=== PATIENT | female | born 1945 | race Caucasian/White ===

== ENCOUNTER → 2020-09-14 10:18 | Outpatient (BNVA) | payer MEDICARE, SELFPAY | PROVIDERS: PCP Internal Medicine; Referring Provider Internal Medicine; Visit Provider Internal Medicine | DX: J44.9 Chronic obstructive pulmonary disease, unspecified (principal); J84.9 Interstitial pulmonary disease, unspecified; R09.02 Hypoxemia | CPT/HCPCS: 99213 ==

== ENCOUNTER 2020-10-10 10:58 | Outpatient (REF) | payer MEDICARE, SELFPAY ==
[2020-10-10 14:11] LABS: MANUAL DIFF FLAG NO
[2020-10-10 14:18] LABS: Basophils Absolute Auto 0.1 X10*3/uL (0.0-0.2); Basophils Percent Auto 0.8 % (0-2); Eosinophils Absolute Auto 0.5 X10*3/uL (0.0-0.4); Eosinophils Percent Auto 6.3 % (0-4); Hematocrit 36.8 % (37-47); Imm Gran Abs Auto 0.02 X10*3/uL (0.00-0.03); Imm Gran Pct Auto 0.3 % (0.0-0.4); Lymphocytes Absolute Auto 1.2 X10*3/uL (1.2-4.9); Lymphocytes Percent Auto 15.9 % (20-40); Mean Corpuscular HGB Conc 32.6 g/dl (31.0-35.0); Mean Corpuscular Hemoglobin 28.5 pg (27.0-33.0); Mean Corpuscular Volume 87.4 fL (80-98); Monocytes Absolute Auto 0.5 X10*3/uL (0.1-1.2); Monocytes Percent Auto 6.7 % (2-11); Neutrophils Absolute Auto 5.2 X10*3/uL (2.0-8.3); Platelet Count 306 X10*3/uL (160-400); Red Blood Count 4.21 X10*6/uL (4.20-5.50); Red Cell Distribution Width 14.9 % (11.0-16.0); White Blood Count 7.4 X10*3/uL (4.8-10.8)
[2020-10-10 14:47] LABS: Alanine Aminotransferase 34 U/L (0-31); Albumin Level 4.4 g/dL (3.5-5.0); Alkaline Phosphatase 94 U/L (39-117); Anion Gap 14 (12-20); Aspartate Amino Transferase 25 U/L (5-31); Bilirubin Total 0.2 mg/dL (0.0-1.0); Blood Urea Nitrogen 27 mg/dL (9-16); Calcium 9.6 mg/dL (8.4-10.2); Carbon Dioxide 26 mmol/L (22-29); Chloride 103 mmol/L (96-108); Estimated Glomerular Filt Rate 37; Glucose Random 106 mg/dL (60-115); Potassium 4.7 mmol/l (3.3-5.1); Sodium 138 mmol/L (135-145); Total Protein 7.3 g/dL (6.5-8.0)
[2020-10-10 15:35] LABS: Estimated Average Glucose 166 mg/dL; Hemoglobin A1c % 7.4 %
== END 2020-10-10 10:59 | disposition home or self-care (01) ==
LOC: HO.10HDL 10:58
PROVIDERS: Visit Provider Internal Medicine
DX: J44.9 Chronic obstructive pulmonary disease, unspecified (principal); E11.9 Type 2 diabetes mellitus without complications; I10 Essential (primary) hypertension; E78.00 Pure hypercholesterolemia, unspecified
CPT/HCPCS: 36415; 80053; 82043; 83036; 85025

== ENCOUNTER 2021-01-11 10:43 | Outpatient (REF) | payer MEDICARE, SELFPAY ==
[2021-01-11 13:37] LABS: MANUAL DIFF FLAG NO
[2021-01-11 13:43] LABS: Basophils Absolute Auto 0.1 X10*3/uL (0.0-0.2); Basophils Percent Auto 0.9 % (0-2); Eosinophils Absolute Auto 0.4 X10*3/uL (0.0-0.4); Eosinophils Percent Auto 5.4 % (0-4); Hematocrit 38.4 % (37-47); Hemoglobin 12.2 g/dl (12.0-16.0); Imm Gran Abs Auto 0.02 X10*3/uL (0.00-0.03); Imm Gran Pct Auto 0.2 % (0.0-0.4); Lymphocytes Absolute Auto 1.3 X10*3/uL (1.2-4.9); Lymphocytes Percent Auto 15.8 % (20-40); Mean Corpuscular HGB Conc 31.8 g/dl (31.0-35.0); Mean Corpuscular Hemoglobin 28.7 pg (27.0-33.0); Mean Corpuscular Volume 90.4 fL (80-98); Mean Platelet Volume 9.8 fL (9.4-12.3); Monocytes Absolute Auto 0.6 X10*3/uL (0.1-1.2); Monocytes Percent Auto 7.2 % (2-11); Neutrophils Absolute Auto 5.8 X10*3/uL (2.0-8.3); Neutrophils Percent Auto 70.5 % (45-73); Platelet Count 272 X10*3/uL (160-400); Red Blood Count 4.25 X10*6/uL (4.20-5.50); Red Cell Distribution Width 14.1 % (11.0-16.0); White Blood Count 8.2 X10*3/uL (4.8-10.8)
[2021-01-11 13:55] LABS: Estimated Average Glucose 137 mg/dL; Hemoglobin A1c % 6.4 %
[2021-01-11 14:10] LABS: Alanine Aminotransferase 32 U/L (0-31); Albumin Level 4.3 g/dL (3.5-5.0); Alkaline Phosphatase 95 U/L (39-117); Anion Gap 14 (12-20); Aspartate Amino Transferase 22 U/L (5-31); Bilirubin Total 0.4 mg/dL (0.0-1.0); Blood Urea Nitrogen 28 mg/dL (9-16); Calcium 9.8 mg/dL (8.4-10.2); Carbon Dioxide 27 mmol/L (22-29); Chloride 103 mmol/L (96-108); Estimated Glomerular Filt Rate 40; Glucose Random 137 mg/dL (60-115); Potassium 4.9 mmol/L (3.3-5.1); Sodium 139 mmol/L (135-145); Total Protein 7.2 g/dL (6.5-8.0)
== END 2021-01-11 10:44 | disposition home or self-care (01) ==
LOC: HO.10HDL 10:43
PROVIDERS: Visit Provider Internal Medicine
DX: E11.22 Type 2 diabetes mellitus with diabetic chronic kidney disease (principal); N18.9 Chronic kidney disease, unspecified; J44.9 Chronic obstructive pulmonary disease, unspecified
CPT/HCPCS: 36415; 80053; 83036; 85025

== ENCOUNTER → 2021-02-13 12:55 | Outpatient (BNVA) | payer MEDICARE, SELFPAY | PROVIDERS: PCP Internal Medicine; Visit Provider Nurse Practitioner Family | DX: I25.10 Atherosclerotic heart disease of native coronary artery without angina pectoris (principal); I11.0 Hypertensive heart disease with heart failure; E78.5 Hyperlipidemia, unspecified; E11.9 Type 2 diabetes mellitus without complications; Z95.5 Presence of coronary angioplasty implant and graft; Z79.899 Other long term (current) drug therapy | CPT/HCPCS: 93005; 99212 ==

== ENCOUNTER → 2021-03-13 09:15 | Outpatient (BNVA) | payer MEDICARE, SELFPAY | PROVIDERS: PCP Internal Medicine; Visit Provider Internal Medicine | DX: J98.4 Other disorders of lung (principal); J44.9 Chronic obstructive pulmonary disease, unspecified; R09.02 Hypoxemia; Z79.899 Other long term (current) drug therapy | CPT/HCPCS: 99212 ==

== ENCOUNTER 2021-05-11 06:48 | Outpatient (REF) | payer MEDICARE, SELFPAY ==
[2021-05-11 11:12] LABS: MANUAL DIFF FLAG NO
[2021-05-11 11:28] LABS: Basophils Absolute Auto 0.1 X10*3/uL (0.0-0.2); Basophils Percent Auto 0.6 % (0-2); Eosinophils Absolute Auto 0.4 X10*3/uL (0.0-0.4); Eosinophils Percent Auto 4.9 % (0-4); Hematocrit 37.3 % (37-47); Hemoglobin 11.8 g/dl (12.0-16.0); Imm Gran Abs Auto 0.03 X10*3/uL (0.00-0.03); Imm Gran Pct Auto 0.4 % (0.0-0.4); Lymphocytes Absolute Auto 1.3 X10*3/uL (1.2-4.9); Mean Corpuscular HGB Conc 31.6 g/dl (31.0-35.0); Mean Corpuscular Hemoglobin 29.4 pg (27.0-33.0); Mean Platelet Volume 10.2 fL (9.4-12.3); Monocytes Absolute Auto 0.6 X10*3/uL (0.1-1.2); Monocytes Percent Auto 7.1 % (2-11); Neutrophils Absolute Auto 5.8 X10*3/uL (2.0-8.3); Platelet Count 271 X10*3/uL (160-400); Red Blood Count 4.01 X10*6/uL (4.20-5.50); Red Cell Distribution Width 13.4 % (11.0-16.0); White Blood Count 8.1 X10*3/uL (4.8-10.8)
[2021-05-11 11:58] LABS: Alanine Aminotransferase 38 U/L (0-31); Albumin Level 4.3 g/dL (3.5-5.0); Alkaline Phosphatase 110 U/L (39-117); Anion Gap 15 (12-20); Aspartate Amino Transferase 33 U/L (5-31); Bilirubin Total 0.4 mg/dL (0.0-1.0); Blood Urea Nitrogen 26 mg/dL (9-16); Calcium 9.4 mg/dL (8.4-10.2); Carbon Dioxide 24 mmol/L (22-29); Chloride 104 mmol/L (96-108); Cholesterol 146 mg/dL; Estimated Glomerular Filt Rate 33; Glucose Fasting 171 mg/dL (60-99); HDL Cholesterol 49 mg/dL; LDL Cholesterol Calculated 67 mg/dl; Sodium 138 mmol/L (135-145); Total Protein 7.1 g/dL (6.5-8.0); Triglycerides 151 mg/dL
[2021-05-11 12:20] LABS: Vitamin D 25-OH Total 41.4 ng/mL (>30)
[2021-05-11 12:23] LABS: Estimated Average Glucose 180 mg/dL; Hemoglobin A1c % 7.9 %
[2021-05-11 12:39] LABS: Creatinine Urine 56.85 mg/dL
== END 2021-05-11 06:49 | disposition home or self-care (01) ==
LOC: HO.HMGCLDS 06:48
PROVIDERS: PCP Internal Medicine; Visit Provider Internal Medicine
DX: I10 Essential (primary) hypertension (principal); E78.00 Pure hypercholesterolemia, unspecified; E11.9 Type 2 diabetes mellitus without complications; E55.9 Vitamin D deficiency, unspecified
CPT/HCPCS: 36415; 80053; 80061; 82043; 82306; 83036; 85025

== ENCOUNTER 2021-08-02 10:01 | Outpatient (REF) | payer MEDICARE, SELFPAY ==
[2021-08-02 11:19] LABS: Alanine Aminotransferase 32 U/L (0-31); Albumin Level 4.2 g/dL (3.5-5.0); Alkaline Phosphatase 97 U/L (39-117); Anion Gap 14 (12-20); Aspartate Amino Transferase 26 U/L (5-31); Bilirubin Total 0.4 mg/dL (0.0-1.0); Blood Urea Nitrogen 24 mg/dL (9-16); Calcium 9.6 mg/dL (8.4-10.2); Carbon Dioxide 25 mmol/L (22-29); Chloride 104 mmol/L (96-108); Estimated Glomerular Filt Rate 36; Glucose Random 168 mg/dL (60-115); Potassium 4.8 mmol/L (3.3-5.1); Sodium 138 mmol/L (135-145); Total Protein 6.8 g/dL (6.5-8.0)
[2021-08-02 11:30] LABS: Estimated Average Glucose 140 mg/dL; Hemoglobin A1c % 6.5 %
== END 2021-08-02 10:02 | disposition home or self-care (01) ==
LOC: HO.10HDL 10:01
PROVIDERS: Visit Provider Internal Medicine
DX: J44.9 Chronic obstructive pulmonary disease, unspecified (principal); I12.9 Hypertensive chronic kidney disease with stage 1 through stage 4 chronic kidney disease, or unspecified chronic kidney disease; N18.9 Chronic kidney disease, unspecified; E11.22 Type 2 diabetes mellitus with diabetic chronic kidney disease
CPT/HCPCS: 36415; 80053; 82043; 83036

== ENCOUNTER → 2021-08-21 12:10 | Outpatient (BNVA) | payer MEDICARE, SELFPAY | PROVIDERS: PCP Internal Medicine; Referring Provider Internal Medicine; Visit Provider Internal Medicine | DX: I25.10 Atherosclerotic heart disease of native coronary artery without angina pectoris (principal); I50.32 Chronic diastolic (congestive) heart failure; I11.0 Hypertensive heart disease with heart failure; I35.9 Nonrheumatic aortic valve disorder, unspecified; J44.9 Chronic obstructive pulmonary disease, unspecified; J98.4 Other disorders of lung; R09.02 Hypoxemia; E11.9 Type 2 diabetes mellitus without complications; E78.5 Hyperlipidemia, unspecified; Z87.891 Personal history of nicotine dependence; Z95.5 Presence of coronary angioplasty implant and graft | CPT/HCPCS: 99212 ==

== ENCOUNTER → 2021-09-18 09:16 | Outpatient (BNVA) | payer MEDICARE, SELFPAY | PROVIDERS: PCP Internal Medicine; Visit Provider Internal Medicine | DX: J44.9 Chronic obstructive pulmonary disease, unspecified (principal); J98.4 Other disorders of lung; R09.02 Hypoxemia | CPT/HCPCS: Q3014 ==

== ENCOUNTER → 2021-10-12 09:07 | Outpatient (REF) | payer MEDICARE, SELFPAY ==
--- NOTE | 2021-10-12 09:11 | CA_ITS ---
Transthoracic Echocardiogram Patient (Last, First, Middle): Gabi Lugo, Gender: Female Date of : 1945 Age: 76 Procedure Date: 10/12/2021 Procedure Type: Transthoracic Echocardiogram Location: OP Height: 165.1 cm Weight: 81.65 kg BSA: 1.89 m2 Heart Rate: bpm BP: 132 / 75 mmHg [employer]: [employer] Referring MD: Rajesh Simpson MD Symptoms: I35.9 - Nonrheumatic aortic valve disorder, unspecified Study Quality: Fair ECG Rhythm: Sinus Conclusions: - The left ventricular systolic function is normal. The calculated ejection fraction is 62% by biplane method. - There is severe calcification of the aortic valve. There is mild aortic valve stenosis. - There is moderate mitral annular calcification. Findings Left Ventricle Normal left ventricular cavity size. There is mildly increased left ventricular wall thickness. The left ventricular systolic function is normal. The calculated ejection fraction is 62% by biplane method. There is no evidence of regional wall motion abnormalities. E/E prime ratio is >15, consistent with elevated filling pressures. Evidence suggests grade I (mild) diastolic dysfunction. Right Ventricle Normal right ventricular cavity size and systolic function. Atria The left atrium is likely dilated. The right atrium is normal in size. Aortic Valve There is severe calcification of the aortic valve. There is mild aortic valve stenosis. The peak aortic velocity is 2.55 m/s with a calculated peak gradient of 26 mmHg. The mean gradient is 16 mmHg. The aortic valve area is 1.58 cm2. There is trace (trivial) aortic valve regurgitation. Mitral Valve There is moderate mitral annular calcification. There is mild mitral valve regurgitation. There is no mitral valve stenosis. Pulmonic Valve The pulmonic valve was not well visualized. Tricuspid Valve Normal tricuspid valve structure. There is trace tricuspid valve regurgitation. The pulmonary artery systolic pressure is normal. Great Vessels The aortic annulus, sinuses of valsalva, and asc aorta are normal in size. Venous The inferior vena cava is normal in size and collapses greater than 50% with inspiration. Pericardium/Pleural There is no evidence of pericardial effusion. Prior Study Comparison No significant change compared to prior study dated: 08/16/2020. Measurements 2D Linear Measurements IVSd: 1.16 0.6-0.9/0.6-1.0 cm LVIDd: 4.15 3.9-5.3/4.2-5.9 cm LVIDd Index: 2.20 2.4-3.2/2.2-3.1 cm/m2 LVIDs: 2.52 2.0-3.6 cm LVPWd: 1.12 0.7-1.1 cm Ao Root: 3.60 2.1-3.5 cm LA Diam: 4.00 2.7-3.8/3.0-4.0 cm LAIDs Index: 2.12 1.5-2.3 cm/m2 LV Mass: 202.15 67-162/88-224 g LV Mass Index: 106.96 43-95/49-115 g/m2 LVOT Diam: 2.10 3.0+(-)1.3 cm 2D Systolic Function EF 4C: 60.50 >55% EF 2C: 61.20 >55% EF BiP: 61.50 >55% Mitral Valve MV Pk E: 0.85 MV PK A: 1.16 MV Decel Time: 240.00 E/A: 0.70 E'Lateral: 5.22 E'Medial: 3.81 E/E' Med: 22.30 E/E' Lat: 16.20 PHT: 70.00 MVA PHT: 3.14 Decel [place]: 3.54 Aortic Valve AoV Pk Myron: 2.55 AoV Mn Myron: 1.89 AoV VTI: 0.59 AoV Pk Grad: 26.00 Aov Mn Grad: 16.00 COLLEEN Cont.VTI: 1.58 LVOT LVOT Pk Myron: 1.16 LVOT Mn Myron: 0.83 LVOT VTI: 0.27 LVOT Pk Grad: 5.00 LVOT Mn Grad: 3.00 LVOT Diam: 2.10 LVOT Area: 3.46 Diastolic Function MV Pk E: 0.85 MV Pk A: 1.16 E/A: 0.70 E'Medial: 3.81 E/E' Med: 22.30 E' Laterial: 5.22 E/E' Lat: 16.20 Right Ventricle TAPSE (mm): 2.16 TVS' Myron: 15.20 Tricuspid Valve TR Pk Myron: 1.89 TR Pk Grad: 14.00 RA Press: 3.00 RVSP: 17.00 Great Vessels Aorta Ao Root-2D: 3.60 2.0-3.7 cm Ao Asc: 3.40 2.1-3.4 cm Updated in Other Vendor System with Status of Final Rajesh Simpson MD electronically signed on 10/14/2021 12:12:46 PM with status of Final
== END ==
LOC: HO.CARD 09:07
PROVIDERS: PCP Internal Medicine; Visit Provider Internal Medicine
DX: I35.9 Nonrheumatic aortic valve disorder, unspecified (principal)
CPT/HCPCS: 93306

== ENCOUNTER 2022-02-08 07:11 | Outpatient (REF) | payer MEDICARE, SELFPAY ==
[2022-02-08 11:38] LABS: MANUAL DIFF FLAG NO
[2022-02-08 11:49] LABS: Basophils Absolute Auto 0.1 X10*3/uL (0.0-0.2); Basophils Percent Auto 0.9 % (0-2); Eosinophils Absolute Auto 0.4 X10*3/uL (0.0-0.4); Eosinophils Percent Auto 4.5 % (0-4); Hemoglobin 12.6 g/dl (12.0-16.0); Imm Gran Abs Auto 0.03 X10*3/uL (0.00-0.03); Imm Gran Pct Auto 0.3 % (0.0-0.4); Lymphocytes Absolute Auto 1.3 X10*3/uL (1.2-4.9); Lymphocytes Percent Auto 14.2 % (20-40); Mean Corpuscular HGB Conc 30.7 g/dl (31.0-35.0); Mean Corpuscular Hemoglobin 28.9 pg (27.0-33.0); Monocytes Absolute Auto 0.6 X10*3/uL (0.1-1.2); Monocytes Percent Auto 6.4 % (2-11); Neutrophils Absolute Auto 6.6 x10*3/uL (2.0-8.3); Neutrophils Percent Auto 73.7 % (45-73); Platelet Count 262 X10*3/uL (160-400); Red Blood Count 4.36 X10*6/uL (4.20-5.50); Red Cell Distribution Width 13.8 % (11.0-16.0)
[2022-02-08 11:59] LABS: Estimated Average Glucose 154 mg/dL
[2022-02-08 12:16] LABS: Alanine Aminotransferase 27 U/L (0-31); Albumin Level 4.1 g/dL (3.5-5.0); Alkaline Phosphatase 94 U/L (39-117); Anion Gap 13 (12-20); Aspartate Amino Transferase 22 U/L (5-31); Bilirubin Total 0.4 mg/dL (0.0-1.0); Blood Urea Nitrogen 29 mg/dL (9-16); Calcium 9.6 mg/dL (8.4-10.2); Carbon Dioxide 25 mmol/L (22-29); Chloride 105 mmol/L (96-108); Estimated Glomerular Filt Rate 31; Glucose Fasting 165 mg/dL (60-99); Potassium 5.4 mmol/L (3.3-5.1); Sodium 138 mmol/L (135-145); Total Protein 7.2 g/dL (6.5-8.0)
[2022-02-08 12:28] LABS: Creatinine Urine 77.39 mg/dL
== END 2022-02-08 07:12 | disposition home or self-care (01) ==
LOC: HO.HMGCLDS 07:11
PROVIDERS: Visit Provider Internal Medicine
DX: E11.22 Type 2 diabetes mellitus with diabetic chronic kidney disease (principal); I12.9 Hypertensive chronic kidney disease with stage 1 through stage 4 chronic kidney disease, or unspecified chronic kidney disease; N18.9 Chronic kidney disease, unspecified; J44.9 Chronic obstructive pulmonary disease, unspecified
CPT/HCPCS: 36415; 80053; 82043; 83036; 85025

== ENCOUNTER → 2022-03-13 09:09 | Outpatient (BNVA) | payer MEDICARE, SELFPAY | PROVIDERS: PCP Internal Medicine; Referring Provider Internal Medicine; Visit Provider Internal Medicine | DX: I25.10 Atherosclerotic heart disease of native coronary artery without angina pectoris (principal); I11.0 Hypertensive heart disease with heart failure; I50.32 Chronic diastolic (congestive) heart failure; I35.9 Nonrheumatic aortic valve disorder, unspecified; E11.9 Type 2 diabetes mellitus without complications; Z79.82 Long term (current) use of aspirin; Z79.899 Other long term (current) drug therapy; Z95.5 Presence of coronary angioplasty implant and graft | CPT/HCPCS: 93005; 99212 ==

== ENCOUNTER → 2022-03-20 09:51 | Outpatient (BNVA) | payer MEDICARE, SELFPAY | PROVIDERS: PCP Internal Medicine; Visit Provider Internal Medicine | DX: J44.9 Chronic obstructive pulmonary disease, unspecified (principal); J98.4 Other disorders of lung; R09.02 Hypoxemia | CPT/HCPCS: 99212 ==

== ENCOUNTER → 2022-07-16 08:18 | Outpatient (REF) | payer MEDICARE, SELFPAY ==
--- NOTE | 2022-07-16 08:21 | CA_ITS ---
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 The visually estimated ejection fraction is between 65-70%. - The left atrium is severely dilated. - There is severe calcification of the aortic valve. The mean gradient is 12 mmHg. The aortic valve area is 2.11 cm2. There is trace (trivial) aortic valve regurgitation. No significant aortic stenosis. - There is moderate mitral annular calcification. Findings Left Ventricle Normal left ventricular cavity size. There is moderately increased left ventricular wall thickness. The left ventricular systolic function is normal. The visually estimated ejection fraction is between 65-70%. There is no evidence of regional wall motion abnormalities. E/E prime ratio is between 8 and 15 consistent with indeterminate filling pressures. Evidence suggests grade I (mild) diastolic dysfunction. Right Ventricle Normal right ventricular cavity size and systolic function. Atria The left atrium is severely dilated. The right atrium is normal in size. Aortic Valve There is severe calcification of the aortic valve. The mean gradient is 12 mmHg. The aortic valve area is 2.11 cm2. There is trace (trivial) aortic valve regurgitation. No significant aortic stenosis. Mitral Valve There is moderate mitral annular calcification. There is mild mitral valve regurgitation. Cannot exclude mild mitral stenosis. Pulmonic Valve The pulmonic valve is likely normal. Tricuspid Valve Normal tricuspid valve structure. There is trace tricuspid valve regurgitation. There is no evidence of pulmonary hypertension. Great Vessels The aortic annulus, sinuses of valsalva, and asc aorta are normal in size. Venous The inferior vena cava is normal in size. Pericardium/Pleural There is no evidence of pericardial effusion. Prior Study Comparison No significant change compared to prior study dated: 10/12/2011. Measurements 2D Linear Measurements IVSd: 1.29 0.6-0.9/0.6-1.0 cm LVIDd: 4.85 3.9-5.3/4.2-5.9 cm LVIDd Index: 2.54 2.4-3.2/2.2-3.1 cm/m2 LVIDs: 2.74 2.0-3.6 cm LVPWd: 1.33 0.7-1.1 cm Ao Root: 3.70 2.1-3.5 cm LA Diam: 5.10 2.7-3.8/3.0-4.0 cm LAIDs Index: 2.67 1.5-2.3 cm/m2 LV Mass: 314.86 67-162/88-224 g LV Mass Index: 164.85 43-95/49-115 g/m2 LVOT Diam: 2.10 3.0+(-)1.3 cm 2D Systolic Function EF 4C: 66.30 >55% EF 2C: 62.40 >55% EF BiP: 64.00 >55% Mitral Valve MV VTI: 0.42 MV Pk Myron: 1.29 MV Mn Myron: 0.79 MV Pk Grad: 7.00 MV Mn Grad: 3.00 MV Pk E: 0.71 MV PK A: 1.02 MV Decel Time: 179.00 E/A: 0.70 E'Lateral: 7.07 E'Medial: 5.00 E/E' Med: 14.20 E/E' Lat: 10.10 PHT: 52.00 MVA PHT: 4.23 MVA Continuity: 2.46 Decel [place]: 3.97 Aortic Valve AoV Pk Myron: 2.48 AoV Mn Myron: 1.56 AoV VTI: 0.49 AoV Pk Grad: 25.00 Aov Mn Grad: 12.00 COLLEEN Cont.VTI: 2.11 LVOT LVOT Pk Myron: 1.23 LVOT Mn Myron: 0.87 LVOT VTI: 0.30 LVOT Pk Grad: 6.00 LVOT Mn Grad: 4.00 LVOT Diam: 2.10 LVOT Area: 3.46 Diastolic Function MV Pk E: 0.71 MV Pk A: 1.02 E/A: 0.70 E'Medial: 5.00 E/E' Med: 14.20 E' Laterial: 7.07 E/E' Lat: 10.10 Right Ventricle TAPSE (mm): 25.00 TVS' Myron: 16.00 Tricuspid Valve TR Pk Myron: 1.72 TR Pk Grad: 12.00 RA Press: 8.00 RVSP: 20.00 Great Vessels Aorta Ao Root-2D: 3.70 2.0-3.7 cm Ao Asc: 3.00 2.1-3.4 cm Pulmonary Valve PV Pk Myron: 1.21 Peak PV Grad: 6.00 Updated in Other Vendor System with Status of Final Rajesh Simpson MD electronically signed on 07/16/2022 12:38:37 PM with status of Final
== END ==
LOC: HO.CARD 08:18
PROVIDERS: PCP Internal Medicine; Visit Provider Internal Medicine
DX: I35.9 Nonrheumatic aortic valve disorder, unspecified (principal)
CPT/HCPCS: 93306

== ENCOUNTER → 2022-08-20 12:23 | Outpatient (BNVA) | payer MEDICARE, SELFPAY | PROVIDERS: PCP Internal Medicine; Referring Provider Internal Medicine; Visit Provider Internal Medicine | DX: I11.0 Hypertensive heart disease with heart failure (principal); I25.10 Atherosclerotic heart disease of native coronary artery without angina pectoris; I50.32 Chronic diastolic (congestive) heart failure; I35.9 Nonrheumatic aortic valve disorder, unspecified; I05.9 Rheumatic mitral valve disease, unspecified; E11.8 Type 2 diabetes mellitus with unspecified complications | CPT/HCPCS: 93005; 99212 ==

== ENCOUNTER → 2022-09-17 10:15 | Outpatient (BNVA) | payer MEDICARE, SELFPAY | PROVIDERS: PCP Internal Medicine; Visit Provider Internal Medicine | DX: J44.9 Chronic obstructive pulmonary disease, unspecified (principal); J98.4 Other disorders of lung; R09.02 Hypoxemia | CPT/HCPCS: 99212 ==

== ENCOUNTER 2022-11-07 07:28 | Outpatient (REF) | payer MEDICARE, SELFPAY ==
[2022-11-07 11:48] LABS: Estimated Average Glucose 171 mg/dL; Hemoglobin A1c % 7.6 %
[2022-11-07 12:09] LABS: Anion Gap 15 (12-20); Blood Urea Nitrogen 31 mg/dL (9-16); Calcium 9.4 mg/dL (8.4-10.2); Carbon Dioxide 26 mmol/L (22-29); Chloride 103 mmol/L (96-108); Estimated Glomerular Filt Rate 26; Potassium 4.6 mmol/L (3.3-5.1); Sodium 139 mmol/L (135-145)
[2022-11-07 12:30] LABS: Vitamin D 25-OH Total 39.8 ng/mL (>30)
[2022-11-07 12:38] LABS: Creatinine Urine 64.26 mg/dL; Protein/Creatinine Ratio, Ur 1.38 (<0.2); Total Protein Urine Random 89 mg/dL (<12)
[2022-11-07 12:41] LABS: Alanine Aminotransferase 27 U/L (0-31); Albumin Level 4.1 g/dL (3.5-5.0); Alkaline Phosphatase 106 U/L (39-117); Anion Gap 13 (12-20); Aspartate Amino Transferase 21 U/L (5-31); Bilirubin Total 0.5 mg/dL (0.0-1.0); Blood Urea Nitrogen 30 mg/dL (9-16); Calcium 9.5 mg/dL (8.4-10.2); Carbon Dioxide 28 mmol/L (22-29); Chloride 104 mmol/L (96-108); Estimated Glomerular Filt Rate 27; Glucose Random 191 mg/dL (60-115); Potassium 4.6 mmol/L (3.3-5.1); Sodium 140 mmol/L (135-145); Total Protein 7.2 g/dL (6.5-8.0)
[2022-11-07 12:42] LABS: Creatinine Urine 65.36 mg/dL
[2022-11-07 12:54] LABS: Microalbum/Creatinine Ratio Ur 823.1 ug/mg cr
[2022-11-08 14:14] LABS: Calcium (PTHI) 9.5 mg/dL (8.6-10.4); PTHI 108 pg/mL (16-77)
== END 2022-11-07 07:29 | disposition home or self-care (01) ==
LOC: HO.HMGCLDS 07:28
PROVIDERS: PCP Internal Medicine; Visit Provider Internal Medicine
DX: I12.9 Hypertensive chronic kidney disease with stage 1 through stage 4 chronic kidney disease, or unspecified chronic kidney disease (principal); E11.22 Type 2 diabetes mellitus with diabetic chronic kidney disease; N18.9 Chronic kidney disease, unspecified; J44.9 Chronic obstructive pulmonary disease, unspecified
CPT/HCPCS: 36415; 80051; 80053; 82043; 82306; 82310; 82565; 83036; 83970; 84156; 84520

== ENCOUNTER 2023-01-23 13:48 | Inpatient (IN) | payer MEDICARE, SELFPAY ==
--- NOTE | ~2023-01-23 | US_ITS ---
EXAMINATION: US ABDOMEN COMPLETE CLINICAL INFORMATION: Elevated liver function tests. COMPARISON: None TECHNIQUE: Real-time imaging of the abdominal viscera. FINDINGS: PANCREAS: Normal. ABDOMINAL AORTA: The proximal and mid segments are normal in caliber. The distal abdominal aorta is not well visualized. INFERIOR VENA CAVA: Visualized portions are normal. LIVER: Liver echotexture is increased and slightly heterogeneous suggestive of hepatocellular disease. The contour of the liver is slightly irregular questionable for mild cirrhotic change. No focal liver lesion is seen. No biliary duct dilatation. GALLBLADDER: Gallbladder is slightly contracted. There are gallstones. The gallbladder wall measures 0.5 cm which is slightly increased. This may be overestimated as the gallbladder is contracted. No gallbladder wall edema or pericholecystic fluid. COMMON BILE DUCT: Normal in caliber measuring 0.3 - 0.6 cm in diameter. RIGHT KIDNEY: Normal. No hydronephrosis. No renal calculi or focal parenchymal lesions. The kidney measures 12 cm in maximum dimension. LEFT KIDNEY: Normal. No hydronephrosis. No renal calculi or focal parenchymal lesions. The kidney measures 13 cm in maximum dimension. SPLEEN: Normal. The spleen measures 9.6 cm in maximum dimension. FREE FLUID: None. US/US abdomen complete IMPRESSION: Echogenic heterogeneous liver suggestive of hepatocellular disease and question mild cirrhotic change. Gallstones. Limited visualization of the distal aorta.
--- NOTE | ~2023-01-23 | CT_ITS ---
EXAMINATION: CT CHEST WITHOUT CONTRAST CLINICAL INFORMATION: Hypoxia, shortness of breath COMPARISON: 03/22/2018 TECHNIQUE: Multidetector volumetric CT imaging of the chest was done. Axial MIP volume rendering provided. Sagittal and coronal reformatted images were obtained. This CT examination was performed using dose optimization techniques as appropriate, variously including the following: *Automated exposure control *Adjustment of mA and/or kV according to patient size (this includes techniques or standardized protocols for targeted exams where dose is matched to indication/reason for exam; i.e. extremities or head) *Use of iterative reconstruction technique DLP: 249 mGy-cm FINDINGS: LUNGS: Redemonstrated biapical scarring. Redemonstrated moderate to severe upper lobe predominant emphysema, similar to prior. Regions of subpleural reticulation bilaterally appear overall mildly increased from prior, raising the possibility of developing superimposed nonspecific interstitial lung disease. No new region of consolidation is seen. No new suspicious lung nodules are seen. MEDIASTINUM: Visualized thyroid gland is unremarkable. Multiple scattered mildly enlarged lymph nodes are redemonstrated, similar to prior. Cardiac size is within normal limits; no pericardial effusion. There is atherosclerotic calcification along the aorta. CORONARY ARTERY CALCIFICATION: Present PLEURA: There is no pleural effusion. No pleural mass or thickening. AXILLA: No lymphadenopathy. UPPER ABDOMEN: Unremarkable. OSSEOUS STRUCTURES: Redemonstrated chronic T8 compression deformity. CT/CT chest wo IV con IMPRESSION: 1. Redemonstrated moderate to severe upper lobe predominant emphysema. Regions of subpleural reticulation bilaterally appear overall mildly increased from prior, raising the possibility of developing superimposed nonspecific interstitial lung disease. 2. Multiple mildly enlarged mediastinal lymph nodes, overall similar to 2018. 3. Coronary artery calcifications. Correlation with cardiac risk factors is recommended.
--- NOTE | ~2023-01-23 | XR_ITS ---
EXAMINATION: XR CHEST CLINICAL INFORMATION: Shortness of breath COMPARISON: 07/04/2020 TECHNIQUE: Frontal view of the chest was obtained. FINDINGS: Cardiac leads overlie the chest. The lungs are well expanded. Diffuse bronchial wall thickening. No pleural effusion or pneumothorax. The cardiomediastinal silhouette is unchanged, with a calcified aorta. XR/XR chest 1V IMPRESSION: No dense consolidation. Bronchial wall thickening can be seen with a small airways process such as asthma or atypical/viral infection.
[2023-01-23 14:15] VITALS: BP 176/68; PULSE 95; RESP 26; TEMP 37.3; O2SAT 78; BMI 29.7
--- NOTE | 2023-01-23 14:15 | ED.SOB ---
HPI - SOB/Dyspnea General Chief Complaint: General Medical Stated Complaint: difficulty breathing Time Seen by Provider: 01/23/23 14:49 Related Data Home Medications Medication Instructions Recorded Confirmed aspirin 81 mg tablet,delayed 81 mg PO DAILY 09/14/20 08/20/22 release cholecalciferol (vitamin D3) 25 25 mcg PO DAILY 09/14/20 08/20/22 mcg (1,000 unit) capsule lisinopril 40 mg tablet 20 mg PO DAILY 02/13/21 08/20/22 multivitamin (Daily Multi-Vitamin 1 tab PO DAILY 09/18/21 08/20/22 tablet) amlodipine 5 mg tablet 5 mg PO DAILY 03/13/22 08/20/22 glipizide 5 mg tablet 5 mg PO BID 03/20/22 08/20/22 Previous Rx's Medication Instructions Recorded rosuvastatin 40 mg tablet 40 mg PO DAILY 90 days #90 tabs 08/29/22 Allergies Allergy/AdvReac Type Severity Reaction Status Date / Time No Known Allergies Allergy Verified 01/23/23 14:21 [No Known Allergies*] [facility] Past Medical History Medical History CAD (coronary artery disease) Chronic diastolic heart failure COPD (chronic obstructive pulmonary disease) Diabetes Diastolic dysfunction Hyperlipidemia Hypertension Hypoxemia Restrictive lung disease Type 2 diabetes mellitus with unspecified complications Surgical History History of left cataract surgery Stented coronary artery Family History Family History Father Diabetes Mother Unknown Social History Social History Patient Tobacco Use Status: Former Tobacco user Smoked in Last 30 Days: No Use of substances other than those prescribed or required for medical reasons: No Any prior treatment program specific to substance use: No Advance Directives: No Physical Exam Vital Signs: Vital Signs: Last Vital Signs Temp 99.1 F 01/23/23 14:15 Pulse 101 H 01/23/23 14:55 Resp 28 H 01/23/23 14:55 BP 176/68 H 01/23/23 14:15 Pulse Ox 85 L 01/23/23 15:15 O2 Del Method 01/23/23 15:15 O2 Flow Rate 2 01/23/23 15:15 Oxygen Flow Rate 2 01/23/23 14:15 BMI result Body Mass Index 29.7 Course Course Course Narrative: YRN: [id number], with past medical history of COPD on 2L oxygen at home, DM, HTN, HLD, and CHF, presenting for evaluation of worsening SOB, worse with ambulation x 1 week. Reports cough, no sputum. Denies fevers or chest pain. Patient is diaphoretic, with oxygen saturation in low 70s on 2L, respiratory rate in mid 30s. Increased supplemental oxygen to 6L and now saturating in at 97-99%. Labs, EKG, chest x-ray, methylprednisolone 125mg IV push, and albuterol 10mg updraft ordered. Patient will be brought directly to the main ER for further management. Medications Administered Discontinued Medications Generic Name Dose Route Start Last Admin Trade Name Freq PRN Reason Stop Dose Admin Albuterol Sulfate 10 mg 01/23/23 14:17 01/23/23 14:54 Albuterol Sulfate (0.083%) 2.5 Mg/3 Ml Vial.Neb INHALE 01/23/23 14:18 10 mg ONCE ONE Administration Furosemide 40 mg 01/23/23 14:59 01/23/23 15:03 Furosemide 40 Mg/4 Ml Vial IVPUSH 01/23/23 15:00 40 mg STAT STA Administration Protocol Ceftriaxone Sodium 1 gm/ 50 mls @ 100 mls/hr 01/23/23 15:01 01/23/23 16:11 Sodium Chloride IV 01/23/23 15:30 Infused ONCE ONE Infusion Azithromycin 500 mg/ Sodium 250 mls @ 125 mls/hr 01/23/23 15:01 01/23/23 18:35 Chloride IV 01/23/23 17:00 Infused ONCE ONE Infusion Methylprednisolone Sodium Succinate 125 mg 01/23/23 14:20 01/23/23 14:51 Methylprednisolone Sod Succ 125 Mg/2 Ml Vial IVPUSH 01/23/23 14:21 125 mg ONCE ONE Administration Medical Decision Making Lab Data 01/23/23 14:52 01/23/23 14:52 Labs: Lab Results 01/23/23 01/23/23 01/23/23 Range/Units 14:52 14:52 14:52 WBC 9.1 (4.8-10.8) X10*3/uL RBC 4.03 L (4.20-5.50) X10*6/uL Hgb 11.3 L (12.0-16.0) g/dl Hct 35.8 L (37.0-47.0) % MCV 88.8 (80.0-98.0) fL MCH 28.0 (27.0-33.0) pg MCHC 31.6 (31.0-35.0) g/dl RDW 13.9 (11.0-16.0) % Plt Count 352 D (160-400) X10*3/uL MPV 8.7 L (9.4-12.3) fL Immature Gran % (Auto) 0.7 H (0.0-0.4) % Neut % (Auto) 82.4 H (45-73) % Lymph % (Auto) 9.1 L (20-40) % [place] % (Auto) 5.7 (2-11) % Eos % (Auto) 1.6 (0-4) % Baso % (Auto) 0.5 (0-2) % Lymph # (Auto) 0.8 L (1.2-4.9) X10*3/uL [place] # (Auto) 0.5 (0.1-1.2) X10*3/uL Eos # (Auto) 0.2 (0.0-0.4) X10*3/uL Baso # (Auto) 0.1 (0.0-0.2) X10*3/uL Abs Immat Gran (auto) 0.06 H (0.00-0.03) X10*3/uL Absolute Neuts (auto) 7.5 (2.0-8.3) x10*3/uL Absolute Nucleated RBC 0.000 (0.0-0.012) X10*3/uL Nucleated RBC % (auto) 0.0 (0.0-0.2) /100WBC VBG pH (7.32-7.43) VBG pCO2 mmHg VBG pO2 mmHg VBG HCO3 (22-26) mmol/L VBG O2 Saturation % VBG Base Excess mmol/L Sodium 138 (135-145) mmol/L Potassium 5.2 H (3.3-5.1) mmol/L Chloride 102 (96-108) mmol/L Carbon Dioxide 27 (22-29) mmol/L Anion Gap 14 (12-20) BUN 35 H (9-16) mg/dL Creatinine 1.87 H (0.5-1.4) mg/dL Estim Creat Clear Calc 26.4 Estimated GFR 26 Random Glucose 191 H (60-115) mg/dL Lactic Acid (0.5-2.0) mmol/L Calcium 9.1 (8.4-10.2) mg/dL Magnesium 1.9 (1.6-2.6) mg/dL Total Bilirubin 0.3 (0.0-1.0) mg/dL Direct Bilirubin 0.2 (0.0-0.5) mg/dL AST 74 H (5-31) U/L ALT 88 H (0-31) U/L Alkaline Phosphatase 137 H (39-117) U/L B-Natriuretic Peptide 261 H (<100) pg/mL Total Protein 7.0 (6.5-8.0) g/dL Albumin 3.4 L (3.5-5.0) g/dL Lipase 34 (8-78) U/L Urine Color Urine Appearance Urine pH (5.0-9.0) Ur Specific [place] (1.005-1.025) Urine Protein (Neg-Trace) mg/dL Urine Glucose (UA) (Negative) mg/dL Urine Ketones (Negative) mg/dL Urine Blood (Negative) Urine Nitrite (Negative) Ur Leukocyte Esterase (Negative) Urine RBC (0-2) /HPF Urine WBC (0-5) /HPF Ur Squamous Epith Cells (0-2) /HPF Urine Bacteria (None Seen) Hyaline Casts (0-2) /LPF COVID-19 ([facility]) (Negative) COVID-19 Clin Com Influenza Type A ([facility]) (Negative) Influenza Type A (PCR) Influenza Type B ([facility]) (Negative) Influenza Type B (PCR) Influenza A & B Note RSV RNA Qual (PCR) SARS-CoV-2 RNA (RT-PCR) 01/23/23 01/23/23 01/23/23 Range/Units 14:52 14:57 15:11 WBC (4.8-10.8) X10*3/uL RBC (4.20-5.50) X10*6/uL Hgb (12.0-16.0) g/dl Hct (37.0-47.0) % MCV (80.0-98.0) fL MCH (27.0-33.0) pg MCHC (31.0-35.0) g/dl RDW (11.0-16.0) % Plt Count (160-400) X10*3/uL MPV (9.4-12.3) fL Immature Gran % (Auto) (0.0-0.4) % Neut % (Auto) (45-73) % Lymph % (Auto) (20-40) % [place] % (Auto) (2-11) % Eos % (Auto) (0-4) % Baso % (Auto) (0-2) % Lymph # (Auto) (1.2-4.9) X10*3/uL [place] # (Auto) (0.1-1.2) X10*3/uL Eos # (Auto) (0.0-0.4) X10*3/uL Baso # (Auto) (0.0-0.2) X10*3/uL Abs Immat Gran (auto) (0.00-0.03) X10*3/uL Absolute Neuts (auto) (2.0-8.3) x10*3/uL Absolute Nucleated RBC (0.0-0.012) X10*3/uL Nucleated RBC % (auto) (0.0-0.2) /100WBC VBG pH 7.35 (7.32-7.43) VBG pCO2 44 mmHg VBG pO2 53 mmHg VBG HCO3 24 (22-26) mmol/L VBG O2 Saturation 72.0 % VBG Base Excess -0.9 mmol/L Sodium (135-145) mmol/L Potassium (3.3-5.1) mmol/L Chloride (96-108) mmol/L Carbon Dioxide (22-29) mmol/L Anion Gap (12-20) BUN (9-16) mg/dL Creatinine (0.5-1.4) mg/dL Estim Creat Clear Calc Estimated GFR Random Glucose (60-115) mg/dL Lactic Acid 0.8 (0.5-2.0) mmol/L Calcium (8.4-10.2) mg/dL Magnesium (1.6-2.6) mg/dL Total Bilirubin (0.0-1.0) mg/dL Direct Bilirubin (0.0-0.5) mg/dL AST (5-31) U/L ALT (0-31) U/L Alkaline Phosphatase (39-117) U/L B-Natriuretic Peptide (<100) pg/mL Total Protein (6.5-8.0) g/dL Albumin (3.5-5.0) g/dL Lipase (8-78) U/L Urine Color Urine Appearance Urine pH (5.0-9.0) Ur Specific [place] (1.005-1.025) Urine Protein (Neg-Trace) mg/dL Urine Glucose (UA) (Negative) mg/dL Urine Ketones (Negative) mg/dL Urine Blood (Negative) Urine Nitrite (Negative) Ur Leukocyte Esterase (Negative) Urine RBC (0-2) /HPF Urine WBC (0-5) /HPF Ur Squamous Epith Cells (0-2) /HPF Urine Bacteria (None Seen) Hyaline Casts (0-2) /LPF COVID-19 ([facility]) (Negative) COVID-19 Clin Com Influenza Type A ([facility]) (Negative) Influenza Type A (PCR) Cancelled Influenza Type B ([facility]) (Negative) Influenza Type B (PCR) Cancelled Influenza A & B Note RSV RNA Qual (PCR) Cancelled SARS-CoV-2 RNA (RT-PCR) Cancelled 01/23/23 01/23/23 01/23/23 Range/Units 17:44 17:44 17:44 WBC (4.8-10.8) X10*3/uL RBC (4.20-5.50) X10*6/uL Hgb (12.0-16.0) g/dl Hct (37.0-47.0) % MCV (80.0-98.0) fL MCH (27.0-33.0) pg MCHC (31.0-35.0) g/dl RDW (11.0-16.0) % Plt Count (160-400) X10*3/uL MPV (9.4-12.3) fL Immature Gran % (Auto) (0.0-0.4) % Neut % (Auto) (45-73) % Lymph % (Auto) (20-40) % [place] % (Auto) (2-11) % Eos % (Auto) (0-4) % Baso % (Auto) (0-2) % Lymph # (Auto) (1.2-4.9) X10*3/uL [place] # (Auto) (0.1-1.2) X10*3/uL Eos # (Auto) (0.0-0.4) X10*3/uL Baso # (Auto) (0.0-0.2) X10*3/uL Abs Immat Gran (auto) (0.00-0.03) X10*3/uL Absolute Neuts (auto) (2.0-8.3) x10*3/uL Absolute Nucleated RBC (0.0-0.012) X10*3/uL Nucleated RBC % (auto) (0.0-0.2) /100WBC VBG pH (7.32-7.43) VBG pCO2 mmHg VBG pO2 mmHg VBG HCO3 (22-26) mmol/L VBG O2 Saturation % VBG Base Excess mmol/L Sodium (135-145) mmol/L Potassium (3.3-5.1) mmol/L Chloride (96-108) mmol/L Carbon Dioxide (22-29) mmol/L Anion Gap (12-20) BUN (9-16) mg/dL Creatinine (0.5-1.4) mg/dL Estim Creat Clear Calc Estimated GFR Random Glucose (60-115) mg/dL Lactic Acid (0.5-2.0) mmol/L Calcium (8.4-10.2) mg/dL Magnesium (1.6-2.6) mg/dL Total Bilirubin (0.0-1.0) mg/dL Direct Bilirubin (0.0-0.5) mg/dL AST (5-31) U/L ALT (0-31) U/L Alkaline Phosphatase (39-117) U/L B-Natriuretic Peptide (<100) pg/mL Total Protein (6.5-8.0) g/dL Albumin (3.5-5.0) g/dL Lipase (8-78) U/L Urine Color Yellow Urine Appearance Clear Urine pH 5.0 (5.0-9.0) Ur Specific [place] 1.010 (1.005-1.025) Urine Protein 100 (2+) H (Neg-Trace) mg/dL Urine Glucose (UA) 100 H (Negative) mg/dL Urine Ketones Negative (Negative) mg/dL Urine Blood Negative (Negative) Urine Nitrite Negative (Negative) Ur Leukocyte Esterase Trace H (Negative) Urine RBC 0-2 (0-2) /HPF Urine WBC 0-5 (0-5) /HPF Ur Squamous Epith Cells 3-5 (0-2) /HPF Urine Bacteria None Seen (None Seen) Hyaline Casts 3-5 (0-2) /LPF COVID-19 ([facility]) Negative (Negative) COVID-19 Clin Com See Note Influenza Type A ([facility]) Negative (Negative) Influenza Type A (PCR) Influenza Type B ([facility]) Negative (Negative) Influenza Type B (PCR) Influenza A & B Note See Note RSV RNA Qual (PCR) SARS-CoV-2 RNA (RT-PCR) Discharge Plan Discharge Clinical Impression: Chronic lung disease Patient Disposition: Admitted As Inpatient
--- NOTE | 2023-01-23 14:17 | ECG_ITS ---
Test Reason : sob Blood Pressure : / mmHG Vent. Rate : 097 BPM Atrial Rate : 097 BPM P-R Int : 196 ms QRS Dur : 078 ms QT Int : 330 ms P-R-T Axes : 060 021 061 degrees QTc Int : 419 ms Normal sinus rhythm Normal ECG When compared with ECG of 04-JUL-2020 17:39, Vent. rate has increased BY 35 BPM Referred By: Suzanne Adame Electronically Signed By:LUCILLE MONTEZ
[2023-01-23] MEDS: methylPREDNISolone Sod Succ 125 MG/2 ML VIAL IVPUSH (14:51)
[2023-01-23] MEDS: Albuterol Sulfate (0.083%) 2.5 MG/3 ML VIAL.NEB 10 MG INHALE (14:54)
[2023-01-23 14:55] VITALS: PULSE 101; RESP 28; O2SAT 86
--- NOTE | 2023-01-23 15:00 | ED_ITS ---
HPI - General Adult General Chief complaint: General Medical Stated complaint: difficulty breathing Time Seen by Provider: 01/23/23 14:49 Source: patient Mode of arrival: ambulatory Limitations: no limitations History of Present Illness HPI narrative: Patient comes to the emergency room complaining of worsening shortness of breath. Patient states that she has history of COPD. Patient states that she does not have any inhalers at home. Patient states that when she is at rest, she does not use oxygen, but with minimal exertion, she becomes significantly short of breath. Patient uses 2 L of oxygen at bedtime. Patient states she has been coughing more than usual, denies fever or chills, no chest pain. Patient arrived in triage, patient's oxygen saturation was 78% on room air Related Data Home Medications Medication Instructions Recorded Confirmed aspirin 81 mg tablet,delayed 81 mg PO DAILY 09/14/20 08/20/22 release cholecalciferol (vitamin D3) 25 25 mcg PO DAILY 09/14/20 08/20/22 mcg (1,000 unit) capsule lisinopril 40 mg tablet 20 mg PO DAILY 02/13/21 08/20/22 multivitamin (Daily Multi-Vitamin 1 tab PO DAILY 09/18/21 08/20/22 tablet) amlodipine 5 mg tablet 5 mg PO DAILY 03/13/22 08/20/22 glipizide 5 mg tablet 5 mg PO BID 03/20/22 08/20/22 Previous Rx's Medication Instructions Recorded rosuvastatin 40 mg tablet 40 mg PO DAILY 90 days #90 tabs 08/29/22 Allergies Allergy/AdvReac Type Severity Reaction Status Date / Time No Known Allergies Allergy Verified 01/23/23 14:21 [No Known Allergies*] Review of Systems Review of Systems: Constitutional : No Weight loss, No Fever, No Chills, No Night Sweats, No Fatigue, No Malaise ENT/Mouth : No Hearing loss, No Ear Pain, No Nasal Congestion, No Sinus Pain, No Hoarseness, No sore throat, No Rhinorrhea, No Swallowing Difficulty Eyes: No Eye Pain, No Swelling, No Redness, No Foreign Body, No Discharge, No Vision Changes Cardiovascular : No Chest Pain, palpitations, complaining of shortness of breath with exertion Respiratory : Complaining of cough, sputum production, wheezing, shortness of breath worse with exertion Gastrointestinal : No Nausea, No Vomiting, No Diarrhea, No Constipation, No abdominal Pain, No Hematochezia, No Melena Genitourinary : no irregular bleeding, No Dysuria, No Urinary Frequency, No Hematuria, No Urinary Incontinence, No Urgency, No Flank Pain, No Urinary Flow Changes, No Hesitancy Musculoskeletal : No joint pain, No Myalgias, No Joint Swelling Skin : No Skin Lesions, No rash Neuro : No Weakness, No Numbness, No Paresthesias, No Loss of Consciousness, No Dizziness, No Headache Psych : No Anxiety/Panic, No Depression, No SI/HI/AH/VH, No Social Issues, Heme/Lymph: No Bruising, No Bleeding,No Lymphadenopathy Endocrine : No Polyuria, No Polydipsia, No Temperature Intolerance [facility] Past Medical History Medical History CAD (coronary artery disease) Chronic diastolic heart failure COPD (chronic obstructive pulmonary disease) Diabetes Diastolic dysfunction Hyperlipidemia Hypertension Hypoxemia Restrictive lung disease Type 2 diabetes mellitus with unspecified complications Surgical History History of left cataract surgery Stented coronary artery Family History Family History Father Diabetes Mother Unknown Social History Social History Patient Tobacco Use Status: Former Tobacco user Smoked in Last 30 Days: No Use of substances other than those prescribed or required for medical reasons: No Any prior treatment program specific to substance use: No Advance Directives: No Physical Exam ED Vital Signs: Vital Signs - 24 hr 01/23/23 14:15 01/23/23 14:55 01/23/23 15:15 Temperature 99.1 F Pulse Rate 95 101 H Respiratory Rate 26 H 28 H Blood Pressure 176/68 H Pulse Oximetry 78 L 85 L Oxygen Delivery Method Nasal Cannula Nasal Cannula Oxygen Flow Rate 2 BMI result Body Mass Index 29.7 Const Other: Appearance: Alert. Oriented X3. No acute distress. Eyes: Pupils equal, round and reactive to light. ENT: Pharynx normal. Neck: Normal inspection. Neck supple. No lymph nodes noted. No crepitus CVS: Normal heart rate and rhythm. Pulses normal. Normal S1 and S2 Respiratory: Moderate air movement, bilateral crackles, no significant wheezing , moderate air movement. At rest, oxygen saturation 92% on 2 L, with minimal exertion such as sitting up, oxygen drops the low 80s on 2 L. Patient takes several minutes to recover. Abdomen: Soft and nontender. No rigidity. No distention. Skin: Skin warm and dry. Normal skin color. Normal skin turgor. Extremities: No lower extremity edema. No Lacerations. No Rash Neuro: Oriented X 3. No motor deficit. No sensory deficit. Moving all extremities. No slurred speech. CN 2 through 12 grossly intact Psych: calm, cooperative, normal affect Medications Administered Discontinued Medications Generic Name Dose Route Start Last Admin Trade Name Freq PRN Reason Stop Dose Admin Albuterol Sulfate 10 mg 01/23/23 14:17 01/23/23 14:54 Albuterol Sulfate (0.083%) 2.5 Mg/3 Ml Vial.Neb INHALE 01/23/23 14:18 10 mg ONCE ONE Administration Furosemide 40 mg 01/23/23 14:59 01/23/23 15:03 Furosemide 40 Mg/4 Ml Vial IVPUSH 01/23/23 15:00 40 mg STAT STA Administration Protocol Ceftriaxone Sodium 1 gm/ 50 mls @ 100 mls/hr 01/23/23 15:01 01/23/23 16:11 Sodium Chloride IV 01/23/23 15:30 Infused ONCE ONE Infusion Azithromycin 500 mg/ Sodium 250 mls @ 125 mls/hr 01/23/23 15:01 01/23/23 1 8:35 Chloride IV 01/23/23 17:00 Infused ONCE ONE Infusion Methylprednisolone Sodium Succinate 125 mg 01/23/23 14:20 01/23/23 14:51 Methylprednisolone Sod Succ 125 Mg/2 Ml Vial IVPUSH 01/23/23 14:21 125 mg ONCE ONE Administration Medical Decision Making Medical Decision Making MDM Narrative: -patient's oxygen saturation drops to the low to mid 80s with minimal exertion such as sitting up from lying down position. This is not the patient's baseline -patient's x-ray shows no consolidation. -creatinine at baseline -white blood cell count and lactic acid within normal limits, no episodes of hypotension. No fever, sepsis not suspected. 30 mL/kilogram IV fluids not indicated at this time -I discussed the patient with Dr. Mazraeh, pt being admittd Differential Diagnosis Differential Diagnoses: The differential diagnosis associated with the presentation includes Admission/Observation Consideration of admission/observation: Escalation of care including admission/observation considered Consult Healthcare Provider Management of the patient was discussed with: Hospitalist Lab Data MDM Lab Attestation statement: I reviewed the patient's lab results. 01/23/23 14:52 Labs: Lab Results 01/23/23 01/23/23 01/23/23 Range/Units 14:52 14:52 14:52 WBC 9.1 (4.8-10.8) X10*3/uL RBC 4.03 L (4.20-5.50) X10*6/uL Hgb 11.3 L (12.0-16.0) g/dl Hct 35.8 L (37.0-47.0) % MCV 88.8 (80.0-98.0) fL MCH 28.0 (27.0-33.0) pg MCHC 31.6 (31.0-35.0) g/dl RDW 13.9 (11.0-16.0) % Plt Count 352 D (160-400) X10*3/uL MPV 8.7 L (9.4-12.3) fL Immature Gran % (Auto) 0.7 H (0.0-0.4) % Neut % (Auto) 82.4 H (45-73) % Lymph % (Auto) 9.1 L (20-40) % [place] % (Auto) 5.7 (2-11) % Eos % (Auto) 1.6 (0-4) % Baso % (Auto) 0.5 (0-2) % Lymph # (Auto) 0.8 L (1.2-4.9) X10*3/uL [place] # (Auto) 0.5 (0.1-1.2) X10*3/uL Eos # (Auto) 0.2 (0.0-0.4) X10*3/uL Baso # (Auto) 0.1 (0.0-0.2) X10*3/uL Abs Immat Gran (auto) 0.06 H (0.00-0.03) X10*3/uL Absolute Neuts (auto) 7.5 (2.0-8.3) x10*3/uL Absolute Nucleated RBC 0.000 (0.0-0.012) X10*3/uL Nucleated RBC % (auto) 0.0 (0.0-0.2) /100WBC VBG pH (7.32-7.43) VBG pCO2 mmHg VBG pO2 mmHg VBG HCO3 (22-26) mmol/L VBG O2 Saturation % VBG Base Excess mmol/L Sodium 138 (135-145) mmol/L Potassium 5.2 H (3.3-5.1) mmol/L Chloride 102 (96-108) mmol/L Carbon Dioxide 27 (22-29) mmol/L Anion Gap 14 (12-20) BUN 35 H (9-16) mg/dL Creatinine 1.87 H (0.5-1.4) mg/dL Estim Creat Clear Calc 26.4 Estimated GFR 26 Random Glucose 191 H (60-115) mg/dL Lactic Acid (0.5-2.0) mmol/L Calcium 9.1 (8.4-10.2) mg/dL Magnesium 1.9 (1.6-2.6) mg/dL Total Bilirubin 0.3 (0.0-1.0) mg/dL Direct Bilirubin 0.2 (0.0-0.5) mg/dL AST 74 H (5-31) U/L ALT 88 H (0-31) U/L Alkaline Phosphatase 137 H (39-117) U/L B-Natriuretic Peptide 261 H (<100) pg/mL Total Protein 7.0 (6.5-8.0) g/dL Albumin 3.4 L (3.5-5.0) g/dL Lipase 34 (8-78) U/L Urine Color Urine Appearance Urine pH (5.0-9.0) Ur Specific [place] (1.005-1.025) Urine Protein (Neg-Trace) mg/dL Urine Glucose (UA) (Negative) mg/dL Urine Ketones (Negative) mg/dL Urine Blood (Negative) Urine Nitrite (Negative) Ur Leukocyte Esterase (Negative) Urine RBC (0-2) /HPF Urine WBC (0-5) /HPF Ur Squamous Epith Cells (0-2) /HPF Urine Bacteria (None Seen) Hyaline Casts (0-2) /LPF COVID-19 ([facility]) (Negative) COVID-19 Clin Com Influenza Type A ([facility]) (Negative) Influenza Type A (PCR) Influenza Type B ([facility]) (Negative) Influenza Type B (PCR) Influenza A & B Note RSV RNA Qual (PCR) SARS-CoV-2 RNA (RT-PCR) 01/23/23 01/23/23 01/23/23 Range/Units 14:52 14:57 15:11 WBC (4.8-10.8) X10*3/uL RBC (4.20-5.50) X10*6/uL Hgb (12.0-16.0) g/dl Hct (37.0-47.0) % MCV (80.0-98.0) fL MCH (27.0-33.0) pg MCHC (31.0-35.0) g/dl RDW (11.0-16.0) % Plt Count (160-400) X10*3/uL MPV (9.4-12.3) fL Immature Gran % (Auto) (0.0-0.4) % Neut % (Auto) (45-73) % Lymph % (Auto) (20-40) % [place] % (Auto) (2-11) % Eos % (Auto) (0-4) % Baso % (Auto) (0-2) % Lymph # (Auto) (1.2-4.9) X10*3/uL [place] # (Auto) (0.1-1.2) X10*3/uL Eos # (Auto) (0.0-0.4) X10*3/uL Baso # (Auto) (0.0-0.2) X10*3/uL Abs Immat Gran (auto) (0.00-0.03) X10*3/uL Absolute Neuts (auto) (2.0-8.3) x10*3/uL Absolute Nucleated RBC (0.0-0.012) X10*3/uL Nucleated RBC % (auto) (0.0-0.2) /100WBC VBG pH 7.35 (7.32-7.43) VBG pCO2 44 mmHg VBG pO2 53 mmHg VBG HCO3 24 (22-26) mmol/L VBG O2 Saturation 72.0 % VBG Base Excess -0.9 mmol/L Sodium (135-145) mmol/L Potassium (3.3-5.1) mmol/L Chloride (96-108) mmol/L Carbon Dioxide (22-29) mmol/L Anion Gap (12-20) BUN (9-16) mg/dL Creatinine (0.5-1.4) mg/dL Estim Creat Clear Calc Estimated GFR Random Glucose (60-115) mg/dL Lactic Acid 0.8 (0.5-2.0) mmol/L Calcium (8.4-10.2) mg/dL Magnesium (1.6-2.6) mg/dL Total Bilirubin (0.0-1.0) mg/dL Direct Bilirubin (0.0-0.5) mg/dL AST (5-31) U/L ALT (0-31) U/L Alkaline Phosphatase (39-117) U/L B-Natriuretic Peptide (<100) pg/mL Total Protein (6.5-8.0) g/dL Albumin (3.5-5.0) g/dL Lipase (8-78) U/L Urine Color Urine Appearance Urine pH (5.0-9.0) Ur Specific [place] (1.005-1.025) Urine Protein (Neg-Trace) mg/dL Urine Glucose (UA) (Negative) mg/dL Urine Ketones (Negative) mg/dL Urine Blood (Negative) Urine Nitrite (Negative) Ur Leukocyte Esterase (Negative) Urine RBC (0-2) /HPF Urine WBC (0-5) /HPF Ur Squamous Epith Cells (0-2) /HPF Urine Bacteria (None Seen) Hyaline Casts (0-2) /LPF COVID-19 ([facility]) (Negative) COVID-19 Clin Com Influenza Type A ([facility]) (Negative) Influenza Type A (PCR) Cancelled Influenza Type B ([facility]) (Negative) Influenza Type B (PCR) Cancelled Influenza A & B Note RSV RNA Qual (PCR) Cancelled SARS-CoV-2 RNA (RT-PCR) Cancelled 01/23/23 01/23/23 01/23/23 Range/Units 17:44 17:44 17:44 WBC (4.8-10.8) X10*3/uL RBC (4.20-5.50) X10*6/uL Hgb (12.0-16.0) g/dl Hct (37.0-47.0) % MCV (80.0-98.0) fL MCH (27.0-33.0) pg MCHC (31.0-35.0) g/dl RDW (11.0-16.0) % Plt Count (160-400) X10*3/uL MPV (9.4-12.3) fL Immature Gran % (Auto) (0.0-0.4) % Neut % (Auto) (45-73) % Lymph % (Auto) (20-40) % [place] % (Auto) (2-11) % Eos % (Auto) (0-4) % Baso % (Auto) (0-2) % Lymph # (Auto) (1.2-4.9) X10*3/uL [place] # (Auto) (0.1-1.2) X10*3/uL Eos # (Auto) (0.0-0.4) X10*3/uL Baso # (Auto) (0.0-0.2) X10*3/uL Abs Immat Gran (auto) (0.00-0.03) X10*3/uL Absolute Neuts (auto) (2.0-8.3) x10*3/uL Absolute Nucleated RBC (0.0-0.012) X10*3/uL Nucleated RBC % (auto) (0.0-0.2) /100WBC VBG pH (7.32-7.43) VBG pCO2 mmHg VBG pO2 mmHg VBG HCO3 (22-26) mmol/L VBG O2 Saturation % VBG Base Excess mmol/L Sodium (135-145) mmol/L Potassium (3.3-5.1) mmol/L Chloride (96-108) mmol/L Carbon Dioxide (22-29) mmol/L Anion Gap (12-20) BUN (9-16) mg/dL Creatinine (0.5-1.4) mg/dL Estim Creat Clear Calc Estimated GFR Random Glucose (60-115) mg/dL Lactic Acid (0.5-2.0) mmol/L Calcium (8.4-10.2) mg/dL Magnesium (1.6-2.6) mg/dL Total Bilirubin (0.0-1.0) mg/dL Direct Bilirubin (0.0-0.5) mg/dL AST (5-31) U/L ALT (0-31) U/L Alkaline Phosphatase (39-117) U/L B-Natriuretic Peptide (<100) pg/mL Total Protein (6.5-8.0) g/dL Albumin (3.5-5.0) g/dL Lipase (8-78) U/L Urine Color Yellow Urine Appearance Clear Urine pH 5.0 (5.0-9.0) Ur Specific [place] 1.010 (1.005-1.025) Urine Protein 100 (2+) H (Neg-Trace) mg/dL Urine Glucose (UA) 100 H (Negative) mg/dL Urine Ketones Negative (Negative) mg/dL Urine Blood Negative (Negative) Urine Nitrite Negative (Negative) Ur Leukocyte Esterase Trace H (Negative) Urine RBC 0-2 (0-2) /HPF Urine WBC 0-5 (0-5) /HPF Ur Squamous Epith Cells 3-5 (0-2) /HPF Urine Bacteria None Seen (None Seen) Hyaline Casts 3-5 (0-2) /LPF COVID-19 ([facility]) Negative (Negative) COVID-19 Clin Com See Note Influenza Type A ([facility]) Negative (Negative) Influenza Type A (PCR) Influenza Type B ([facility]) Negative (Negative) Influenza Type B (PCR) Influenza A & B Note See Note RSV RNA Qual (PCR) SARS-CoV-2 RNA (RT-PCR) Independent Interpretation I performed an independent interpretation of an: EKG (EKG my interpretation: Normal sinus rhythm, heart rate 97, impression lesion, no T-wave inversion, QTC 419) and Plain X-Ray (Interpretation of chest x-ray: Mild edema) Radiology Impression Discussion of test interpretation with radiology: I have reviewed the radiologist's reading. Radiologist Impression: FINDINGS: Cardiac leads overlie the chest. The lungs are well expanded. Diffuse bronchial wall thickening. No pleural effusion or pneumothorax. The cardiomediastinal silhouette is unchanged, with a calcified aorta. XR/XR chest 1V IMPRESSION: No dense consolidation. Bronchial wall thickening can be seen with a small airways process such as asthma or atypical/viral infection. Critical Care Time Critical Care Time Critical Care Time: Yes Total Critical Care Time: 45 Attestation: I have personally provided critical care time. Time includes review of lab data, radiology results, discussion with consultants, and monitoring for potential decompensation. Intervention performed as documented. Discharge Plan Discharge Clinical Impression: Chronic lung disease Patient Disposition: Admitted As Inpatient Prescriptions: No Action rosuvastatin 40 mg tablet 40 mg PO DAILY 90 Days Qty: 90 3RF cholecalciferol (vitamin D3) 25 mcg (1,000 unit) capsule 25 mcg PO DAILY aspirin 81 mg tablet,delayed release (DR/EC) 81 mg PO DAILY lisinopril 40 mg tablet 20 mg PO DAILY Rx Instructions: 0.5 tablet multivitamin [Daily Multi-Vitamin] Tablet 1 tab PO DAILY glipizide 5 mg tablet 5 mg PO BID amlodipine 5 mg tablet 5 mg PO DAILY
[2023-01-23 15:01] LABS: Venous Blood Gas Refer to POC result
[2023-01-23 15:02] LABS: MANUAL DIFF FLAG NO
[2023-01-23] MEDS: Furosemide 40 MG/4 ML VIAL IVPUSH (15:03)
[2023-01-23 15:04] LABS: Basophils Absolute Auto 0.1 X10*3/uL (0.0-0.2); Basophils Percent Auto 0.5 % (0-2); Eosinophils Absolute Auto 0.2 X10*3/uL (0.0-0.4); Eosinophils Percent Auto 1.6 % (0-4); Hematocrit 35.8 % (37.0-47.0); Hemoglobin 11.3 g/dl (12.0-16.0); Imm Gran Abs Auto 0.06 X10*3/uL (0.00-0.03); Imm Gran Pct Auto 0.7 % (0.0-0.4); Lymphocytes Absolute Auto 0.8 X10*3/uL (1.2-4.9); Lymphocytes Percent Auto 9.1 % (20-40); Mean Corpuscular HGB Conc 31.6 g/dl (31.0-35.0); Mean Corpuscular Volume 88.8 fL (80.0-98.0); Mean Platelet Volume 8.7 fL (9.4-12.3); Monocytes Absolute Auto 0.5 X10*3/uL (0.1-1.2); Monocytes Percent Auto 5.7 % (2-11); Neutrophils Absolute Auto 7.5 x10*3/uL (2.0-8.3); Neutrophils Percent Auto 82.4 % (45-73); Platelet Count 352 X10*3/uL (160-400); Red Blood Count 4.03 X10*6/uL (4.20-5.50); Red Cell Distribution Width 13.9 % (11.0-16.0); White Blood Count 9.1 X10*3/uL (4.8-10.8)
[2023-01-23 15:05] LABS: VBG Base Excess -0.9 mmol/L; VBG HCO3 24 mmol/L (22-26); VBG pCO2 44 mmHg; VBG pH 7.35 (7.32-7.43); VBG pO2 53 mmHg
[2023-01-23 15:15] VITALS: O2SAT 85
--- NOTE | 2023-01-23 15:15 | PC.NURSE ---
Patient desating with movement on 2L NC to 85%. Respiratory and ED provider in at bedside
[2023-01-23 15:23] LABS: Alanine Aminotransferase 88 U/L (0-31); Albumin Level 3.4 g/dL (3.5-5.0); Alkaline Phosphatase 137 U/L (39-117); Anion Gap 14 (12-20); Aspartate Amino Transferase 74 U/L (5-31); Bilirubin Direct 0.2 mg/dL (0.0-0.5); Bilirubin Total 0.3 mg/dL (0.0-1.0); Blood Urea Nitrogen 35 mg/dL (9-16); Calcium 9.1 mg/dL (8.4-10.2); Carbon Dioxide 27 mmol/L (22-29); Chloride 102 mmol/L (96-108); Creatinine Clr Calc Pharmacy 26.4; Estimated Glomerular Filt Rate 26; Glucose Random 191 mg/dL (60-115); Magnesium 1.9 mg/dL (1.6-2.6); Potassium 5.2 mmol/L (3.3-5.1); Sodium 138 mmol/L (135-145)
[2023-01-23 15:27] LABS: B Type Natriuretic Peptide 261 pg/mL (<100)
[2023-01-23] MEDS: cefTRIAXone sodium 1 GM in 0.9 % Sodium Chloride 50 ML IV (15:41)
[2023-01-23 15:58] LABS: Lactic Acid 0.8 mmol/L (0.5-2.0)
[2023-01-23 15:59] LABS: Lipase 34 U/L (8-78)
[2023-01-23] MEDS: Azithromycin 500 MG in 0.9 % Sodium Chloride 250 ML 125 MG IV ×2 (16:16→21:25)
[2023-01-23 18:03] LABS: Appearance Urine Clear; Color Urine Yellow; Glucose Urine UA 100 mg/dL (Negative); Leukocyte Esterase Urine Trace (Negative); Nitrite Urine Negative (Negative); UMIC TRIGGER UACC YES; Urine Blood Negative (Negative); Urine Ketones Negative (Negative); Urine Protein 100 (2+) mg/dL (Neg-Trace)
[2023-01-23 18:12] LABS: COVID-19 Test Negative (Negative); IDNOW Serial# 9DB6401D; IDNOW Serial# BCCEAD1C; Influenza A Negative (Negative); Influenza B2 Negative (Negative)
[2023-01-23 18:15] LABS: Bacteria Urine None Seen (None Seen); RBC Urine 0-2 /HPF (0-2); WBC Urine 0-5 /HPF (0-5)
--- NOTE | 2023-01-23 20:20 | PM.IMHP ---
History of Present Illness Date of Service: 01/23/23 Chief Complaint: Shortness of breath this is a 77-year-old female with past medical history of chronic respiratory failure on 2 L of oxygen at baseline, type 2 diabetes, HTN, aortic valve calcification, HLD, HTN, diastolic heart failure, CAD, presents to the hospital with complaints of shortness of breath, cough, she production. Patient reports that her symptoms started about a week ago, she has significant dyspnea on minimal exertion, she reports a cough, sputum production. She denies any lower extremity edema. Reports no chest pain, no abdominal pain, no nausea or vomiting, no diarrhea constipation, no urinary symptoms and no lower extremity edema. On arrival to the ED patient found to be hypoxic with O2 level of 78% on 2 L of her baseline oxygen. States that she only uses oxygen at bedtime although is prescribed for her to use daily. All other vitals stable Labs are significant for WBC count of 9.1, hemoglobin of 11.3, pH of 7.35, pCO2 44, creatinine of 1.87 which is around her baseline, AST of 74, ALT of 88, alk-phos of 137 which is slightly elevated, BNP of 261, UA shows trace leukocyte Estrace with no bacteria, no urinary symptoms. COVID-19 RSV and influenza negative chest x-ray revealed bronchial wall thickening which can be seen in small airway process such as asthma or atypical viral infection Review of Systems Review of Systems: Yes all other systems are reviewed and are negative [facility] Medical History CAD (coronary artery disease) Chronic diastolic heart failure COPD (chronic obstructive pulmonary disease) Diabetes Diastolic dysfunction Hyperlipidemia Hypertension Hypoxemia Restrictive lung disease Type 2 diabetes mellitus with unspecified complications Family History Father Diabetes Mother Unknown Surgical History History of left cataract surgery Stented coronary artery Social History Patient Tobacco Use Status: Former Tobacco user Smoked in Last 30 Days: No Use of substances other than those prescribed or required for medical reasons: No Any prior treatment program specific to substance use: No Advance Directives: No Meds Allergies Allergy/AdvReac Type Severity Reaction Status Date / Time No Known Allergies Allergy Verified 01/23/23 14:21 [No Known Allergies*] Home Medications Medication Instructions Recorded Confirmed Last Taken Type aspirin 81 mg tablet,delayed 81 mg PO DAILY 09/14/20 08/20/22 Unknown History release cholecalciferol (vitamin D3) 25 25 mcg PO DAILY 09/14/20 08/20/22 Unknown History mcg (1,000 unit) capsule lisinopril 40 mg tablet 20 mg PO DAILY 02/13/21 08/20/22 Unknown History multivitamin (Daily Multi-Vitamin 1 tab PO DAILY 09/18/21 08/20/22 Unknown History tablet) amlodipine 5 mg tablet 5 mg PO DAILY 03/13/22 08/20/22 Unknown History glipizide 5 mg tablet 5 mg PO BID 03/20/22 08/20/22 Unknown History Physical Exam Vital Signs and Narrative: Vital Signs: Last Vital Signs Temp 99.1 F 01/23/23 14:15 Pulse 101 H 01/23/23 14:55 Resp 28 H 01/23/23 14:55 BP 176/68 H 01/23/23 14:15 Pulse Ox 85 L 01/23/23 15:15 O2 Del Method 01/23/23 15:15 O2 Flow Rate 2 01/23/23 15:15 Oxygen Flow Rate 2 01/23/23 14:15 BMI result Body Mass Index 29.7 Const: General: cooperative and no acute distress Orientation/consciousness: patient oriented x3 Eyes: General: appearance normal, both eyes and all related structures Resp: Other: decreased breath sounds Effort & Inspection: normal respiratory effort Cardio: Rate: regular rate Rhythm: regular rhythm GI: Palpation (GI): Soft to palpation Auscultation: normal bowel sounds Skin: General skin exam: no rashes or lesions noted Neuro: General: patient oriented x3 Cognition (Neuro): normal cognition Extrem: General: Yes normal to inspection and Yes no pedal edema Results Labs 01/23/23 14:52 01/23/23 14:52 Labs: Laboratory Results - last 24 hr 01/23/23 01/23/23 01/23/23 14:52 14:52 14:52 MCV 88.8 MCH 28.0 MCHC 31.6 RDW 13.9 Plt Count 352 D MPV 8.7 L Immature Gran % (Auto) 0.7 H Neut % (Auto) 82.4 H Lymph % (Auto) 9.1 L [place] % (Auto) 5.7 Eos % (Auto) 1.6 Baso % (Auto) 0.5 Lymph # (Auto) 0.8 L [place] # (Auto) 0.5 Eos # (Auto) 0.2 Baso # (Auto) 0.1 Abs Immat Gran (auto) 0.06 H Absolute Neuts (auto) 7.5 Absolute Nucleated RBC 0.000 Nucleated RBC % (auto) 0.0 VBG pH VBG pCO2 VBG pO2 VBG HCO3 VBG O2 Saturation VBG Base Excess Anion Gap 14 Estim Creat Clear Calc 26.4 Estimated GFR 26 Random Glucose 191 H Lactic Acid Calcium 9.1 Magnesium 1.9 Total Bilirubin 0.3 Direct Bilirubin 0.2 AST 74 H ALT 88 H Alkaline Phosphatase 137 H B-Natriuretic Peptide 261 H Total Protein 7.0 Albumin 3.4 L Lipase 34 Urine Color Urine Appearance Urine pH Ur Specific [place] Urine Protein Urine Glucose (UA) Urine Ketones Urine Blood Urine Nitrite Ur Leukocyte Esterase Urine RBC Urine WBC Ur Squamous Epith Cells Urine Bacteria Hyaline Casts COVID-19 ([facility]) COVID-19 Clin Com Influenza Type A ([facility]) Influenza Type A (PCR) Influenza Type B ([facility]) Influenza Type B (PCR) Influenza A & B Note RSV RNA Qual (PCR) SARS-CoV-2 RNA (RT-PCR) 01/23/23 01/23/23 01/23/23 14:52 14:57 15:11 MCV MCH MCHC RDW Plt Count MPV Immature Gran % (Auto) Neut % (Auto) Lymph % (Auto) [place] % (Auto) Eos % (Auto) Baso % (Auto) Lymph # (Auto) [place] # (Auto) Eos # (Auto) Baso # (Auto) Abs Immat Gran (auto) Absolute Neuts (auto) Absolute Nucleated RBC Nucleated RBC % (auto) VBG pH 7.35 VBG pCO2 44 VBG pO2 53 VBG HCO3 24 VBG O2 Saturation 72.0 VBG Base Excess -0.9 Anion Gap Estim Creat Clear Calc Estimated GFR Random Glucose Lactic Acid 0.8 Calcium Magnesium Total Bilirubin Direct Bilirubin AST ALT Alkaline Phosphatase B-Natriuretic Peptide Total Protein Albumin Lipase Urine Color Urine Appearance Urine pH Ur Specific [place] Urine Protein Urine Glucose (UA) Urine Ketones Urine Blood Urine Nitrite Ur Leukocyte Esterase Urine RBC Urine WBC Ur Squamous Epith Cells Urine Bacteria Hyaline Casts COVID-19 ([facility]) COVID-19 Clin Com Influenza Type A ([facility]) Influenza Type A (PCR) Cancelled Influenza Type B ([facility]) Influenza Type B (PCR) Cancelled Influenza A & B Note RSV RNA Qual (PCR) Cancelled SARS-CoV-2 RNA (RT-PCR) Cancelled 01/23/23 01/23/23 01/23/23 17:44 17:44 17:44 MCV MCH MCHC RDW Plt Count MPV Immature Gran % (Auto) Neut % (Auto) Lymph % (Auto) [place] % (Auto) Eos % (Auto) Baso % (Auto) Lymph # (Auto) [place] # (Auto) Eos # (Auto) Baso # (Auto) Abs Immat Gran (auto) Absolute Neuts (auto) Absolute Nucleated RBC Nucleated RBC % (auto) VBG pH VBG pCO2 VBG pO2 VBG HCO3 VBG O2 Saturation VBG Base Excess Anion Gap Estim Creat Clear Calc Estimated GFR Random Glucose Lactic Acid Calcium Magnesium Total Bilirubin Direct Bilirubin AST ALT Alkaline Phosphatase B-Natriuretic Peptide Total Protein Albumin Lipase Urine Color Yellow Urine Appearance Clear Urine pH 5.0 Ur Specific [place] 1.010 Urine Protein 100 (2+) H Urine Glucose (UA) 100 H Urine Ketones Negative Urine Blood Negative Urine Nitrite Negative Ur Leukocyte Esterase Trace H Urine RBC 0-2 Urine WBC 0-5 Ur Squamous Epith Cells 3-5 Urine Bacteria None Seen Hyaline Casts 3-5 COVID-19 ([facility]) Negative COVID-19 Clin Com See Note Influenza Type A ([facility]) Negative Influenza Type A (PCR) Influenza Type B ([facility]) Negative Influenza Type B (PCR) Influenza A & B Note See Note RSV RNA Qual (PCR) SARS-CoV-2 RNA (RT-PCR) Imaging Radiologist's Impressions: Impressions Chest X-Ray 01/23/23 15:21 IMPRESSION: No dense consolidation. Bronchial wall thickening can be seen with a small airways process such as asthma or atypical/viral infection. Assessment and Plan (1) Acute and chronic respiratory failure with hypoxia: Status: Acute (2) COPD with acute exacerbation: Status: Acute Plan 77-year-old female past medical history of COPD as well as CHF presents to the hospital with complaints of shortness of breath cough and sputum production # acute on chronic hypoxic respiratory failure - patient at baseline 2 L of oxygen common with O2 in the 70s on 2 L - likely secondary to COPD versus pneumonia versus CHF - has increased cough, sputum production, as well as dyspnea, there is slightly elevated BNP but has no lower extremity edema - at this time continue oxygen supplement - will obtain CT of the chest to rule out pneumonia # acute COPD exacerbation - increased cough, sputum production, increased dyspnea - will treat with Solu-Medrol, DuoNeb p.r.n. as well as scheduled - azithromycin to decrease inflammation - CT of the chest to rule out pneumonia # acute CHF - history of diastolic heart failure - slightly elevated BNP but significantly lower than previous - chest CT to rule out pulmonary congestion/ edema - clinically appears euvolemic - monitor, follow CT chest- if there is evidence of pulmonary congestion, will start Lasix # slightly elevated LFTs - unclear etiology possibly in setting of acute infection vs cardiac congestion - follow CMP - if worsens consider abdominal ultrasound/further work up # diabetes - hold oral antihyperglycemics - start low-dose sliding scale insulin - diabetic diet # hypertension - elevated - resume home antihypertensives # CKD stage IV - at baseline - monitor BMP DVT prophylaxis: Heparin subQ given patient's acute hypoxia and further need for management as above patient will require minimum 2 nights inpatient hospital stay for further management and monitor Time Spent With Patient Time: Total time managing care of this patient today ____ minutes. Quality Stroke Does the patient have a stroke diagnosis?: No VTE Prior VTE?: No VTE Risk Level:: Medical - moderate - high VTE Device Contraindication: Treatment Not Indicated VTE Drug Contraindication: N/A - Med Ordered
--- NOTE | 2023-01-23 20:45 | PHA.MEDREC ---
Pharmacy Consult ? Medication Reconciliation Pharmacy has completed the medication reconciliation. Patient had list of home medications. Reviewed list with patient to complete med rec.
[2023-01-23 21:11] VITALS: BP 139/59; PULSE 85; RESP 13; TEMP 36.8; O2SAT 93
[2023-01-23] MEDS: Enoxaparin Sodium 40 MG/0.4 ML SYRINGE SUBCUT (21:26)
[2023-01-23] MEDS: methylPREDNISolone Sod Succ 40 MG/ML VIAL IVPUSH (21:26)
--- NOTE | 2023-01-23 22:53 | MHC.EDTECH ---
when pt uses commode her o2 goes down, pt now has a purewick and now is relaxing vitals were taken
--- NOTE | 2023-01-23 23:00 | PC.NURSE ---
late entry-pt a+o x4 periwick in place pt reports sob when getting out of bed. spo2 94% on 5LPM NC RR 15
--- NOTE | 2023-01-23 23:55 | PC.NURSE ---
late entry- nurse to nurse report called @ [address] order placed and performed causing delay in transfer to floor. international editorial producer aware
[2023-01-24] VITALS (9 sets, daily range): BP systolic 141–179; BP diastolic 64–80; PULSE 72–94; RESP 18–20; TEMP 36.4–36.8; O2SAT 90–96
[2023-01-24] MEDS: 0.9 % Sodium Chloride Flush 3 ML SYRINGE IVFLUSH ×4 (00:09→21:28)
[2023-01-24 00:16] LABS: Glucose, Whole Blood 407 mg/dL (60-115)
[2023-01-24] MEDS: Insulin Lispro 100 UNIT/ML 3 ML VIAL SUBCUT ×7 (00:50→21:27)
[2023-01-24 06:36] LABS: Basophils Percent Auto 0.1 % (0-2); Hematocrit 32.2 % (37.0-47.0); Hemoglobin 10.3 g/dl (12.0-16.0); Imm Gran Abs Auto 0.14 X10*3/uL (0.00-0.03); Imm Gran Pct Auto 1.7 % (0.0-0.4); Lymphocytes Absolute Auto 0.5 X10*3/uL (1.2-4.9); Lymphocytes Percent Auto 6.3 % (20-40); MANUAL DIFF FLAG SCAN; Mean Corpuscular Hemoglobin 28.2 pg (27.0-33.0); Mean Corpuscular Volume 88.2 fL (80.0-98.0); Mean Platelet Volume 9.4 fL (9.4-12.3); Monocytes Absolute Auto 0.1 X10*3/uL (0.1-1.2); Monocytes Percent Auto 1.1 % (2-11); Neutrophils Absolute Auto 7.6 x10*3/uL (2.0-8.3); Neutrophils Percent Auto 90.8 % (45-73); Platelet Count 320 X10*3/uL (160-400); Red Blood Count 3.65 X10*6/uL (4.20-5.50); Red Cell Distribution Width 13.7 % (11.0-16.0); SCAN SMEAR FLAG 1; White Blood Count 8.4 X10*3/uL (4.8-10.8)
[2023-01-24 06:56] LABS: SLIDE REVIEW VERIFIED
[2023-01-24 07:40] LABS: Glucose, Whole Blood 287 mg/dL (60-115)
[2023-01-24 07:50] LABS: Blood Urea Nitrogen 37 mg/dL (9-16); Calcium 8.5 mg/dL (8.4-10.2); Creatinine Clr Calc Pharmacy 26.8; Estimated Glomerular Filt Rate 26
[2023-01-24 07:58] LABS: Glucose Random 355 mg/dL (60-115)
[2023-01-24] MEDS: Atorvastatin Calcium 80 MG TABLET PO (08:00)
[2023-01-24] MEDS: Aspirin Enteric Coated 81 MG TABLET.DR PO (08:00)
[2023-01-24] MEDS: amLODIPine Besylate 5 MG TABLET PO (08:00)
[2023-01-24] MEDS: methylPREDNISolone Sod Succ 40 MG/ML VIAL IVPUSH ×2 (08:00→19:46)
[2023-01-24 08:01] LABS: Anion Gap 19 (12-20); Carbon Dioxide 18 mmol/L (22-29); Chloride 102 mmol/L (96-108); Potassium 4.8 mmol/L (3.3-5.1); Sodium 134 mmol/L (135-145)
[2023-01-24] MEDS: Cholecalciferol (Vitamin D3) 25 MCG TABLET PO (08:01)
[2023-01-24] MEDS: Multivitamin TABLET 1 TAB PO (08:01)
[2023-01-24 08:12] LABS: Estimated Average Glucose 148 mg/dL; Hemoglobin A1c % 6.8 %
[2023-01-24 08:16] LABS: Alanine Aminotransferase 69 U/L (0-31); Albumin Level 3.2 g/dL (3.5-5.0); Alkaline Phosphatase 123 U/L (39-117); Aspartate Amino Transferase 41 U/L (5-31); Bilirubin Direct < 0.2 mg/dL (0.0-0.5); Bilirubin Total 0.3 mg/dL (0.0-1.0); Total Protein 6.5 g/dL (6.5-8.0)
[2023-01-24] MEDS: Acetaminophen 325 MG TABLET 650 MG PO (09:12)
[2023-01-24 11:28] LABS: Glucose, Whole Blood 260 mg/dL (60-115)
[2023-01-24] MEDS: guaiFEN/Codeine SF 200/20/10ML 10 ML LIQUID PO (11:56)
--- NOTE | 2023-01-24 15:30 | P.CONPL_ITS ---
History of Present Illness History of Present Illness Consult date: 01/24/23 Requesting physician: Paresh Iglesias Chief complaint: COPD exacerbation, hypoxic Narrative: 77-year-old lady with underlying history of COPD on 2 L of supplemental oxygen followed by Dr. Solomon, earlier ILD, type 2 diabetes mellitus, hypertension, diastolic dysfunction, CAD admitted on 01/23/2023 with 1 week history of cough productive of clear to yellow sputum and worsening dyspnea. On ER evaluation patient hypoxic on her usual 2 L of supplemental oxygen down to 78. Admitted to telemetry work with exacerbation of underlying COPD and treated with empiric antibiotics, systemic glucocorticoids, and nebulized bronchodilators with improvement. Now back to 2 L of supplemental oxygen as at baseline. CT chest with early nonspecific interstitial lung disease. Review of Systems Constitutional: Constitutional: Denies daytime sleepiness, Denies excessive sweating, Denies fatigue, Denies fever(s), Denies lethargy, Denies malaise, Denies night sweats, Denies snoring and Denies weight loss Eyes: Eyes: Denies blurry vision and Denies itchy eyes ENT: Denies nasal congestion, Denies post nasal drip, Denies sinus pain, Denies sinus pressure and Denies other ( Thrush) Cardiovascular: Cardiovascular: Denies chest pain, Denies pedal edema, Denies dyspnea, Reports dyspnea on exertion, Denies orthopnea and Denies paroxysmal nocturnal dyspnea Respiratory: Respiratory: Reports cough, Denies hemoptysis, Reports excessive phlegm production, Denies dyspnea, Reports dyspnea on exertion, Denies snoring and Denies wheezing Gastrointestinal: Gastrointestinal: Denies abdominal pain and Denies heartburn Musculoskeletal: Musculoskeletal: Denies myalgias, Denies arthralgias and Denies joint swelling Integumentary/Breasts: Skin/Breast: Denies rash Neurologic: Denies memory loss and Denies seizure-like activity Psychiatric: Psychiatric: Denies abnormal sleep pattern, Denies anxiety and Denies memory loss Endocrine: Endocrine: Denies excessive sweating, Denies fatigue and Denies heat intolerance Hematologic/Lymphatic: Hematologic/Lymphatic: Denies easy bruising Allergic/Immunologic: Allergic/Immunologic: Denies itchy eyes, Denies seasonal rhinorrhea and Denies wheezing PMFSH Past Medical History Medical History CAD (coronary artery disease) Chronic diastolic heart failure COPD (chronic obstructive pulmonary disease) Diabetes Diastolic dysfunction Hyperlipidemia Hypertension Hypoxemia Restrictive lung disease Type 2 diabetes mellitus with unspecified complications Family History Family History Father Diabetes Mother Unknown Surgical History Surgical History History of left cataract surgery Stented coronary artery Social History Social History Household Members: Spouse Patient Tobacco Use Status: Former Tobacco user Quit Date: 30 yearss ago Smoked in Last 30 Days: No Use of substances other than those prescribed or required for medical reasons: No Currently Displaying Signs/Symptoms of Drug Intoxication Withdrawal: No Any prior treatment program specific to substance use: No Have you been hit, kicked, punched, or otherwise hurt by someone within the past year? If so, by whom?: No Do you feel safe in your current relationship?: Yes Is there a partner from a previous relationship who is making you feel unsafe now?: No Are you made to feel afraid or neglected: No Advance Directives: No Do you have thoughts of harming others: None Do you have a plan to hurt others: No Plan Recently lost weight without trying: No Eating poorly because of decreased appetite: No Nutrition Risks: No Nutritional Risk Patient : No : No Poor oral hygiene: No Meds Allergies Allergy/AdvReac Type Severity Reaction Status Date / Time No Known Allergies Allergy Verified 01/23/23 14:21 [No Known Allergies*] Active Medications: Current Medications Acetaminophen (Acetaminophen 325 Mg Tablet) 650 mg PO Q6H PRN PRN Reason: Pain, Mild (Pain Scale 1-3) Last Admin: 01/24/23 09:12 Dose: 650 mg Amlodipine Besylate (Amlodipine Besylate 5 Mg Tablet) 5 mg PO DAILY [facility]; Protocol Last Admin: 01/24/23 08:00 Dose: 5 mg Aspirin (Aspirin Enteric Coated 81 Mg Tablet.) 81 mg PO DAILY [facility] Last Admin: 01/24/23 08:00 Dose: 81 mg Atorvastatin Calcium (Atorvastatin Calcium 80 Mg Tablet) 80 mg PO DAILY [facility] Last Admin: 01/24/23 08:00 Dose: 80 mg Albuterol Sulfate 2.5 mg/ (Ipratropium [place] 0.5 mg) 0 mg INHALE RQ4H WHILE AWAKE [facility] Last Admin: 01/24/23 12:00 Dose: 2.5 each Dextrose (Dextrose 50 % 25 Gm/50 Ml Syringe) 25 gm IVPUSH Q15M PRN; Protocol PRN Reason: per Hypoglycemia Standing Ord. Docusate Sodium (Docusate Sodium 100 Mg Capsule) 100 mg PO DAILY PRN PRN Reason: Constipation Enoxaparin Sodium (Enoxaparin Sodium 40 Mg/0.4 Ml Syringe) 40 mg SUBCUT Q24H [facility] Last Admin: 01/23/23 21:26 Dose: 40 mg Glucose (Glucose Gel 15 Gm Gel..Gram.) 15 gm PO Q15M PRN; Protocol PRN Reason: per Hypoglycemia Standing Ord. Guaifenesin (Guaifenesin 100 Mg/5 Ml Liquid) 10 ml PO Q4H PRN PRN Reason: Cough Azithromycin 500 mg/ Sodium (Chloride) 250 mls @ 125 mls/hr IV Q24H [facility] Last Infusion: 01/23/23 23:35 Dose: Infused Insulin Human Lispro (Insulin Lispro 100 Unit/Ml 3 Ml Vial) 0 unit SUBCUT QIDACHS [facility]; Protocol Last Admin: 01/24/23 11:42 Dose: 6 unit Methylprednisolone Sodium Succinate (Methylprednisolone Sod Succ 40 Mg/Ml Vial) 40 mg IVPUSH Q12H [facility] Last Admin: 01/24/23 08:00 Dose: 40 mg Multivitamins/Vitamin C (Multivitamin Tablet) 1 tab PO DAILY [facility] Last Admin: 01/24/23 08:01 Dose: 1 tab Ondansetron HCl (Ondansetron Hcl 4 Mg/2 Ml Vial) 4 mg IVPUSH Q8H PRN PRN Reason: Nausea and Vomiting Pharmacy Consult (Consult Rx Perform Med Rec) 1 each MISCELLANE ONCE PRN PRN Reason: Consult order Sodium Chloride (0.9 % Sodium Chloride Flush 3 Ml Syringe) 3 ml IVFLUSH QSHIFT [facility] Last Admin: 01/24/23 08:00 Dose: 3 ml Vitamin D (Cholecalciferol (Vitamin D3) 25 Mcg Tablet) 25 mcg PO DAILY [facility] Last Admin: 01/24/23 08:01 Dose: 25 mcg Home Medications Medication Instructions Recorded Confirmed Last Taken Type aspirin 81 mg tablet,delayed 81 mg PO DAILY 09/14/20 01/23/2323 History release cholecalciferol (vitamin D3) 25 25 mcg PO DAILY 09/14/20 01/23/23 01/23/23 History mcg (1,000 unit) capsule lisinopril 40 mg tablet 20 mg PO DAILY 02/13/21 01/23/23 01/23/23 History multivitamin (Daily Multi-Vitamin 1 tab PO DAILY 09/18/21 01/23/23 01/23/23 History tablet) amlodipine 5 mg tablet 5 mg PO DAILY 03/13/22 01/23/23 01/23/23 History glipizide 5 mg tablet 5 mg PO BID 03/20/22 01/23/23 01/23/23 09:00 History Physical Exam Vital Signs: Vital Signs: Last Vital Signs Temp 97.5 F 01/24/23 15:16 Pulse 91 01/24/23 15:16 Resp 18 01/24/23 15:16 BP 170/69 H 01/24/23 15:16 Pulse Ox 92 01/24/23 15:16 O2 Del Method 01/24/23 15:16 O2 Flow Rate 2.0 01/24/23 15:16 Oxygen Flow Rate 2 01/23/23 14:15 BMI result Body Mass Index 29.7 Const: General: no acute distress and alert Nutritional Appearance: not obese Orientation/consciousness: Other orientation findings ( oriented) HEENT: Head: Yes atraumatic Mouth: no other ( thrush) Throat: No postnasal drainage Eyes: General: appearance normal, both eyes and all related structures Sclerae: sclerae normal EOM: EOMs intact bilaterally Neck: Neck: Yes supple Lymphatic: no lymphadenopathy noted Resp: Effort & Inspection: normal respiratory effort and no use of accessory muscles Auscultation: wheezes (Mild expiratory bilateral) Cardio: Rate: regular rate Rhythm: regular rhythm Heart sounds: no gallops, no murmurs and no rubs GI: Palpation (GI): Soft to palpation and Other GI palpation findings present ( nontender) Skin: General skin exam: other ( warm) Rashes: no rashes Extrem: General: No clubbing, No cyanosis and Yes edema (Trace bilateral) Results Laboratory Findings 01/24/23 05:18 01/24/23 05:18 Abnormal lab findings: Abnormal Labs 01/23/23 01/23/23 01/23/23 14:52 14:52 14:52 RBC 4.03 L Hgb 11.3 L Hct 35.8 L MPV 8.7 L Immature Gran % (Auto) 0.7 H Neut % (Auto) 82.4 H Lymph % (Auto) 9.1 L [place] % (Auto) Lymph # (Auto) 0.8 L Abs Immat Gran (auto) 0.06 H Sodium Potassium 5.2 H Carbon Dioxide BUN 35 H Creatinine 1.87 H POC Glucose Random Glucose 191 H AST 74 H ALT 88 H Alkaline Phosphatase 137 H B-Natriuretic Peptide 261 H Albumin 3.4 L Urine Protein Urine Glucose (UA) Ur Leukocyte Esterase 01/23/23 01/24/23 01/24/23 17:44 00:12 05:18 RBC 3.65 L Hgb 10.3 L Hct 32.2 L MPV Immature Gran % (Auto) 1.7 H Neut % (Auto) 90.8 H Lymph % (Auto) 6.3 L [place] % (Auto) 1.1 L Lymph # (Auto) 0.5 L Abs Immat Gran (auto) 0.14 H Sodium Potassium Carbon Dioxide BUN Creatinine POC Glucose 407 H* Random Glucose AST ALT Alkaline Phosphatase B-Natriuretic Peptide Albumin Urine Protein 100 (2+) H Urine Glucose (UA) 100 H Ur Leukocyte Esterase Trace H 01/24/23 01/24/23 01/24/23 05:18 07:26 11:22 RBC Hgb Hct MPV Immature Gran % (Auto) Neut % (Auto) Lymph % (Auto) [place] % (Auto) Lymph # (Auto) Abs Immat Gran (auto) Sodium 134 L Potassium Carbon Dioxide 18 L BUN 37 H Creatinine 1.85 H POC Glucose 287 H 260 H Random Glucose 355 H* AST 41 H ALT 69 H Alkaline Phosphatase 123 H B-Natriuretic Peptide Albumin 3.2 L Urine Protein Urine Glucose (UA) Ur Leukocyte Esterase Assessment and Plan (1) COPD with acute exacerbation: Status: Acute (2) Acute and chronic respiratory failure with hypoxia: Status: Acute (3) ILD (interstitial lung disease): Status: Acute Plan Impression: 77-year-old lady with underlying supplemental oxygen 2 L dependent COPD admitted with COPD exacerbation, also noted to have early nonspecific interstitial lung disease. Now essentially close to baseline. Recommendations: Agree with current treatment plan of azithromycin for 5 days, systemic glucocorticoids taper, and nebulized bronchodilators. Time Spent With Patient Time: Total time managing care of this patient today ____ minutes. Procedures Date of Service Date of Service: 01/24/23
--- NOTE | 2023-01-24 16:18 | HO.PM.IMPN ---
Subjective Subjective Date of Service: 01/24/23 Interval History: copd execerebation Review of Systems Patient still short of breath with minimal exertion, has cough Denies any chest pain or abdominal pain or nausea or vomiting. Physical Exam Vital Signs: Vital Signs: Last Vital Signs Temp 97.5 F 01/24/23 15:16 Pulse 86 01/24/23 16:04 Resp 18 01/24/23 16:04 BP 170/69 H 01/24/23 15:16 Pulse Ox 92 01/24/23 15:16 O2 Del Method 01/24/23 15:16 O2 Flow Rate 2.0 01/24/23 15:16 Oxygen Flow Rate 2 01/23/23 14:15 BMI result Body Mass Index 29.7 Appearance: Alert.? Oriented X3.? not in distress.? cvs: rrr, [id number] , no murmur res:air entry somewhat improvin,has b/l exp .wheezin abd: no rebound or guarding ,nt, bs present. ext pulses present , no cyanosis. neuro: axo3 , nonfocal. Objective Data Active Medications Acetaminophen (Acetaminophen 325 Mg Tablet) 650 mg PO Q6H PRN PRN Reason: Pain, Mild (Pain Scale 1-3) Last Admin: 01/24/23 09:12 Dose: 650 mg Documented By: HARI Amlodipine Besylate (Amlodipine Besylate 5 Mg Tablet) 5 mg PO DAILY [facility]; Protocol Last Admin: 01/24/23 08:00 Dose: 5 mg Documented By: HARI Aspirin (Aspirin Enteric Coated 81 Mg Tablet.) 81 mg PO DAILY [facility] Last Admin: 01/24/23 08:00 Dose: 81 mg Documented By: HARI Atorvastatin Calcium (Atorvastatin Calcium 80 Mg Tablet) 80 mg PO DAILY [facility] Last Admin: 01/24/23 08:00 Dose: 80 mg Documented By: HARI Albuterol Sulfate 2.5 mg/ (Ipratropium [place] 0.5 mg) 0 mg INHALE RQ4H WHILE AWAKE [facility] Last Admin: 01/24/23 16:03 Dose: 2.5 each Documented By: ULRICC Dextrose (Dextrose 50 % 25 Gm/50 Ml Syringe) 25 gm IVPUSH Q15M PRN; Protocol PRN Reason: per Hypoglycemia Standing Ord. Docusate Sodium (Docusate Sodium 100 Mg Capsule) 100 mg PO DAILY PRN PRN Reason: Constipation Enoxaparin Sodium (Enoxaparin Sodium 40 Mg/0.4 Ml Syringe) 40 mg SUBCUT Q24H [facility] Last Admin: 01/23/23 21:26 Dose: 40 mg Documented By: DIEUDONNE Glucose (Glucose Gel 15 Gm Gel..Gram.) 15 gm PO Q15M PRN; Protocol PRN Reason: per Hypoglycemia Standing Ord. Guaifenesin (Guaifenesin 100 Mg/5 Ml Liquid) 10 ml PO Q4H PRN PRN Reason: Cough Azithromycin 500 mg/ Sodium (Chloride) 250 mls @ 125 mls/hr IV Q24H [facility] Last Infusion: 01/23/23 23:35 Dose: 0 mls/hr Documented By: DIEUDONNE Insulin Human Lispro (Insulin Lispro 100 Unit/Ml 3 Ml Vial) 0 unit SUBCUT QIDACHS [facility]; Protocol Last Admin: 01/24/23 11:42 Dose: 6 unit Documented By: HARI Methylprednisolone Sodium Succinate (Methylprednisolone Sod Succ 40 Mg/Ml Vial) 40 mg IVPUSH Q12H [facility] Last Admin: 01/24/23 08:00 Dose: 40 mg Documented By: HARI Multivitamins/Vitamin C (Multivitamin Tablet) 1 tab PO DAILY [facility] Last Admin: 01/24/23 08:01 Dose: 1 tab Documented By: HARI Ondansetron HCl (Ondansetron Hcl 4 Mg/2 Ml Vial) 4 mg IVPUSH Q8H PRN PRN Reason: Nausea and Vomiting Pharmacy Consult (Consult Rx Perform Med Rec) 1 each MISCELLANE ONCE PRN PRN Reason: Consult order Sodium Chloride (0.9 % Sodium Chloride Flush 3 Ml Syringe) 3 ml IVFLUSH QSHIFT [facility] Last Admin: 01/24/23 08:00 Dose: 3 ml Documented By: HARI Vitamin D (Cholecalciferol (Vitamin D3) 25 Mcg Tablet) 25 mcg PO DAILY [facility] Last Admin: 01/24/23 08:01 Dose: 25 mcg Documented By: HARI Labs 01/24/23 05:18 01/24/23 05:18 Labs: Laboratory Results - last 24 hr 01/23/23 01/23/23 01/23/23 17:44 17:44 17:44 MCV MCH MCHC RDW Plt Count MPV Immature Gran % (Auto) Neut % (Auto) Lymph % (Auto) [place] % (Auto) Eos % (Auto) Baso % (Auto) Lymph # (Auto) [place] # (Auto) Eos # (Auto) Baso # (Auto) Abs Immat Gran (auto) Absolute Neuts (auto) Absolute Nucleated RBC Nucleated RBC % (auto) Smear Tech's Comments Anion Gap Estim Creat Clear Calc Estimated GFR POC Glucose Random Glucose Estimat Average Glucose Hemoglobin A1c % Calcium Total Bilirubin Direct Bilirubin AST ALT Alkaline Phosphatase B-Natriuretic Peptide Total Protein Albumin Urine Color Yellow Urine Appearance Clear Urine pH 5.0 Ur Specific [place] 1.010 Urine Protein 100 (2+) H Urine Glucose (UA) 100 H Urine Ketones Negative Urine Blood Negative Urine Nitrite Negative Ur Leukocyte Esterase Trace H Urine RBC 0-2 Urine WBC 0-5 Ur Squamous Epith Cells 3-5 Urine Bacteria None Seen Hyaline Casts 3-5 COVID-19 ([facility]) Negative COVID-19 Clin Com See Note Influenza Type A (CHICA) Negative Influenza Type B ([facility]) Negative Influenza A & B Note See Note 01/24/23 01/24/23 01/24/23 00:12 05:18 05:18 MCV 88.2 MCH 28.2 MCHC 32.0 RDW 13.7 Plt Count 320 MPV 9.4 Immature Gran % (Auto) 1.7 H Neut % (Auto) 90.8 H Lymph % (Auto) 6.3 L [place] % (Auto) 1.1 L Eos % (Auto) 0.0 Baso % (Auto) 0.1 Lymph # (Auto) 0.5 L [place] # (Auto) 0.1 Eos # (Auto) 0.0 Baso # (Auto) 0.0 Abs Immat Gran (auto) 0.14 H Absolute Neuts (auto) 7.6 Absolute Nucleated RBC 0.000 Nucleated RBC % (auto) 0.0 Smear Tech's Comments VERIFIED Anion Gap 19 Estim Creat Clear Calc 26.8 Estimated GFR 26 POC Glucose 407 H* Random Glucose 355 H* Estimat Average Glucose Hemoglobin A1c % Calcium 8.5 D Total Bilirubin 0.3 Direct Bilirubin < 0.2 AST 41 H ALT 69 H Alkaline Phosphatase 123 H B-Natriuretic Peptide Total Protein 6.5 Albumin 3.2 L Urine Color Urine Appearance Urine pH Ur Specific [place] Urine Protein Urine Glucose (UA) Urine Ketones Urine Blood Urine Nitrite Ur Leukocyte Esterase Urine RBC Urine WBC Ur Squamous Epith Cells Urine Bacteria Hyaline Casts COVID-19 ([facility]) COVID-19 Clin Com Influenza Type A ([facility]) Influenza Type B ([facility]) Influenza A & B Note 01/24/23 01/24/23 01/24/23 05:18 05:18 07:26 MCV MCH MCHC RDW Plt Count MPV Immature Gran % (Auto) Neut % (Auto) Lymph % (Auto) [place] % (Auto) Eos % (Auto) Baso % (Auto) Lymph # (Auto) [place] # (Auto) Eos # (Auto) Baso # (Auto) Abs Immat Gran (auto) Absolute Neuts (auto) Absolute Nucleated RBC Nucleated RBC % (auto) Smear Tech's Comments Anion Gap Estim Creat Clear Calc Estimated GFR POC Glucose 287 H Random Glucose Estimat Average Glucose 148 Hemoglobin A1c % 6.8 Calcium Total Bilirubin Direct Bilirubin AST ALT Alkaline Phosphatase B-Natriuretic Peptide Cancelled Total Protein Albumin Urine Color Urine Appearance Urine pH Ur Specific [place] Urine Protein Urine Glucose (UA) Urine Ketones Urine Blood Urine Nitrite Ur Leukocyte Esterase Urine RBC Urine WBC Ur Squamous Epith Cells Urine Bacteria Hyaline Casts COVID-19 ([facility]) COVID-19 Clin Com Influenza Type A ([facility]) Influenza Type B ([facility]) Influenza A & B Note 01/24/23 11:22 MCV MCH MCHC RDW Plt Count MPV Immature Gran % (Auto) Neut % (Auto) Lymph % (Auto) [place] % (Auto) Eos % (Auto) Baso % (Auto) Lymph # (Auto) [place] # (Auto) Eos # (Auto) Baso # (Auto) Abs Immat Gran (auto) Absolute Neuts (auto) Absolute Nucleated RBC Nucleated RBC % (auto) Smear Tech's Comments Anion Gap Estim Creat Clear Calc Estimated GFR POC Glucose 260 H Random Glucose Estimat Average Glucose Hemoglobin A1c % Calcium Total Bilirubin Direct Bilirubin AST ALT Alkaline Phosphatase B-Natriuretic Peptide Total Protein Albumin Urine Color Urine Appearance Urine pH Ur Specific [place] Urine Protein Urine Glucose (UA) Urine Ketones Urine Blood Urine Nitrite Ur Leukocyte Esterase Urine RBC Urine WBC Ur Squamous Epith Cells Urine Bacteria Hyaline Casts COVID-19 ([facility]) COVID-19 Clin Com Influenza Type A ([facility]) Influenza Type B ([facility]) Influenza A & B Note Assessment and Plan (1) ILD (interstitial lung disease): Status: Acute (2) COPD with acute exacerbation: Status: Acute (3) Hyperglycemia: Status: Acute Plan 77-year-old female past medical history of COPD as well as CHF presents to the hospital with complaints of shortness of breath cough and sputum production 1.? acute on chronic hypoxic respiratory failure-? patient at baseline 2 L of oxygen common with O2? in the 70s on [address] -possible mild interstitial changes -? likely secondary to COPD versus pneumonia versus CHF -? has increased cough, sputum production, as well as dyspnea, there is slightly elevated BNP but has no lower extremity edema Seen by pulmonary: Continue nebs, steroids, antibiotics, oxygen support and monitor. 2.? acute COPD exacerbation -? increased cough, sputum production, increased dyspnea -? will treat with Solu-Medrol, DuoNeb p.r.n. as well as scheduled -? azithromycin to decrease inflammation 3.? acute CHF-? history of diastolic heart failure -? slightly? elevated BNP but significantly lower than previous -? chest CT -neg for pulm edema -? clinically appears euvolemic hold off lasix 4. slightly elevated LFTs-?? chronic on/off since 2019. jose antonio will check abd sono 5. diabetes with hyperglycemia possible sec to setriod use check hba1c levels adjusted sliding scale insulin and continue glipizide. -? diabetic diet 6.? hypertension -? elevated -? resume home antihypertensives 7. ? CKD stage IV near baseline -? monitor BMP ?DVT prophylaxis:? Heparin subQ ?Inpatient need :acute hypoxia due to copd excerebation -needs nebs, iv steroids, antibiotics, oxygen support and monitor. Respiratory status stress is not optimally yet. Time Spent With Patient Time: Total time managing care of this patient today ____ minutes. Quality Stroke Does the patient have a stroke diagnosis?: No VTE Prior VTE?: No VTE Risk Level:: Medical - moderate - high VTE Device Contraindication: Treatment Not Indicated VTE Drug Contraindication: N/A - Med Ordered
[2023-01-24 16:21] LABS: Glucose, Whole Blood 412 mg/dL (60-115)
[2023-01-24] MEDS: glipiZIDE 5 MG TABLET PO (16:53)
[2023-01-24] MEDS: Azithromycin 500 MG in 0.9 % Sodium Chloride 250 ML 125 MG IV (19:46)
[2023-01-24] MEDS: Enoxaparin Sodium 40 MG/0.4 ML SYRINGE SUBCUT (19:46)
[2023-01-24] MEDS: guaiFENesin 100 MG/5 ML LIQUID 10 ML PO (19:46)
[2023-01-24 19:58] LABS: Glucose, Whole Blood 432 mg/dL (60-115)
[2023-01-25] VITALS (8 sets, daily range): BP systolic 150–166; BP diastolic 62–71; PULSE 70–89; RESP 15–20; TEMP 36.1–36.4; O2SAT 88–92
[2023-01-25 07:03] LABS: Anion Gap 18 (12-20); Blood Urea Nitrogen 54 mg/dL (9-16); Calcium 9.2 mg/dL (8.4-10.2); Carbon Dioxide 21 mmol/L (22-29); Chloride 104 mmol/L (96-108); Creatinine Clr Calc Pharmacy 25.9; Estimated Glomerular Filt Rate 25; Glucose Random 167 mg/dL (60-115); Potassium 5.1 mmol/L (3.3-5.1); Sodium 138 mmol/L (135-145)
[2023-01-25 07:41] LABS: Glucose, Whole Blood 189 mg/dL (60-115)
[2023-01-25] MEDS: Atorvastatin Calcium 80 MG TABLET PO (07:52)
[2023-01-25] MEDS: methylPREDNISolone Sod Succ 40 MG/ML VIAL IVPUSH ×2 (07:52→20:31)
[2023-01-25] MEDS: amLODIPine Besylate 5 MG TABLET PO (07:52)
[2023-01-25] MEDS: Cholecalciferol (Vitamin D3) 25 MCG TABLET PO (07:53)
[2023-01-25] MEDS: Aspirin Enteric Coated 81 MG TABLET.DR PO (07:53)
[2023-01-25] MEDS: Multivitamin TABLET 1 TAB PO (07:53)
[2023-01-25] MEDS: Insulin Lispro 100 UNIT/ML 3 ML VIAL SUBCUT ×6 (07:54→20:44)
[2023-01-25] MEDS: 0.9 % Sodium Chloride Flush 3 ML SYRINGE IVFLUSH ×3 (07:54→20:31)
[2023-01-25 08:14] LABS: Estimated Average Glucose 151 mg/dL; Hemoglobin A1c % 6.9 %
[2023-01-25] MEDS: guaiFEN/Codeine SF 200/20/10ML 10 ML LIQUID 5 ML PO (10:32)
[2023-01-25 11:19] LABS: Glucose, Whole Blood 382 mg/dL (60-115)
--- NOTE | 2023-01-25 11:36 | MHC.CM.PN ---
PT NOT YET MEDICALLY CLEARED DCP REMAINS HOME WITH NO SERVICES VIA PRIVATE TRANSPORT
--- NOTE | 2023-01-25 12:44 | P.PNIM_ITS ---
Subjective Subjective Date of Service: 01/25/23 Interval History: copd execerebation Review of Systems breath with minimal exertion similar to yesterday, has cough Denies any chest pain or abdominal pain or nausea or vomiting. Physical Exam Vital Signs: Vital Signs: Last Vital Signs Temp 97.5 F 01/25/23 07:51 Pulse 89 01/25/23 11:28 Resp 18 01/25/23 11:28 BP 150/66 H 01/25/23 07:51 Pulse Ox 88 L 01/25/23 07:51 O2 Del Method 01/25/23 07:51 O2 Flow Rate 2.0 01/25/23 07:51 Oxygen Flow Rate 2 01/23/23 14:15 BMI result Body Mass Index 29.7 Appearance: Alert.? Oriented X3.? not in distress.? cvs: [id number], [id number] , no murmur res:air entry somewhat improvin,has b/l exp .wheezin abd: no rebound or guarding ,nt, bs present. ext pulses present , no cyanosis. neuro: axo3 , nonfocal. Objective Data Active Medications Acetaminophen (Acetaminophen 325 Mg Tablet) 650 mg PO Q6H PRN PRN Reason: Pain, Mild (Pain Scale 1-3) Last Admin: 01/24/23 09:12 Dose: 650 mg Documented By: HARI Amlodipine Besylate (Amlodipine Besylate 5 Mg Tablet) 5 mg PO DAILY [facility]; Protocol Last Admin: 01/25/23 07:52 Dose: 5 mg Documented By: YANIRA Aspirin (Aspirin Enteric Coated 81 Mg Tablet.) 81 mg PO DAILY [facility] Last Admin: 01/25/23 07:53 Dose: 81 mg Documented By: YANIRA Atorvastatin Calcium (Atorvastatin Calcium 80 Mg Tablet) 80 mg PO DAILY [facility] Last Admin: 01/25/23 07:52 Dose: 80 mg Documented By: YANIRA Albuterol Sulfate 2.5 mg/ (Ipratropium [place] 0.5 mg) 0 mg INHALE RQ4H WHILE AWAKE [facility] Last Admin: 01/25/23 11:26 Dose: 1 each Documented By: BELLA Dextrose (Dextrose 50 % 25 Gm/50 Ml Syringe) 25 gm IVPUSH Q15M PRN; Protocol PRN Reason: per Hypoglycemia Standing Ord. Docusate Sodium (Docusate Sodium 100 Mg Capsule) 100 mg PO DAILY PRN PRN Reason: Constipation Enoxaparin Sodium (Enoxaparin Sodium 40 Mg/0.4 Ml Syringe) 40 mg SUBCUT Q24H [facility] Last Admin: 01/24/23 19:46 Dose: 40 mg Documented By: KANNAN Glucose (Glucose Gel 15 Gm Gel..Gram.) 15 gm PO Q15M PRN; Protocol PRN Reason: per Hypoglycemia Standing Ord. Guaifenesin (Guaifenesin 100 Mg/5 Ml Liquid) 10 ml PO Q4H PRN PRN Reason: Cough Last Admin: 01/24/23 19:46 Dose: 10 ml Documented By: KANNAN Azithromycin 500 mg/ Sodium (Chloride) 250 mls @ 125 mls/hr IV Q24H [facility] Last Infusion: 01/24/23 22:00 Dose: 0 mls/hr Documented By: KANNAN Insulin Human Lispro (Insulin Lispro 100 Unit/Ml 3 Ml Vial) 0 unit SUBCUT QIDACHS [facility]; Protocol Last Admin: 01/25/23 12:24 Dose: 12 unit Documented By: YANIRA Methylprednisolone Sodium Succinate (Methylprednisolone Sod Succ 40 Mg/Ml Vial) 40 mg IVPUSH Q12H [facility] Last Admin: 01/25/23 07:52 Dose: 40 mg Documented By: YANIRA Multivitamins/Vitamin C (Multivitamin Tablet) 1 tab PO DAILY [facility] Last Admin: 01/25/23 07:53 Dose: 1 tab Documented By: YANIRA Ondansetron HCl (Ondansetron Hcl 4 Mg/2 Ml Vial) 4 mg IVPUSH Q8H PRN PRN Reason: Nausea and Vomiting Pharmacy Consult (Consult Rx Perform Med Rec) 1 each MISCELLANE ONCE PRN PRN Reason: Consult order Sodium Chloride (0.9 % Sodium Chloride Flush 3 Ml Syringe) 3 ml IVFLUSH QSHIFT [facility] Last Admin: 01/25/23 07:54 Dose: 3 ml Documented By: YANIRA Vitamin D (Cholecalciferol (Vitamin D3) 25 Mcg Tablet) 25 mcg PO DAILY [facility] Last Admin: 01/25/23 07:53 Dose: 25 mcg Documented By: YANIRA Labs 01/24/23 05:18 01/25/23 05:18 Labs: Laboratory Results - last 24 hr 01/24/23 01/24/23 01/25/23 16:18 19:49 05:18 Anion Gap 18 Estim Creat Clear Calc 25.9 Estimated GFR 25 POC Glucose 412 H* 432 H* Random Glucose 167 H Estimat Average Glucose Hemoglobin A1c % Calcium 9.2 D 01/25/23 01/25/23 01/25/23 05:18 07:38 11:15 Anion Gap Estim Creat Clear Calc Estimated GFR POC Glucose 189 H 382 H* Random Glucose Estimat Average Glucose 151 Hemoglobin A1c % 6.9 Calcium Microbiology Microbiology Results: Microbiology 01/23/23 15:40 Blood Culture - Preliminary Blood - Venous No growth after 24 hours. 01/23/23 15:11 Blood Culture - Preliminary Blood - Venous No growth after 24 hours. Assessment and Plan (1) ILD (interstitial lung disease): Status: Acute (2) COPD with acute exacerbation: Status: Acute (3) Hyperglycemia: Status: Acute Plan 77-year-old female past medical history of COPD as well as CHF presents to the hospital with complaints of shortness of breath cough and sputum production 1.? acute on chronic hypoxic respiratory failure-? patient at baseline 2 L of oxygen common with O2? in the 70s on [address] -possible mild interstitial changes -? likely secondary to COPD versus pneumonia versus CHF -? has increased cough, sputum production, as well as dyspnea, there is slightly elevated BNP but has no lower extremity edema Seen by pulmonary: Continue nebs, steroids, antibiotics, oxygen support and monitor. 2.? acute COPD exacerbation -? increased cough, sputum production, increased dyspnea -? will treat with Solu-Medrol, DuoNeb p.r.n. as well as scheduled -? azithromycin to decrease inflammation 3.? acute CHF-? history of diastolic heart failure -? slightly? elevated BNP but significantly lower than previous -? chest CT -neg for pulm edema -? clinically appears euvolemic hold off lasix 4. slightly elevated LFTs-?? chronic on/off since 2019. jose antonio will check abd sono-? early hepatic disease . further workup outpatient. 5. diabetes with hyperglycemia possible sec to setriod use hba1c levels-6.9 adjusted sliding scale insulin and continue glipizide. -? diabetic diet 6.? hypertension -? elevated -? resume home antihypertensives 7. ? CKD stage IV near baseline -? monitor BMP ?DVT prophylaxis:? Heparin subQ ?Inpatient need :acute hypoxia due to copd excerebation -needs nebs, iv steroids, antibiotics, oxygen support and monitor. Respiratory status stress is not optimally yet. Time Spent With Patient Time: Total time managing care of this patient today ____ minutes. Quality Stroke Does the patient have a stroke diagnosis?: No VTE Prior VTE?: No VTE Risk Level:: Medical - moderate - high VTE Device Contraindication: Treatment Not Indicated VTE Drug Contraindication: N/A - Med Ordered
[2023-01-25 16:28] LABS: Glucose, Whole Blood 409 mg/dL (60-115)
[2023-01-25] MEDS: Azithromycin 500 MG in 0.9 % Sodium Chloride 250 ML 125 MG IV (20:31)
[2023-01-25] MEDS: Enoxaparin Sodium 40 MG/0.4 ML SYRINGE SUBCUT (20:31)
[2023-01-25 20:40] LABS: Glucose, Whole Blood 291 mg/dL (60-115)
[2023-01-25] MEDS: Acetaminophen 325 MG TABLET 650 MG PO (20:45)
[2023-01-25] MEDS: guaiFENesin 100 MG/5 ML LIQUID 10 ML PO (20:45)
[2023-01-26 03:14] VITALS: BP 169/77; PULSE 87; RESP 19; TEMP 36.9; O2SAT 90
[2023-01-26 07:38] LABS: Glucose, Whole Blood 257 mg/dL (60-115)
[2023-01-26 07:47] VITALS: RESP 18; O2SAT 91
[2023-01-26 07:48] VITALS: BP 150/60; PULSE 82; RESP 18; TEMP 36.3; O2SAT 100
[2023-01-26] MEDS: methylPREDNISolone Sod Succ 40 MG/ML VIAL IVPUSH (08:15)
[2023-01-26] MEDS: Aspirin Enteric Coated 81 MG TABLET.DR PO (08:15)
[2023-01-26] MEDS: 0.9 % Sodium Chloride Flush 3 ML SYRINGE IVFLUSH (08:15)
[2023-01-26] MEDS: Cholecalciferol (Vitamin D3) 25 MCG TABLET PO (08:15)
[2023-01-26] MEDS: amLODIPine Besylate 5 MG TABLET PO (08:15)
[2023-01-26] MEDS: Atorvastatin Calcium 80 MG TABLET PO (08:15)
[2023-01-26] MEDS: Insulin Lispro 100 UNIT/ML 3 ML VIAL SUBCUT ×2 (08:16→12:09)
[2023-01-26] MEDS: Multivitamin TABLET 1 TAB PO (08:16)
[2023-01-26 11:53] LABS: Glucose, Whole Blood 338 mg/dL (60-115)
--- NOTE | 2023-01-26 11:53 | PM.CNNEP ---
History of Present Illness Reason for Consult Consult date: 01/26/23 Reason for consult: CKD stage 4 Chief Complaint Chief complaint: COPD exacerbation, hypoxic History of Present Illness Narrative: Gabi is a 77 yo woman with CKD stage 4 associated with longstanding DM II who presented with worsening SOB thought to be an exacerbation of her COPD. She has HTN which she states is well controlled at home. She is on RAAS blockade and did not tolerate SGLT2 inhibitor in past due to vaginitis. She sees Dr. Casillas for her CKD and is followed closely. She is close to her baseline renal function at present. She has been treated with steroids and feels improved in terms of her dyspnea. Review of Systems Review of Systems dyspnea is improve, some LITTLE, no orthopnea, has cough Denies any chest pain or abdominal pain or nausea or vomiting. Yes all other systems are reviewed and are negative Constitutional: Denies daytime sleepiness, Denies excessive sweating, Denies fatigue, Denies fever(s), Denies lethargy, Denies malaise, Denies night sweats, Denies snoring and Denies weight loss Eyes: Denies blurry vision and Denies itchy eyes Denies nasal congestion, Denies post nasal drip, Denies sinus pain, Denies sinus pressure and Denies other ( Thrush) Cardiovascular: Denies chest pain, Denies pedal edema, Denies dyspnea, Reports dyspnea on exertion, Denies orthopnea and Denies paroxysmal nocturnal dyspnea Respiratory: Reports cough, Denies hemoptysis, Reports excessive phlegm production, Denies dyspnea, Reports dyspnea on exertion, Denies snoring and Denies wheezing Gastrointestinal: Denies abdominal pain and Denies heartburn Musculoskeletal: Denies myalgias, Denies arthralgias and Denies joint swelling Skin/Breast: Denies rash Denies memory loss and Denies seizure-like activity Psychiatric: Denies abnormal sleep pattern, Denies anxiety and Denies memory loss Endocrine: Denies excessive sweating, Denies fatigue and Denies heat intolerance Hematologic/Lymphatic: Denies easy bruising Allergic/Immunologic: Denies itchy eyes, Denies seasonal rhinorrhea and Denies wheezing PMFSH Past Medical History Medical History CAD (coronary artery disease) Chronic diastolic heart failure COPD (chronic obstructive pulmonary disease) Diabetes Diastolic dysfunction Hyperlipidemia Hypertension Hypoxemia Restrictive lung disease Type 2 diabetes mellitus with unspecified complications Family History Family History Father Diabetes Mother Unknown Surgical History Surgical History History of left cataract surgery Stented coronary artery Social History Social History Household Members: Spouse Patient Tobacco Use Status: Former Tobacco user Quit Date: 30 yearss ago Smoked in Last 30 Days: No Use of substances other than those prescribed or required for medical reasons: No Currently Displaying Signs/Symptoms of Drug Intoxication Withdrawal: No Any prior treatment program specific to substance use: No Have you been hit, kicked, punched, or otherwise hurt by someone within the past year? If so, by whom?: No Do you feel safe in your current relationship?: Yes Is there a partner from a previous relationship who is making you feel unsafe now?: No Are you made to feel afraid or neglected: No Advance Directives: No Do you have thoughts of harming others: None Do you have a plan to hurt others: No Plan Recently lost weight without trying: No Eating poorly because of decreased appetite: No Nutrition Risks: No Nutritional Risk Patient : No : No Poor oral hygiene: No Meds Allergies Allergy/AdvReac Type Severity Reaction Status Date / Time No Known Allergies Allergy Verified 01/23/23 14:21 [No Known Allergies*] Active Medications: Current Medications Acetaminophen (Acetaminophen 325 Mg Tablet) 650 mg PO Q6H PRN PRN Reason: Pain, Mild (Pain Scale 1-3) Last Admin: 01/25/23 20:45 Dose: 650 mg Amlodipine Besylate (Amlodipine Besylate 5 Mg Tablet) 5 mg PO DAILY [facility]; Protocol Last Admin: 01/26/23 08:15 Dose: 5 mg Aspirin (Aspirin Enteric Coated 81 Mg Tablet.) 81 mg PO DAILY [facility] Last Admin: 01/26/23 08:15 Dose: 81 mg Atorvastatin Calcium (Atorvastatin Calcium 80 Mg Tablet) 80 mg PO DAILY [facility] Last Admin: 01/26/23 08:15 Dose: 80 mg Albuterol Sulfate 2.5 mg/ (Ipratropium [place] 0.5 mg) 0 mg INHALE RQ4H WHILE AWAKE [facility] Last Admin: 01/26/23 11:33 Dose: Not Given Dextrose (Dextrose 50 % 25 Gm/50 Ml Syringe) 25 gm IVPUSH Q15M PRN; Protocol PRN Reason: per Hypoglycemia Standing Ord. Docusate Sodium (Docusate Sodium 100 Mg Capsule) 100 mg PO DAILY PRN PRN Reason: Constipation Glucose (Glucose Gel 15 Gm Gel..Gram.) 15 gm PO Q15M PRN; Protocol PRN Reason: per Hypoglycemia Standing Ord. Guaifenesin (Guaifenesin 100 Mg/5 Ml Liquid) 10 ml PO Q4H PRN PRN Reason: Cough Last Admin: 01/25/23 20:45 Dose: 10 ml Azithromycin 500 mg/ Sodium (Chloride) 250 mls @ 125 mls/hr IV Q24H [facility] Last Infusion: 01/25/23 22:58 Dose: Infused Insulin Human Lispro (Insulin Lispro 100 Unit/Ml 3 Ml Vial) 0 unit SUBCUT QIDACHS [facility]; Protocol Last Admin: 01/26/23 08:16 Dose: 8 unit Methylprednisolone Sodium Succinate (Methylprednisolone Sod Succ 40 Mg/Ml Vial) 40 mg IVPUSH Q12H [facility] Last Admin: 01/26/23 08:15 Dose: 40 mg Multivitamins/Vitamin C (Multivitamin Tablet) 1 tab PO DAILY [facility] Last Admin: 01/26/23 08:16 Dose: 1 tab Ondansetron HCl (Ondansetron Hcl 4 Mg/2 Ml Vial) 4 mg IVPUSH Q8H PRN PRN Reason: Nausea and Vomiting Pharmacy Consult (Consult Rx Perform Med Rec) 1 each MISCELLANE ONCE PRN PRN Reason: Consult order Sodium Chloride (0.9 % Sodium Chloride Flush 3 Ml Syringe) 3 ml IVFLUSH QSHIFT [facility] Last Admin: 01/26/23 08:15 Dose: 3 ml Vitamin D (Cholecalciferol (Vitamin D3) 25 Mcg Tablet) 25 mcg PO DAILY [facility] Last Admin: 01/26/23 08:15 Dose: 25 mcg Home Medications Medication Instructions Recorded Confirmed Last Taken Type aspirin 81 mg tablet,delayed 81 mg PO DAILY 09/14/20 01/23/23 01/23/23 History release cholecalciferol (vitamin D3) 25 25 mcg PO DAILY 09/14/20 01/23/23 01/23/23 History mcg (1,000 unit) capsule lisinopril 40 mg tablet 20 mg PO DAILY 02/13/21 01/23/23 01/23/23 History multivitamin (Daily Multi-Vitamin 1 tab PO DAILY 09/18/21 01/23/23 01/23/23 History tablet) amlodipine 5 mg tablet 5 mg PO DAILY 03/13/22 01/23/23 01/23/23 History glipizide 5 mg tablet 5 mg PO BID 03/20/22 01/23/23 01/23/23 09:00 History Physical Exam Vital Signs: Last Vital Signs Temp 97.4 F 01/26/23 07:48 Pulse 82 01/26/23 07:48 Resp 18 01/26/23 07:48 BP 150/60 H 01/26/23 07:48 Pulse Ox 100 01/26/23 07:48 O2 Del Method 01/26/23 07:48 O2 Flow Rate 2.0 01/26/23 07:48 Oxygen Flow Rate 2 01/23/23 14:15 BMI result Body Mass Index 29.7 Results Lab Results 01/24/23 05:18 01/25/23 05:18 Lab results: Chemistry 01/23/23 01/24/23 01/25/23 14:52 05:18 05:18 Sodium 138 134 L 138 Potassium 5.2 H 4.8 5.1 Carbon Dioxide 27 18 L 21 L BUN 35 H 37 H 54 H Creatinine 1.87 H 1.85 H 1.91 H Calcium 9.1 8.5 D 9.2 D Hematology 01/23/23 01/24/23 14:52 05:18 WBC 9.1 8.4 Hgb 11.3 L 10.3 L Plt Count 352 D 320 Urinalysis 01/23/23 17:44 Urine Color Yellow Urine Appearance Clear Urine pH 5.0 Ur Specific [place] 1.010 Urine Protein 100 (2+) H Urine Glucose (UA) 100 H Urine Ketones Negative Urine Blood Negative Urine Nitrite Negative Ur Leukocyte Esterase Trace H Urine RBC 0-2 Urine WBC 0-5 Ur Squamous Epith Cells 3-5 Hyaline Casts 3-5 Assessment and Plan (1) CKD (chronic kidney disease) stage 4, GFR 15-29 ml/min: Status: Acute CKDs stage 4 in the setting of longstanding DM II and HTN; sees Dr. 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 Casillas determine at next visit Low K diet continue lisinopril Time Spent With Patient Time: Total time managing care of this patient today ____ minutes. Procedures Date of Service Date of Service: 01/26/23
--- NOTE | 2023-01-26 12:01 | P.DS_ITS ---
DS: Providers Provider Date of Service: 01/26/23 Date of admission: 01/23/23 20:15 Date of discharge: 01/26/23 Primary care physician: Matheus Singh MD Consults: 01/24/23 07:53 Consult to Pulmonology Routine Consulting Provider: [facility] Pul[facility]ology [facility] Reason for consultation: hypoxia-?ild on ct . Has provider been notified: No 01/26/23 09:50 Consult to Nephrology Routine Consulting Provider: Haroon Aguirre Reason for consultation: akion ckd ,htn uncontrolled Attending physician on discharge: Paresh Iglesias DS: Diagnosis Discharge Diagnosis (1) CKD (chronic kidney disease) stage 4, GFR 15-29 ml/min: Status: Acute (2) Hypertension: Status: Acute (3) Metabolic acidosis: Status: Acute (4) Chronic heart failure with preserved ejection fraction (HFpEF): Status: Acute (5) ILD (interstitial lung disease): Status: Acute (6) Liver function test abnormality: Status: Acute DS: Summary Hospital Course Hospital Course: 77-year-old female with past medical history of chronic respiratory failure on 2 L of oxygen at baseline, type 2 diabetes, HTN, aortic valve calcification, HLD, HTN, diastolic heart failure, CAD, presents to the hospital with complaints of shortness of breath, cough, she production. ? Patient reports that her symptoms started about a week ago, she has significant dyspnea on minimal exertion, she reports a cough, sputum production.? She denies any lower extremity edema.? Reports no chest pain, no abdominal pain, no nausea or vomiting, no diarrhea constipation, no urinary symptoms and no lower extremity edema. ? On arrival to the ED patient found to be hypoxic with O2 level of 78% on 2 L of her baseline oxygen.? States that she only uses oxygen at bedtime although is prescribed for her to use daily.? All other vitals stable Labs are significant for WBC count of 9.1, hemoglobin of 11.3, pH of 7.35, pCO2 44, creatinine of 1.87 which is around her baseline, AST of 74, ALT of 88, alk-phos of 137 which is slightly elevated, BNP of 261, UA shows trace leukocyte Estrace with no bacteria, no urinary symptoms.? COVID-19 RSV? and influenza negative ?chest x-ray revealed bronchial wall thickening which can be seen in small airway process such as asthma or atypical viral infection. Hospital course: Patient was admitted for shortness of breath: acute on chronic hypoxic respiratory failure- Possibly related to COPD: ct chest shows - Mild ILD. Started on nebs, steroids, antibiotics seems to be improved significantly going home with p.o. antibiotics and steroids. seen by pulmonary -continue steriods and po azihromycin.follow up outpatient. Mild elevation in LFTs(liver function tests): Seems on and off since 2019. repeated lft's seems improving Abdominal sono:hepatocellular disease and question mild cirrhotic change-please monitor liver functions out patiently and further workup outpatient. CKD: Renal function is at baseline, monitor renal function and electrolytes out patiently. plan: Please complete the course of antibiotics and steroids. Follow-up with Pulmonary outpatient. Also repeat BMP and LFTs out patiently for chronic kidney disease and elevated LFTs respectively, further workup out patiently as per PCP. Time Spent with Patient Time attestation: Total time managing care of this patient today ____ minutes. Discharge coordination time: Greater than 30 minutes Quality: Safe Use of Opioids Does Pt have an Active Cancer Diagnosis on the Problem List?: No Quality: Stroke Does the patient have a stroke diagnosis?: No Physical Exam Vital Signs: Vital Signs: Last Vital Signs Temp 97.4 F 01/26/23 07:48 Pulse 82 01/26/23 07:48 Resp 18 01/26/23 07:48 BP 150/60 H 01/26/23 07:48 Pulse Ox 100 01/26/23 07:48 O2 Del Method 01/26/23 07:48 O2 Flow Rate 2.0 01/26/23 07:48 Oxygen Flow Rate 2 01/23/23 14:15 BMI result Body Mass Index 29.7 Appearance: Alert.? Oriented X3.? not in distress.? cvs: [id number], [id number] , no murmur res:air entry somewhat improvin,has b/l exp .wheezin abd: no rebound or guarding ,nt, bs present. ext pulses present , no cyanosis. neuro: axo3 , nonfocal. DS: Data Data Completed and Pending Labs on day of discharge: Laboratory Results - last 24 hr 01/25/23 01/25/23 01/26/23 16:19 20:29 07:29 POC Glucose 409 H* 291 H 257 H 01/26/23 11:46 POC Glucose 338 H Preliminary micro results at discharge 01/23/23 15:40 Blood Culture - Preliminary Blood - Venous No growth after 48 hours. 01/23/23 15:11 Blood Culture - Preliminary Blood - Venous No growth after 48 hours. Imaging Chest x-ray: Radiologist's impression: ITS Impressions Chest X-Ray 01/23/23 15:21 IMPRESSION: No dense consolidation. Bronchial wall thickening can be seen with a small airways process such as asthma or atypical/viral infection. Chest CT 01/23/23 23:30 IMPRESSION: 1. Redemonstrated moderate to severe upper lobe predominant emphysema. Regions of subpleural reticulation bilaterally appear overall mildly increased from prior, raising the possibility of developing superimposed nonspecific interstitial lung disease. 2. Multiple mildly enlarged mediastinal lymph nodes, overall similar to 2018. 3. Coronary artery calcifications. Correlation with cardiac risk factors is recommended. Abdomen Ultrasound 01/24/23 18:59 IMPRESSION: Echogenic heterogeneous liver suggestive of hepatocellular disease and question mild cirrhotic change. Gallstones. Limited visualization of the distal aorta. Discharge Plan Discharge Anticipated Discharge Date/Time: 01/26/23 11:51 Patient Disposition: Home, Self-Care Discharge Diagnosis: copd excerebation,ckd Referrals: Matheus Singh MD [Primary Care Provider] - 1 Week Discharge Medications: New azithromycin 250 mg tablet 250 mg PO DAILY 3 Days Qty: 3 0RF prednisone 20 mg tablet 20 mg PO DAILY Qty: 3 0RF Continued rosuvastatin 40 mg tablet 40 mg PO DAILY 90 Days Qty: 90 3RF cholecalciferol (vitamin D3) 25 mcg (1,000 unit) capsule 25 mcg PO DAILY aspirin 81 mg tablet,delayed release (DR/EC) 81 mg PO DAILY lisinopril 40 mg tablet 20 mg PO DAILY Rx Instructions: 0.5 tablet multivitamin [Daily Multi-Vitamin] Tablet 1 tab PO DAILY glipizide 5 mg tablet 5 mg PO BID amlodipine 5 mg tablet 5 mg PO DAILY Discharge Orders: Discharge Order (Routine); Ordered 01/26/23 Ordered By: Paresh Iglesias Diet: Advance to usual diet Activity on Discharge: As tolerated Stand Alone Forms: Patient Portal Discharge page Care Plan Goals: Patient was admitted for shortness of breath: Possibly related to COPD: Started on nebs, steroids, antibiotics seems to be improved significantly going home with p.o. antibiotics and steroids. Mild elevation in LFTs(liver function tests): Seems on and off since 2020. repeated lft's seems improving Abdominal sono:hepatocellular disease and question mild cirrhotic change-please monitor liver functions out patiently and further workup outpatient. CKD: Renal function is at baseline, monitor renal function and electrolytes out patiently. Health Concerns: As above. Plan of Treatment: as above. Assessment: As above.
--- NOTE | 2023-01-26 13:34 | MHC.CM.PN ---
PT TO DC HOME TODAY WITH NO SERVICES PRIVATE TRANSPORT
--- NOTE | 2023-01-27 14:31 | PM.PNNEP ---
Subjective Subjective Date of Service: 01/27/23 Interval history: copd execerebation F.u for CKD and Htn Physical Exam Vital Signs: Vital Signs: Last Vital Signs Temp 97.4 F 01/26/23 07:48 Pulse 82 01/26/23 07:48 Resp 18 01/26/23 07:48 BP 150/60 H 01/26/23 07:48 Pulse Ox 100 01/26/23 07:48 O2 Del Method 01/26/23 07:48 O2 Flow Rate 2.0 01/26/23 07:48 Oxygen Flow Rate 2 01/23/23 14:15 BMI result Body Mass Index 29.7 Const: Other: Appearance: Alert. Oriented X3. No acute distress. Eyes: Pupils equal, round and reactive to light. ENT: Pharynx normal. Neck: Normal inspection. Neck supple. No lymph nodes noted. No crepitus CVS: Normal heart rate and rhythm. Pulses normal. Normal S1 and S2 Respiratory: Moderate air movement, bilateral crackles, no significant wheezing, moderate air movement. At rest, oxygen saturation 92% on 2 L, with minimal exertion such as sitting up, oxygen drops the low 80s on 2 L. Patient takes several minutes to recover. Abdomen: Soft and nontender. No rigidity. No distention. Skin: Skin warm and dry. Normal skin color. Normal skin turgor. Extremities: No lower extremity edema. No Lacerations. No Rash Neuro: Oriented X 3. No motor deficit. No sensory deficit. Moving all extremities. No slurred speech. CN 2 through 12 grossly intact Psych: calm, cooperative, normal affect General: cooperative, no acute distress and alert Nutritional Appearance: not obese Orientation/consciousness: patient oriented x3 and Other orientation findings ( oriented) HEENT: Head: Yes atraumatic Mouth: no other ( thrush) Throat: No postnasal drainage Eyes: General: appearance normal, both eyes and all related structures Sclerae: sclerae normal EOM: EOMs intact bilaterally Neck: Neck: Yes supple Lymphatic: no lymphadenopathy noted Resp: Other: decreased breath sounds Effort & Inspection: normal respiratory effort and no use of accessory muscles Auscultation: wheezes (Mild expiratory bilateral) Cardio: Rate: regular rate Rhythm: regular rhythm Heart sounds: no gallops, no murmurs and no rubs GI: Palpation (GI): Soft to palpation and Other GI palpation findings present ( nontender) Auscultation: normal bowel sounds Skin: General skin exam: no rashes or lesions noted and other ( warm) Rashes: no rashes Neuro: General: patient oriented x3 Cognition (Neuro): normal cognition Extrem: General: Yes normal to inspection, Yes no pedal edema, No clubbing, No cyanosis and Yes edema (Trace bilateral) Objective Data Labs 01/24/23 05:18 01/25/23 05:18 Microbiology Microbiology Results: Microbiology 01/23/23 15:40 Blood - Venous Blood Culture - Preliminary No growth after 48 hours. 01/23/23 15:11 Blood - Venous Blood Culture - Preliminary No growth after 48 hours. Procedures Date of Service Date of Service: 01/27/23 Assessment & Plan Assessment and plan (1) CKD (chronic kidney disease) stage 4, GFR 15-29 ml/min: Status: Acute Assessment and Plan: CKDs stage 4 in the setting of longstanding DM II and HTN; sees Dr. 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 Casillas determine at next visit Low K diet continue lisinopril Time Spent With Patient Time: Total time managing care of this patient today ____ minutes. Progress Note: Quality Stroke Does the patient have a stroke diagnosis?: No
== END 2023-01-26 13:28 | disposition home or self-care (01) | DRG 190 ==
LOC: HO.ED 20:20 → HO.EDOVER 20:51 → HO.IMC 21:15 → HO.S3 21:17
PROVIDERS: Physician Assistant; Admitting Provider Internal Medicine; Emergency Provider Emergency Medicine; PCP Internal Medicine; Visit Provider Internal Medicine
DX: J44.1 Chronic obstructive pulmonary disease with (acute) exacerbation (principal); I50.33 Acute on chronic diastolic (congestive) heart failure; J96.21 Acute and chronic respiratory failure with hypoxia; I13.0 Hypertensive heart and chronic kidney disease with heart failure and stage 1 through stage 4 chronic kidney disease, or unspecified chronic kidney disease; N18.4 Chronic kidney disease, stage 4 (severe); E87.20 Acidosis, unspecified; J84.9 Interstitial pulmonary disease, unspecified; E11.22 Type 2 diabetes mellitus with diabetic chronic kidney disease; E11.65 Type 2 diabetes mellitus with hyperglycemia; N25.89 Other disorders resulting from impaired renal tubular function; R93.2 Abnormal findings on diagnostic imaging of liver and biliary tract; I25.10 Atherosclerotic heart disease of native coronary artery without angina pectoris; E78.5 Hyperlipidemia, unspecified; Z20.822 Contact with and (suspected) exposure to COVID-19; Z99.81 Dependence on supplemental oxygen; Z79.82 Long term (current) use of aspirin; Z79.84 Long term (current) use of oral hypoglycemic drugs; Z79.899 Other long term (current) drug therapy
CPT/HCPCS: 0241U; 36415; 71045; 71250; 76700; 80048; 80076; 81001; 82803; 82947; 83036; 83605; 83690; 83735; 83880; 85025; 87040; 87502; 87635; 93005; 94640; 99285; J0456; J0696; J1650; J1940; J2920; J2930

== ENCOUNTER 2023-02-04 12:12 | Outpatient (REF) | payer MEDICARE, SELFPAY ==
[2023-02-04 13:36] LABS: MANUAL DIFF FLAG NO
[2023-02-04 13:45] LABS: Basophils Absolute Auto 0.1 X10*3/uL (0.0-0.2); Basophils Percent Auto 0.7 % (0-2); Eosinophils Absolute Auto 0.3 X10*3/uL (0.0-0.4); Eosinophils Percent Auto 2.9 % (0-4); Hematocrit 38.6 % (37.0-47.0); Imm Gran Abs Auto 0.05 X10*3/uL (0.00-0.03); Imm Gran Pct Auto 0.5 % (0.0-0.4); Lymphocytes Absolute Auto 0.8 X10*3/uL (1.2-4.9); Lymphocytes Percent Auto 7.6 % (20-40); Mean Corpuscular HGB Conc 31.1 g/dl (31.0-35.0); Mean Corpuscular Volume 90.2 fL (80.0-98.0); Mean Platelet Volume 10.2 fL (9.4-12.3); Monocytes Absolute Auto 0.5 X10*3/uL (0.1-1.2); Monocytes Percent Auto 5.1 % (2-11); Neutrophils Absolute Auto 8.9 x10*3/uL (2.0-8.3); Neutrophils Percent Auto 83.2 % (45-73); Platelet Count 306 X10*3/uL (160-400); Red Blood Count 4.28 X10*6/uL (4.20-5.50); Red Cell Distribution Width 14.2 % (11.0-16.0); White Blood Count 10.7 X10*3/uL (4.8-10.8)
[2023-02-04 13:46] LABS: Estimated Average Glucose 174 mg/dL; Hemoglobin A1c % 7.7 %
[2023-02-04 14:13] LABS: Alanine Aminotransferase 118 U/L (0-31); Albumin Level 3.6 g/dL (3.5-5.0); Alkaline Phosphatase 111 U/L (39-117); Anion Gap 15 (12-20); Aspartate Amino Transferase 60 U/L (5-31); Bilirubin Total 0.4 mg/dL (0.0-1.0); Blood Urea Nitrogen 26 mg/dL (9-16); Calcium 8.8 mg/dL (8.4-10.2); Carbon Dioxide 27 mmol/L (22-29); Chloride 100 mmol/L (96-108); Estimated Glomerular Filt Rate 29; Glucose Random 135 mg/dL (60-115); Potassium 4.3 mmol/L (3.3-5.1); Sodium 138 mmol/L (135-145); Total Protein 6.5 g/dL (6.5-8.0)
== END 2023-02-04 12:13 | disposition home or self-care (01) ==
LOC: HO.10HDL 12:12
PROVIDERS: Visit Provider Internal Medicine
DX: J44.9 Chronic obstructive pulmonary disease, unspecified (principal); R79.89 Other specified abnormal findings of blood chemistry; E11.9 Type 2 diabetes mellitus without complications
CPT/HCPCS: 36415; 80053; 83036; 85025

== ENCOUNTER 2023-02-14 08:33 | Outpatient (REF) | payer MEDICARE, SELFPAY ==
[2023-02-14 11:54] LABS: Alanine Aminotransferase 105 U/L (0-31); Albumin Level 3.6 g/dL (3.5-5.0); Alkaline Phosphatase 112 U/L (39-117); Anion Gap 18 (12-20); Aspartate Amino Transferase 49 U/L (5-31); Bilirubin Total 0.4 mg/dL (0.0-1.0); Blood Urea Nitrogen 18 mg/dL (9-16); Calcium 9.5 mg/dL (8.4-10.2); Carbon Dioxide 25 mmol/L (22-29); Chloride 103 mmol/L (96-108); Estimated Glomerular Filt Rate 29; Glucose Random 168 mg/dL (60-115); Potassium 4.5 mmol/L (3.3-5.1); Sodium 141 mmol/L (135-145); Total Protein 6.8 g/dL (6.5-8.0)
== END 2023-02-14 08:34 | disposition home or self-care (01) ==
LOC: HO.HMGCLDS 08:33
PROVIDERS: PCP Internal Medicine; Visit Provider Internal Medicine
DX: N18.9 Chronic kidney disease, unspecified (principal); J44.9 Chronic obstructive pulmonary disease, unspecified; R79.89 Other specified abnormal findings of blood chemistry
CPT/HCPCS: 36415; 80053

== ENCOUNTER → 2023-03-19 09:53 | Outpatient (BNVA) | payer MEDICARE, SELFPAY | PROVIDERS: PCP Internal Medicine; Visit Provider Internal Medicine | DX: J98.4 Other disorders of lung (principal); J44.9 Chronic obstructive pulmonary disease, unspecified; R09.02 Hypoxemia | CPT/HCPCS: 99212 ==

== ENCOUNTER 2023-03-21 06:25 | Outpatient (REF) | payer MEDICARE, SELFPAY ==
[2023-03-21 11:12] LABS: MANUAL DIFF FLAG NO
[2023-03-21 11:24] LABS: Basophils Absolute Auto 0.1 X10*3/uL (0.0-0.2); Eosinophils Absolute Auto 0.5 X10*3/uL (0.0-0.4); Eosinophils Percent Auto 5.7 % (0-4); Hematocrit 39.8 % (37.0-47.0); Hemoglobin 12.2 g/dl (12.0-16.0); Imm Gran Abs Auto 0.04 X10*3/uL (0.00-0.03); Imm Gran Pct Auto 0.5 % (0.0-0.4); Lymphocytes Absolute Auto 1.3 X10*3/uL (1.2-4.9); Lymphocytes Percent Auto 15.4 % (20-40); Mean Corpuscular HGB Conc 30.7 g/dl (31.0-35.0); Mean Corpuscular Hemoglobin 27.2 pg (27.0-33.0); Mean Corpuscular Volume 88.6 fL (80.0-98.0); Mean Platelet Volume 10.1 fL (9.4-12.3); Monocytes Absolute Auto 0.4 X10*3/uL (0.1-1.2); Monocytes Percent Auto 5.1 % (2-11); Neutrophils Absolute Auto 6.1 x10*3/uL (2.0-8.3); Neutrophils Percent Auto 72.3 % (45-73); Platelet Count 297 X10*3/uL (160-400); Red Blood Count 4.49 X10*6/uL (4.20-5.50); Red Cell Distribution Width 15.2 % (11.0-16.0); White Blood Count 8.4 X10*3/uL (4.8-10.8)
[2023-03-21 11:42] LABS: Alanine Aminotransferase 27 U/L (0-31); Albumin Level 3.9 g/dL (3.5-5.0); Alkaline Phosphatase 97 U/L (39-117); Anion Gap 17 (12-20); Aspartate Amino Transferase 20 U/L (5-31); Bilirubin Total 0.5 mg/dL (0.0-1.0); Blood Urea Nitrogen 30 mg/dL (9-16); Calcium 9.4 mg/dL (8.4-10.2); Carbon Dioxide 23 mmol/L (22-29); Chloride 106 mmol/L (96-108); Estimated Glomerular Filt Rate 29; Glucose Random 179 mg/dL (60-115); Potassium 4.8 mmol/L (3.3-5.1); Sodium 141 mmol/L (135-145); Total Protein 6.7 g/dL (6.5-8.0)
[2023-03-21 11:56] LABS: Estimated Average Glucose 160 mg/dL; Hemoglobin A1c % 7.2 %
== END 2023-03-21 06:26 | disposition home or self-care (01) ==
LOC: HO.HMGCLDS 06:25
PROVIDERS: Absent Provider Internal Medicine Nephrology; PCP Internal Medicine; Visit Provider Internal Medicine
DX: E11.22 Type 2 diabetes mellitus with diabetic chronic kidney disease (principal); E11.29 Type 2 diabetes mellitus with other diabetic kidney complication; I13.0 Hypertensive heart and chronic kidney disease with heart failure and stage 1 through stage 4 chronic kidney disease, or unspecified chronic kidney disease; N18.32 Chronic kidney disease, stage 3b; I50.9 Heart failure, unspecified; R79.89 Other specified abnormal findings of blood chemistry; J44.9 Chronic obstructive pulmonary disease, unspecified
CPT/HCPCS: 36415; 80053; 83036; 85025

== ENCOUNTER 2023-04-03 13:57 | Outpatient (REF) | payer MEDICARE, SELFPAY ==
[2023-04-03 16:39] LABS: Appearance Urine Clear; Color Urine Yellow; Glucose Urine UA 100 mg/dL (Negative); Leukocyte Esterase Urine Moderate (2+) (Negative); Nitrite Urine Negative (Negative); UMIC TRIGGER UA YES; Urine Blood Negative (Negative); Urine Ketones Negative (Negative); Urine Protein 300 (3+) mg/dL (Neg-Trace)
[2023-04-03 16:41] LABS: Bacteria Urine Trace (None Seen); RBC Urine 0-2 /HPF (0-2); Squamous Epithelial Cell Urine 0-2 /HPF (0-2); WBC Urine >50 /HPF (0-5)
[2023-04-03 16:56] LABS: Creatinine Urine 47.27 mg/dL
[2023-04-03 17:07] LABS: Microalbum/Creatinine Ratio Ur 2159.9 ug/mg cr
== END 2023-04-03 13:58 | disposition home or self-care (01) ==
LOC: HO.HMGCLNP 13:57
PROVIDERS: PCP Internal Medicine; Visit Provider Internal Medicine Nephrology
DX: I12.9 Hypertensive chronic kidney disease with stage 1 through stage 4 chronic kidney disease, or unspecified chronic kidney disease (principal); N18.32 Chronic kidney disease, stage 3b
CPT/HCPCS: 81001; 82043

== ENCOUNTER 2023-07-22 06:16 | Outpatient (REF) | payer MEDICARE, SELFPAY ==
[2023-07-22 11:50] LABS: MANUAL DIFF FLAG NO
[2023-07-22 11:59] LABS: Basophils Absolute Auto 0.1 X10*3/uL (0.0-0.2); Eosinophils Absolute Auto 0.4 X10*3/uL (0.0-0.4); Eosinophils Percent Auto 6.4 % (0-4); Hematocrit 44.2 % (37.0-47.0); Hemoglobin 13.2 g/dl (12.0-16.0); Imm Gran Abs Auto 0.01 X10*3/uL (0.00-0.03); Imm Gran Pct Auto 0.1 % (0.0-0.4); Lymphocytes Absolute Auto 0.9 X10*3/uL (1.2-4.9); Mean Corpuscular HGB Conc 29.9 g/dl (31.0-35.0); Mean Corpuscular Hemoglobin 26.9 pg (27.0-33.0); Mean Corpuscular Volume 90.2 fL (80.0-98.0); Monocytes Absolute Auto 0.4 X10*3/uL (0.1-1.2); Neutrophils Absolute Auto 4.9 x10*3/uL (2.0-8.3); Neutrophils Percent Auto 72.5 % (45-73); Platelet Count 274 X10*3/uL (160-400); Red Cell Distribution Width 15.9 % (11.0-16.0); White Blood Count 6.7 X10*3/uL (4.8-10.8)
[2023-07-22 12:10] LABS: Estimated Average Glucose 108 mg/dL; Hemoglobin A1c % 5.4 % (<6.0)
[2023-07-22 12:23] LABS: Alanine Aminotransferase 28 U/L (0-31); Albumin Level 3.8 g/dL (3.5-5.0); Alkaline Phosphatase 84 U/L (39-117); Anion Gap 15 (12-20); Aspartate Amino Transferase 25 U/L (5-31); Bilirubin Total 0.3 mg/dL (0.0-1.0); Blood Urea Nitrogen 42 mg/dL (9-16); Calcium 9.7 mg/dL (8.4-10.2); Carbon Dioxide 25 mmol/L (22-29); Chloride 106 mmol/L (96-108); Cholesterol 109 mg/dL (<200); Estimated Glomerular Filt Rate 25; HDL Cholesterol 33 mg/dL (>40); LDL Cholesterol Calculated 56 mg/dL (<100); Sodium 141 mmol/L (135-145); Total Protein 7.5 g/dL (6.5-8.0); Triglycerides 101 mg/dL (<150)
[2023-07-22 12:36] LABS: Vitamin D 25-OH Total 31.5 ng/mL (>30)
[2023-07-22 13:36] LABS: Glucose Fasting 45 mg/dL (60-99)
[2023-07-22 15:03] LABS: Microalbum/Creatinine Ratio Ur 579.5 ug/mg cr (<30)
[2023-07-23 14:13] LABS: Calcium (PTHI) 9.4 mg/dL (8.6-10.4); PTHI 162 pg/mL (16-77)
== END 2023-07-22 06:17 | disposition home or self-care (01) ==
LOC: HO.HMGCLDS 06:16
PROVIDERS: PCP Internal Medicine; Visit Provider Internal Medicine
DX: E11.9 Type 2 diabetes mellitus without complications (principal); I10 Essential (primary) hypertension; J44.9 Chronic obstructive pulmonary disease, unspecified; E78.00 Pure hypercholesterolemia, unspecified; M85.80 Other specified disorders of bone density and structure, unspecified site
CPT/HCPCS: 36415; 80053; 80061; 82043; 82306; 83036; 83970; 85025

== ENCOUNTER → 2023-08-06 09:52 | Outpatient (REF) | payer MEDICARE, SELFPAY ==
--- NOTE | 2023-08-06 09:54 | CA_ITS ---
Transthoracic Echocardiogram Patient (Last, First, Middle): Gaib Lugo C Gender: Female Date of : 1945 Age: 78 Procedure Date: 08/06/2023 Procedure Type: Transthoracic Echocardiogram Location: OP Height: 162.56 cm Weight: 77.11 kg BSA: 1.83 m2 Heart Rate: bpm BP: 128 / 75 mmHg Advertisement Distributor: KRISTIN/KATHERINE Referring MD: Rajesh Simpson MD Sofa Cover Inspector: Derek Neumann MD Symptoms: I50.32 - Chronic diastolic (congestive) heart failure Study Quality: Adequate ECG Rhythm: Sinus Conclusions: - 1. Hyperdynamic LV systolic function with LVEF of greater than 70% with grade 2 diastolic dysfunction 2. Moderately dilated left atrium 3. Moderate calcific aortic stenosis with mean gradient of 22 mmHg 4. Calcific mitral valve disease with possible mild mitral stenosis and mild mitral regurgitation 5. Moderately elevated right ventricular systolic pressure 6. No gross pericardial effusion Findings Left Ventricle Normal left ventricular cavity size. There is normal left ventricular wall thickness. The left ventricular systolic function is hyperdynamic. The visually estimated ejection fraction is >70%. Spectral Doppler is indicative of a pseudonormal filling pattern. E/E prime ratio is >15, consistent with elevated filling pressures. Evidence suggests grade II (moderate) diastolic dysfunction. Right Ventricle Mildly increased right ventricular cavity size. There is normal right ventricular systolic function. Atria The left atrium is moderately dilated. Interatrial shunt cannot be excluded. The right atrium is mildly dilated. Aortic Valve There is moderate calcification of the aortic valve. There is moderate aortic valve stenosis. The peak aortic gradient is 33 mmHg.The mean gradient is 22 mmHg. The aortic valve area is 1.10 cm2. There is no aortic valve regurgitation. Mitral Valve There is moderate anterior and posterior mitral leaflet thickening. There is moderate mitral annular calcification. There is mild mitral valve regurgitation. There is mild mitral valve stenosis. Pulmonic Valve The pulmonic valve is likely normal. Tricuspid Valve Normal tricuspid valve structure. There is mild to moderate tricuspid valve regurgitation. Mildly elevated right atrial pressure. Moderate pulmonary hypertension is present. Great Vessels The pulmonary artery was not well visualized. There is no dilatation of the ascending aorta. Venous The inferior vena cava is moderately dilated and collapses greater than 50% with inspiration. Pericardium/Pleural There is a trivial loculated pericardial effusion overlying the left ventricle. Prior Study Comparison Changes noted compared to prior study dated: 07/16/2022. RV systolic pressure is increased. Moderate aortic stenosis is present Measurements 2D Linear Measurements IVSd: 1.30 0.6-0.9/0.6-1.0 cm LVIDd: 5.10 3.9-5.3/4.2-5.9 cm LVIDd Index: 2.79 2.4-3.2/2.2-3.1 cm/m2 LVIDs: 3.70 2.0-3.6 cm LVPWd: 1.00 0.7-1.1 cm LA Diam: 4.50 2.7-3.8/3.0-4.0 cm LAIDs Index: 2.46 1.5-2.3 cm/m2 LV Mass: 283.48 67-162/88-224 g LV Mass Index: 154.90 43-95/49-115 g/m2 LVOT Diam: 2.00 3.0+(-)1.3 cm 2D Systolic Function EF 4C: 72.80 >55% EF 2C: 77.20 >55% EF BiP: 75.10 >55% Mitral Valve MV VTI: 0.42 MV Pk Myron: 1.66 MV Mn Myron: 0.91 MV Pk Grad: 11.00 MV Mn Grad: 4.00 MV Pk E: 1.35 MV PK A: 1.12 MV Decel Time: 149.00 E/A: 1.20 E'Lateral: 9.36 E'Medial: 4.68 E/E' Med: 28.80 E/E' Lat: 14.40 PHT: 43.00 MVA PHT: 5.12 MVA Continuity: 1.93 Decel [place]: 9.11 Aortic Valve AoV Pk Myron: 2.87 AoV Mn Myron: 2.21 AoV VTI: 0.74 AoV Pk Grad: 33.00 Aov Mn Grad: 22.00 COLLEEN Cont.VTI: 1.10 LVOT LVOT Pk Myron: 1.07 LVOT Mn Myron: 0.74 LVOT VTI: 0.26 LVOT Pk Grad: 5.00 LVOT Mn Grad: 3.00 LVOT Diam: 2.00 LVOT Area: 3.14 Diastolic Function MV Pk E: 1.35 MV Pk A: 1.12 E/A: 1.20 E'Medial: 4.68 E/E' Med: 28.80 E' Laterial: 9.36 E/E' Lat: 14.40 Right Ventricle TAPSE (mm): 19.10 TVS' Myron: 11.50 Tricuspid Valve TR Pk Myron: 3.51 TR Pk Grad: 49.00 RA Press: 8.00 RVSP: 57.00 Great Vessels Aorta Sinus of Valsalva: 3.70 2.0-3.5 cm Ao Asc: 3.10 2.1-3.4 cm Updated in Other Vendor System with Status of Final Derek Neumann MD electronically signed on 08/06/2023 1:59:49 PM with status of Final
== END ==
LOC: HO.CARD 09:52
PROVIDERS: PCP Internal Medicine; Visit Provider Internal Medicine
DX: I35.9 Nonrheumatic aortic valve disorder, unspecified (principal); I50.32 Chronic diastolic (congestive) heart failure
CPT/HCPCS: 93306

== ENCOUNTER → 2023-08-06 09:54 | Outpatient (BNV) | payer MEDICARE, SELFPAY | PROVIDERS: PCP Internal Medicine; Visit Provider Internal Medicine Cardiovascular Disease | DX: I35.0 Nonrheumatic aortic (valve) stenosis (principal); I36.1 Nonrheumatic tricuspid (valve) insufficiency | CPT/HCPCS: 93306 ==

== ENCOUNTER 2023-08-19 12:19 | Outpatient (AMB) | payer MEDICARE, SELFPAY ==
--- NOTE | 2023-08-19 12:32 | MHC.OFFVIS ---
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 She states that she is doing fine. No specific complaints from cardiac. No angina. Shortness of breath at baseline. [facility] Medical History CAD (coronary artery disease) Chronic diastolic heart failure COPD (chronic obstructive pulmonary disease) Diabetes Diastolic dysfunction Hyperlipidemia Hypertension Hypoxemia Restrictive lung disease Type 2 diabetes mellitus with unspecified complications Surgical History History of left cataract surgery Stented coronary artery Family History Father Diabetes Mother Unknown Social History Household Members: Spouse Patient Tobacco Use Status: Former Tobacco user Quit Date: 30 yearss ago Review of Systems Const Denies chills, Denies fatigue, Denies fever(s), Denies frequent falls, Denies weakness, Denies weight gain and Denies weight loss ENT Denies dizziness Card Denies chest pain, Denies leg edema, Denies lightheadedness, Denies palpitations, Denies dyspnea, Denies dyspnea on exertion, Denies orthopnea and Denies other (Loss of consciousness) Resp Denies cough, Denies dyspnea and Denies dyspnea on exertion GI Denies hematochezia and Denies change in bowel habits Reports no additional complaints and Reports as per HPI Musc Denies abnormal gait, Denies muscle weakness, Denies numbness, Denies radiating pain into limb and Denies tingling Skin/Breast Reports system reviewed and no additional complaints, except as documented and Reports as per HPI Neuro Denies abnormal gait, Denies dizziness, Denies frequent falls, Denies numbness, Denies tingling and Denies weakness Endo Denies fatigue and Denies palpitations Physical Exam Vital Signs: Last Vital Signs Pulse 77 08/19/23 12:33 BP 140/50 H 08/19/23 12:33 BMI result Body Mass Index 27.8 Const General: comfortable and no acute distress Orientation/consciousness: patient oriented x3 HEENT Other: Unremarkable Head: Yes normal to inspection Neck Neck: Yes normal visual inspection Chest Chest palpation & inspection: normal inspection of the chest Resp Auscultation: clear to auscultation bilaterally Cardio Palpation: normal PMI Heart sounds: S1 normal heart sound present, S2 normal heart sound present, no gallops, Murmur heart sound present systolic early, III/ and at the right sternal border and no rubs GI Palpation (GI): Soft to palpation Back/Spine/Pelvis Other: unremarkable Skin General skin exam: no rashes or lesions noted Neuro General: patient oriented x3 Extrem General: Yes normal to inspection Psych Mental Status: mental status grossly normal Assessment & Plan Assessment & Plan (1) Chronic heart failure with preserved ejection fraction (HFpEF): Code(s): I50.32 - Chronic diastolic (congestive) heart failure Plan: Stable. Not on any regular diuretics. (2) Atherosclerotic cardiovascular disease: Code(s): I25.10 - Atherosclerotic heart disease of [place] coronary artery without angina pectoris Plan: s/p stenting of mid right coronary artery; no significant disease elsewhere. No angina. Continue aspirin. Continue statins. Last LDL 56 mg/dL. (3) Aortic valve calcification: Code(s): I35.9 - Nonrheumatic aortic valve disorder, unspecified Plan: In the most recent echocardiogram, reported moderate aortic stenosis. Mean gradient is 22 mm Hg. We can repeat another echo in a year. (4) Mitral annular calcification: Code(s): I05.9 - Rheumatic mitral valve disease, unspecified Plan: Echocardiogram with moderate mitral annular calcification and mild stenosis. Can be monitored. (5) Essential hypertension: Code(s): I10 - Essential (primary) hypertension Plan: She states that the home blood pressure is much lower. Per patient, home blood pressure was only 105/58 mm Hg today. Apparently all the home blood pressures are much lower than what we get here. Hence no med changes. (6) Type 2 diabetes mellitus with unspecified complications: Code(s): E11.8 - Type 2 diabetes mellitus with unspecified complications Plan: Last HbA1c 5.4%. She is on glipizide. Coding Level of Care Code Est Pt Level 4 (96657) Diagnoses Chronic heart failure with preserved ejection fraction (HFpEF) I50.32 Atherosclerotic cardiovascular disease I25.10 Aortic valve calcification I35.9 Mitral annular calcification I05.9 Essential hypertension I10 Type 2 diabetes mellitus with unspecified complications E11.8
[2023-08-19 12:33] VITALS: BP 140/50; PULSE 77; BMI 27.8
== END 2023-08-19 12:48 | disposition home or self-care (01) ==
PROVIDERS: PCP Internal Medicine; Referring Provider Internal Medicine; Visit Provider Internal Medicine
DX: I50.32 Chronic diastolic (congestive) heart failure (principal); I25.10 Atherosclerotic heart disease of native coronary artery without angina pectoris; I35.9 Nonrheumatic aortic valve disorder, unspecified; I05.9 Rheumatic mitral valve disease, unspecified; I10 Essential (primary) hypertension; E11.8 Type 2 diabetes mellitus with unspecified complications
CPT/HCPCS: 99214

== ENCOUNTER → 2023-08-19 12:19 | Outpatient (BNVA) | payer MEDICARE, SELFPAY | PROVIDERS: PCP Internal Medicine; Referring Provider Internal Medicine; Visit Provider Internal Medicine | DX: I11.0 Hypertensive heart disease with heart failure (principal); I50.32 Chronic diastolic (congestive) heart failure; I25.10 Atherosclerotic heart disease of native coronary artery without angina pectoris; I35.9 Nonrheumatic aortic valve disorder, unspecified; I05.9 Rheumatic mitral valve disease, unspecified; E11.8 Type 2 diabetes mellitus with unspecified complications | CPT/HCPCS: 99212 ==

== ENCOUNTER 2023-09-05 14:06 | Inpatient (IN) | payer MEDICARE, SELFPAY ==
[2023-09-05] VITALS (9 sets, daily range): BP systolic 117–152; BP diastolic 41–65; PULSE 76–93; RESP 16–22; TEMP 36.4–37.1; O2SAT 59–95; BMI 29.9
--- NOTE | ~2023-09-05 | XR_ITS ---
EXAMINATION: XR CHEST CLINICAL INFORMATION: Hypoxia COMPARISON: Previous chest x-ray and chest CT 09/10/2023 TECHNIQUE: Frontal view of the chest was obtained. FINDINGS: The cardiac silhouette is enlarged but stable. There are coarse lung markings similar to previous exam. No definite pneumonia or other evidence of pulmonary edema seen. No pleural effusion or pneumothorax. Degenerative changes of the spine. XR/XR chest 1V IMPRESSION: Stable enlargement of the cardiac silhouette and coarse lung markings. No acute pulmonary disease.
--- NOTE | ~2023-09-05 | XR_ITS ---
EXAMINATION: XR CHEST CLINICAL INFORMATION: SOB COMPARISON: CT chest 01/23/2023. TECHNIQUE: Frontal view of the chest was obtained. FINDINGS: The lungs are expanded without acute consolidation. The heart size normal. There is increased interstitial markings in both lungs suggestive chronic interstitial disease. Superimposed interstitial pneumonitis or edema is not excluded.. The heart size is enlarged. Pulmonary vascularity is normal. There is mild levoscoliosis. XR/XR chest 1V IMPRESSION: Cardiomegaly. Diffuse chronic interstitial lung changes. Superimposed interstitial pneumonitis is not excluded.
--- NOTE | 2023-09-05 14:15 | ED.GENADULT ---
HPI - General Adult General Chief complaint: Upper Respiratory Symptoms Stated complaint: diff breathing Time Seen by Provider: 09/05/23 14:25 Related Data Home Medications Medication Instructions Recorded Confirmed aspirin 81 mg tablet,delayed 81 mg PO DAILY 09/14/20 09/05/23 release cholecalciferol (vitamin D3) 25 25 mcg PO DAILY 09/14/20 09/05/23 mcg (1,000 unit) capsule lisinopril 40 mg tablet 20 mg PO DAILY 02/13/21 09/05/23 multivitamin (Daily Multi-Vitamin 1 tab PO DAILY 09/18/21 09/05/23 tablet) glipizide 5 mg tablet 2.5 mg PO BEDTIME 03/20/22 09/05/23 amlodipine 10 mg tablet 10 mg PO DAILY 08/19/23 09/05/23 glipizide 5 mg tablet 5 mg PO DAILY 09/05/23 09/05/23 Previous Rx's Medication Instructions Recorded rosuvastatin 40 mg tablet 40 mg PO DAILY 90 days #90 tabs 08/13/23 Allergies Allergy/AdvReac Type Severity Reaction Status Date / Time No Known Allergies Allergy Verified 08/19/23 12:34 [No Known Allergies*] [facility] Past Medical History Medical History Type 2 diabetes mellitus with unspecified complications Diabetes Hyperlipidemia Hypertension Chronic diastolic heart failure Diastolic dysfunction CAD (coronary artery disease) Hypoxemia Restrictive lung disease COPD (chronic obstructive pulmonary disease) Surgical History History of left cataract surgery Stented coronary artery Family History Family History Father Diabetes Mother Unknown Social History Social History Household Members: Spouse Housing: Homeless Do you presently have visiting nurse or other home services: No Patient Tobacco Use Status: Former Tobacco user Quit Date: 25 years ago Advance Directives Date on File: 01/28/23 service: No Physical Exam ED Vital Signs: BMI result Body Mass Index 29.9 Course Course Course Narrative: This is a rapid medical exam: Additional HPI, ROS, PE not included below will be deferred to primary provider. Patient is a 78-year-old female with COPD, CKD, ILD, T2DM, HTN, CHF, CAD presenting to the ED from Dr. Bowden's office with oxygen sats in office of 66% on 2lpm of O2 via NC. Patient reports her oxygen level is typically 90-92%. She has felt more short of breath for the past week. states he checked her oxygen level at home with pulse ox yesterday and levels were 60-70%. senior solutions engineer notified and patient brought directly inside ED to room. Medications Administered Generic Name Dose Route Start Last Admin Trade Name Freq PRN Reason Stop Dose Admin Acetaminophen 650 mg 09/05/23 18:04 09/06/23 17:53 Acetaminophen 325 Mg Tablet PO 650 mg Q6H PRN Administration Pain, Mild (Pain Scale 1-3) Apixaban 5 mg 09/08/23 10:15 09/11/23 21:31 Apixaban 5 Mg Tablet PO 5 mg BID CLAY Administration Atorvastatin Calcium 80 mg 09/06/23 09:00 09/11/23 08:33 Atorvastatin Calcium 80 Mg Tablet PO 80 mg DAILY CLAY Administration Azithromycin 250 mg 09/06/23 08:15 09/11/23 08:33 Azithromycin 250 Mg Tablet PO 250 mg Q24H CLAY Administration Diltiazem HCl 180 mg 09/10/23 09:00 09/11/23 08:33 Diltiazem Hcl Cd 180 Mg Cap.Er.24h PO 180 mg DAILY CLAY Administration Protocol Furosemide 80 mg 09/10/23 18:00 09/11/23 16:58 Furosemide 40 Mg/4 Ml Vial IVPUSH 80 mg BID@0900,1800 CLAY Administration Protocol Guaifenesin 600 mg 09/05/23 21:00 09/11/23 21:33 Guaifenesin La 600 Mg Tab.Er.12h PO 600 mg BID CLAY Administration Insulin Human Lispro 0 unit 09/05/23 21:00 09/11/23 21:30 Insulin Lispro 100 Unit/Ml 3 Ml Vial SUBCUT 6 unit QIDACHS CLAY Administration Protocol Levalbuterol HCl 1.25 mg 09/08/23 14:00 09/12/23 08:40 Levalbuterol Hcl 1.25 Mg/3 Ml Vial.Neb INHALE 1.25 mg RTID CLAY Administration Methylprednisolone Sodium Succinate 40 mg 09/06/23 08:00 09/11/23 21:31 Methylprednisolone Sod Succ 40 Mg/Ml Vial IVPUSH 40 mg Q12H CLAY Administration Multivitamins/Vitamin C 1 tab 09/06/23 09:00 09/11/23 08:33 Multivitamin Tablet PO 1 tab DAILY CLAY Administration Vitamin D 25 mcg 09/06/23 09:00 09/11/23 08:33 Cholecalciferol (Vitamin D3) 25 Mcg Tablet PO 25 mcg DAILY CLAY Administration Discontinued Medications Generic Name Dose Route Start Last Admin Trade Name Deandre PRN Reason Stop Dose Admin Albuterol/Ipratropium 3 ml 09/05/23 20:00 09/08/23 07:55 Albuterol/Iprat 2.5/0.5mg 3 Ml Ampul.Neb INHALE Not Given RQ4H WHILE AWAKE [facility] Amlodipine Besylate 10 mg 09/06/23 09:00 09/08/23 08:56 Amlodipine Besylate 10 Mg Tablet PO 10 mg DAILY [facility] Administration Protocol Aspirin 81 mg 09/06/23 09:00 09/08/23 08:56 Aspirin Enteric Coated 81 Mg Tablet. PO 81 mg DAILY [facility] Administration Azithromycin 500 mg 09/05/23 14:29 09/05/23 16:24 Azithromycin 500 Mg Tablet PO 09/05/23 14:30 500 mg ONCE ONE Administration Albuterol Sulfate 5 mg/ 0 mg 09/05/23 14:38 09/05/23 14:45 Albuterol/Ipratropium 3 ml INHALE 09/05/23 14:39 5 each ONCE ONE Administration Albuterol Sulfate 5 mg/ 0 mg 09/05/23 15:13 09/05/23 15:19 Albuterol/Ipratropium 3 ml INHALE 09/05/23 15:14 5 each ONCE ONE Administration Digoxin 0.25 mg 09/10/23 13:00 09/10/23 18:09 Digoxin 0.5 Mg/2 Ml Ampul IVPUSH 09/10/23 19:01 0.25 mg Q6H [facility] Administration Diltiazem HCl 30 mg 09/08/23 17:00 09/09/23 08:21 Diltiazem Hcl 30 Mg Tablet PO 30 mg QID CLAY Administration Protocol Diltiazem HCl 120 mg 09/09/23 11:15 09/09/23 11:51 Diltiazem Hcl Cd 120 Mg Cap.Er.Deg PO 120 mg DAILY CLAY Administration Protocol Diltiazem HCl 60 mg 09/09/23 13:34 09/09/23 14:41 Diltiazem Hcl 60 Mg Tablet PO 09/09/23 13:35 60 mg ONCE ONE Administration Protocol Enoxaparin Sodium 40 mg 09/05/23 18:15 09/07/23 17:12 Enoxaparin Sodium 40 Mg/0.4 Ml Syringe SUBCUT 40 mg Q24H CLAY Administration Furosemide 20 mg 09/05/23 18:36 09/05/23 21:11 Furosemide 20 Mg/2 Ml Vial IVPUSH 09/05/23 18:37 Not Given ONCE ONE Protocol Furosemide 20 mg 09/05/23 21:13 09/05/23 21:45 Furosemide 20 Mg/2 Ml Vial IVPUSH 09/05/23 21:14 20 mg ONCE ONE Administration Protocol Furosemide 40 mg 09/06/23 11:05 09/07/23 09:19 Furosemide 40 Mg/4 Ml Vial IVPUSH 40 mg DAILY CLAY Administration Protocol Furosemide 40 mg 09/07/23 18:00 09/10/23 08:21 Furosemide 40 Mg/4 Ml Vial IVPUSH 40 mg BID@0900,1800 CLAY Administration Protocol Furosemide 40 mg 09/10/23 12:48 09/10/23 13:58 Furosemide 40 Mg/4 Ml Vial IVPUSH 09/10/23 12:49 40 mg ONCE ONE Administration Protocol Magnesium Sulfate 2 gm in 50 mls @ 25 mls/hr 09/05/23 14:27 09/05/23 19:47 Magnesium Sulfate/H2o IV 09/05/23 16:26 Infused ONCE ONE Infusion Ceftriaxone Sodium 1 gm/ 50 mls @ 100 mls/hr 09/05/23 14:29 09/05/23 19:47 Sodium Chloride IV 09/05/23 14:58 Infused ONCE ONE Infusion Diltiazem HCl 125 mg/ Sodium 125 mls @ 0 mls/hr 09/08/23 10:15 09/09/23 11:19 Chloride IVCONT Infused .Q0M [facility] Titration Protocol Per Protocol Insulin Human Lispro 5 unit 09/09/23 11:30 09/09/23 11:51 Insulin Lispro 100 Unit/Ml 3 Ml Vial SUBCUT 09/09/23 11:31 5 unit ONCE ONE Administration Methylprednisolone Sodium Succinate 125 mg 09/05/23 14:27 09/05/23 14:40 Methylprednisolone Sod Succ 125 Mg/2 Ml Vial IVPUSH 09/05/23 14:28 125 mg ONCE ONE Administration Metolazone 5 mg 09/08/23 07:44 09/08/23 09:02 Metolazone 5 Mg Tablet PO 09/08/23 07:45 5 mg ONCE ONE Administration Metolazone 5 mg 09/09/23 11:12 09/09/23 13:22 Metolazone 5 Mg Tablet PO 09/09/23 11:13 Not Given ONCE ONE Metolazone 5 mg 09/10/23 09:54 09/10/23 12:45 Metolazone 5 Mg Tablet PO 09/10/23 09:55 5 mg ONCE ONE Administration Sodium Polystyrene Sulfonate 30 gm 09/06/23 08:05 09/06/23 10:26 Sodium Polystyrene Sulfon/Sorb 15 Gm/60 Ml Oral.Susp PO 09/06/23 08:06 30 gm ONCE ONE Administration Medical Decision Making Lab Data 09/08/23 06:47 09/12/23 07:02 Labs: Lab Results 09/05/23 09/05/23 09/05/23 Range/Units 15:18 15:19 16:59 VBG pH 7.32 (7.32-7.43) VBG pCO2 51 mmHg VBG pO2 76 mmHg VBG HCO3 26 (22-26) mmol/L VBG O2 Saturation 94.0 % VBG Base Excess -0.1 mmol/L Sodium 137 (135-145) mmol/L Potassium 5.1 (3.3-5.1) mmol/L Chloride 104 (96-108) mmol/L Carbon Dioxide 21 L (22-29) mmol/L Anion Gap 17 (12-20) BUN 36 H (9-16) mg/dL Creatinine 1.68 H (0.5-1.4) mg/dL Estim Creat Clear Calc 28.1 Estimated GFR 29 POC Glucose (60-115) mg/dL Random Glucose 232 H (60-115) mg/dL Lactic Acid 1.5 (0.5-2.0) mmol/L Calcium 9.4 (8.4-10.2) mg/dL Total Bilirubin (0.0-1.0) mg/dL AST (5-31) U/L ALT (0-31) U/L Alkaline Phosphatase (39-117) U/L Troponin I High Sens 6.5 (<3.5-17.0) ng/L B-Natriuretic Peptide 1057 H (<100) pg/mL Total Protein (6.5-8.0) g/dL Albumin (3.5-5.0) g/dL Influenza Type A (PCR) NEGATIVE (Negative) Influenza Type B (PCR) NEGATIVE (Negative) RSV RNA Qual (PCR) NEGATIVE (Negative) SARS-CoV-2 RNA (RT-PCR) NEGATIVE (Negative) 09/05/23 09/06/23 09/06/23 Range/Units 20:45 06:57 07:28 VBG pH (7.32-7.43) VBG pCO2 mmHg VBG pO2 mmHg VBG HCO3 (22-26) mmol/L VBG O2 Saturation % VBG Base Excess mmol/L Sodium 138 (135-145) mmol/L Potassium 5.3 H (3.3-5.1) mmol/L Chloride 105 (96-108) mmol/L Carbon Dioxide 22 (22-29) mmol/L Anion Gap 16 (12-20) BUN 38 H (9-16) mg/dL Creatinine 1.86 H (0.5-1.4) mg/dL Estim Creat Clear Calc 25.3 Estimated GFR 26 POC Glucose 342 H 195 H (60-115) mg/dL Random Glucose 215 H (60-115) mg/dL Lactic Acid (0.5-2.0) mmol/L Calcium 9.6 (8.4-10.2) mg/dL Total Bilirubin 0.3 (0.0-1.0) mg/dL AST 17 (5-31) U/L ALT 33 H (0-31) U/L Alkaline Phosphatase 101 (39-117) U/L Troponin I High Sens (<3.5-17.0) ng/L B-Natriuretic Peptide 1663 H (<100) pg/mL Total Protein 7.3 (6.5-8.0) g/dL Albumin 3.7 (3.5-5.0) g/dL Influenza Type A (PCR) (Negative) Influenza Type B (PCR) (Negative) RSV RNA Qual (PCR) (Negative) SARS-CoV-2 RNA (RT-PCR) (Negative) Discharge Plan Discharge Clinical Impression: COPD (chronic obstructive pulmonary disease), Diabetes Patient Disposition: Admitted As Inpatient Discharge Date/Time: 09/05/23 20:39
--- NOTE | 2023-09-05 14:32 | ED.URI ---
HPI - URI/Sore Throat General Chief Complaint: Upper Respiratory Symptoms Stated Complaint: diff breathing Time Seen by Provider: 09/05/23 14:25 History of Present Illness HPI Narrative: Patient is a 78-year-old female with a history of chronic kidney disease. History of hypertension history of hypercholesterolemia, COPD baseline is on 2 L of oxygen at night. Oxygen concentrator during the day. Patient complaining of increasing shortness of breath over last 2 days. Positive in a boxing activities occur in a no history of coronary artery disease. Long history of diabetes. History of aortic valve calcification history of coronary artery disease patient from home. Related Data Home Medications Medication Instructions Recorded Confirmed aspirin 81 mg tablet,delayed 81 mg PO DAILY 09/14/20 08/19/23 release cholecalciferol (vitamin D3) 25 25 mcg PO DAILY 09/14/20 08/19/23 mcg (1,000 unit) capsule lisinopril 40 mg tablet 20 mg PO DAILY 02/13/21 08/19/23 multivitamin (Daily Multi-Vitamin 1 tab PO DAILY 09/18/21 08/19/23 tablet) glipizide 5 mg tablet 5 mg PO BID 03/20/22 08/19/23 amlodipine 10 mg tablet 10 mg PO DAILY 08/19/23 08/19/23 Previous Rx's Medication Instructions Recorded rosuvastatin 40 mg tablet 40 mg PO DAILY 90 days #90 tabs 08/13/23 Allergies Allergy/AdvReac Type Severity Reaction Status Date / Time No Known Allergies Allergy Verified 08/19/23 12:34 [No Known Allergies*] Review of Systems Review of Systems: Positive increasing shortness of breath PMFSH Past Medical History Medical History Type 2 diabetes mellitus with unspecified complications Diabetes Hyperlipidemia Hypertension Chronic diastolic heart failure Diastolic dysfunction CAD (coronary artery disease) Hypoxemia Restrictive lung disease COPD (chronic obstructive pulmonary disease) Surgical History History of left cataract surgery Stented coronary artery Family History Family History Father Diabetes Mother Unknown Social History Social History Household Members: Spouse Patient Tobacco Use Status: Former Tobacco user Quit Date: 30 yearss ago Advance Directives: Yes Advance Directives on File: Yes Advance Directives Date on File: 01/28/23 Physical Exam Vital Signs: Vital Signs: Last Vital Signs Temp 98.3 F 09/05/23 14:16 Pulse 80 09/05/23 15:19 Resp 22 H 09/05/23 15:19 BP 149/61 H 09/05/23 14:26 Pulse Ox 91 L 09/05/23 14:42 O2 Del Method Oxymask 09/05/23 14:26 O2 Flow Rate 6 09/05/23 14:42 BMI result Body Mass Index 29.9 Appearance: Alert. Oriented X3. No acute distress. Eyes: Pupils equal, round and reactive to light. ENT: Pharynx normal. Neck: Normal inspection. Neck supple. No lymph nodes noted. No crepitus CVS: Normal heart rate and rhythm. Pulses normal. Normal S1 and S2 Respiratory: Positive increased work of breathing diminished breath sounds bilaterally positive wheezing bilaterally Abdomen: Soft and nontender. No rigidity. No distention. good BS x4 Skin: Skin warm and dry. Normal skin color. Normal skin turgor. Extremities: No lower extremity edema. Neurovascular intact to all extremities. No Lacerations. No Rash Neuro: Oriented X 3. No motor deficit. No sensory deficit. Moving all extermities. No slurred speech Medications Administered Discontinued Medications Generic Name Dose Route Start Last Admin Trade Name Freq PRN Reason Stop Dose Admin Azithromycin 500 mg 09/05/23 14:29 09/05/23 16:24 Azithromycin 500 Mg Tablet PO 09/05/23 14:30 500 mg ONCE ONE Administration Albuterol Sulfate 5 mg/ 0 mg 09/05/23 14:38 09/05/23 14:45 Albuterol/Ipratropium 3 ml INHALE 09/05/23 14:39 5 each ONCE ONE Administration Albuterol Sulfate 5 mg/ 0 mg 09/05/23 15:13 09/05/23 15:19 Albuterol/Ipratropium 3 ml INHALE 09/05/23 15:14 5 each ONCE ONE Administration Magnesium Sulfate 2 gm in 50 mls @ 25 mls/hr 09/05/23 14:27 09/05/23 14:38 Magnesium Sulfate/H2o IV 09/05/23 16:26 25 mls/hr ONCE ONE Administration Ceftriaxone Sodium 1 gm/ 50 mls @ 100 mls/hr 09/05/23 14:29 09/05/23 16:23 Sodium Chloride IV 09/05/23 14:58 100 mls/hr ONCE ONE Administration Methylprednisolone Sodium Succinate 125 mg 09/05/23 14:27 09/05/23 14:40 Methylprednisolone Sod Succ 125 Mg/2 Ml Vial IVPUSH 09/05/23 14:28 125 mg ONCE ONE Administration Medical Decision Making Medical Decision Making [facility] Narrative: Patient presented with shortness of breath decreased O2 sats. Positive wheezing. We will go ahead and give an dose of steroid. Continuous neb treatment will monitor very carefully. Given steroids given continuous neb treatments, magnesium EKG obtained. My interpretation of the patient's EKG showed a sinus rhythm heart rate is 80 OR QRS QTC within normal limits there is no acute ST segment elevation noted. My interpretation of the patient's chest x-ray showed no focal infiltrate. Lactate was normal there is no evidence for severe sepsis but given patient's coughing upper respiratory symptoms antibiotic was started. Patient's VBG showed no CO2 retention my interpretation of patient's blood gas showed a pH of 7.32 pCO2 51 PaO2 76 patient's COVID flu RSV were all negative. Currently satting at approximately 91% on 2 L. Will admit for further evaluation. Patient's symptom improved with treatment. Will admit patient. Differential Diagnosis Differential Diagnoses: The differential diagnosis associated with the presentation includes COPD exacerbation, congestive heart failure, pneumonia Admission/Observation Consideration of admission/observation: Escalation of care including admission/observation considered Will admit given patient's condition Consult Healthcare Provider Management of the patient was discussed with: Hospitalist Lab Data [facility] Lab Attestation statement: I reviewed the patient's lab results. Labs: Lab Results 09/05/23 09/05/23 09/05/23 Range/Units 15:18 15:19 16:59 VBG pH 7.32 (7.32-7.43) VBG pCO2 51 mmHg VBG pO2 76 mmHg VBG HCO3 26 (22-26) mmol/L VBG O2 Saturation 94.0 % VBG Base Excess -0.1 mmol/L Lactic Acid 1.5 (0.5-2.0) mmol/L Troponin I High Sens 6.5 (<3.5-17.0) ng/L B-Natriuretic Peptide 1057 H (<100) pg/mL Influenza Type A (PCR) NEGATIVE (Negative) Influenza Type B (PCR) NEGATIVE (Negative) RSV RNA Qual (PCR) NEGATIVE (Negative) SARS-CoV-2 RNA (RT-PCR) NEGATIVE (Negative) ABG Data Attestation ABG: I personally reviewed and interpreted this ABG as follows: Interpretation: Mild CO2 retention respiratory acidosis Independent Interpretation I performed an independent interpretation of an: EKG and Plain X-Ray (My interpretation of the patient's chest x-ray grossly negative for pneumonia) Interpretation: My interpretation of the patient's EKG showed a sinus rhythm heart rate is 80 OR QRS QTC within normal limits is no acute ST segment elevation Radiology Impression Discussion of test interpretation with radiology: I have reviewed the radiologist's reading. Independent Historian Clinical information obtained from an independent historian. History obtained from or confirmed by: Spouse External Record Review External record reviewed: Inpatient record Chronic Conditions Patient?s care impacted by: Diabetes and Hypertension Critical Care Time Critical Care Time Critical Care Time: Yes Total Critical Care Time: 40 Attestation: I have personally provided 40 minutes of critical care time exclusive of time spent on separately billable procedures. Time includes review of lab data, radiology results, discussion with consultants, and monitoring for potential decompensation. Interventions were performed as documented above Discharge Plan Discharge Clinical Impression: COPD (chronic obstructive pulmonary disease), Diabetes Patient Disposition: Admitted As Inpatient Prescriptions: No Action rosuvastatin 40 mg tablet 40 mg PO DAILY 90 Days Qty: 90 3RF cholecalciferol (vitamin D3) 25 mcg (1,000 unit) capsule 25 mcg PO DAILY aspirin 81 mg tablet,delayed release (DR/EC) 81 mg PO DAILY lisinopril 40 mg tablet 20 mg PO DAILY Rx Instructions: 0.5 tablet multivitamin [Daily Multi-Vitamin] Tablet 1 tab PO DAILY glipizide 5 mg tablet 5 mg PO BID amlodipine 10 mg tablet 10 mg PO DAILY
--- NOTE | 2023-09-05 18:37 | PM.IMHP ---
History of Present Illness Date of Service: 09/05/23 Chief Complaint: Dyspnea A 78 years old lady with PMH of CKD3, ILD on 2-3L O2 night, DMII, COPD, dCHF, CAD among others who presents to the hospital with worsening dyspnea and O2 requirements. The patient reports noticing a difference 4-5 weeks ago when started to feel winded easily and started using O2 supplement all day long. reported worsening weakness, decrease walking distance. she is mainly home and restricted to small area. doesnt cook or do laundry. denies any fever, chills, chest pain, palpitations, N\V\D or urinary symptoms. In ED found hypoxic. treated with IV steroids and nebulizers with mild improvement in her condition. Found to have elevated BNP as well. Admitted for further evaluation and treatment. Review of Systems Review of Systems: No fever, chills but reports weakness No chest pain, palpitation increase shortness of breath and coughing No abdominal pain, nausea or vomiting No urinary symptoms No any rash or wounds [facility] Medical History Type 2 diabetes mellitus with unspecified complications Diabetes Hyperlipidemia Hypertension Chronic diastolic heart failure Diastolic dysfunction CAD (coronary artery disease) Hypoxemia Restrictive lung disease COPD (chronic obstructive pulmonary disease) Family History Father Diabetes Mother Unknown Surgical History History of left cataract surgery Stented coronary artery Social History Household Members: Spouse Patient Tobacco Use Status: Former Tobacco user Quit Date: 30 yearss ago Advance Directives: Yes Advance Directives on File: Yes Advance Directives Date on File: 01/28/23 Meds Allergies Allergy/AdvReac Type Severity Reaction Status Date / Time No Known Allergies Allergy Verified 08/19/23 12:34 [No Known Allergies*] Active Medications: Current Medications Acetaminophen (Acetaminophen 325 Mg Tablet) 650 mg PO Q6H PRN PRN Reason: Pain, Mild (Pain Scale 1-3) Albuterol Sulfate (Albuterol Sulfate (0.083%) 2.5 Mg/3 Ml Vial.Neb) 2.5 mg INHALE Q4H PRN PRN Reason: Shortness of Breath/Wheezing Albuterol/Ipratropium (Albuterol/Iprat 2.5/0.5mg 3 Ml Ampul.Neb) 3 ml INHALE RQ4H WHILE AWAKE CLAY Enoxaparin Sodium (Enoxaparin Sodium 40 Mg/0.4 Ml Syringe) 40 mg SUBCUT Q24H CLAY Furosemide (Furosemide 20 Mg/2 Ml Vial) 20 mg IVPUSH ONCE ONE; Protocol Stop: 09/05/23 18:37 Insulin Human Lispro (Insulin Lispro 100 Unit/Ml 3 Ml Vial) 0 unit SUBCUT QIDACHS CLAY; Protocol Methylprednisolone Sodium Succinate (Methylprednisolone Sod Succ 40 Mg/Ml Vial) 40 mg IVPUSH Q12H CLAY Ondansetron HCl (Ondansetron Hcl 4 Mg/2 Ml Vial) 4 mg IVPUSH Q8H PRN PRN Reason: Nausea and Vomiting Home Medications Medication Instructions Recorded Confirmed Last Taken Type aspirin 81 mg tablet,delayed 81 mg PO DAILY 09/14/20 08/19/23 01/23/23 History release cholecalciferol (vitamin D3) 25 25 mcg PO DAILY 09/14/20 08/19/23 01/23/23 History mcg (1,000 unit) capsule lisinopril 40 mg tablet 20 mg PO DAILY 02/13/21 08/19/23 01/23/23 History multivitamin (Daily Multi-Vitamin 1 tab PO DAILY 09/18/21 08/19/23 01/23/23 History tablet) glipizide 5 mg tablet 5 mg PO BID 03/20/22 08/19/23 01/23/23 09:00 History amlodipine 10 mg tablet 10 mg PO DAILY 08/19/23 08/19/23 Unknown History glipizide 5 mg tablet 5 mg PO DAILY 09/05/23 09/05/23 09/05/23 History Physical Exam Vital Signs and Narrative: Vital Signs: Last Vital Signs Temp 98.3 F 09/05/23 14:16 Pulse 89 09/05/23 18:21 Resp 19 09/05/23 18:21 BP 117/41 L 09/05/23 18:21 Pulse Ox 90 L 09/05/23 18:21 O2 Del Method Non-Rebreather Ma sk 09/05/23 18:21 O2 Flow Rate 7 09/05/23 18:21 BMI result Body Mass Index 29.9 Const: Other: Constitutional : Awake, interactive, not in distress Neck : Normal inspection, Supple Cardiovascular : RRR, mildly elevated JVP, trace bilateral lower extremity edema Respiratory : decreased bilateral air entry, basal fine bilateral crackles Gastrointestinal: soft, lax, Normal bowel sounds, Non tender Skin : Warm, Dry Neurological : Alert & oriented x3, No focal deficit Results Labs 09/05/23 15:19 Labs: Laboratory Results - last 24 hr 09/05/23 09/05/23 09/05/23 15:18 15:19 16:59 VBG pH 7.32 VBG pCO2 51 VBG pO2 76 VBG HCO3 26 VBG O2 Saturation 94.0 VBG Base Excess -0.1 Anion Gap 17 Estim Creat Clear Calc 28.1 Estimated GFR 29 Random Glucose 232 H Lactic Acid 1.5 Calcium 9.4 B-Natriuretic Peptide 1057 H Influenza Type A (PCR) NEGATIVE Influenza Type B (PCR) NEGATIVE RSV RNA Qual (PCR) NEGATIVE SARS-CoV-2 RNA (RT-PCR) NEGATIVE Imaging Radiologist's Impressions: Impressions Chest X-Ray 09/05/23 15:26 IMPRESSION: Cardiomegaly. Diffuse chronic interstitial lung changes. Superimposed interstitial pneumonitis is not excluded. Assessment and Plan (1) Acute on chronic respiratory failure with hypoxemia: Status: Acute (2) COPD with acute exacerbation: Status: Acute (3) Type 2 diabetes mellitus with unspecified complications: Status: Acute (4) Chronic heart failure with preserved ejection fraction (HFpEF): Status: Acute Plan A 78 years old lady with PMH of CKD3, ILD on 2-3L O2 night, DMII, COPD, dCHF, CAD among others who presents to the hospital with worsening dyspnea and O2 requirements. Acute on chronic hypoxic respiratory failure 2/2 COPD exacerbation baseline on 3L at bedtime Steroids Duonebs Azithromycin for antiinflammatory effect Wean O2 down as tolerated Acute on chronic dCHF exacerbation Start Lasix IV I\O follow BNP DMII Hold GLipizide SSI CAD ASA, Lisinipril and Statin DVT PPx Lovenox The patient will need at least 2 overnight hospital stay for treatment of hypoxic failure Time Spent With Patient Time: Total time managing care of this patient today ____ minutes. Quality Stroke Does the patient have a stroke diagnosis?: No VTE Prior VTE?: No VTE Risk Level:: Medical - moderate - high VTE Device Contraindication: Treatment Not Indicated VTE Drug Contraindication: Treatment Not Indicated
--- NOTE | 2023-09-05 18:48 | PC.NURSE ---
while in the room talking with the pt and family pt HR escalated to 160s. informed MD. pt had no chest pain, could feel her heart racing, had mildly increased SOB, O2 slight drop on bedside monitor. order for EKG placed. while attaching summer to pts chest, pt converted back into a steady rhythm with HR in the 90s.
--- NOTE | 2023-09-05 18:53 | PHA.MEDREC ---
Pharmacy Consult ? Medication Reconciliation Pharmacy has completed the medication reconciliation. Patient had list of medication that match claim history. Reported glipizide 5 mg in the am and 2.5 mg at night. Mary Webber, CristhianD
--- NOTE | 2023-09-05 19:17 | PC.NURSE ---
This RN assumed care at 1500. Patient able to make needs known, O2 adjusted as necessary.
--- NOTE | 2023-09-05 19:18 | PC.NURSE ---
This RN attempted to call report at 1900
--- NOTE | 2023-09-05 19:38 | PC.NURSE ---
Patient transported at this time to floor. This RN attempted to call upstairs to provide update regarding medication.
[2023-09-06] VITALS (10 sets, daily range): BP systolic 112–130; BP diastolic 55–64; PULSE 72–89; RESP 17–20; TEMP 36.6–37; O2SAT 91–97
[2023-09-06 07:51] LABS: Alanine Aminotransferase 33 U/L (0-31); Albumin Level 3.7 g/dL (3.5-5.0); Alkaline Phosphatase 101 U/L (39-117); Anion Gap 16 (12-20); Aspartate Amino Transferase 17 U/L (5-31); Bilirubin Total 0.3 mg/dL (0.0-1.0); Blood Urea Nitrogen 38 mg/dL (9-16); Calcium 9.6 mg/dL (8.4-10.2); Carbon Dioxide 22 mmol/L (22-29); Chloride 105 mmol/L (96-108); Creatinine Clr Calc Pharmacy 25.3; Estimated Glomerular Filt Rate 26; Glucose Random 215 mg/dL (60-115); Potassium 5.3 mmol/L (3.3-5.1); Sodium 138 mmol/L (135-145); Total Protein 7.3 g/dL (6.5-8.0)
--- NOTE | 2023-09-06 09:25 | MHC.CM.PN ---
XIN 09/06. Pt lives at home with her /HCP Nelson. She is self-care, and has home O2 from [facility]. Pts goal is to return home self-care. Pts will transport her home. PCP: Matheus Singh
--- NOTE | 2023-09-06 09:47 | PM.CNPUL ---
History of Present Illness History of Present Illness Consult date: 09/06/23 Chief complaint: respiratory distress Narrative: This is an inpatient pulmonary consultation. The patient is a 88 years old lady with PMH of CKD3, ILD on 2-3L O2 night, DMII, COPD, dCHF, CAD among others who presents to the hospital with worsening dyspnea and O2 requirements. The patient reports noticing a difference 4-5 weeks ago when started to feel winded easily and started using O2 supplement all day long. reported worsening weakness, decrease walking distance. she is mainly home and restricted to small area. doesnt cook or do laundry. denies any fever, chills, chest pain, palpitations, N\V\D or urinary symptoms. In ED found hypoxic. treated with IV steroids and nebulizers with mild improvement in her condition. I did personally reviewed the chest x-ray demonstrating increased worsening of the reticular opacities right more than left. In addition to that her echocardiogram demonstrates significant diastolic dysfunction and some valvular disease likely also contributing. She has also noticed increasing lower extremity edema. Cardiology is following her and she has been on diuresis. Her BNP significantly elevated. I do believe the patient has underlying interstitial lung disease and appears to be with interval worsening. However, I do believe there is also a volume overload status that is impacting her overall health status. Review of Systems Constitutional: Constitutional: Denies daytime sleepiness, Denies excessive sweating, Denies fatigue, Denies fever(s), Denies lethargy, Denies malaise, Denies night sweats, Denies snoring and Denies weight loss Eyes: Eyes: Denies blurry vision and Denies itchy eyes ENT: Denies nasal congestion, Denies post nasal drip, Denies sinus pain, Denies sinus pressure and Denies other ( Thrush) Cardiovascular: Cardiovascular: Denies chest pain, Denies pedal edema, Denies dyspnea, Reports dyspnea on exertion, Denies orthopnea and Denies paroxysmal nocturnal dyspnea Respiratory: Respiratory: Reports cough, Denies hemoptysis, Denies dyspnea, Reports dyspnea on exertion, Denies snoring and Denies wheezing Gastrointestinal: Gastrointestinal: Denies abdominal pain and Denies heartburn Musculoskeletal: Musculoskeletal: Denies myalgias, Denies arthralgias and Denies joint swelling Integumentary/Breasts: Skin/Breast: Denies rash Neurologic: Denies memory loss and Denies seizure-like activity Psychiatric: Psychiatric: Denies abnormal sleep pattern, Denies anxiety and Denies memory loss Endocrine: Endocrine: Denies excessive sweating, Denies fatigue and Denies heat intolerance Hematologic/Lymphatic: Hematologic/Lymphatic: Denies easy bruising Allergic/Immunologic: Allergic/Immunologic: Denies itchy eyes, Denies seasonal rhinorrhea and Denies wheezing PMFSH Past Medical History Medical History Type 2 diabetes mellitus with unspecified complications Diabetes Hyperlipidemia Hypertension Chronic diastolic heart failure Diastolic dysfunction CAD (coronary artery disease) Hypoxemia Restrictive lung disease COPD (chronic obstructive pulmonary disease) Family History Family History Father Diabetes Mother Unknown Surgical History Surgical History History of left cataract surgery Stented coronary artery Social History Social History Household Members: Spouse Housing: Homeless Do you presently have visiting nurse or other home services: No Patient Tobacco Use Status: Former Tobacco user Quit Date: 25 years ago Advance Directives Date on File: 01/28/23 service: No Meds Allergies Allergy/AdvReac Type Severity Reaction Status Date / Time No Known Allergies Allergy Verified 08/19/23 12:34 [No Known Allergies*] Active Medications: Current Medications Acetaminophen (Acetaminophen 325 Mg Tablet) 650 mg PO Q6H PRN PRN Reason: Pain, Mild (Pain Scale 1-3) Albuterol Sulfate (Albuterol Sulfate (0.083%) 2.5 Mg/3 Ml Vial.Neb) 2.5 mg INHALE Q4H PRN PRN Reason: Shortness of Breath/Wheezing Albuterol/Ipratropium (Albuterol/Iprat 2.5/0.5mg 3 Ml Ampul.Neb) 3 ml INHALE RQ4H WHILE AWAKE [facility] Last Admin: 09/06/23 08:43 Dose: 3 ml Amlodipine Besylate (Amlodipine Besylate 10 Mg Tablet) 10 mg PO DAILY [facility]; Protocol Aspirin (Aspirin Enteric Coated 81 Mg Tablet.) 81 mg PO DAILY [facility] Atorvastatin Calcium (Atorvastatin Calcium 80 Mg Tablet) 80 mg PO DAILY [facility] Azithromycin (Azithromycin 250 Mg Tablet) 250 mg PO Q24H [facility] Enoxaparin Sodium (Enoxaparin Sodium 40 Mg/0.4 Ml Syringe) 40 mg SUBCUT Q24H [facility] Last Admin: 09/05/23 19:35 Dose: 40 mg Guaifenesin (Guaifenesin La 600 Mg Tab.Er.12h) 600 mg PO BID [facility] Last Admin: 09/05/23 21:44 Dose: 600 mg Insulin Human Lispro (Insulin Lispro 100 Unit/Ml 3 Ml Vial) 0 unit SUBCUT QIDACHS [facility]; Protocol Last Admin: 09/05/23 21:44 Dose: 8 unit Methylprednisolone Sodium Succinate (Methylprednisolone Sod Succ 40 Mg/Ml Vial) 40 mg IVPUSH Q12H [facility] Multivitamins/Vitamin C (Multivitamin Tablet) 1 tab PO DAILY [facility] Ondansetron HCl (Ondansetron Hcl 4 Mg/2 Ml Vial) 4 mg IVPUSH Q8H PRN PRN Reason: Nausea and Vomiting Vitamin D (Cholecalciferol (Vitamin D3) 25 Mcg Tablet) 25 mcg PO DAILY [facility] Home Medications Medication Instructions Recorded Confirmed Last Taken Type aspirin 81 mg tablet,delayed 81 mg PO DAILY 09/14/20 09/05/23 09/05/23 History release cholecalciferol (vitamin D3) 25 25 mcg PO DAILY 09/14/20 09/05/23 09/05/23 History mcg (1,000 unit) capsule lisinopril 40 mg tablet 20 mg PO DAILY 02/13/21 09/05/23 09/05/23 History multivitamin (Daily Multi-Vitamin 1 tab PO DAILY 09/18/21 09/05/23 09/05/23 History tablet) glipizide 5 mg tablet 2.5 mg PO BEDTIME 03/20/22 09/05/23 09/04/23 History amlodipine 10 mg tablet 10 mg PO DAILY 08/19/23 09/05/23 09/05/23 History glipizide 5 mg tablet 5 mg PO DAILY 09/05/23 09/05/23 09/05/23 History Physical Exam Vital Signs: Vital Signs: Last Vital Signs Temp 98.1 F 09/06/23 07:21 Pulse 74 09/06/23 08:44 Resp 17 09/06/23 08:44 BP 130/61 09/06/23 07:21 Pulse Ox 93 09/06/23 07:21 O2 Del Method Oxymask 09/06/23 07:21 O2 Flow Rate 8 09/06/23 07:21 BMI result Body Mass Index 29.9 Const: General: comfortable Orientation/consciousness: patient oriented x3 HEENT: Other: Unremarkable Head: Yes normal to inspection Neck: Neck: Yes supple Chest: Chest palpation & inspection: normal inspection of the chest Resp: Effort & Inspection: normal respiratory effort Auscultation: crackles bilateral at the base and diminished lung sounds Cardio: Palpation: normal PMI Heart sounds: S1 normal heart sound present, S2 normal heart sound present, no gallops, Murmur heart sound present systolic early, III/ and at the right sternal border and no rubs GI: Palpation (GI): Soft to palpation Back/Spine/Pelvis: Other: unremarkable Skin: General skin exam: no rashes or lesions noted Neuro: General: patient oriented x3 Extrem: General: No cyanosis and Yes edema Psych: Mental Status: mental status grossly normal Results Laboratory Findings 09/06/23 06:57 Abnormal lab findings: Abnormal Labs 09/05/23 09/05/23 09/06/23 15:19 20:45 06:57 Potassium 5.3 H Carbon Dioxide 21 L BUN 36 H 38 H Creatinine 1.68 H 1.86 H POC Glucose 342 H Random Glucose 232 H 215 H ALT 33 H B-Natriuretic Peptide 1057 H 1663 H 09/06/23 07:28 Potassium Carbon Dioxide BUN Creatinine POC Glucose 195 H Random Glucose ALT B-Natriuretic Peptide Assessment and Plan (1) Acute on chronic respiratory failure with hypoxemia: Status: Acute (2) ILD (interstitial lung disease): Status: Acute (3) Chronic lung disease: Status: Acute (4) Chronic heart failure with preserved ejection fraction (HFpEF): Status: Acute (5) Restrictive lung disease: Status: Acute Plan continue diuresis as tolerated solumedrol for now, should be kept on a small dose 10mg baseline dose while waiting out pt follow up with her pulmonalogist Bloodwork to address ILD serial CXR continue oxygen to keep pox>90% Cardiology eval Time Spent With Patient Time: Total time managing care of this patient today ____ minutes. Procedures Date of Service Date of Service: 09/06/23
--- NOTE | 2023-09-06 12:46 | MHC.CM.PN ---
Pt changed from obs to inpatient, IMM given 09/06.
--- NOTE | 2023-09-06 14:49 | HO.PM.IMPN ---
Subjective Subjective Date of Service: 09/06/23 Interval History: Seen and evaluated this morning still dyspneic, on O2 7-8L reports dyspnea with minimal exertion No fever or chills Review of Systems Review of Systems: Yes all other systems are reviewed and are negative Physical Exam Vital Signs: Vital Signs: Last Vital Signs Temp 97.8 F 09/06/23 11:06 Pulse 80 09/06/23 12:25 Resp 20 09/06/23 12:25 BP 127/61 09/06/23 11:06 Pulse Ox 92 09/06/23 11:06 O2 Del Method Oxymask 09/06/23 11:06 O2 Flow Rate 7.0 09/06/23 11:06 BMI result Body Mass Index 29.9 Const: Other: Constitutional : Awake, interactive, not in distress Neck : Normal inspection, Supple Cardiovascular : RRR, mildly elevated JVP, trace bilateral lower extremity edema Respiratory : decreased bilateral air entry, basal fine bilateral crackles Gastrointestinal: soft, lax, Normal bowel sounds, Non tender Skin : Warm, Dry Neurological : Alert & oriented x3, No focal deficit Objective Data Active Medications Acetaminophen (Acetaminophen 325 Mg Tablet) 650 mg PO Q6H PRN PRN Reason: Pain, Mild (Pain Scale 1-3) Albuterol Sulfate (Albuterol Sulfate (0.083%) 2.5 Mg/3 Ml Vial.Neb) 2.5 mg INHALE Q4H PRN PRN Reason: Shortness of Breath/Wheezing Albuterol/Ipratropium (Albuterol/Iprat 2.5/0.5mg 3 Ml Ampul.Neb) 3 ml INHALE RQ4H WHILE AWAKE [facility] Last Admin: 09/06/23 12:25 Dose: 3 ml Documented By: JAMAL Amlodipine Besylate (Amlodipine Besylate 10 Mg Tablet) 10 mg PO DAILY [facility]; Protocol Last Admin: 09/06/23 10:26 Dose: 10 mg Documented By: JANY Aspirin (Aspirin Enteric Coated 81 Mg Tablet.) 81 mg PO DAILY [facility] Last Admin: 09/06/23 10:26 Dose: 81 mg Documented By: JANY Atorvastatin Calcium (Atorvastatin Calcium 80 Mg Tablet) 80 mg PO DAILY [facility] Last Admin: 09/06/23 10:26 Dose: 80 mg Documented By: JANY Azithromycin (Azithromycin 250 Mg Tablet) 250 mg PO Q24H [facility] Last Admin: 09/06/23 10:26 Dose: 250 mg Documented By: JANY Enoxaparin Sodium (Enoxaparin Sodium 40 Mg/0.4 Ml Syringe) 40 mg SUBCUT Q24H [facility] Last Admin: 09/05/23 19:35 Dose: 40 mg Documented By: JAILYN Furosemide (Furosemide 40 Mg/4 Ml Vial) 40 mg IVPUSH DAILY [facility]; Protocol Last Admin: 09/06/23 12:59 Dose: 40 mg Documented By: JANY Guaifenesin (Guaifenesin La 600 Mg Tab.Er.12h) 600 mg PO BID [facility] Last Admin: 09/06/23 10:26 Dose: 600 mg Documented By: JANY Insulin Human Lispro (Insulin Lispro 100 Unit/Ml 3 Ml Vial) 0 unit SUBCUT QIDACHS [facility]; Protocol Last Admin: 09/06/23 12:57 Dose: 4 unit Documented By: JANY Methylprednisolone Sodium Succinate (Methylprednisolone Sod Succ 40 Mg/Ml Vial) 40 mg IVPUSH Q12H [facility] Last Admin: 09/06/23 10:25 Dose: 40 mg Documented By: JANY Multivitamins/Vitamin C (Multivitamin Tablet) 1 tab PO DAILY [facility] Last Admin: 09/06/23 10:26 Dose: 1 tab Documented By: JANY Ondansetron HCl (Ondansetron Hcl 4 Mg/2 Ml Vial) 4 mg IVPUSH Q8H PRN PRN Reason: Nausea and Vomiting Vitamin D (Cholecalciferol (Vitamin D3) 25 Mcg Tablet) 25 mcg PO DAILY [facility] Last Admin: 09/06/23 10:26 Dose: 25 mcg Documented By: JANY Labs 09/06/23 06:57 Labs: Laboratory Results - last 24 hr 09/05/23 09/05/23 09/05/23 15:18 15:19 16:59 VBG pH 7.32 VBG pCO2 51 VBG pO2 76 VBG HCO3 26 VBG O2 Saturation 94.0 VBG Base Excess -0.1 Anion Gap 17 Estim Creat Clear Calc 28.1 Estimated GFR 29 POC Glucose Random Glucose 232 H Lactic Acid 1.5 Calcium 9.4 Total Bilirubin AST ALT Alkaline Phosphatase B-Natriuretic Peptide 1057 H Total Protein Albumin Influenza Type A (PCR) NEGATIVE Influenza Type B (PCR) NEGATIVE RSV RNA Qual (PCR) NEGATIVE SARS-CoV-2 RNA (RT-PCR) NEGATIVE 09/05/23 09/06/23 09/06/23 20:45 06:57 07:28 VBG pH VBG pCO2 VBG pO2 VBG HCO3 VBG O2 Saturation VBG Base Excess Anion Gap 16 Estim Creat Clear Calc 25.3 Estimated GFR 26 POC Glucose 342 H 195 H Random Glucose 215 H Lactic Acid Calcium 9.6 Total Bilirubin 0.3 AST 17 ALT 33 H Alkaline Phosphatase 101 B-Natriuretic Peptide 1663 H Total Protein 7.3 Albumin 3.7 Influenza Type A (PCR) Influenza Type B (PCR) RSV RNA Qual (PCR) SARS-CoV-2 RNA (RT-PCR) 09/06/23 11:13 VBG pH VBG pCO2 VBG pO2 VBG HCO3 VBG O2 Saturation VBG Base Excess Anion Gap Estim Creat Clear Calc Estimated GFR POC Glucose 211 H Random Glucose Lactic Acid Calcium Total Bilirubin AST ALT Alkaline Phosphatase B-Natriuretic Peptide Total Protein Albumin Influenza Type A (PCR) Influenza Type B (PCR) RSV RNA Qual (PCR) SARS-CoV-2 RNA (RT-PCR) Assessment and Plan (1) Acute on chronic respiratory failure with hypoxemia: Status: Acute (2) COPD with acute exacerbation: Status: Acute (3) Chronic diastolic heart failure: Status: Acute Plan A 78 years old lady with PMH of CKD3, ILD on 2-3L O2 night, DMII, COPD, dCHF, CAD among others who presents to the hospital with worsening dyspnea and O2 requirements. Acute on chronic hypoxic respiratory failure 2/2 COPD exacerbation On 7-8L Oxymask at this point, baseline on 3L at bedtime Steroids Duonebs Azithromycin for anti-inflammatory effect Wean O2 down as tolerated Acute on chronic dCHF exacerbation Start Lasix IV I\O follow BNP Cardiology consult DMII Hold GLipizide SSI CAD ASA, Lisinipril and Statin HTN Amlodipine DVT PPx Lovenox The patient will need overnight hospital stay for treatment of hypoxic failure Time Spent With Patient Time: Total time managing care of this patient today ____ minutes. Quality Stroke Does the patient have a stroke diagnosis?: No VTE Prior VTE?: No VTE Risk Level:: Medical - moderate - high VTE Device Contraindication: Treatment Not Indicated VTE Drug Contraindication: Treatment Not Indicated
--- NOTE | 2023-09-06 16:38 | PC.NURSE ---
Asumed care at 07:00, added continuous sat monitor, patient on 7 LPM oxymask, home O2 is 2-3 L per family. Patient denies pain, ate well. OOB to commode to void. occasional cough, breathing nonlabored
[2023-09-07] VITALS (9 sets, daily range): BP systolic 113–137; BP diastolic 56–62; PULSE 81–89; RESP 16–20; TEMP 36.6–37.1; O2SAT 90–96
[2023-09-07 04:21] LABS: Anion Gap 17 (12-20); Blood Urea Nitrogen 48 mg/dL (9-16); Calcium 9.2 mg/dL (8.4-10.2); Carbon Dioxide 27 mmol/L (22-29); Chloride 100 mmol/L (96-108); Creatinine Clr Calc Pharmacy 25.6; Estimated Glomerular Filt Rate 27; Glucose Random 190 mg/dL (60-115); Magnesium 2.4 mg/dL (1.6-2.6); Potassium 4.9 mmol/L (3.3-5.1); Sodium 139 mmol/L (135-145)
--- NOTE | 2023-09-07 10:00 | PM.CNCAR ---
History of Present Illness History of Present Illness Date of Service: 09/07/23 Chief complaint: respiratory distress Narrative: This is a cardiology consultation regarding congestive heart failure. Patient is generally seen by us in the clinic. She has various issues including coronary artery disease, aortic stenosis, diastolic heart failure as well as COPD. She does have some shortness of breath at baseline but reasonably controlled. The current admissions because of increasing shortness of breath in the last few days and increasing need for oxygen supplementation. She is being treated for some combination of congestive heart failure as well as COPD. States that she is feeling better since arrival. No anginal-type symptoms. Review of Systems Review of Systems: Yes all other systems are reviewed and are negative Constitutional: Constitutional: Reports as per HPI and Reports no additional constitutional complaints Eyes: Eyes: Reports as per HPI and Denies no additional eye complaints ENT: Denies system reviewed and no additional complaints, except as documented and Reports as per HPI Cardiovascular: Cardiovascular: Reports as per HPI, Reports no additional cardiovascular complaints, Denies acrocyanosis, Denies cool extremities, Denies chest pain, Denies leg edema, Denies lightheadedness, Denies palpitations and Reports dyspnea Respiratory: Respiratory: Reports as per HPI, Denies no additional respiratory complaints and Reports dyspnea Gastrointestinal: Gastrointestinal: Reports as per HPI and Denies no additional gastrointestinal complaints Genitourinary: Genitourinary: Reports as per HPI Musculoskeletal: Musculoskeletal: Reports no additional musculoskeletal complaints and Reports as per HPI Integumentary/Breasts: Skin/Breast: Reports system reviewed and no additional complaints, except as docu Neurologic: Reports system reviewed and no additional complaints, except as documented and Reports as per HPI Psychiatric: Psychiatric: Reports no additional psychiatric complaints and Reports as per HPI Endocrine: Endocrine: Reports no additional endocrine complaints, Reports as per HPI and Denies palpitations Hematologic/Lymphatic: Hematologic/Lymphatic: Reports no additional hematologic/lymphatic complaints and Reports as per HPI Allergic/Immunologic: Allergic/Immunologic: Reports no additional allergic/immunologic complaints and Reports as per HPI [facility] Past Medical History Medical History Type 2 diabetes mellitus with unspecified complications Diabetes Hyperlipidemia Hypertension Chronic diastolic heart failure Diastolic dysfunction CAD (coronary artery disease) Hypoxemia Restrictive lung disease COPD (chronic obstructive pulmonary disease) Family History Family History Father Diabetes Mother Unknown Surgical History Surgical History History of left cataract surgery Stented coronary artery Social History Social History Household Members: Spouse Housing: Homeless Do you presently have visiting nurse or other home services: No Patient Tobacco Use Status: Former Tobacco user Quit Date: 25 years ago Use of substances other than those prescribed or required for medical reasons: No Currently Displaying Signs/Symptoms of Drug Intoxication Withdrawal: No Have you been hit, kicked, punched, or otherwise hurt by someone within the past year? If so, by whom?: No Do you feel safe in your current relationship?: No Is there a partner from a previous relationship who is making you feel unsafe now?: No Are you made to feel afraid or neglected: No [employer] Healthcare Practices: n/a Advance Directives: Yes Advance Directives on File: Yes Advance Directives Date on File: 01/28/23 Do you have thoughts of harming others: None Do you have a plan to hurt others: No Plan Recently lost weight without trying: No How much weight loss: Not applicable Eating poorly because of decreased appetite: No Nutrition screen score: 0 Nutrition Risks: No Nutritional Risk Patient : No : No Poor oral hygiene: No service: No Meds Allergies Allergy/AdvReac Type Severity Reaction Status Date / Time No Known Allergies Allergy Verified 08/19/23 12:34 [No Known Allergies*] Active Medications: Current Medications Acetaminophen (Acetaminophen 325 Mg Tablet) 650 mg PO Q6H PRN PRN Reason: Pain, Mild (Pain Scale 1-3) Last Admin: 09/06/23 17:53 Dose: 650 mg Albuterol Sulfate (Albuterol Sulfate (0.083%) 2.5 Mg/3 Ml Vial.Neb) 2.5 mg INHALE Q4H PRN PRN Reason: Shortness of Breath/Wheezing Albuterol/Ipratropium (Albuterol/Iprat 2.5/0.5mg 3 Ml Ampul.Neb) 3 ml INHALE RQ4H WHILE AWAKE [place] Last Admin: 09/07/23 07:58 Dose: Not Given Amlodipine Besylate (Amlodipine Besylate 10 Mg Tablet) 10 mg PO DAILY [facility]; Protocol Last Admin: 09/07/23 09:18 Dose: 10 mg Aspirin (Aspirin Enteric Coated 81 Mg Tablet.Dr) 81 mg PO DAILY [facility] Last Admin: 09/07/23 09:18 Dose: 81 mg Atorvastatin Calcium (Atorvastatin Calcium 80 Mg Tablet) 80 mg PO DAILY [facility] Last Admin: 09/07/23 09:18 Dose: 80 mg Azithromycin (Azithromycin 250 Mg Tablet) 250 mg PO Q24H [facility] Last Admin: 09/07/23 09:18 Dose: 250 mg Enoxaparin Sodium (Enoxaparin Sodium 40 Mg/0.4 Ml Syringe) 40 mg SUBCUT Q24H [facility] Last Admin: 09/06/23 17:52 Dose: 40 mg Furosemide (Furosemide 40 Mg/4 Ml Vial) 40 mg IVPUSH BID@0900,1800 [facility]; Protocol Guaifenesin (Guaifenesin La 600 Mg Tab.Er.12h) 600 mg PO BID [facility] Last Admin: 09/07/23 09:18 Dose: 600 mg Insulin Human Lispro (Insulin Lispro 100 Unit/Ml 3 Ml Vial) 0 unit SUBCUT QIDACHS [facility]; Protocol Last Admin: 09/06/23 20:35 Dose: 8 unit Methylprednisolone Sodium Succinate (Methylprednisolone Sod Succ 40 Mg/Ml Vial) 40 mg IVPUSH Q12H [facility] Last Admin: 09/07/23 09:19 Dose: 40 mg Multivitamins/Vitamin C (Multivitamin Tablet) 1 tab PO DAILY [facility] Last Admin: 09/07/23 09:18 Dose: 1 tab Ondansetron HCl (Ondansetron Hcl 4 Mg/2 Ml Vial) 4 mg IVPUSH Q8H PRN PRN Reason: Nausea and Vomiting Vitamin D (Cholecalciferol (Vitamin D3) 25 Mcg Tablet) 25 mcg PO DAILY [facility] Last Admin: 09/06/23 10:26 Dose: 25 mcg Home Medications Medication Instructions Recorded Confirmed Last Taken Type aspirin 81 mg tablet,delayed 81 mg PO DAILY 09/14/20 09/05/23 09/05/23 History release cholecalciferol (vitamin D3) 25 25 mcg PO DAILY 09/14/20 09/05/23 09/05/23 History mcg (1,000 unit) capsule lisinopril 40 mg tablet 20 mg PO DAILY 03/09/05/23 09/05/23 History multivitamin (Daily Multi-Vitamin 1 tab PO DAILY 09/18/21 09/05/23 09/05/23 History tablet) glipizide 5 mg tablet 2.5 mg PO BEDTIME 03/20/22 09/05/23 09/04/23 History amlodipine 10 mg tablet 10 mg PO DAILY 08/19/23 09/05/23 09/05/23 History glipizide 5 mg tablet 5 mg PO DAILY 09/05/23 09/05/23 09/05/23 History Physical Exam Vital Signs: Vital Signs: Last Vital Signs Temp 98.7 F 09/07/23 07:03 Pulse 82 09/07/23 07:03 Resp 20 09/07/23 07:03 BP 135/62 09/07/23 07:03 Pulse Ox 94 09/07/23 07:03 O2 Del Method Nasal Cannula 09/07/23 07:03 O2 Flow Rate 5 09/07/23 07:03 BMI result Body Mass Index 29.9 Const: General: comfortable and no acute distress Orientation/consciousness: patient oriented x3 HEENT: Other: Unremarkable Head: Yes normal to inspection Neck: Neck: Yes normal visual inspection Chest: Chest palpation & inspection: normal inspection of the chest Resp: Other: few crackles Auscultation: clear to auscultation bilaterally Cardio: Palpation: normal PMI Heart sounds: S1 normal heart sound present, S2 normal heart sound present, no gallops, Murmur heart sound present systolic II/ and at the right sternal border and no rubs GI: Palpation (GI): Soft to palpation Back/Spine/Pelvis: Other: unremarkable Skin: General skin exam: no rashes or lesions noted Neuro: General: patient oriented x3 Extrem: Other: 2+ lower extremity edema General: Yes normal to inspection Psych: Mental Status: mental status grossly normal Objective Labs and Meds 09/07/23 03:50 Lab results: Laboratory Results - last 24 hr 09/06/23 09/06/23 09/06/23 11:13 16:18 19:12 Hold Purple Top Sodium Potassium Chloride Carbon Dioxide Anion Gap BUN Creatinine Estim Creat Clear Calc Estimated GFR POC Glucose 211 H 167 H 315 H Random Glucose Calcium Magnesium B-Natriuretic Peptide Hold Yellow Top 09/07/23 09/07/23 09/07/23 03:50 06:26 07:01 Hold Purple Top SEE NOTE Sodium 139 Potassium 4.9 Chloride 100 Carbon Dioxide 27 Anion Gap 17 BUN 48 H Creatinine 1.84 H Estim Creat Clear Calc 25.6 Estimated GFR 27 POC Glucose 172 H Random Glucose 190 H Calcium 9.2 Magnesium 2.4 B-Natriuretic Peptide 1487 H Hold Yellow Top See Note ECG Interpretation: EKG with sinus rhythm at 93/Min; premature supraventricular ectopy and otherwise unremarkable. Assessment and Plan (1) Acute on chronic respiratory failure with hypoxemia: Status: Acute (2) Acute on chronic diastolic (congestive) heart failure: Status: Acute (3) Atherosclerotic cardiovascular disease: Status: Acute (4) Non-rheumatic aortic stenosis: Status: Acute (5) Pulmonary hypertension: Status: Acute (6) Hypertension: Qualifiers: Hypertension type: primary hypertension Qualified Code(s): I10 - Essential (primary) hypertension Status: Acute Plan In the most recent echocardiogram, hyperdynamic LVEF. Moderate diastolic dysfunction. Moderate aortic stenosis. Possible mild mitral stenosis. Moderate pulmonary hypertension. Labs show cardiac BNP over a 1000. This is higher than previous levels. High sensitivity troponin within normal limits. BUN is 48 and creatinine is 1.8. Chest x-ray shows diffuse chronic interstitial lung disease. Possible superimposed interstitial pneumonitis. Overall, suspect respiratory failure from some combination of cardiac as well as respiratory etiologies. From cardiac mainly diuretics. Otherwise, supportive care. She still has some leg swelling and hence IV diuretics for another day or so. Will follow-up with you. Discussed with Dr. Hand. Time Spent With Patient Time: Total time managing care of this patient today ____ minutes. Procedures Date of Service Date of Service: 09/07/23
--- NOTE | 2023-09-07 14:58 | HO.PM.IMPN ---
Subjective Subjective Date of Service: 09/07/23 Interval History: Seen and evaluated this morning Feels better, weaning down Oxygen still edematous in LE reports dyspnea with exertion No fever or chills Review of Systems Review of Systems: Yes all other systems are reviewed and are negative Physical Exam Vital Signs: Vital Signs: Last Vital Signs Temp 98.0 F 09/07/23 11:03 Pulse 81 09/07/23 12:26 Resp 18 09/07/23 12:26 BP 133/61 09/07/23 11:03 Pulse Ox 92 09/07/23 11:03 O2 Del Method Nasal Cannula 09/07/23 11:03 O2 Flow Rate 5 09/07/23 11:03 BMI result Body Mass Index 29.9 Const: Other: Constitutional : Awake, interactive, not in distress Neck : Normal inspection, Supple Cardiovascular : RRR, mildly elevated JVP, +1 bilateral lower extremity edema up to the knees Respiratory : decreased bilateral air entry, basal fine bilateral crackles Gastrointestinal: soft, lax, Normal bowel sounds, Non tender Skin : Warm, Dry Neurological : Alert & oriented x3, No focal deficit Objective Data Active Medications Acetaminophen (Acetaminophen 325 Mg Tablet) 650 mg PO Q6H PRN PRN Reason: Pain, Mild (Pain Scale 1-3) Last Admin: 09/06/23 17:53 Dose: 650 mg Documented By: BONI Albuterol Sulfate (Albuterol Sulfate (0.083%) 2.5 Mg/3 Ml Vial.Neb) 2.5 mg INHALE Q4H PRN PRN Reason: Shortness of Breath/Wheezing Albuterol/Ipratropium (Albuterol/Iprat 2.5/0.5mg 3 Ml Ampul.Neb) 3 ml INHALE RQ4H WHILE AWAKE [facility] Last Admin: 09/07/23 12:24 Dose: 3 ml Documented By: ANDRZEJ Amlodipine Besylate (Amlodipine Besylate 10 Mg Tablet) 10 mg PO DAILY [facility]; Protocol Last Admin: 09/07/23 09:18 Dose: 10 mg Documented By: HOSEA Aspirin (Aspirin Enteric Coated 81 Mg Tablet.) 81 mg PO DAILY [facility] Last Admin: 09/07/23 09:18 Dose: 81 mg Documented By: HOSEA Atorvastatin Calcium (Atorvastatin Calcium 80 Mg Tablet) 80 mg PO DAILY [facility] Last Admin: 09/07/23 09:18 Dose: 80 mg Documented By: HOSEA Azithromycin (Azithromycin 250 Mg Tablet) 250 mg PO Q24H [facility] Last Admin: 09/07/23 09:18 Dose: 250 mg Documented By: HOSEA Enoxaparin Sodium (Enoxaparin Sodium 40 Mg/0.4 Ml Syringe) 40 mg SUBCUT Q24H [facility] Last Admin: 09/06/23 17:52 Dose: 40 mg Documented By: BONI Furosemide (Furosemide 40 Mg/4 Ml Vial) 40 mg IVPUSH BID@0900,1800 [facility]; Protocol Guaifenesin (Guaifenesin La 600 Mg Tab.Er.12h) 600 mg PO BID [facility] Last Admin: 09/07/23 09:18 Dose: 600 mg Documented By: HOSEA Insulin Human Lispro (Insulin Lispro 100 Unit/Ml 3 Ml Vial) 0 unit SUBCUT QIDACHS [facility]; Protocol Last Admin: 09/07/23 12:56 Dose: 6 unit Documented By: HOSEA Methylprednisolone Sodium Succinate (Methylprednisolone Sod Succ 40 Mg/Ml Vial) 40 mg IVPUSH Q12H [facility] Last Admin: 09/07/23 09:19 Dose: 40 mg Documented By: HOSEA Multivitamins/Vitamin C (Multivitamin Tablet) 1 tab PO DAILY [facility] Last Admin: 09/07/23 09:18 Dose: 1 tab Documented By: HOSEA Ondansetron HCl (Ondansetron Hcl 4 Mg/2 Ml Vial) 4 mg IVPUSH Q8H PRN PRN Reason: Nausea and Vomiting Vitamin D (Cholecalciferol (Vitamin D3) 25 Mcg Tablet) 25 mcg PO DAILY [facility] Last Admin: 09/07/23 12:56 Dose: 25 mcg Documented By: HOSEA Labs 09/07/23 03:50 Labs: Laboratory Results - last 24 hr 09/06/23 09/06/23 09/07/23 16:18 19:12 03:50 Hold Purple Top SEE NOTE Anion Gap 17 Estim Creat Clear Calc 25.6 Estimated GFR 27 POC Glucose 167 H 315 H Random Glucose 190 H Calcium 9.2 Magnesium 2.4 B-Natriuretic Peptide Hold Yellow Top 09/07/23 09/07/23 09/07/23 06:26 07:01 10:46 Hold Purple Top Anion Gap Estim Creat Clear Calc Estimated GFR POC Glucose 172 H 266 H Random Glucose Calcium Magnesium B-Natriuretic Peptide 1487 H Hold Yellow Top See Note Microbiology Microbiology Results: Microbiology 09/05/23 15:59 Blood Culture - Preliminary Blood - Venous No growth after 24 hours. 09/05/23 15:19 Blood Culture - Preliminary Blood - Venous No growth after 24 hours. Assessment and Plan (1) Pulmonary hypertension: Status: Acute (2) Acute on chronic diastolic (congestive) heart failure: Status: Acute (3) Acute on chronic respiratory failure with hypoxemia: Status: Acute (4) ILD (interstitial lung disease): Status: Acute (5) COPD with acute exacerbation: Status: Acute Plan A 78 years old lady with PMH of CKD3, ILD on 2-3L O2 night, DMII, COPD, dCHF, CAD among others who presents to the hospital with worsening dyspnea and O2 requirements. Acute on chronic hypoxic respiratory failure 2/2 COPD exacerbation Improving Continue Steroids Continue Duonebs Azithromycin for anti-inflammatory effect Wean O2 down as tolerated Acute on chronic dCHF exacerbation Lasix IV I\O follow BNP Cardiology input appreciated DMII Hold GLipizide SSI CAD ASA, Lisinipril and Statin HTN Amlodipine DVT PPx Lovenox The patient will need overnight hospital stay for treatment of hypoxic failure Time Spent With Patient Time: Total time managing care of this patient today ____ minutes. Quality Stroke Does the patient have a stroke diagnosis?: No VTE Prior VTE?: No VTE Risk Level:: Medical - moderate - high VTE Device Contraindication: Treatment Not Indicated VTE Drug Contraindication: Treatment Not Indicated
--- NOTE | 2023-09-07 20:48 | PC.RT ---
pt sated that she has [employer] as her DM. She is requesting a nebulizer at home. She will also need a prescription as well for her meds upon discharge. Please contact respiratory for more info.
[2023-09-08] VITALS (7 sets, daily range): BP systolic 116–138; BP diastolic 57–62; PULSE 93–106; RESP 18–22; TEMP 36.7–37; O2SAT 86–92
--- NOTE | 2023-09-08 09:59 | PM.PNCARD ---
Subjective Subjective Date of Service: 09/08/23 Interval history: She states she is feeling some palpitations and on telemetry, she went into atrial fibrillation rapid rate. This is a new diagnosis for her. Shortness of breath improving. Review of Systems Review of Systems Yes all other systems are reviewed and are negative Constitutional: Reports as per HPI and Reports no additional constitutional complaints Eyes: Reports as per HPI and Denies no additional eye complaints Denies system reviewed and no additional complaints, except as documented and Reports as per HPI Cardiovascular: Reports as per HPI, Reports no additional cardiovascular complaints, Denies acrocyanosis, Denies cool extremities, Denies chest pain, Denies leg edema, Denies lightheadedness, Reports palpitations and Reports dyspnea Respiratory: Reports as per HPI, Denies no additional respiratory complaints and Reports dyspnea Gastrointestinal: Reports as per HPI and Denies no additional gastrointestinal complaints Genitourinary: Reports as per HPI Musculoskeletal: Reports no additional musculoskeletal complaints and Reports as per HPI Skin/Breast: Reports system reviewed and no additional complaints, except as docu Reports system reviewed and no additional complaints, except as documented and Reports as per HPI Psychiatric: Reports no additional psychiatric complaints and Reports as per HPI Endocrine: Reports no additional endocrine complaints, Reports as per HPI and Reports palpitations Hematologic/Lymphatic: Reports no additional hematologic/lymphatic complaints and Reports as per HPI Allergic/Immunologic: Reports no additional allergic/immunologic complaints and Reports as per HPI Physical Exam Vital Signs: Last Vital Signs Temp 98.0 F 09/08/23 07:57 Pulse 95 09/08/23 07:57 Resp 20 09/08/23 07:57 BP 138/62 09/08/23 07:57 Pulse Ox 90 L 09/08/23 07:57 O2 Del Method Nasal Cannula 09/08/23 07:57 O2 Flow Rate 6 09/08/23 07:57 BMI result Body Mass Index 29.9 Const General: comfortable and no acute distress Orientation/consciousness: patient oriented x3 HEENT Other: Unremarkable Head: Yes normal to inspection Neck Neck: Yes normal visual inspection Chest Chest palpation & inspection: normal inspection of the chest Resp Other: Few basal crackles Cardio Palpation: normal PMI Heart sounds: S1 normal heart sound present, S2 normal heart sound present, no gallops, no murmurs and no rubs GI Palpation (GI): Soft to palpation Back/Spine/Pelvis Other: unremarkable Skin General skin exam: no rashes or lesions noted Neuro General: patient oriented x3 Extrem Other: 1 to 2+ edema bilateral lower extremities General: Yes normal to inspection Psych Mental Status: mental status grossly normal Objective Labs and Meds 09/08/23 06:47 09/08/23 06:47 Lab results: Laboratory Results - last 24 hr 09/07/23 09/07/23 09/07/23 10:46 16:28 20:39 WBC RBC Hgb Hct MCV MCH MCHC RDW Plt Count MPV Absolute Nucleated RBC Nucleated RBC % (auto) Sodium Potassium Chloride Carbon Dioxide Anion Gap BUN Creatinine Estim Creat Clear Calc Estimated GFR POC Glucose 266 H 209 H 248 H Random Glucose Calcium B-Natriuretic Peptide 09/07/23 09/08/23 09/08/23 21:20 06:47 07:22 WBC 13.7 H RBC 4.60 Hgb 12.1 Hct 39.4 MCV 85.7 MCH 26.3 L MCHC 30.7 L RDW 19.2 H Plt Count 275 MPV 9.4 Absolute Nucleated RBC 0.000 Nucleated RBC % (auto) 0.0 Sodium 136 Potassium 4.1 Chloride 96 Carbon Dioxide 25 Anion Gap 19 BUN 54 H Creatinine 1.95 H Estim Creat Clear Calc 24.1 Estimated GFR 25 POC Glucose 244 H 203 H Random Glucose 217 H Calcium 9.6 B-Natriuretic Peptide 1501 H Progress Note: A&P Assessment and plan (1) Acute on chronic respiratory failure with hypoxemia: Status: Acute (2) Acute on chronic diastolic (congestive) heart failure: Status: Acute (3) Atherosclerotic cardiovascular disease: Status: Acute (4) Non-rheumatic aortic stenosis: Status: Acute (5) Pulmonary hypertension: Status: Acute (6) Hypertension: Status: Acute (7) Atrial fibrillation with rapid ventricular response: Status: Acute Plan In the most recent echocardiogram, hyperdynamic LVEF. Moderate diastolic dysfunction. Moderate aortic stenosis. Possible mild mitral stenosis. Moderate pulmonary hypertension. Labs show cardiac BNP over a 1000. This is higher than previous levels. High sensitivity troponin within normal limits. Chest x-ray shows diffuse chronic interstitial lung disease. Possible superimposed interstitial pneumonitis. Overall, suspect respiratory failure from some combination of cardiac as well as respiratory etiologies. From cardiac mainly diuretics. Otherwise, supportive care. With regard to atrial fibrillation, likely precipitated by acute medical illness. She is at high risk for the same any way. We can start with Cardizem drip with hope of converting her back to sinus rhythm. Start Eliquis. If she does not convert back to sinus rhythm by herself, may need cardioversion. Will follow-up with you closely. Discussed with at bedside. Discussed with Dr. Hand. Time Spent With Patient Time: Total time managing care of this patient today ____ minutes. Progress Note: Quality Stroke Does the patient have a stroke diagnosis?: No Procedures Date of Service Date of Service: 09/08/23
--- NOTE | 2023-09-08 11:56 | HO.PM.IMPN ---
Subjective Subjective Date of Service: 09/08/23 Interval History: Seen and evaluated this morning Went into Afib w RvR of new onset still edematous in LE reports dyspnea with exertion No fever or chills Review of Systems No fever, chills but reports weakness No chest pain, feels palpitation increase shortness of breath and coughing No abdominal pain, nausea or vomiting No urinary symptoms No any rash or wounds Physical Exam Vital Signs: Vital Signs: Last Vital Signs Temp 98.2 F 09/08/23 11:45 Pulse 104 H 09/08/23 11:45 Resp 22 H 09/08/23 11:45 BP 124/62 09/08/23 11:45 Pulse Ox 87 L 09/08/23 11:45 O2 Del Method Nasal Cannula 09/08/23 11:45 O2 Flow Rate 4 09/08/23 11:45 BMI result Body Mass Index 29.9 Const: Other: Constitutional : Awake, interactive, not in distress Neck : Normal inspection, Supple Cardiovascular : irregular iiregular, mildly elevated JVP, basal crackles, +1 bilateral lower extremity edema up to the knees Respiratory : decreased bilateral air entry, basal fine bilateral crackles Gastrointestinal: soft, lax, Normal bowel sounds, Non tender Skin : Warm, Dry Neurological : Alert & oriented x3, No focal deficit Objective Data Active Medications Acetaminophen (Acetaminophen 325 Mg Tablet) 650 mg PO Q6H PRN PRN Reason: Pain, Mild (Pain Scale 1-3) Last Admin: 09/06/23 17:53 Dose: 650 mg Documented By: BONI Albuterol Sulfate (Albuterol Sulfate (0.083%) 2.5 Mg/3 Ml Vial.Neb) 2.5 mg INHALE Q4H PRN PRN Reason: Shortness of Breath/Wheezing Apixaban (Apixaban 5 Mg Tablet) 5 mg PO BID [facility] Last Admin: 09/08/23 10:48 Dose: 5 mg Documented By: HOSEA Atorvastatin Calcium (Atorvastatin Calcium 80 Mg Tablet) 80 mg PO DAILY [facility] Last Admin: 09/08/23 08:56 Dose: 80 mg Documented By: HOSEA Azithromycin (Azithromycin 250 Mg Tablet) 250 mg PO Q24H [facility] Last Admin: 09/08/23 08:56 Dose: 250 mg Documented By: HOSEA Furosemide (Furosemide 40 Mg/4 Ml Vial) 40 mg IVPUSH BID@0900,1800 [facility]; Protocol Last Admin: 09/08/23 08:56 Dose: 40 mg Documented By: HOSEA Guaifenesin (Guaifenesin La 600 Mg Tab.Er.12h) 600 mg PO BID [facility] Last Admin: 09/08/23 08:56 Dose: 600 mg Documented By: HOSEA Diltiazem HCl 125 mg/ Sodium (Chloride) 125 mls @ 0 mls/hr IVCONT .Q0M [facility]; Protocol Last Admin: 09/08/23 11:00 Dose: 10 mg/hr, 10 mls/hr Documented By: FERNANDOARVirgilio Insulin Human Lispro (Insulin Lispro 100 Unit/Ml 3 Ml Vial) 0 unit SUBCUT QIDACHS [facility]; Protocol Last Admin: 09/08/23 09:03 Dose: 4 unit Documented By: HOSEA Levalbuterol HCl (Levalbuterol Hcl 1.25 Mg/3 Ml Vial.Neb) 1.25 mg INHALE RTID [facility] Methylprednisolone Sodium Succinate (Methylprednisolone Sod Succ 40 Mg/Ml Vial) 40 mg IVPUSH Q12H [facility] Last Admin: 09/08/23 08:56 Dose: 40 mg Documented By: HOSEA Multivitamins/Vitamin C (Multivitamin Tablet) 1 tab PO DAILY [facility] Last Admin: 09/08/23 08:56 Dose: 1 tab Documented By: HOSEA Ondansetron HCl (Ondansetron Hcl 4 Mg/2 Ml Vial) 4 mg IVPUSH Q8H PRN PRN Reason: Nausea and Vomiting Vitamin D (Cholecalciferol (Vitamin D3) 25 Mcg Tablet) 25 mcg PO DAILY [facility] Last Admin: 09/08/23 11:01 Dose: 25 mcg Documented By: HOSEA Labs 09/08/23 06:47 09/08/23 06:47 Labs: Laboratory Results - last 24 hr 09/07/23 09/07/23 09/07/23 16:28 20:39 21:20 MCV MCH MCHC RDW Plt Count MPV Absolute Nucleated RBC Nucleated RBC % (auto) Anion Gap Estim Creat Clear Calc Estimated GFR POC Glucose 209 H 248 H 244 H Random Glucose Calcium B-Natriuretic Peptide 10/08/23 10/08/23 10/08/23 06:47 07:22 11:32 MCV 85.7 MCH 26.3 L MCHC 30.7 L RDW 19.2 H Plt Count 275 MPV 9.4 Absolute Nucleated RBC 0.000 Nucleated RBC % (auto) 0.0 Anion Gap 19 Estim Creat Clear Calc 24.1 Estimated GFR 25 POC Glucose 203 H 282 H Random Glucose 217 H Calcium 9.6 B-Natriuretic Peptide 1501 H Microbiology Microbiology Results: Microbiology 09/05/23 15:59 Blood Culture - Preliminary Blood - Venous No growth after 48 hours. 09/05/23 15:19 Blood Culture - Preliminary Blood - Venous No growth after 48 hours. Assessment and Plan (1) Atrial fibrillation with rapid ventricular response: Status: Acute (2) Acute on chronic diastolic (congestive) heart failure: Status: Acute (3) Acute on chronic respiratory failure with hypoxemia: Status: Acute Plan A 78 years old lady with PMH of CKD3, ILD on 2-3L O2 night, DMII, COPD, dCHF, CAD among others who presents to the hospital with worsening dyspnea and O2 requirements. New Onset Afib w RvR Noticed on Tele Start Eliquis , DC Aspirin Cardizem drip then PO Cardiology following Acute on chronic hypoxic respiratory failure 2/2 COPD exacerbation Improving Continue Steroids Continue Duonebs Azithromycin for anti-inflammatory effect Pulm input appreciated Wean O2 down as tolerated Acute on chronic dCHF exacerbation Lasix IV I\O follow BNP Cardiology input appreciated DMII Hold GLipizide SSI Hx CAD DC ASA Continue Lisinipril and Statin HTN Amlodipine DVT PPx Lovenox The patient will need overnight hospital stay for treatment of hypoxic failure Time Spent With Patient Time: Total time managing care of this patient today ____ minutes. Quality Stroke Does the patient have a stroke diagnosis?: No VTE Prior VTE?: No VTE Risk Level:: Medical - moderate - high VTE Device Contraindication: Treatment Not Indicated VTE Drug Contraindication: Treatment Not Indicated
--- NOTE | 2023-09-08 20:50 | PC.NURSE ---
Care assumed 19:00. Pt remains in afib HR ranging 70-80's. Asymptomatic, denies chest pain and sob. Plan of care clarified with covering Dr. Aceves as follows: hold diltiazem gtt and given scheduled HS dose 30mg of po diltiazem (first dose given earlier this evening as discussed with MD). 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
[2023-09-09] VITALS (9 sets, daily range): BP systolic 114–147; BP diastolic 56–78; PULSE 76–118; RESP 16–20; TEMP 36.3–37.2; O2SAT 90–97
--- NOTE | 2023-09-09 13:19 | PM.PNCARD ---
Subjective Subjective Date of Service: 09/09/23 Interval history: Seen examined bedside. She is short of breath. Clinically volume overloaded. In AFib with RVR. Physical Exam Vital Signs: Last Vital Signs Temp 98.9 F 09/09/23 12:00 Pulse 110 H 09/09/23 12:00 Resp 16 09/09/23 12:00 BP 114/63 09/09/23 12:00 Pulse Ox 91 L 09/09/23 12:00 O2 Del Method Nasal Cannula 09/09/23 12:00 O2 Flow Rate 10 09/09/23 12:00 BMI result Body Mass Index 29.9 GENERAL APPEARANCE: SOB. NECK: no carotid bruit, + jugular venous distention. SKIN: no suspicious lesions, warm and dry. HEART: no murmurs, irregular rate and rhythm. LUNGS: Mild Exp wheezes ABDOMEN: soft, nontender. EXTREMITIES: no edema. PERIPHERAL PULSES: equal. NEUROLOGIC: No gross deficits, AAO X 3 Objective Labs and Meds 09/08/23 06:47 09/09/23 06:50 Lab results: Laboratory Results - last 24 hr 09/08/23 09/08/23 09/09/23 16:32 20:04 06:50 Sodium 137 Potassium 4.3 Chloride 97 Carbon Dioxide 28 Anion Gap 16 BUN 66 H Creatinine 1.97 H Estim Creat Clear Calc 23.9 Estimated GFR 25 POC Glucose 252 H 195 H Random Glucose 236 H Calcium 9.5 B-Natriuretic Peptide 1271 H 09/09/23 09/09/23 07:14 11:19 Sodium Potassium Chloride Carbon Dioxide Anion Gap BUN Creatinine Estim Creat Clear Calc Estimated GFR POC Glucose 215 H 360 H* Random Glucose Calcium B-Natriuretic Peptide Progress Note: A&P Assessment and plan (1) Atrial fibrillation with rapid ventricular response: Status: Acute (2) Pulmonary hypertension: Status: Acute (3) Acute on chronic diastolic (congestive) heart failure: Status: Acute Plan 78-year-old female with COPD, congestive heart failure and new onset atrial fibrillation. Clinically she is volume overloaded. Continue IV diuretics. On p.o. Cardizem. Given volume overload I would avoid increasing cardizem. Can consider loading with digoxin if heart rate poorly controlled. Anticoagulation with apixaban. Thank you for allowing me to participate in the care of your patient. Please feel free to contact me if you have any questions. Time Spent With Patient Time: Total time managing care of this patient today ____ minutes. Progress Note: Quality Stroke Does the patient have a stroke diagnosis?: No Procedures Date of Service Date of Service: 09/09/23
--- NOTE | 2023-09-09 13:32 | HO.PM.IMPN ---
Subjective Subjective Date of Service: 09/09/23 Interval History: Seen and evaluated this morning Afib w RvR better controlled still edematous in LE reports dyspnea with exertion No fever or chills Review of Systems Review of Systems: Yes all other systems are reviewed and are negative Physical Exam Vital Signs: Vital Signs: Last Vital Signs Temp 98.9 F 09/09/23 12:00 Pulse 110 H 09/09/23 13:29 Resp 16 09/09/23 13:29 BP 114/63 09/09/23 12:00 Pulse Ox 91 L 09/09/23 12:00 O2 Del Method Nasal Cannula 09/09/23 12:00 O2 Flow Rate 10 09/09/23 12:00 BMI result Body Mass Index 29.9 Const: Other: Constitutional : Awake, interactive, not in distress Neck : Normal inspection, Supple Cardiovascular : irregular iiregular, mildly elevated JVP, basal crackles, +1 bilateral lower extremity edema up to the knees Respiratory : decreased bilateral air entry, basal fine bilateral crackles Gastrointestinal: soft, lax, Normal bowel sounds, Non tender Skin : Warm, Dry Neurological : Alert & oriented x3, No focal deficit Objective Data Active Medications Acetaminophen (Acetaminophen 325 Mg Tablet) 650 mg PO Q6H PRN PRN Reason: Pain, Mild (Pain Scale 1-3) Last Admin: 09/06/23 17:53 Dose: 650 mg Documented By: BONI Albuterol Sulfate (Albuterol Sulfate (0.083%) 2.5 Mg/3 Ml Vial.Neb) 2.5 mg INHALE Q4H PRN PRN Reason: Shortness of Breath/Wheezing Apixaban (Apixaban 5 Mg Tablet) 5 mg PO BID [facility] Last Admin: 09/09/23 08:20 Dose: 5 mg Documented By: NELSY Atorvastatin Calcium (Atorvastatin Calcium 80 Mg Tablet) 80 mg PO DAILY [facility] Last Admin: 09/09/23 08:21 Dose: 80 mg Documented By: NELSY Azithromycin (Azithromycin 250 Mg Tablet) 250 mg PO Q24H [facility] Last Admin: 09/09/23 08:21 Dose: 250 mg Documented By: NELSY Diltiazem HCl (Diltiazem Hcl Cd 120 Mg Cap.Er.Deg) 120 mg PO DAILY [facility]; Protocol Last Admin: 09/09/23 11:51 Dose: 120 mg Documented By: NELSY Furosemide (Furosemide 40 Mg/4 Ml Vial) 40 mg IVPUSH BID@0900,1800 [facility]; Protocol Last Admin: 09/09/23 08:20 Dose: 40 mg Documented By: NELSY Guaifenesin (Guaifenesin La 600 Mg Tab.Er.12h) 600 mg PO BID [facility] Last Admin: 09/09/23 08:21 Dose: 600 mg Documented By: NELSY Insulin Human Lispro (Insulin Lispro 100 Unit/Ml 3 Ml Vial) 0 unit SUBCUT QIDACHS [facility]; Protocol Last Admin: 09/09/23 11:52 Dose: 10 unit Documented By: NELSY Levalbuterol HCl (Levalbuterol Hcl 1.25 Mg/3 Ml Vial.Neb) 1.25 mg INHALE RTID [facility] Last Admin: 09/09/23 13:28 Dose: 1.25 mg Documented By: SANDER Methylprednisolone Sodium Succinate (Methylprednisolone Sod Succ 40 Mg/Ml Vial) 40 mg IVPUSH Q12H [facility] Last Admin: 09/09/23 08:20 Dose: 40 mg Documented By: NELSY Multivitamins/Vitamin C (Multivitamin Tablet) 1 tab PO DAILY [facility] Last Admin: 09/09/23 08:21 Dose: 1 tab Documented By: NELSY Ondansetron HCl (Ondansetron Hcl 4 Mg/2 Ml Vial) 4 mg IVPUSH Q8H PRN PRN Reason: Nausea and Vomiting Vitamin D (Cholecalciferol (Vitamin D3) 25 Mcg Tablet) 25 mcg PO DAILY [facility] Last Admin: 09/09/23 08:20 Dose: 25 mcg Documented By: NELSY Labs 09/08/23 06:47 09/09/23 06:50 Labs: Laboratory Results - last 24 hr 09/08/23 09/08/23 09/09/23 16:32 20:04 06:50 Anion Gap 16 Estim Creat Clear Calc 23.9 Estimated GFR 25 POC Glucose 252 H 195 H Random Glucose 236 H Calcium 9.5 B-Natriuretic Peptide 1271 H 09/09/23 09/09/23 07:14 11:19 Anion Gap Estim Creat Clear Calc Estimated GFR POC Glucose 215 H 360 H* Random Glucose Calcium B-Natriuretic Peptide Assessment and Plan (1) Atrial fibrillation with rapid ventricular response: Status: Acute (2) Pulmonary hypertension: Status: Acute (3) Acute on chronic diastolic (congestive) heart failure: Status: Acute (4) Acute on chronic respiratory failure with hypoxemia: Status: Acute Plan A 78 years old lady with PMH of CKD3, ILD on 2-3L O2 night, DMII, COPD, dCHF, CAD among others who presents to the hospital with worsening dyspnea and O2 requirements. New Onset Afib w RvR Noticed on Tele Cnt Eliquis , DC Aspirin Cardizem 180mg CD PO Cardiology following Acute on chronic hypoxic respiratory failure 2/2 COPD exacerbation Improving Continue Steroids Continue Duonebs Azithromycin for anti-inflammatory effect Pulm input appreciated Wean O2 down as tolerated Acute on chronic dCHF exacerbation Lasix IV Extra dose Metolazone I\O follow BNP Cardiology input appreciated DMII Hold GLipizide SSI Hx CAD DC ASA Continue Lisinipril and Statin HTN Amlodipine DVT PPx Lovenox The patient will need overnight hospital stay for treatment of hypoxic failure Time Spent With Patient Time: Total time managing care of this patient today ____ minutes. Quality Stroke Does the patient have a stroke diagnosis?: No VTE Prior VTE?: No VTE Risk Level:: Medical - moderate - high VTE Device Contraindication: Treatment Not Indicated VTE Drug Contraindication: Treatment Not Indicated
[2023-09-10] VITALS (11 sets, daily range): BP systolic 103–136; BP diastolic 54–88; PULSE 86–108; RESP 16–20; TEMP 36.1–36.9; O2SAT 88–98
--- NOTE | 2023-09-10 11:08 | MHC.CM.PN ---
EMR reviewed and per MD rounds, pt is not medically cleared for D/C due to a-fib w/ RVR, and high O2 requirements (10L/min). CM will continue to follow.
--- NOTE | 2023-09-10 13:22 | HO.PM.IMPN ---
Subjective Subjective Date of Service: 09/10/23 Interval History: Seen and evaluated this morning Afib w RvR still running fast improving edematous in LE reports dyspnea with exertion , requiring more O2 supplement of 10L No fever or chills Physical Exam Vital Signs: Vital Signs: Last Vital Signs Temp 98.5 F 09/10/23 12:00 Pulse 104 H 09/10/23 12:00 Resp 20 09/10/23 12:00 BP 128/88 09/10/23 12:00 Pulse Ox 88 L 09/10/23 12:00 O2 Del Method Nasal Cannula 09/10/23 12:00 O2 Flow Rate 09/10/23 12:00 BMI result Body Mass Index 29.9 Const: Other: Constitutional : Awake, interactive, not in distress Neck : Normal inspection, Supple Cardiovascular : irregular iiregular, mildly elevated JVP, basal crackles, +1 bilateral lower extremity edema up to the knees Respiratory : improved bilateral air entry, basal fine bilateral crackles Gastrointestinal: soft, lax, Normal bowel sounds, Non tender Skin : Warm, Dry Neurological : Alert & oriented x3, No focal deficit Objective Data Active Medications Acetaminophen (Acetaminophen 325 Mg Tablet) 650 mg PO Q6H PRN PRN Reason: Pain, Mild (Pain Scale 1-3) Last Admin: 09/06/23 17:53 Dose: 650 mg Documented By: BONI Albuterol Sulfate (Albuterol Sulfate (0.083%) 2.5 Mg/3 Ml Vial.Neb) 2.5 mg INHALE Q4H PRN PRN Reason: Shortness of Breath/Wheezing Apixaban (Apixaban 5 Mg Tablet) 5 mg PO BID [facility] Last Admin: 09/10/23 08:20 Dose: 5 mg Documented By: NELSY Atorvastatin Calcium (Atorvastatin Calcium 80 Mg Tablet) 80 mg PO DAILY [facility] Last Admin: 09/10/23 08:20 Dose: 80 mg Documented By: NELSY Azithromycin (Azithromycin 250 Mg Tablet) 250 mg PO Q24H [facility] Last Admin: 09/10/23 08:20 Dose: 250 mg Documented By: NELSY Digoxin (Digoxin 0.5 Mg/2 Ml Ampul) 0.25 mg IVPUSH Q6H [facility] Stop: 09/10/23 19:01 Diltiazem HCl (Diltiazem Hcl Cd 180 Mg Cap.Er.24h) 180 mg PO DAILY [facility]; Protocol Last Admin: 09/10/23 08:20 Dose: 180 mg Documented By: NELSY Furosemide (Furosemide 40 Mg/4 Ml Vial) 80 mg IVPUSH BID@0900,1800 [facility]; Protocol Guaifenesin (Guaifenesin La 600 Mg Tab.Er.12h) 600 mg PO BID [facility] Last Admin: 09/10/23 08:20 Dose: 600 mg Documented By: NELSY Insulin Human Lispro (Insulin Lispro 100 Unit/Ml 3 Ml Vial) 0 unit SUBCUT QIDACHS [facility]; Protocol Last Admin: 09/10/23 12:44 Dose: 8 unit Documented By: MIRANDA Levalbuterol HCl (Levalbuterol Hcl 1.25 Mg/3 Ml Vial.Neb) 1.25 mg INHALE RTID [facility] Last Admin: 09/10/23 07:45 Dose: 1.25 mg Documented By: SANDER Methylprednisolone Sodium Succinate (Methylprednisolone Sod Succ 40 Mg/Ml Vial) 40 mg IVPUSH Q12H [facility] Last Admin: 09/10/23 08:20 Dose: 40 mg Documented By: NELSY Multivitamins/Vitamin C (Multivitamin Tablet) 1 tab PO DAILY [facility] Last Admin: 09/10/23 08:21 Dose: 1 tab Documented By: NELSY Ondansetron HCl (Ondansetron Hcl 4 Mg/2 Ml Vial) 4 mg IVPUSH Q8H PRN PRN Reason: Nausea and Vomiting Vitamin D (Cholecalciferol (Vitamin D3) 25 Mcg Tablet) 25 mcg PO DAILY [facility] Last Admin: 09/10/23 08:21 Dose: 25 mcg Documented By: NELSY Labs 09/08/23 06:47 09/10/23 06:41 Labs: Laboratory Results - last 24 hr 09/06/23 09/09/23 09/09/23 15:13 16:16 20:38 Anion Gap Estim Creat Clear Calc Estimated GFR POC Glucose 311 H 244 H Random Glucose Calcium B-Natriuretic Peptide STEVE Screen NEGATIVE 09/10/23 09/10/23 09/10/23 06:41 07:10 12:07 Anion Gap 20 Estim Creat Clear Calc 23.0 Estimated GFR 24 POC Glucose 263 H 327 H Random Glucose 271 H Calcium 9.7 B-Natriuretic Peptide 1077 H STEVE Screen Assessment and Plan (1) Atrial fibrillation with rapid ventricular response: Status: Acute (2) Pulmonary hypertension: Status: Acute (3) Acute on chronic diastolic (congestive) heart failure: Status: Acute (4) Acute on chronic respiratory failure with hypoxemia: Status: Acute Plan A 78 years old lady with PMH of CKD3, ILD on 2-3L O2 night, DMII, COPD, dCHF, CAD among others who presents to the hospital with worsening dyspnea and O2 requirements. New Onset Afib w RvR Noticed on Tele Cnt Eliquis , DC Aspirin Cardizem 180mg CD PO Cardiology following, add digoxin load then q2 days Acute on chronic hypoxic respiratory failure 2/2 COPD exacerbation requiring more O2 supplement Continue Steroids Continue Duonebs Azithromycin for anti-inflammatory effect CPAP as needed Pulm input appreciated Wean O2 down as tolerated Acute on chronic dCHF exacerbation Increase Lasix IV Extra dose Metolazone I\O follow BNP Cardiology input appreciated DMII Hold GLipizide SSI Hx CAD DC ASA Continue Lisinipril and Statin HTN Amlodipine DVT PPx Lovenox The patient will need overnight hospital stay for treatment of hypoxic failure Time Spent With Patient Time: Total time managing care of this patient today ____ minutes. Quality Stroke Does the patient have a stroke diagnosis?: No VTE Prior VTE?: No VTE Risk Level:: Medical - moderate - high VTE Device Contraindication: Treatment Not Indicated VTE Drug Contraindication: Treatment Not Indicated
--- NOTE | 2023-09-10 13:23 | PM.PNCARD ---
Subjective Subjective Date of Service: 09/10/23 Interval history: Seen examined at bedside. Still short of breath. Continues to be in atrial fibrillation. She is clinically volume overloaded. Physical Exam Vital Signs: Last Vital Signs Temp 98.5 F 09/10/23 12:00 Pulse 104 H 09/10/23 12:00 Resp 20 09/10/23 12:00 BP 128/88 09/10/23 12:00 Pulse Ox 88 L 09/10/23 12:00 O2 Del Method Nasal Cannula 09/10/23 12:00 O2 Flow Rate 09/10/23 12:00 BMI result Body Mass Index 29.9 GENERAL APPEARANCE: SOB. On supplemental oxygen. NECK: no carotid bruit, + jugular venous distention. SKIN: no suspicious lesions, warm and dry. HEART: no murmurs, irregular rate and rhythm. Tachycardic. LUNGS: Few crackles at bases. ABDOMEN: soft, nontender. EXTREMITIES: no edema. PERIPHERAL PULSES: equal. NEUROLOGIC: No gross deficits, AAO X 3 Objective Labs and Meds 09/08/23 06:47 09/10/23 06:41 Lab results: Laboratory Results - last 24 hr 09/06/23 09/09/23 09/09/23 15:13 16:16 20:38 Sodium Potassium Chloride Carbon Dioxide Anion Gap BUN Creatinine Estim Creat Clear Calc Estimated GFR POC Glucose 311 H 244 H Random Glucose Calcium B-Natriuretic Peptide STEVE Screen NEGATIVE 09/10/23 09/10/23 09/10/23 06:41 07:10 12:07 Sodium 136 Potassium 4.2 Chloride 94 L Carbon Dioxide 26 Anion Gap 20 BUN 80 H Creatinine 2.04 H Estim Creat Clear Calc 23.0 Estimated GFR 24 POC Glucose 263 H 327 H Random Glucose 271 H Calcium 9.7 B-Natriuretic Peptide 1077 H STEVE Screen Progress Note: A&P Assessment and plan (1) Atrial fibrillation with rapid ventricular response: Status: Acute (2) Acute on chronic diastolic (congestive) heart failure: Status: Acute Plan Pleasant 78-year-old female with COPD on home oxygen, atrial fibrillation - new onset and congestive heart failure. Clinically she looks overloaded. Increase Lasix to 80 mg IV b.i.d.. Recommend adding digoxin load of 250 mcg x 2. No maintenance dose. Would avoid titrating Cardizem further specially in the setting of volume overload. She has advanced COPD and would avoid doing a GREGORY cardioversion on her. Target heart rates less than 110 at rest. We will follow along with you. Thank you for allowing me to participate in the care of your patient. Please feel free to contact me if you have any questions. Time Spent With Patient Time: Total time managing care of this patient today ____ minutes. Progress Note: Quality Stroke Does the patient have a stroke diagnosis?: No Procedures Date of Service Date of Service: 09/10/23
[2023-09-11] VITALS (9 sets, daily range): BP systolic 113–156; BP diastolic 55–85; PULSE 80–121; RESP 18–20; TEMP 36.4–36.9; O2SAT 88–98
[2023-09-11 05:27] LABS: Anion Gap 19 (12-20); Blood Urea Nitrogen 89 mg/dL (9-16); Calcium 9.9 mg/dL (8.4-10.2); Carbon Dioxide 31 mmol/L (22-29); Chloride 91 mmol/L (96-108); Creatinine Clr Calc Pharmacy 23.4; Estimated Glomerular Filt Rate 24; Glucose Random 226 mg/dL (60-115); Sodium 137 mmol/L (135-145)
--- NOTE | 2023-09-11 09:26 | MHC.CM.PN ---
EMR REVIEWED, PT REMAINS ON 10L O2 VIA OXYMASK AND TACHHYCARDIC, NO PLAN FOR D/C AT THIS TIME, PT MAY NEED PT EVAL FOR DISPO, PT AT THIS TIME HOME W/RESUMP OF [facility] FOR HOME O2, [facility] REF PLACED IN ANTIC PT MAY NEED HOME SERVICES, CM WILL CONT TO FOLLOW D/C NEEDS.
--- NOTE | 2023-09-11 15:04 | P.PNIM_ITS ---
Subjective Subjective Date of Service: 09/11/23 Interval History: Seen and evaluated this morning Afib w RvR still running 100-110 improving edematous in LE reports dyspnea with exertion , requiring more O2 supplement overnight No fever or chills Review of Systems Review of Systems: Yes all other systems are reviewed and are negative Physical Exam 2 Vital Signs: Vital Signs: Last Vital Signs Temp 98 F 09/11/23 11:19 Pulse 80 09/11/23 11:19 Resp 18 09/11/23 11:19 BP 140/65 H 09/11/23 11:19 Pulse Ox 92 09/11/23 11:19 O2 Del Method Oxymask 09/11/23 11:19 O2 Flow Rate 6 09/11/23 11:19 BMI result Body Mass Index 29.9 Const: Other: Constitutional : Awake, interactive, not in distress Neck : Normal inspection, Supple Cardiovascular : irregular iiregular, mildly elevated JVP, basal crackles, +1 bilateral lower extremity edema up to the knees Respiratory : improved bilateral air entry, basal fine bilateral crackles Gastrointestinal: soft, lax, Normal bowel sounds, Non tender Skin : Warm, Dry Neurological : Alert & oriented x3, No focal deficit Objective Data Active Medications Acetaminophen (Acetaminophen 325 Mg Tablet) 650 mg PO Q6H PRN PRN Reason: Pain, Mild (Pain Scale 1-3) Last Admin: 09/06/23 17:53 Dose: 650 mg Documented By: BONI Albuterol Sulfate (Albuterol Sulfate (0.083%) 2.5 Mg/3 Ml Vial.Neb) 2.5 mg INHALE Q4H PRN PRN Reason: Shortness of Breath/Wheezing Apixaban (Apixaban 5 Mg Tablet) 5 mg PO BID [facility] Last Admin: 09/11/23 08:33 Dose: 5 mg Documented By: ISRRAEL Atorvastatin Calcium (Atorvastatin Calcium 80 Mg Tablet) 80 mg PO DAILY [facility] Last Admin: 09/11/23 08:33 Dose: 80 mg Documented By: ISRRAEL Azithromycin (Azithromycin 250 Mg Tablet) 250 mg PO Q24H [facility] Last Admin: 09/11/23 08:33 Dose: 250 mg Documented By: ISRRAEL Diltiazem HCl (Diltiazem Hcl Cd 180 Mg Cap.Er.24h) 180 mg PO DAILY [facility]; Protocol Last Admin: 09/11/23 08:33 Dose: 180 mg Documented By: ISRRAEL Furosemide (Furosemide 40 Mg/4 Ml Vial) 80 mg IVPUSH BID@0900,1800 [facility]; Protocol Last Admin: 09/11/23 08:33 Dose: 80 mg Documented By: ISRRAEL Guaifenesin (Guaifenesin La 600 Mg Tab.Er.12h) 600 mg PO BID [facility] Last Admin: 09/11/23 08:33 Dose: 600 mg Documented By: ISRRAEL Insulin Human Lispro (Insulin Lispro 100 Unit/Ml 3 Ml Vial) 0 unit SUBCUT QIDACHS [facility]; Protocol Last Admin: 09/11/23 11:30 Dose: 8 unit Documented By: ISRRAEL Levalbuterol HCl (Levalbuterol Hcl 1.25 Mg/3 Ml Vial.Neb) 1.25 mg INHALE RTID [facility] Last Admin: 09/11/23 07:26 Dose: 1.25 mg Documented By: SANDER Methylprednisolone Sodium Succinate (Methylprednisolone Sod Succ 40 Mg/Ml Vial) 40 mg IVPUSH Q12H [facility] Last Admin: 09/11/23 08:32 Dose: 40 mg Documented By: ISRRAEL Multivitamins/Vitamin C (Multivitamin Tablet) 1 tab PO DAILY [facility] Last Admin: 09/11/23 08:33 Dose: 1 tab Documented By: ISRRAEL Ondansetron HCl (Ondansetron Hcl 4 Mg/2 Ml Vial) 4 mg IVPUSH Q8H PRN PRN Reason: Nausea and Vomiting Vitamin D (Cholecalciferol (Vitamin D3) 25 Mcg Tablet) 25 mcg PO DAILY [facility] Last Admin: 09/11/23 08:33 Dose: 25 mcg Documented By: ISRRAEL Labs 09/08/23 06:47 09/11/23 04:49 Labs: Laboratory Results - last 24 hr 09/06/23 09/10/23 09/10/23 15:13 16:07 20:43 Anion Gap Estim Creat Clear Calc Estimated GFR POC Glucose 304 H 304 H Random Glucose Calcium B-Natriuretic Peptide IgE 10 STEVE Titer TNP STEVE Titer 2 TNP STEVE Titer 3 TNP STEVE Pattern TNP STEVE Pattern 2 TNP STEVE Pattern 3 TNP 09/11/23 09/11/23 09/11/23 04:49 07:31 11:11 Anion Gap 19 Estim Creat Clear Calc 23.4 Estimated GFR 24 POC Glucose 234 H 333 H Random Glucose 226 H Calcium 9.9 B-Natriuretic Peptide 943 H IgE STEVE Titer STEVE Titer 2 STEVE Titer 3 STEVE Pattern STEVE Pattern 2 STEVE Pattern 3 Microbiology Microbiology Results: Microbiology 09/05/23 15:59 Blood Culture - Final Blood - Venous No growth after 5 days. 09/05/23 15:19 Blood Culture - Final Blood - Venous No growth after 5 days. Assessment and Plan (1) Atrial fibrillation with rapid ventricular response: Status: Acute (2) Pulmonary hypertension: Status: Acute (3) Acute on chronic diastolic (congestive) heart failure: Status: Acute (4) Acute on chronic respiratory failure with hypoxemia: Status: Acute Plan A 78 years old lady with PMH of CKD3, ILD on 2-3L O2 night, DMII, COPD, dCHF, CAD among others who presents to the hospital with worsening dyspnea and O2 requirements. New Onset Afib w RvR Noticed on Tele Cnt Eliquis , DC Aspirin Cardizem 180mg CD PO Cardiology following, add digoxin load then q2 days Acute on chronic hypoxic respiratory failure 2/2 COPD exacerbation requiring more O2 supplement, VBG showed O2 of 99 which means the peripheral readings are not the most accurate and will defer from increasing the O2 more Continue Steroids Continue Duonebs Azithromycin for anti-inflammatory effect CPAP as needed Pulm input appreciated Wean O2 down as tolerated with goal of 2-4L Acute on chronic dCHF exacerbation Continue Lasix IV 80mg bid Hold on Metolazone I\O follow BNP Cardiology input appreciated DMII Hold GLipizide SSI Hx CAD DC ASA Continue Lisinipril and Statin HTN Amlodipine DVT PPx Lovenox The patient will need overnight hospital stay for treatment of hypoxic failure Time Spent With Patient Time: Total time managing care of this patient today ____ minutes. Quality Stroke Does the patient have a stroke diagnosis?: No VTE Prior VTE?: No VTE Risk Level:: Medical - moderate - high VTE Device Contraindication: Treatment Not Indicated VTE Drug Contraindication: Treatment Not Indicated
[2023-09-11] MEDS: levalbuterol HCL 1.25 MG/3 ML VIAL.NEB INHALE ×2 (16:33→19:39)
[2023-09-11] MEDS: Furosemide 40 MG/4 ML VIAL 80 MG IVPUSH (16:58)
[2023-09-11] MEDS: Insulin Lispro 100 UNIT/ML 3 ML VIAL SUBCUT ×2 (16:58→21:30)
[2023-09-11 20:31] LABS: Glucose, Whole Blood 288 mg/dL (60-115)
[2023-09-11] MEDS: Apixaban 5 MG TABLET PO (21:31)
[2023-09-11] MEDS: methylPREDNISolone Sod Succ 40 MG/ML VIAL IVPUSH (21:31)
[2023-09-11] MEDS: guaiFENesin LA 600 MG TAB.ER.12H PO (21:33)
[2023-09-12] VITALS (10 sets, daily range): BP systolic 116–142; BP diastolic 57–76; PULSE 95–120; RESP 17–19; TEMP 36.4–37; O2SAT 89–94
[2023-09-12 07:59] LABS: Anion Gap 18 (12-20); Blood Urea Nitrogen 98 mg/dL (9-16); Carbon Dioxide 34 mmol/L (22-29); Chloride 87 mmol/L (96-108); Estimated Glomerular Filt Rate 25; Glucose Random 287 mg/dL (60-115); Potassium 3.3 mmol/L (3.3-5.1); Sodium 136 mmol/L (135-145)
[2023-09-12 08:00] LABS: Glucose, Whole Blood 268 mg/dL (60-115)
[2023-09-12] MEDS: levalbuterol HCL 1.25 MG/3 ML VIAL.NEB INHALE ×3 (08:40→19:55)
[2023-09-12] MEDS: methylPREDNISolone Sod Succ 40 MG/ML VIAL IVPUSH (09:31)
[2023-09-12] MEDS: Furosemide 40 MG/4 ML VIAL 80 MG IVPUSH (09:31)
[2023-09-12] MEDS: Insulin Lispro 100 UNIT/ML 3 ML VIAL SUBCUT ×4 (09:31→21:14)
[2023-09-12] MEDS: Multivitamin TABLET 1 TAB PO (09:31)
[2023-09-12] MEDS: Azithromycin 250 MG TABLET PO (09:31)
[2023-09-12] MEDS: Atorvastatin Calcium 80 MG TABLET PO (09:31)
[2023-09-12] MEDS: dilTIAZem HCL CD 180 MG CAP.ER.24H PO (09:31)
[2023-09-12] MEDS: guaiFENesin LA 600 MG TAB.ER.12H PO ×2 (09:31→21:15)
[2023-09-12] MEDS: Apixaban 5 MG TABLET PO ×2 (09:31→21:15)
[2023-09-12] MEDS: Cholecalciferol (Vitamin D3) 25 MCG TABLET PO (09:32)
[2023-09-12] MEDS: Digoxin 0.125 MG TABLET PO (09:33)
--- NOTE | 2023-09-12 11:01 | PM.PNCARD ---
Subjective Subjective Date of Service: 09/12/23 Interval history: Seen examined at bedside. Feeling better. Oxygen demand is less than before. She is on chronic oxygen at home. Physical Exam Vital Signs: Last Vital Signs Temp 97.7 F 09/12/23 07:40 Pulse 98 09/12/23 08:44 Resp 18 09/12/23 08:44 BP 126/76 09/12/23 07:40 Pulse Ox 94 09/12/23 07:40 O2 Del Method Oxymask 09/12/23 07:40 O2 Flow Rate 4 09/12/23 07:40 BMI result Body Mass Index 29.9 GENERAL APPEARANCE: No significant dyspnea today. SKIN: no suspicious lesions, warm and dry. HEART: no murmurs, irregular rate and rhythm. LUNGS: Clear to auscultation. ABDOMEN: soft, nontender. EXTREMITIES: Mild edema. PERIPHERAL PULSES: equal. NEUROLOGIC: No gross deficits, AAO X 3 Objective Labs and Meds 09/08/23 06:47 09/12/23 07:02 Lab results: Laboratory Results - last 24 hr 09/11/23 09/11/23 09/11/23 11:11 16:05 20:27 Hold Purple Top Sodium Potassium Chloride Carbon Dioxide Anion Gap BUN Creatinine Estim Creat Clear Calc Estimated GFR POC Glucose 333 H 317 H 288 H Random Glucose Calcium 09/12/23 09/12/23 07:02 07:40 Hold Purple Top SEE NOTE Sodium 136 Potassium 3.3 Chloride 87 L Carbon Dioxide 34 H Anion Gap 18 BUN 98 H Creatinine 1.96 H Estim Creat Clear Calc 24.0 Estimated GFR 25 POC Glucose 268 H Random Glucose 287 H Calcium 10.0 Progress Note: A&P Assessment and plan (1) Atrial fibrillation with rapid ventricular response: Status: Acute (2) Acute on chronic diastolic (congestive) heart failure: Status: Acute Plan 78-year-old female with COPD with exacerbation with developed AFib with RVR and congestive heart failure. She has been diuresed and looks euvolemic. She is on diltiazem and digoxin currently. I think she should continue diltiazem 180 mg daily and digoxin 125 mcg every other day. Would not use daily digoxin currently. Heart rates are reasonably controlled. If her heart rate at rest is less than 110 beats per minute I think that is reasonable. Looks euvolemic today. She still has mild peripheral edema. She is on amlodipine which could be the reason for the edema. In any case I think we should not give more IV diuretics. I think she can be changed to oral Lasix 80 mg once a day. She will follow-up with us in the office. Thank you for allowing me to participate in the care of your patient. Please feel free to contact me if you have any questions. Time Spent With Patient Time: Total time managing care of this patient today ____ minutes. Progress Note: Quality Stroke Does the patient have a stroke diagnosis?: No Procedures Date of Service Date of Service: 09/12/23
[2023-09-12 11:21] LABS: Glucose, Whole Blood 379 mg/dL (60-115)
--- NOTE | 2023-09-12 12:12 | P.PNIM_ITS ---
Subjective Subjective Date of Service: 09/12/23 Interval History: sob and swelling improving Physical Exam 2 Vital Signs: Vital Signs: Last Vital Signs Temp 98.0 F 09/12/23 11:27 Pulse 113 H 09/12/23 11:39 Resp 19 09/12/23 11:27 BP 130/61 09/12/23 11:39 Pulse Ox 90 L 09/12/23 11:39 O2 Del Method Oxymask 09/12/23 11:27 O2 Flow Rate 4 09/12/23 11:27 BMI result Body Mass Index 29.9 GENERAL APPEARANCE: No significant dyspnea today. SKIN: no suspicious lesions, warm and dry. HEART: no murmurs, irregular rate and rhythm. LUNGS: Clear to auscultation. ABDOMEN: soft, nontender. EXTREMITIES: Mild edema. PERIPHERAL PULSES: equal. NEUROLOGIC: No gross deficits, AAO X 3 Objective Data Active Medications Acetaminophen (Acetaminophen 325 Mg Tablet) 650 mg PO Q6H PRN PRN Reason: Pain, Mild (Pain Scale 1-3) Last Admin: 09/06/23 17:53 Dose: 650 mg Documented By: BONI Albuterol Sulfate (Albuterol Sulfate (0.083%) 2.5 Mg/3 Ml Vial.Neb) 2.5 mg INHALE Q4H PRN PRN Reason: Shortness of Breath/Wheezing Apixaban (Apixaban 5 Mg Tablet) 5 mg PO BID [facility] Last Admin: 09/12/23 09:31 Dose: 5 mg Documented By: RICARDO Atorvastatin Calcium (Atorvastatin Calcium 80 Mg Tablet) 80 mg PO DAILY [facility] Last Admin: 09/12/23 09:31 Dose: 80 mg Documented By: RICARDO Azithromycin (Azithromycin 250 Mg Tablet) 250 mg PO Q24H [facility] Last Admin: 09/12/23 09:31 Dose: 250 mg Documented By: RICARDO Digoxin (Digoxin 0.125 Mg Tablet) 0.125 mg PO Q2D [facility] Last Admin: 09/12/23 09:33 Dose: 0.125 mg Documented By: RICARDO Diltiazem HCl (Diltiazem Hcl Cd 180 Mg Cap.Er.24h) 180 mg PO DAILY [facility]; Protocol Last Admin: 09/12/23 09:31 Dose: 180 mg Documented By: RICARDO Furosemide (Furosemide 40 Mg/4 Ml Vial) 80 mg IVPUSH BID@0900,1800 [facility]; Protocol Last Admin: 09/12/23 09:31 Dose: 80 mg Documented By: RICARDO Guaifenesin (Guaifenesin La 600 Mg Tab.Er.12h) 600 mg PO BID [facility] Last Admin: 09/12/23 09:31 Dose: 600 mg Documented By: RICARDO Insulin Human Lispro (Insulin Lispro 100 Unit/Ml 3 Ml Vial) 0 unit SUBCUT QIDACHS [facility]; Protocol Last Admin: 09/12/23 11:47 Dose: 10 unit Documented By: RICARDO Levalbuterol HCl (Levalbuterol Hcl 1.25 Mg/3 Ml Vial.Neb) 1.25 mg INHALE RTID [facility] Last Admin: 09/12/23 08:40 Dose: 1.25 mg Documented By: SCSHERIN Methylprednisolone Sodium Succinate (Methylprednisolone Sod Succ 40 Mg/Ml Vial) 40 mg IVPUSH Q12H [facility] Last Admin: 09/12/23 09:31 Dose: 40 mg Documented By: RICARDO Multivitamins/Vitamin C (Multivitamin Tablet) 1 tab PO DAILY [facility] Last Admin: 09/12/23 09:31 Dose: 1 tab Documented By: RICARDO Ondansetron HCl (Ondansetron Hcl 4 Mg/2 Ml Vial) 4 mg IVPUSH Q8H PRN PRN Reason: Nausea and Vomiting Vitamin D (Cholecalciferol (Vitamin D3) 25 Mcg Tablet) 25 mcg PO DAILY [facility] Last Admin: 09/12/23 09:32 Dose: 25 mcg Documented By: RICARDO Labs 09/08/23 06:47 09/12/23 07:02 Labs: Laboratory Results - last 24 hr 09/11/23 09/11/23 09/12/23 16:05 20:27 07:02 Hold Purple Top SEE NOTE Anion Gap 18 Estim Creat Clear Calc 24.0 Estimated GFR 25 POC Glucose 317 H 288 H Random Glucose 287 H Calcium 10.0 09/12/23 09/12/23 07:40 11:12 Hold Purple Top Anion Gap Estim Creat Clear Calc Estimated GFR POC Glucose 268 H 379 H* Random Glucose Calcium Assessment and Plan (1) Atrial fibrillation with rapid ventricular response: Status: Acute (2) Pulmonary hypertension: Status: Acute (3) Acute on chronic diastolic (congestive) heart failure: Status: Acute (4) Acute on chronic respiratory failure with hypoxemia: Status: Acute Plan 78F PMH of CKD3, chornic hypoxic respiratory failure due to ILD on 2-3L O2 night, DMII, COPD, dCHF, right sided chf, CAD among others who presented to the hospital with worsening dyspnea and O2 requirements. New Onset Afib w RvR Noticed on Tele Cnt Eliquis , off Aspirin Cardizem 180mg CD PO digoxin 0.125mg q2 days Acute on chronic hypoxic respiratory failure 2/2 COPD exacerbation Continue Steroids-changed to prednisone Continue Duonebs Azithromycin for anti-inflammatory effect CPAP as needed Pulm input appreciated Wean O2 down as tolerated with goal of 2-4L Acute on chronic diastolic and right sided CHF exacerbation change to po lasix 80mg daily DMII with hyperglycemia Hold GLipizide SSI Hx CAD DC ASA Continue Lisinipril and Statin HTN Amlodipine DVT PPx Lovenox The patient will need overnight hospital stay for treatment of hypoxic failure Time Spent With Patient Time: Total time managing care of this patient today ____ minutes. Quality Stroke Does the patient have a stroke diagnosis?: No VTE Prior VTE?: No VTE Risk Level:: Medical - moderate - high VTE Device Contraindication: Treatment Not Indicated VTE Drug Contraindication: Treatment Not Indicated
[2023-09-12 17:08] LABS: Glucose, Whole Blood 308 mg/dL (60-115)
[2023-09-12 20:48] LABS: Glucose, Whole Blood 336 mg/dL (60-115)
[2023-09-13] VITALS (11 sets, daily range): BP systolic 117–150; BP diastolic 62–82; PULSE 78–120; RESP 16–20; TEMP 36–36.9; O2SAT 77–100
[2023-09-13] MEDS: levalbuterol HCL 1.25 MG/3 ML VIAL.NEB INHALE ×3 (08:03→18:44)
[2023-09-13 08:09] LABS: Glucose, Whole Blood 205 mg/dL (60-115)
[2023-09-13 09:14] LABS: Anion Gap 22 (12-20); Blood Urea Nitrogen 95 mg/dL (9-16); Calcium 10.8 mg/dL (8.4-10.2); Carbon Dioxide 35 mmol/L (22-29); Chloride 84 mmol/L (96-108); Creatinine Clr Calc Pharmacy 26.6; Estimated Glomerular Filt Rate 28; Glucose Random 200 mg/dL (60-115); Potassium 2.9 mmol/L (3.3-5.1); Sodium 138 mmol/L (135-145)
[2023-09-13] MEDS: Insulin Lispro 100 UNIT/ML 3 ML VIAL SUBCUT ×3 (10:00→20:23)
[2023-09-13] MEDS: Atorvastatin Calcium 80 MG TABLET PO (10:00)
[2023-09-13] MEDS: Azithromycin 250 MG TABLET PO (10:00)
[2023-09-13] MEDS: Cholecalciferol (Vitamin D3) 25 MCG TABLET PO (10:00)
[2023-09-13] MEDS: guaiFENesin LA 600 MG TAB.ER.12H PO ×2 (10:00→20:24)
[2023-09-13] MEDS: Furosemide 40 MG TABLET 80 MG PO (10:01)
[2023-09-13] MEDS: Multivitamin TABLET 1 TAB PO (10:01)
[2023-09-13] MEDS: predniSONE 20 MG TABLET 40 MG PO (10:01)
[2023-09-13] MEDS: dilTIAZem HCL CD 180 MG CAP.ER.24H PO (10:01)
[2023-09-13] MEDS: Apixaban 5 MG TABLET PO ×2 (10:01→20:24)
[2023-09-13 10:42] LABS: Alanine Aminotransferase 142 U/L (0-31); Albumin Level 4.1 g/dL (3.5-5.0); Alkaline Phosphatase 75 U/L (39-117); Aspartate Amino Transferase 74 U/L (5-31); Bilirubin Direct 0.4 mg/dL (0.0-0.5); Bilirubin Total 0.8 mg/dL (0.0-1.0); Total Protein 7.5 g/dL (6.5-8.0)
[2023-09-13] MEDS: Potassium Chloride ER 20 MEQ TAB.ER.PRT 40 MEQ PO (11:14)
--- NOTE | 2023-09-13 11:30 | HO.PM.IMPN ---
Subjective Subjective Date of Service: 09/13/23 Interval History: worsening hypoxia and sob, improved edema Physical Exam Vital Signs: Vital Signs: Last Vital Signs Temp 97.1 F 09/13/23 08:00 Pulse 119 H 09/13/23 09:33 Resp 18 09/13/23 08:05 BP 143/82 H 09/13/23 08:00 Pulse Ox 93 09/13/23 08:00 O2 Del Method Oxymask 09/13/23 08:00 O2 Flow Rate 5 09/13/23 08:00 BMI result Body Mass Index 29.9 improved edema accesosrry muscles, tachypnea, diminished lung sounds Objective Data Active Medications Acetaminophen (Acetaminophen 325 Mg Tablet) 650 mg PO Q6H PRN PRN Reason: Pain, Mild (Pain Scale 1-3) Last Admin: 09/06/23 17:53 Dose: 650 mg Documented By: BONI Apixaban (Apixaban 5 Mg Tablet) 5 mg PO BID [facility] Last Admin: 09/13/23 10:01 Dose: 5 mg Documented By: JANY Atorvastatin Calcium (Atorvastatin Calcium 80 Mg Tablet) 80 mg PO DAILY [facility] Last Admin: 09/13/23 10:00 Dose: 80 mg Documented By: JANY Azithromycin (Azithromycin 250 Mg Tablet) 250 mg PO Q24H [facility] Last Admin: 09/13/23 10:00 Dose: 250 mg Documented By: JANY Digoxin (Digoxin 0.125 Mg Tablet) 0.125 mg PO Q2D [facility] Last Admin: 09/12/23 09:33 Dose: 0.125 mg Documented By: RICARDO Diltiazem HCl (Diltiazem Hcl Cd 180 Mg Cap.Er.24h) 180 mg PO DAILY [facility]; Protocol Last Admin: 09/13/23 10:01 Dose: 180 mg Documented By: JANY Furosemide (Furosemide 40 Mg Tablet) 80 mg PO DAILY [facility]; Protocol Last Admin: 09/13/23 10:01 Dose: 80 mg Documented By: JANY Guaifenesin (Guaifenesin La 600 Mg Tab.Er.12h) 600 mg PO BID [facility] Last Admin: 09/13/23 10:00 Dose: 600 mg Documented By: JANY Insulin Human Lispro (Insulin Lispro 100 Unit/Ml 3 Ml Vial) 0 unit SUBCUT QIDACHS [facility]; Protocol Last Admin: 09/13/23 10:00 Dose: 4 unit Documented By: JANY Levalbuterol HCl (Levalbuterol Hcl 1.25 Mg/3 Ml Vial.Neb) 1.25 mg INHALE RTID [facility] Last Admin: 09/13/23 08:03 Dose: 1.25 mg Documented By: CHATA Multivitamins/Vitamin C (Multivitamin Tablet) 1 tab PO DAILY [facility] Last Admin: 09/13/23 10:01 Dose: 1 tab Documented By: JANY Ondansetron HCl (Ondansetron Hcl 4 Mg/2 Ml Vial) 4 mg IVPUSH Q8H PRN PRN Reason: Nausea and Vomiting Prednisone (Prednisone 20 Mg Tablet) 40 mg PO DAILY [facility] Last Admin: 09/13/23 10:01 Dose: 40 mg Documented By: JANY Vitamin D (Cholecalciferol (Vitamin D3) 25 Mcg Tablet) 25 mcg PO DAILY [facility] Last Admin: 09/13/23 10:00 Dose: 25 mcg Documented By: JANY Labs 09/08/23 06:47 09/13/23 08:02 Labs: Laboratory Results - last 24 hr 09/12/23 09/12/23 09/13/23 16:41 20:38 08:02 Hold Purple Top SEE NOTE Anion Gap 22 H Estim Creat Clear Calc 26.6 Estimated GFR 28 POC Glucose 308 H 336 H Random Glucose 200 H Calcium 10.8 H D Total Bilirubin 0.8 Direct Bilirubin 0.4 AST 74 H ALT 142 H Alkaline Phosphatase 75 Total Protein 7.5 Albumin 4.1 09/13/23 08:05 Hold Purple Top Anion Gap Estim Creat Clear Calc Estimated GFR POC Glucose 205 H Random Glucose Calcium Total Bilirubin Direct Bilirubin AST ALT Alkaline Phosphatase Total Protein Albumin Assessment and Plan (1) Atrial fibrillation with rapid ventricular response: Status: Acute (2) Pulmonary hypertension: Status: Acute (3) Acute on chronic diastolic (congestive) heart failure: Status: Acute (4) Acute on chronic respiratory failure with hypoxemia: Status: Acute Plan 78F PMH of CKD3, chornic hypoxic respiratory failure due to ILD on 2-3L O2 night, DMII, COPD, dCHF, right sided chf, CAD among others who presented to the hospital with worsening dyspnea and O2 requirements. New Onset Afib w RvR Noticed on Tele Cnt Eliquis , off Aspirin Cardizem 180mg CD PO digoxin 0.125mg q2 days Acute on chronic hypoxic respiratory failure 2/2 COPD exacerbation Continue Steroids-changed to prednisone Continue Duonebs Azithromycin for anti-inflammatory effect CPAP as needed Pulm input appreciated Wean O2 down as tolerated with goal of 2-4L acute hyookalmiea replace and monitor Acute on chronic diastolic and right sided CHF exacerbation changed to po lasix 80mg daily DMII with hyperglycemia Hold GLipizide SSI Hx CAD DC ASA Continue Lisinipril and Statin HTN Amlodipine DVT PPx Lovenox The patient will need overnight hospital stay for treatment of hypoxic failure Time Spent With Patient Time: Total time managing care of this patient today ____ minutes. Quality Stroke Does the patient have a stroke diagnosis?: No VTE Prior VTE?: No VTE Risk Level:: Medical - moderate - high VTE Device Contraindication: Treatment Not Indicated VTE Drug Contraindication: Treatment Not Indicated
[2023-09-13 11:47] LABS: Glucose, Whole Blood 228 mg/dL (60-115)
--- NOTE | 2023-09-13 12:46 | PM.PNCARD ---
Subjective Subjective Date of Service: 09/13/23 Interval history: Seen and examined at bedside. Apparently her oxygen demand increase this morning. She is saying that her breathing is the same as yesterday. She also walked and did okay walking around. Physical Exam Vital Signs: Last Vital Signs Temp 97.2 F 09/13/23 12:00 Pulse 100 09/13/23 12:00 Resp 18 09/13/23 12:00 BP 117/62 09/13/23 12:00 Pulse Ox 91 L 09/13/23 12:00 O2 Del Method Nasal Cannula 09/13/23 12:00 O2 Flow Rate 4 09/13/23 12:00 BMI result Body Mass Index 29.9 GENERAL APPEARANCE: On supplemental oxygen. Appears comfortable. No significant JVD. SKIN: no suspicious lesions, warm and dry. HEART: no murmurs, irregular rate and rhythm. LUNGS: Clear to auscultation. ABDOMEN: soft, nontender. EXTREMITIES: No edema. PERIPHERAL PULSES: equal. NEUROLOGIC: No gross deficits, AAO X 3 Objective Labs and Meds 09/08/23 06:47 09/13/23 08:02 Lab results: Laboratory Results - last 24 hr 09/12/23 09/12/23 09/13/23 16:41 20:38 08:02 Hold Purple Top SEE NOTE Sodium 138 Potassium 2.9 L Chloride 84 L Carbon Dioxide 35 H Anion Gap 22 H BUN 95 H Creatinine 1.77 H Estim Creat Clear Calc 26.6 Estimated GFR 28 POC Glucose 308 H 336 H Random Glucose 200 H Calcium 10.8 H D Total Bilirubin 0.8 Direct Bilirubin 0.4 AST 74 H ALT 142 H Alkaline Phosphatase 75 Total Protein 7.5 Albumin 4.1 09/13/23 09/13/23 08:05 11:42 Hold Purple Top Sodium Potassium Chloride Carbon Dioxide Anion Gap BUN Creatinine Estim Creat Clear Calc Estimated GFR POC Glucose 205 H 228 H Random Glucose Calcium Total Bilirubin Direct Bilirubin AST ALT Alkaline Phosphatase Total Protein Albumin Imaging Radiologist's impression: Impressions Chest X-Ray 09/13/23 09:45 IMPRESSION: Stable enlargement of the cardiac silhouette and coarse lung markings. No acute pulmonary disease. Progress Note: A&P Assessment and plan (1) Atrial fibrillation with rapid ventricular response: Status: Acute (2) Acute on chronic diastolic (congestive) heart failure: Status: Acute Plan 78-year-old female with advanced COPD on supplemental oxygen, new onset atrial fibrillation and congestive heart failure. Clinically appears to be euvolemic at this point. Continue Lasix at the same dose. Monitor electrolytes and replete potassium as she is hypokalemic. Her oxygen demand changed today but she does not appear to be in worsening heart failure. Continue Cardizem 180 and digoxin every other day. Target heart rates less than 110 at rest. Thank you for allowing me to participate in the care of your patient. Please feel free to contact me if you have any questions. Time Spent With Patient Time: Total time managing care of this patient today ____ minutes. Progress Note: Quality Stroke Does the patient have a stroke diagnosis?: No Procedures Date of Service Date of Service: 09/13/23
--- NOTE | 2023-09-13 16:28 | P.PNPL_ITS ---
Subjective Subjective Date of Service: 09/13/23 Interval history: Still with significant hypoxemia. Objective Data Labs 09/08/23 06:47 09/13/23 08:02 Labs: Laboratory Results - last 24 hr 09/12/23 09/12/23 09/13/23 16:41 20:38 08:02 Hold Purple Top SEE NOTE Sodium 138 Potassium 2.9 L Chloride 84 L Carbon Dioxide 35 H Anion Gap 22 H BUN 95 H Creatinine 1.77 H Estim Creat Clear Calc 26.6 Estimated GFR 28 POC Glucose 308 H 336 H Random Glucose 200 H Calcium 10.8 H D Total Bilirubin 0.8 Direct Bilirubin 0.4 AST 74 H ALT 142 H Alkaline Phosphatase 75 Total Protein 7.5 Albumin 4.1 09/13/23 09/13/23 08:05 11:42 Hold Purple Top Sodium Potassium Chloride Carbon Dioxide Anion Gap BUN Creatinine Estim Creat Clear Calc Estimated GFR POC Glucose 205 H 228 H Random Glucose Calcium Total Bilirubin Direct Bilirubin AST ALT Alkaline Phosphatase Total Protein Albumin Microbiology Microbiology Results: Microbiology 09/05/23 15:59 Blood - Venous Blood Culture - Final No growth after 5 days. 09/05/23 15:19 Blood - Venous Blood Culture - Final No growth after 5 days. Physical Exam 2 Vital Signs: Vital Signs: Last Vital Signs Temp 97.1 F 09/13/23 15:08 Pulse 105 H 09/13/23 15:08 Resp 18 09/13/23 15:08 BP 124/73 09/13/23 15:08 Pulse Ox 100 09/13/23 15:08 O2 Del Method Nasal Cannula, Ox ymask 09/13/23 15:08 O2 Flow Rate 4 09/13/23 15:08 BMI result Body Mass Index 29.9 Resp: Effort & Inspection: normal respiratory effort Auscultation: crackles bilateral Extrem: General: No clubbing, No cyanosis and Yes edema (1+ bilateral) Procedures Date of Service Date of Service: 09/13/23 Assessment and Plan Assessment and plan (1) Pulmonary hypertension: Status: Acute (2) Acute and chronic respiratory failure with hypoxia: Status: Acute Plan Still with significant hypoxemia with rising serum bicarbonate. Does have underlying pulmonary hypertension component, will try on empiric sildenafil. Time Spent With Patient Time: Total time managing care of this patient today ____ minutes. Progress Note: Quality Stroke Does the patient have a stroke diagnosis?: No
[2023-09-13 16:33] LABS: Glucose, Whole Blood 184 mg/dL (60-115)
--- NOTE | 2023-09-13 16:34 | MHC.CM.PN ---
EMR REVIEWED, PT W/INCREASING O2 DEMAND, MED CHANGES PER PULMONOLOGY, NO PLAN FOR D/C AT THIS TIME, [facility] FOLLOWING AND CM WILL CONT TO FOLLOW D/C NEEDS.
[2023-09-13] MEDS: Sildenafil Citrate 20 MG TABLET PO ×2 (18:49→20:24)
--- NOTE | 2023-09-13 20:01 | PC.NURSE ---
Assumed care at 07:00, brittani Juan&González4, oob independenly to commode, ate well, POCs elevated, had 4 U and 4 U coverage and refused dinnertime insulin. Patient was weaned to 4 LPM oxymyzer, desatted with activity on 3 LPM. afib with controlled rate. Started sildenifil this evening.
[2023-09-13 20:11] LABS: Glucose, Whole Blood 426 mg/dL (60-115)
[2023-09-13 21:07] LABS: Glucose, Whole Blood 433 mg/dL (60-115)
--- NOTE | 2023-09-13 21:14 | PC.NURSE ---
pt blood glucose at 2019 was 426. MD was notified. pt was given 10 units per sliding scale and MD confirmation. Blood glucose retaken at 2099 was 433. will redraw at 0.
[2023-09-13 21:36] LABS: Glucose, Whole Blood 390 mg/dL (60-115)
[2023-09-14] VITALS (7 sets, daily range): BP systolic 118–165; BP diastolic 62–70; PULSE 74–126; RESP 17–20; TEMP 36.1–36.4; O2SAT 87–92
[2023-09-14 08:12] LABS: Glucose, Whole Blood 172 mg/dL (60-115)
[2023-09-14 08:14] LABS: Hematocrit 44.6 % (37.0-47.0); Hemoglobin 13.9 g/dl (12.0-16.0); Mean Corpuscular HGB Conc 31.2 g/dl (31.0-35.0); Mean Corpuscular Hemoglobin 25.9 pg (27.0-33.0); Mean Corpuscular Volume 83.2 fL (80.0-98.0); Mean Platelet Volume 10.3 fL (9.4-12.3); Platelet Count 291 X10*3/uL (160-400); Red Blood Count 5.36 X10*6/uL (4.20-5.50); Red Cell Distribution Width 18.2 % (11.0-16.0); White Blood Count 16.7 X10*3/uL (4.8-10.8)
[2023-09-14] MEDS: levalbuterol HCL 1.25 MG/3 ML VIAL.NEB INHALE (08:15)
[2023-09-14] MEDS: dilTIAZem HCL CD 180 MG CAP.ER.24H PO (08:56)
[2023-09-14] MEDS: predniSONE 20 MG TABLET 40 MG PO (08:56)
[2023-09-14] MEDS: Azithromycin 250 MG TABLET PO (08:56)
[2023-09-14] MEDS: Cholecalciferol (Vitamin D3) 25 MCG TABLET PO (08:57)
[2023-09-14] MEDS: Furosemide 40 MG TABLET 80 MG PO (08:57)
[2023-09-14] MEDS: Apixaban 5 MG TABLET PO (08:57)
[2023-09-14] MEDS: Atorvastatin Calcium 80 MG TABLET PO (08:57)
[2023-09-14] MEDS: guaiFENesin LA 600 MG TAB.ER.12H PO (08:57)
[2023-09-14] MEDS: Multivitamin TABLET 1 TAB PO (08:57)
[2023-09-14] MEDS: Sildenafil Citrate 20 MG TABLET PO ×2 (08:57→14:24)
[2023-09-14] MEDS: Insulin Lispro 100 UNIT/ML 3 ML VIAL SUBCUT ×3 (09:00→17:27)
[2023-09-14] MEDS: Digoxin 0.125 MG TABLET PO (09:41)
[2023-09-14 10:09] LABS: Alanine Aminotransferase 179 U/L (0-31); Albumin Level 3.7 g/dL (3.5-5.0); Alkaline Phosphatase 75 U/L (39-117); Anion Gap 21 (12-20); Aspartate Amino Transferase 81 U/L (5-31); Bilirubin Direct 0.4 mg/dL (0.0-0.5); Blood Urea Nitrogen 95 mg/dL (9-16); Calcium 10.2 mg/dL (8.4-10.2); Carbon Dioxide 32 mmol/L (22-29); Chloride 85 mmol/L (96-108); Creatinine Clr Calc Pharmacy 27.2; Estimated Glomerular Filt Rate 28; Glucose Fasting 232 mg/dL (60-99); Magnesium 1.8 mg/dL (1.6-2.6); Potassium 3.3 mmol/L (3.3-5.1); Sodium 135 mmol/L (135-145); Total Protein 6.9 g/dL (6.5-8.0)
[2023-09-14 12:13] LABS: Glucose, Whole Blood 245 mg/dL (60-115)
--- NOTE | 2023-09-14 13:02 | PM.DS ---
DS: Providers Provider Date of Service: 09/14/23 Date of admission: 09/06/23 10:37 Primary care physician: Matheus Singh MD Consults: 09/06/23 08:10 Consult to Pulmonology Routine Consulting Provider: [facility] Pulmonology Services Reason for consultation: acute on chronic respiratory failure for eval. 09/06/23 14:51 Consult to Cardiology Routine Consulting Provider: [facility] Cardiovascular Services Reason for consultation: Hypoxic respiratory failure, CHF, Mod for eval DS: Diagnosis Discharge Diagnosis (1) Pulmonary hypertension: Status: Acute (2) Acute and chronic respiratory failure with hypoxia: Status: Acute DS: Summary Hospital Course Hospital Course: from initial hpi: 78 years old lady with PMH of CKD3, ILD on 2-3L O2 night, DMII, COPD, dCHF, CAD among others who presents to the hospital with worsening dyspnea and O2 requirements. The patient reports noticing a difference 4-5 weeks ago when started to feel winded easily and started using O2 supplement all day long. reported worsening weakness, decrease walking distance. she is mainly home and restricted to small area. doesnt cook or do laundry. denies any fever, chills, chest pain, palpitations, N\V\D or urinary symptoms. In ED found hypoxic. treated with IV steroids and nebulizers with mild improvement in her condition. Found to have elevated BNP as well. Admitted for further evaluation and treatment. hospital course: Patient was admitted with new onset atrial fibrillation with rapid ventricular response was treated with diltiazem 180 mg and digoxin, aspirin discontinued, started on Eliquis. Rate is reasonable controlled at this time. For acute on chronic hypoxic respiratory failure secondary to COPD with acute decompensation and acute on chronic diastolic and right-sided CHF with pulmonary hypertension patient was treated with IV Lasix and diuresed well. She has transient to 80 mg Lasix daily. She was seen by Pulmonary who started sildenafil. At discharge her baseline O2 has been increased to 4 L. for acute hypokalemia she received replacement. For diabetes with hyperglycemia she was given insulin. Coronary disease aspirin has been discontinued and she is now on Eliquis and statin. For hypertension was continue on amlodipine. Patient is feeling better will be discharged home. Time Spent with Patient Time attestation: Total time managing care of this patient today ____ minutes. Discharge coordination time: Greater than 30 minutes Quality: Safe Use of Opioids Does Pt have an Active Cancer Diagnosis on the Problem List?: No Quality: Stroke Does the patient have a stroke diagnosis?: No Physical Exam Vital Signs: Vital Signs: Last Vital Signs Temp 97.2 F 09/14/23 12:00 Pulse 115 H 09/14/23 12:00 Resp 18 09/14/23 12:00 BP 132/62 09/14/23 12:00 Pulse Ox 92 09/14/23 12:00 O2 Del Method Nasal Cannula 09/14/23 12:00 O2 Flow Rate 4 09/14/23 12:00 BMI result Body Mass Index 29.9 Resp: Effort & Inspection: normal respiratory effort Auscultation: crackles bilateral Extrem: General: No clubbing, No cyanosis and Yes edema (1+ bilateral) DS: Data Data Completed and Pending Labs on day of discharge: Laboratory Results - last 24 hr 09/13/23 09/13/23 09/13/23 16:23 20:02 21:02 WBC RBC Hgb Hct MCV MCH MCHC RDW Plt Count MPV Absolute Nucleated RBC Nucleated RBC % (auto) Sodium Potassium Chloride Carbon Dioxide Anion Gap BUN Creatinine Estim Creat Clear Calc Estimated GFR POC Glucose 184 H 426 H* 433 H* Fasting Glucose Calcium Magnesium Total Bilirubin Direct Bilirubin AST ALT Alkaline Phosphatase Total Protein Albumin 09/13/23 09/14/23 09/14/23 21:32 07:44 07:51 WBC 16.7 H RBC 5.36 Hgb 13.9 Hct 44.6 MCV 83.2 MCH 25.9 L MCHC 31.2 RDW 18.2 H Plt Count 291 MPV 10.3 Absolute Nucleated RBC 0.000 Nucleated RBC % (auto) 0.0 Sodium Potassium Chloride Carbon Dioxide Anion Gap BUN Creatinine Estim Creat Clear Calc Estimated GFR POC Glucose 390 H* 172 H Fasting Glucose Calcium Magnesium Total Bilirubin Direct Bilirubin AST ALT Alkaline Phosphatase Total Protein Albumin 09/14/23 09/14/23 09:21 12:03 WBC RBC Hgb Hct MCV MCH MCHC RDW Plt Count MPV Absolute Nucleated RBC Nucleated RBC % (auto) Sodium 135 Potassium 3.3 Chloride 85 L Carbon Dioxide 32 H Anion Gap 21 H BUN 95 H Creatinine 1.73 H Estim Creat Clear Calc 27.2 Estimated GFR 28 POC Glucose 245 H Fasting Glucose 232 H Calcium 10.2 Magnesium 1.8 Total Bilirubin 1.0 Direct Bilirubin 0.4 AST 81 H ALT 179 H Alkaline Phosphatase 75 Total Protein 6.9 Albumin 3.7 Discharge Plan Discharge Anticipated Discharge Date/Time: 09/14/23 12:49 Patient Disposition: Home Health Service Discharge Diagnosis: chf, pulm htn Referrals: Matheus Singh MD [Primary Care Provider] - 1 Week Steven De La Rosa MD [Physician] - 1 Week Discharge Medications: New furosemide 40 mg Tablet 80 mg PO DAILY Qty: 30 0RF Protocol: Hold for SBP< HOLD for SBP < : 90 diltiazem HCl [Cardizem CD] 180 mg Capsule,Extended Release 24hr 180 mg PO DAILY Qty: 30 0RF Protocol: Hold for SBP/HR < HOLD for SBP < : 90 HOLD for HR < : 60 prednisone 20 mg Tablet 40 mg PO DAILY Qty: 10 0RF digoxin 125 mcg (0.125 mg) Tablet 0.125 mg PO Q2D Qty: 30 0RF sildenafil (pulm.hypertension) 20 mg Tablet 20 mg PO TID Qty: 90 0RF Eliquis 5 mg Tablet 5 mg PO BID Qty: 60 0RF Continued rosuvastatin 40 mg tablet 40 mg PO DAILY 90 Days Qty: 90 3RF glipizide 5 mg tablet 5 mg PO DAILY cholecalciferol (vitamin D3) 25 mcg (1,000 unit) capsule 25 mcg PO DAILY multivitamin [Daily Multi-Vitamin] Tablet 1 tab PO DAILY glipizide 5 mg tablet 2.5 mg PO BEDTIME amlodipine 10 mg tablet 10 mg PO DAILY Discontinued aspirin 81 mg tablet,delayed release (DR/EC) 81 mg PO DAILY lisinopril 40 mg tablet 20 mg PO DAILY Rx Instructions: 0.5 tablet Discharge Orders: Discharge Order (Routine); Ordered 09/14/23 Ordered By: Jewel Aceves Diet: Advance to usual diet Activity on Discharge: As tolerated Stand Alone Forms: Patient Portal Discharge page Care Plan Goals: recovery Health Concerns: pulm htn., chf afib Plan of Treatment: increase 02, prednisone, sildenafil, eliquis, cardizem, dig, follow up pulm and cardio Assessment: see above
--- NOTE | 2023-09-14 13:37 | MHC.CM.PN ---
Second IMM given 09/14. Pt medically cleared for D/C home self-care with with her , home O2 from [facility], and outpatient pulmonary rehab. Pts to transport her home.
--- NOTE | 2023-09-14 15:29 | PC.RT ---
pt. re-evaluated for Home O2 needs. pt. requires 3L with oximizer pendant to maintain spo2 of 88-92%. New script sent to [facility]. Patient given portable O2 tank for discharge
[2023-09-14 15:49] LABS: Asperg fumigatus Precip Abs NEGATIVE (NEGATIVE); Micropoly faeni Abs NEGATIVE (NEGATIVE); Pigeon serum Abs NEGATIVE (NEGATIVE); Saccharo pora viridis Abs NEGATIVE (NEGATIVE); Thermo candidus Abs NEGATIVE (NEGATIVE); Thermoa vulgaris #1 NEGATIVE (NEGATIVE)
[2023-09-14 17:01] LABS: Glucose, Whole Blood 306 mg/dL (60-115)
== END 2023-09-14 17:57 | disposition home health service (06) | DRG 291 ==
LOC: HO.ED 17:25 → HO.EDOVER 18:12 → HO.IMC 18:33
PROVIDERS: Hospitalist; Internal Medicine; Admitting Provider Student in an Organized Health Care Education/Training Program; Emergency Provider Emergency Medicine Emergency Medical Services; PCP Internal Medicine; Visit Provider Internal Medicine
DX: I13.0 Hypertensive heart and chronic kidney disease with heart failure and stage 1 through stage 4 chronic kidney disease, or unspecified chronic kidney disease (principal); I50.33 Acute on chronic diastolic (congestive) heart failure; J96.21 Acute and chronic respiratory failure with hypoxia; J44.1 Chronic obstructive pulmonary disease with (acute) exacerbation; I27.29 Other secondary pulmonary hypertension; Z79.84 Long term (current) use of oral hypoglycemic drugs; E78.00 Pure hypercholesterolemia, unspecified; I35.0 Nonrheumatic aortic (valve) stenosis; I48.91 Unspecified atrial fibrillation; I25.10 Atherosclerotic heart disease of native coronary artery without angina pectoris; E87.6 Hypokalemia; I50.813 Acute on chronic right heart failure; E11.65 Type 2 diabetes mellitus with hyperglycemia; Z20.822 Contact with and (suspected) exposure to COVID-19; E11.22 Type 2 diabetes mellitus with diabetic chronic kidney disease; N18.30 Chronic kidney disease, stage 3 unspecified; Z87.891 Personal history of nicotine dependence; Z79.899 Other long term (current) drug therapy
CPT/HCPCS: 0241U; 36415; 71045; 71250; 80048; 80053; 80076; 82040; 82785; 82803; 82947; 83605; 83735; 83880; 84484; 85027; 86038; 86200; 86331; 86606; 86609; 87040; 93005; 94640; 97116; 97161; 99222; 99284; J0696; J1160; J1650; J1940; J2920; J2930; J3475

== ENCOUNTER → 2023-09-05 18:04 | Outpatient (BNV) | payer MEDICARE, SELFPAY | PROVIDERS: Admitting Provider Student in an Organized Health Care Education/Training Program; Emergency Provider Emergency Medicine Emergency Medical Services; PCP Internal Medicine; Visit Provider Student in an Organized Health Care Education/Training Program | DX: I27.20 Pulmonary hypertension, unspecified (principal); J96.21 Acute and chronic respiratory failure with hypoxia | CPT/HCPCS: 99223; 99232; 99233; 99239 ==

== ENCOUNTER → 2023-09-05 18:04 | Outpatient (BNV) | payer MEDICARE, SELFPAY | PROVIDERS: Admitting Provider Student in an Organized Health Care Education/Training Program; Emergency Provider Emergency Medicine Emergency Medical Services; PCP Internal Medicine; Visit Provider Hospitalist | DX: I27.20 Pulmonary hypertension, unspecified (principal); J96.21 Acute and chronic respiratory failure with hypoxia | CPT/HCPCS: 99223; 99232 ==

== ENCOUNTER → 2023-09-06 10:37 | Outpatient (BNV) | payer MEDICARE, SELFPAY | PROVIDERS: Admitting Provider Student in an Organized Health Care Education/Training Program; Emergency Provider Emergency Medicine Emergency Medical Services; PCP Internal Medicine; Visit Provider Internal Medicine | DX: I48.91 Unspecified atrial fibrillation (principal); I50.33 Acute on chronic diastolic (congestive) heart failure | CPT/HCPCS: 99223; 99232; 99233 ==

== ENCOUNTER 2023-09-17 17:08 | Emergency (ER) | payer MEDICARE, SELFPAY ==
[2023-09-17 17:43] VITALS: BP 109/52; PULSE 105; RESP 22; TEMP 36.3; O2SAT 93; BMI 27.5
--- NOTE | 2023-09-17 18:47 | ED.GIBLEED ---
HPI - GI Bleed General Chief complaint: GI Bleed Stated complaint: ?Rectum bleeding Time Seen by Provider: 09/17/23 20:42 Source: patient Mode of arrival: ambulatory Limitations: no limitations History of Present Illness HPI Narrative: Pain history of AFib diagnosed 4 days ago started on Eliquis also does have history of hemorrhoids noticed bright red blood from per rectum for last 4 days small amounts no blood clot no abdominal pain no bleeding from any other place patient does have history of bleeding from hemorrhoids in the past Related Data Home Medications Medication Instructions Recorded Confirmed cholecalciferol (vitamin D3) 25 25 mcg PO DAILY 09/14/20 09/05/23 mcg (1,000 unit) capsule multivitamin (Daily Multi-Vitamin 1 tab PO DAILY 09/18/21 09/05/23 tablet) glipizide 5 mg tablet 2.5 mg PO BEDTIME 03/20/22 09/05/23 amlodipine 10 mg tablet 10 mg PO DAILY 08/19/23 09/05/23 glipizide 5 mg tablet 5 mg PO DAILY 09/05/23 09/05/23 Previous Rx's Medication Instructions Recorded rosuvastatin 40 mg tablet 40 mg PO DAILY 90 days #90 tabs 08/13/23 apixaban 5 mg tablet (Eliquis) 5 mg PO BID #60 tabs 09/14/23 digoxin 125 mcg (0.125 mg) tablet 0.125 mg PO Q2D #30 tabs 09/14/23 diltiazem HCl 180 mg 180 mg PO DAILY #30 caps 09/14/23 capsule,extended release 24 hr (Cardizem CD) furosemide 40 mg tablet 80 mg PO DAILY #30 tabs 09/14/23 prednisone 20 mg tablet 40 mg (2 x 20 mg) PO DAILY #10 tabs 09/14/23 sildenafil (pulm.hypertension) 20 20 mg PO TID #90 tabs 09/14/23 mg tablet hydrocortisone acetate 25 mg 25 mg NJ BID #24 ea 09/17/23 rectal suppository (Anusol-HC) Allergies Allergy/AdvReac Type Severity Reaction Status Date / Time No Known Allergies Allergy Verified 08/19/23 12:34 [No Known Allergies*] Review of Systems Review of Systems: Yes all other systems are reviewed and are negative PMFSH Past Medical History Medical History Type 2 diabetes mellitus with unspecified complications Diabetes Hyperlipidemia Hypertension Chronic diastolic heart failure Diastolic dysfunction CAD (coronary artery disease) Hypoxemia Restrictive lung disease COPD (chronic obstructive pulmonary disease) Surgical History History of left cataract surgery Stented coronary artery Family History Family History Father Diabetes Mother Unknown Social History Social History Household Members: Spouse Housing: Homeless Do you presently have visiting nurse or other home services: No Patient Tobacco Use Status: Former Tobacco user Quit Date: 25 years ago Smoked in Last 30 Days: No Use of substances other than those prescribed or required for medical reasons: No Advance Directives: Yes Advance Directives on File: Yes Advance Directives Date on File: 01/28/23 service: No Physical Exam Vital Signs: Vital Signs: Last Vital Signs Temp 97.6 F 09/17/23 20:58 Pulse 97 09/17/23 21:23 Resp 16 09/17/23 20:58 BP 127/52 L 09/17/23 21:23 Pulse Ox 93 09/17/23 20:58 O2 Del Method Nasal Cannula 09/17/23 20:58 O2 Flow Rate 3 09/17/23 20:58 Oxygen Flow Rate 3 09/17/23 17:43 BMI result Body Mass Index 27.5 Appearance: Alert. Oriented X3. No acute distress. Eyes: PERRLA, No Nystagmus ENT: Pharynx normal. Oral Mucosa moist Neck: Normal inspection. Neck supple. CVS: Normal heart rate and rhythm. Pulses normal. Respiratory: No respiratory distress. Equal air entry bilateral, no wheezing/rales/rhonchi Abdomen: Soft and nontender. Bowel sounds are present, no mass palpable, no CVA tenderness rectum: External and internal hemorrhoids+ with small amount of blood on the finger Skin: Skin warm and dry. Normal skin color. Normal skin turgor. Extremities: No lower extremity edema. No calf tenderness Neuro: Oriented X 3. No motor deficit. Course Course Course Narrative: This is an RME: Additional HPI, ROS, PE not included below will be deferred to primary provider. 78 yo f hx of afib on thinners presents w/ rectal bleeding X 4 days worsening. Feels weakn. Blood thinners are new Plan- labs, obs Medical Decision Making Medical Decision Making [facility] Narrative: Patient with minor bleed from internal hemorrhoids on Eliquis H&H stable vital stable bleeding amount has decreased now patient advised to hold Eliquis until bleeding stops completely and restart if no bleeding and follow with PCP Lab Data MDM Lab Attestation statement: I reviewed the patient's lab results. 09/17/23 18:46 09/17/23 18:46 Labs: Lab Results 09/17/23 09/17/23 Range/Units 18:46 21:19 WBC 17.8 H (4.8-10.8) X10*3/uL RBC 5.02 (4.20-5.50) X10*6/uL Hgb 13.1 (12.0-16.0) g/dl Hct 41.6 (37.0-47.0) % MCV 82.9 (80.0-98.0) fL MCH 26.1 L (27.0-33.0) pg MCHC 31.5 (31.0-35.0) g/dl RDW 17.6 H (11.0-16.0) % Plt Count 267 (160-400) X10*3/uL MPV 10.5 (9.4-12.3) fL Immature Gran % (Auto) 0.3 (0.0-0.4) % Neut % (Auto) 94.9 H (45-73) % Lymph % (Auto) 2.6 L (20-40) % [place] % (Auto) 2.1 (2-11) % Eos % (Auto) 0.0 (0-4) % Baso % (Auto) 0.1 (0-2) % Lymph # (Auto) 0.5 L (1.2-4.9) X10*3/uL [place] # (Auto) 0.4 (0.1-1.2) X10*3/uL Eos # (Auto) 0.0 (0.0-0.4) X10*3/uL Baso # (Auto) 0.0 (0.0-0.2) X10*3/uL Abs Immat Gran (auto) 0.06 H (0.00-0.03) X10*3/uL Absolute Neuts (auto) 16.9 H (2.0-8.3) x10*3/uL Absolute Nucleated RBC 0.000 (0.0-0.012) X10*3/uL Nucleated RBC % (auto) 0.0 (0.0-0.2) /100WBC PT 17.1 H (11.1-13.3) SEC INR 1.4 H (0.9-1.1) Sodium 133 L (135-145) mmol/L Potassium 3.9 (3.3-5.1) mmol/L Chloride 86 L (96-108) mmol/L Carbon Dioxide 32 H (22-29) mmol/L Anion Gap 19 (12-20) BUN 81 H (9-16) mg/dL Creatinine 1.87 H (0.5-1.4) mg/dL Estim Creat Clear Calc 24.1 Estimated GFR 26 Random Glucose 313 H (60-115) mg/dL Calcium 9.7 (8.4-10.2) mg/dL Magnesium 2.0 (1.6-2.6) mg/dL Total Bilirubin 0.9 (0.0-1.0) mg/dL AST 60 H (5-31) U/L ALT 153 H (0-31) U/L Alkaline Phosphatase 88 (39-117) U/L Total Protein 6.8 (6.5-8.0) g/dL Albumin 3.8 (3.5-5.0) g/dL Stool Occult Blood POSITIVE (NEGATIVE) Discharge Plan Discharge Clinical Impression: Bleeding hemorrhoids Patient Disposition: Home, Self-Care Instructions: Hemorrhoids (ED) Additional Instructions: Hold Eliquis till you. stop bleeding restart eliquis if no bleeding avoid constipation Use suppositories as prescribed twice a day Report to the ER if recurrence of bleed/bleeding gets worse Prescriptions: New hydrocortisone acetate [Anusol-HC] 25 mg suppository 25 mg NJ BID Qty: 24 0RF No Action rosuvastatin 40 mg tablet 40 mg PO DAILY 90 Days Qty: 90 3RF glipizide 5 mg tablet 5 mg PO DAILY furosemide 40 mg Tablet 80 mg PO DAILY Qty: 30 0RF Protocol: Hold for SBP< HOLD for SBP < : 90 diltiazem HCl [Cardizem CD] 180 mg Capsule,Extended Release 24hr 180 mg PO DAILY Qty: 30 0RF Protocol: Hold for SBP/HR < HOLD for SBP < : 90 HOLD for HR < : 60 prednisone 20 mg Tablet 40 mg PO DAILY Qty: 10 0RF digoxin 125 mcg (0.125 mg) Tablet 0.125 mg PO Q2D Qty: 30 0RF sildenafil (pulm.hypertension) 20 mg Tablet 20 mg PO TID Qty: 90 0RF Eliquis 5 mg Tablet 5 mg PO BID Qty: 60 0RF cholecalciferol (vitamin D3) 25 mcg (1,000 unit) capsule 25 mcg PO DAILY multivitamin [Daily Multi-Vitamin] Tablet 1 tab PO DAILY glipizide 5 mg tablet 2.5 mg PO BEDTIME amlodipine 10 mg tablet 10 mg PO DAILY Interventions: ED Discharge Assessment Last Done: 09/17/23 22:34 Discharge Date/Time: 09/17/23 22:35
[2023-09-17 18:50] LABS: MANUAL DIFF FLAG NO
[2023-09-17 18:53] LABS: Basophils Percent Auto 0.1 % (0-2); Hematocrit 41.6 % (37.0-47.0); Hemoglobin 13.1 g/dl (12.0-16.0); Imm Gran Abs Auto 0.06 X10*3/uL (0.00-0.03); Imm Gran Pct Auto 0.3 % (0.0-0.4); Lymphocytes Absolute Auto 0.5 X10*3/uL (1.2-4.9); Lymphocytes Percent Auto 2.6 % (20-40); Mean Corpuscular HGB Conc 31.5 g/dl (31.0-35.0); Mean Corpuscular Hemoglobin 26.1 pg (27.0-33.0); Mean Corpuscular Volume 82.9 fL (80.0-98.0); Mean Platelet Volume 10.5 fL (9.4-12.3); Monocytes Absolute Auto 0.4 X10*3/uL (0.1-1.2); Monocytes Percent Auto 2.1 % (2-11); Neutrophils Absolute Auto 16.9 x10*3/uL (2.0-8.3); Neutrophils Percent Auto 94.9 % (45-73); Platelet Count 267 X10*3/uL (160-400); Red Blood Count 5.02 X10*6/uL (4.20-5.50); Red Cell Distribution Width 17.6 % (11.0-16.0); SCAN SMEAR FLAG 1; White Blood Count 17.8 X10*3/uL (4.8-10.8)
[2023-09-17 18:58] LABS: INTERNATIONAL NORM RATIO 1.4 (0.9-1.1); Prothrombin Time 17.1 SEC (11.1-13.3)
[2023-09-17 19:05] LABS: Alanine Aminotransferase 153 U/L (0-31); Albumin Level 3.8 g/dL (3.5-5.0); Alkaline Phosphatase 88 U/L (39-117); Anion Gap 19 (12-20); Aspartate Amino Transferase 60 U/L (5-31); Bilirubin Total 0.9 mg/dL (0.0-1.0); Blood Urea Nitrogen 81 mg/dL (9-16); Calcium 9.7 mg/dL (8.4-10.2); Carbon Dioxide 32 mmol/L (22-29); Chloride 86 mmol/L (96-108); Creatinine Clr Calc Pharmacy 24.1; Estimated Glomerular Filt Rate 26; Glucose Random 313 mg/dL (60-115); Potassium 3.9 mmol/L (3.3-5.1); Sodium 133 mmol/L (135-145); Total Protein 6.8 g/dL (6.5-8.0)
[2023-09-17 20:58] VITALS: BP 112/53; PULSE 75; RESP 16; TEMP 36.4; O2SAT 93
[2023-09-17 21:20] VITALS: BP 120/56; PULSE 87
[2023-09-17 21:21] VITALS: BP 126/57; PULSE 94
[2023-09-17 21:23] VITALS: BP 127/52; PULSE 97
--- NOTE | 2023-09-17 21:38 | PC.NURSE ---
pt assessed reported dark red blood coming from her rectum x 4 days
[2023-09-17 21:45] LABS: OBS Int Ctl Valid YES; OBS1 POSITIVE (NEGATIVE)
--- NOTE | 2023-09-17 22:35 | PC.NURSE ---
no active bleeding observed at d/c
== END 2023-09-17 22:35 | disposition home or self-care (01) ==
PROVIDERS: Physician Assistant; Emergency Provider Internal Medicine; PCP Internal Medicine
DX: K64.8 Other hemorrhoids (principal); E11.9 Type 2 diabetes mellitus without complications; I10 Essential (primary) hypertension; E78.5 Hyperlipidemia, unspecified; Z79.01 Long term (current) use of anticoagulants; Z79.899 Other long term (current) drug therapy; Z87.891 Personal history of nicotine dependence
CPT/HCPCS: 36415; 80053; 82272; 83735; 85025; 85610; 99284

== ENCOUNTER 2023-09-18 09:38 | Outpatient (AMB) | payer MEDICARE, SELFPAY ==
--- NOTE | 2023-09-18 09:42 | MHC.OFFVIS ---
Intake Vital Signs 09/18/23 09:50 Weight 160 lb BP 90/54 L Blood Pressure Location Lt brachial Position Sitting Pulse 100 Pulse Oximetry (%) 73 L Oxygen Delivery Method Nasal Cannula Oxygen Flow Rate 3 Intake Visit Reasons: COPD follow-up Allergies No Known Allergies [No Known Allergies*] Allergy (Verified 09/18/23 09:53) Medication List - Last Reconciled 09/18/23 by Crescencio Solomon MD amlodipine 10 mg PO DAILY apixaban (Eliquis) 5 mg PO BID cholecalciferol (vitamin D3) 25 mcg PO DAILY digoxin 0.125 mg PO Q2D diltiazem HCl (Cardizem CD) 180 mg See Protocol PO DAILY furosemide 80 mg See Protocol PO DAILY glipizide 5 mg PO DAILY glipizide 2.5 mg PO BEDTIME hydrocortisone acetate (Anusol-HC) 25 mg RI BID multivitamin (Daily Multi-Vitamin tablet) 1 tab PO DAILY prednisone 40 mg (2 x 20 mg) PO DAILY rosuvastatin 40 mg PO DAILY 90 days sildenafil (pulm.hypertension) 20 mg PO TID Do you need a note to return to daycare/school/sports/work: No HPI COPD follow-up HPI Details This 78 years old female is a known case of advanced chronic obstructive pulmonary disease. She also has a mild degree of interstitial lung disease. She has been on home oxygen for long time. Was admitted to [facility] from 09 05-09 14, with an acute exacerbation of COPD/congestive heart failure. Her echocardiogram showed presence of diastolic dysfunction and pulmonary hypertension. Patient was started on Eliquis 5 mg b.i.d. and also on sildenafil 20 mg t.i.d., empirically for pulmonary hypertension. At the time of discharge she was on prednisone 40 mg daily which she has completed for 5 days. Last night she went to emergency room because of bleeding hemorrhoids, she was told to stop Eliquis. She is treating with the hydrocortisone suppositories. Today she comes for follow-up and complains of increased shortness of breath, O2 sats are remaining below 90% on 2 L/minute so O2 was increased to 3 L/minute , she is not on any bronchodilator therapy. [facility] Medical History Type 2 diabetes mellitus with unspecified complications Diabetes Hyperlipidemia Hypertension Chronic diastolic heart failure Diastolic dysfunction CAD (coronary artery disease) Hypoxemia Restrictive lung disease COPD (chronic obstructive pulmonary disease) Surgical History History of left cataract surgery Stented coronary artery Family History Father Diabetes Mother Unknown Social History Household Members: Spouse Housing: Homeless Do you presently have visiting nurse or other home services: No Patient Tobacco Use Status: Former Tobacco user Quit Date: 25 years ago Advance Directives Date on File: 01/28/23 service: No Review of Systems Const All systems reviewed & are unremarkable except as noted in HPI and below Eyes Reports no additional complaints ENT Reports no additional complaints Card Denies edema and Reports dyspnea on exertion Resp Reports as per HPI and Reports dyspnea on exertion GI Reports other (Bleeding hemorrhoids) Reports no additional complaints Musc Reports no additional complaints and Reports other (Moderate generalized weakness) Skin/Breast Reports system reviewed and no additional complaints, except as documented Neuro Reports no additional complaints Psych Reports no additional complaints Physical Exam Vital Signs: Last Vital Signs Pulse 100 09/18/23 09:50 BP 90/54 L 09/18/23 09:50 Pulse Ox 73 L 09/18/23 09:50 Oxygen Delivery Method Nasal Cannula 09/18/23 09:50 Oxygen Flow Rate 3 09/18/23 09:50 Const General: comfortable (But appears quite weak), no acute distress, alert and awake Orientation/consciousness: patient oriented x3 HEENT Head: Yes normal to inspection General nose exam: No nasal polyps present and No nasal discharge present Face and sinus: Yes sinuses nontender Mouth: oropharynx normal Throat: Yes posterior oropharynx normal Eyes General: appearance normal, both eyes and all related structures Neck Neck: Yes normal visual inspection, Yes no lymphadenopathy, Yes trachea midline and Yes no JVD Thyroid: Thyroid normal Chest Chest palpation & inspection: normal inspection of the chest, normal palpation of entire chest wall and no tenderness Resp Other: Percussion note is resonant, breath sounds are very distant on both sides with prolonged expiratory phase. There are a few inspiratory crepitations over the basilar areas. No wheezes are heard. Cardio Palpation: normal PMI Rate: regular rate Rhythm: regular rhythm Heart sounds: no gallops and Murmur heart sound present (There is a grade 2/6 systolic murmur along left sternal border) GI Palpation (GI): Soft to palpation, nontender, No hepatosplenomegaly present and no masses Auscultation: normal bowel sounds Back/Spine/Pelvis Thoracic/Lumbar Spine: thoracic and lumbar spine normal to inspection Skin General skin exam: no rashes or lesions noted Neuro General: patient oriented x3 and no focal motor deficits Cranial nerves: Yes CN's II-XII intact bilaterally Extrem General: Yes normal to inspection, Yes no clubbing, cyanosis or edema and Yes no calf tenderness Psych Appearance: grossly normal and well kempt Speech and movement: Normal speech and movement present Results Reviewed Results Reviewed: Her course of treatment in [facility] is reviewed Assessment & Plan Assessment & Plan (1) COPD with acute exacerbation: Code(s): J44.1 - Chronic obstructive pulmonary disease with (acute) exacerbation (2) ILD (interstitial lung disease): Code(s): J84.9 - Interstitial pulmonary disease, unspecified (3) Pulmonary hypertension: Code(s): I27.20 - Pulmonary hypertension, unspecified (4) Acute on chronic diastolic (congestive) heart failure: Code(s): I50.33 - Acute on chronic diastolic (congestive) heart failure (5) Acute and chronic respiratory failure with hypoxia: Code(s): J96.21 - Acute and chronic respiratory failure with hypoxia (6) COPD (chronic obstructive pulmonary disease): Comment: COPD, SHE DOES HAVE CHRONIC MILD TO MODERATE DEGREE OF OBSTRUCTIVE AIRWAY DISORDER. REMAINS RELATIVELY ASYMPTOMATIC, AND HAS NOT REQUIRED TO USE ANY BRONCHODILATOR INHALERS. Code(s): J44.9 - Chronic obstructive pulmonary disease, unspecified Medications: New prednisone 5 mg tab, 2 a day for one week , then one tab a day to continue 5 mg PO BID 40 tabs 2RF COPD Coding Level of Care Code Est Pt Level 4 (86605) Diagnoses COPD with acute exacerbation J44.1 ILD (interstitial lung disease) J84.9 Pulmonary hypertension I27.20 Acute on chronic diastolic (congestive) heart failure I50.33 Acute and chronic respiratory failure with hypoxia J96.21 COPD (chronic obstructive pulmonary disease) J44.9
[2023-09-18 09:50] VITALS: BP 90/54; PULSE 100; O2SAT 73
== END 2023-09-18 10:11 | disposition home or self-care (01) ==
PROVIDERS: PCP Internal Medicine; Visit Provider Internal Medicine
DX: J44.1 Chronic obstructive pulmonary disease with (acute) exacerbation (principal); J84.9 Interstitial pulmonary disease, unspecified; I27.20 Pulmonary hypertension, unspecified; I50.33 Acute on chronic diastolic (congestive) heart failure; J96.21 Acute and chronic respiratory failure with hypoxia; J44.9 Chronic obstructive pulmonary disease, unspecified
CPT/HCPCS: 99214

== ENCOUNTER 2023-09-20 14:32 | Inpatient (IN) | payer MEDICARE, SELFPAY ==
--- NOTE | ~2023-09-20 | XR_ITS ---
EXAMINATION: XR CHEST CLINICAL INFORMATION: Shortness of breath COMPARISON: Multiple prior studies including Chest x-ray September 13, 2023 TECHNIQUE: 2 views of the chest were obtained. Oral 5:00 PM FINDINGS: Emphysematous change of lungs with coarse lung markings similar prior studies. Heart size is enlarged. There are vascular calcifications of aorta. No focal consolidation. No pleural effusion and no pneumothorax. Multilevel degenerative spondylosis spine. XR/XR chest 2V IMPRESSION: No acute abnormality of the chest.
--- NOTE | 2023-09-20 14:36 | ECG_ITS ---
Test Reason : UPPER RESP Blood Pressure : / mmHG Vent. Rate : 081 BPM Atrial Rate : 000 BPM P-R Int : 000 ms QRS Dur : 094 ms QT Int : 364 ms P-R-T Axes : 000 061 071 degrees QTc Int : 422 ms Atrial fibrillation RSR' or QR pattern in V1 suggests right ventricular conduction delay Nonspecific ST abnormality Abnormal ECG When compared with ECG of 08-SEP-2023 09:12, QRS axis Shifted left Heart rate has decreased Referred By: Mary Joseph Electronically Signed By:RAMON HILLIARD MD
--- NOTE | 2023-09-20 14:36 | ED.GENADULT ---
HPI - General Adult General Chief complaint: Upper Respiratory Symptoms Stated complaint: low o2 Time Seen by Provider: 09/20/23 15:33 Source: patient and family Mode of arrival: ambulatory Limitations: no limitations History of Present Illness HPI narrative: Patient comes to the emergency room accompanied by her . Patient is complaining of worsening shortness of breath over last week. Patient states that she was recently discharged from the hospital on September 14. Patient was hospitalized for pulmonary hypertension, new onset Debby fibrillation and respiratory failure with hypoxia. Patient was discharged home with oxygen, 4 L. Patient states that over the last few days, she has been feeling more short of breath. Patient states that she has been using more oxygen than prescribed and she is using up her oxygen tanks significantly faster. Patient denies any chest pain. Patient denies any cough or fever. Related Data Home Medications Medication Instructions Recorded Confirmed cholecalciferol (vitamin D3) 25 25 mcg PO DAILY 09/14/20 09/18/23 mcg (1,000 unit) capsule multivitamin (Daily Multi-Vitamin 1 tab PO DAILY 09/18/21 09/18/23 tablet) glipizide 5 mg tablet 2.5 mg PO BEDTIME 03/20/22 09/18/23 amlodipine 10 mg tablet 10 mg PO DAILY 08/19/23 09/18/23 glipizide 5 mg tablet 5 mg PO DAILY 09/05/23 09/18/23 Previous Rx's Medication Instructions Recorded rosuvastatin 40 mg tablet 40 mg PO DAILY 90 days #90 tabs 08/13/23 apixaban 5 mg tablet (Eliquis) 5 mg PO BID #60 tabs 09/14/23 digoxin 125 mcg (0.125 mg) tablet 0.125 mg PO Q2D #30 tabs 09/14/23 diltiazem HCl 180 mg 180 mg PO DAILY #30 caps 09/14/23 capsule,extended release 24 hr (Cardizem CD) furosemide 40 mg tablet 80 mg PO DAILY #30 tabs 09/14/23 prednisone 20 mg tablet 40 mg (2 x 20 mg) PO DAILY #10 tabs 09/14/23 sildenafil (pulm.hypertension) 20 20 mg PO TID #90 tabs 09/14/23 mg tablet hydrocortisone acetate 25 mg 25 mg KS BID #24 ea 09/17/23 rectal suppository (Anusol-HC) prednisone 5 mg tablet 5 mg PO BID COPD #40 tabs 09/18/23 Allergies Allergy/AdvReac Type Severity Reaction Status Date / Time No Known Allergies Allergy Verified 09/20/23 14:37 [No Known Allergies*] Review of Systems Review of Systems: Constitutional : No Weight loss, No Fever, No Chills, No Night Sweats, No Fatigue, No Malaise ENT/Mouth : No Hearing loss, No Ear Pain, No Nasal Congestion, No Sinus Pain, No Hoarseness, No sore throat, No Rhinorrhea, No Swallowing Difficulty Eyes: No Eye Pain, No Swelling, No Redness, No Foreign Body, No Discharge, No Vision Changes Cardiovascular : No Chest Pain, No SOB, No Dyspnea on Exertion, No Orthopnea, No Edema, No Palpitations Respiratory : No Cough, No Sputum, No Wheezing, No Smoke Exposure, No Dyspnea Gastrointestinal : No Nausea, No Vomiting, No Diarrhea, No Constipation, No abdominal Pain, No Hematochezia, No Melena Genitourinary : no irregular bleeding, No Dysuria, No Urinary Frequency, No Hematuria, No Urinary Incontinence, No Urgency, No Flank Pain, No Urinary Flow Changes, No Hesitancy Musculoskeletal : No joint pain, No Myalgias, No Joint Swelling Skin : No Skin Lesions, No rash Neuro : No Weakness, No Numbness, No Paresthesias, No Loss of Consciousness, No Dizziness, No Headache Psych : No Anxiety/Panic, No Depression, No SI/HI/AH/VH, No Social Issues, Heme/Lymph: No Bruising, No Bleeding,No Lymphadenopathy Endocrine : No Polyuria, No Polydipsia, No Temperature Intolerance [facility] Past Medical History Medical History Type 2 diabetes mellitus with unspecified complications Diabetes Hyperlipidemia Hypertension Chronic diastolic heart failure Diastolic dysfunction CAD (coronary artery disease) Hypoxemia Restrictive lung disease COPD (chronic obstructive pulmonary disease) Surgical History History of left cataract surgery Stented coronary artery Family History Family History Father Diabetes Mother Unknown Social History Social History Household Members: Spouse Housing: Homeless Do you presently have visiting nurse or other home services: No Patient Tobacco Use Status: Former Tobacco user Quit Date: 25 years ago Advance Directives: Yes Advance Directives on File: Yes Advance Directives Date on File: 01/28/23 service: No Physical Exam ED Vital Signs: Vital Signs - 24 hr 09/20/23 14:37 09/20/23 16:51 Temperature 98 F 98.0 F Pulse Rate 89 90 Respiratory Rate 22 H 16 Blood Pressure 152/38 H 154/72 H Pulse Oximetry 86 L 95 Oxygen Delivery Method Nasal Cannula Oxymask Oxygen Flow Rate 4 BMI result Body Mass Index 26.6 Course Course Course Narrative: RME performed by Mary Joseph PA-C. Patient is a 78 year old assigned female at presenting to the emergency department with SOB. Labs, imaging, swabs ordered. Patient brought to the back. 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 Medical Decision Making Medical Decision Making [facility] Narrative: -interpretation of labs: Patient's hematology and chemistry at baseline, BNP at baseline. Today, patient's troponin is slightly bumped, 44.9. Patient has no chest pain. Elevation in troponin likely secondary to demand ischemia -my interpretation of chest x-ray, no acute abnormality -patient has an increase in about 2 requirements. -patient was given a dose of Solu-Medrol, nebulization treatment. At this time, patient does not have any signs of infection, we will not give antibiotics -discussed the above-mentioned with Dr. Calvin, patient being admitted. Differential Diagnosis Differential Diagnoses: The differential diagnosis associated with the presentation includes (Chronic lung disease, pneumonia, viral syndrome) Admission/Observation Consideration of admission/observation: Escalation of care including admission/observation considered Consult Healthcare Provider Management of the patient was discussed with: Hospitalist Lab Data [facility] Lab Attestation statement: I reviewed the patient's lab results. 09/20/23 15:17 09/20/23 14:52 Labs: Lab Results 09/20/23 09/20/23 09/20/23 Range/Units 14:52 15:17 15:23 WBC 18.4 H (4.8-10.8) X10*3/uL RBC 4.74 (4.20-5.50) X10*6/uL Hgb 12.3 (12.0-16.0) g/dl Hct 39.4 (37.0-47.0) % MCV 83.1 (80.0-98.0) fL MCH 25.9 L (27.0-33.0) pg MCHC 31.2 (31.0-35.0) g/dl RDW 17.3 H (11.0-16.0) % Plt Count 254 (160-400) X10*3/uL MPV 10.7 (9.4-12.3) fL Immature Gran % (Auto) 0.5 H (0.0-0.4) % Neut % (Auto) 94.0 H (45-73) % Lymph % (Auto) 3.1 L (20-40) % [place] % (Auto) 2.2 (2-11) % Eos % (Auto) 0.1 (0-4) % Baso % (Auto) 0.1 (0-2) % Lymph # (Auto) 0.6 L (1.2-4.9) X10*3/uL [place] # (Auto) 0.4 (0.1-1.2) X10*3/uL Eos # (Auto) 0.0 (0.0-0.4) X10*3/uL Baso # (Auto) 0.0 (0.0-0.2) X10*3/uL Abs Immat Gran (auto) 0.09 H (0.00-0.03) X10*3/uL Absolute Neuts (auto) 17.3 H (2.0-8.3) x10*3/uL Absolute Nucleated RBC 0.000 (0.0-0.012) X10*3/uL Nucleated RBC % (auto) 0.0 (0.0-0.2) /100WBC VBG pH 7.59 H (7.32-7.43) VBG pCO2 39 mmHg VBG pO2 39 mmHg VBG HCO3 38 H (22-26) mmol/L VBG O2 Saturation 70.0 % VBG Base Excess 15.2 mmol/L Sodium 133 L (135-145) mmol/L Potassium 4.6 (3.3-5.1) mmol/L Chloride 91 L (96-108) mmol/L Carbon Dioxide 28 (22-29) mmol/L Anion Gap 19 (12-20) BUN 61 H (9-16) mg/dL Creatinine 1.57 H (0.5-1.4) mg/dL Estim Creat Clear Calc 29.4 Estimated GFR 32 Random Glucose 297 H (60-115) mg/dL Lactic Acid 1.2 (0.5-2.0) mmol/L Calcium 9.8 (8.4-10.2) mg/dL Magnesium 1.9 (1.6-2.6) mg/dL Total Bilirubin 0.6 (0.0-1.0) mg/dL AST 69 H (5-31) U/L ALT 160 H (0-31) U/L Alkaline Phosphatase 95 (39-117) U/L Troponin I High Sens 44.9 H D (<3.5-17.0) ng/L B-Natriuretic Peptide 705 H (<100) pg/mL Total Protein 7.1 (6.5-8.0) g/dL Albumin 3.7 (3.5-5.0) g/dL Influenza Type A (PCR) NEGATIVE (Negative) Influenza Type B (PCR) NEGATIVE (Negative) RSV RNA Qual (PCR) NEGATIVE (Negative) SARS-CoV-2 RNA (RT-PCR) NEGATIVE (Negative) Independent Interpretation I performed an independent interpretation of an: Plain X-Ray Radiology Impression Discussion of test interpretation with radiology: I have reviewed the radiologist's reading. Radiologist Impression: FINDINGS: Emphysematous change of lungs with coarse lung markings similar prior studies. Heart size is enlarged. There are vascular calcifications of aorta. No focal consolidation. No pleural effusion and no pneumothorax. Multilevel degenerative spondylosis spine. XR/XR chest 2V IMPRESSION: No acute abnormality of the chest. Critical Care Time Critical Care Time Critical Care Time: Yes Total Critical Care Time: 60 Attestation: I have personally provided critical care time. Time includes review of lab data, radiology results, discussion with consultants, and monitoring for potential decompensation. Intervention performed as documented. Discharge Plan Discharge Clinical Impression: Chronic lung disease Patient Disposition: Admitted As Inpatient Prescriptions: No Action rosuvastatin 40 mg tablet 40 mg PO DAILY 90 Days Qty: 90 3RF hydrocortisone acetate [Anusol-HC] 25 mg suppository 25 mg KS BID Qty: 24 0RF glipizide 5 mg tablet 5 mg PO DAILY furosemide 40 mg Tablet 80 mg PO DAILY Qty: 30 0RF Protocol: Hold for SBP< HOLD for SBP < : 90 diltiazem HCl [Cardizem CD] 180 mg Capsule,Extended Release 24hr 180 mg PO DAILY Qty: 30 0RF Protocol: Hold for SBP/HR < HOLD for SBP < : 90 HOLD for HR < : 60 prednisone 20 mg Tablet 40 mg PO DAILY Qty: 10 0RF digoxin 125 mcg (0.125 mg) Tablet 0.125 mg PO Q2D Qty: 30 0RF sildenafil (pulm.hypertension) 20 mg Tablet 20 mg PO TID Qty: 90 0RF Eliquis 5 mg Tablet 5 mg PO BID Qty: 60 0RF cholecalciferol (vitamin D3) 25 mcg (1,000 unit) capsule 25 mcg PO DAILY multivitamin [Daily Multi-Vitamin] Tablet 1 tab PO DAILY glipizide 5 mg tablet 2.5 mg PO BEDTIME amlodipine 10 mg tablet 10 mg PO DAILY prednisone 5 mg tablet 5 mg PO BID Qty: 40 2RF Rx Instructions: 5 mg tab, 2 a day for one week , then one tab a day to continue
[2023-09-20 14:37] VITALS: BP 152/38; PULSE 89; RESP 22; TEMP 36.6; O2SAT 86; BMI 26.6
[2023-09-20 15:26] LABS: MANUAL DIFF FLAG NO
[2023-09-20 15:29] LABS: VBG Base Excess 15.2 mmol/L; VBG HCO3 38 mmol/L (22-26); VBG pCO2 39 mmHg; VBG pH 7.59 (7.32-7.43); VBG pO2 39 mmHg
[2023-09-20 15:29] LABS: Venous Blood Gas Refer to POC result
[2023-09-20 15:30] LABS: Basophils Percent Auto 0.1 % (0-2); Eosinophils Percent Auto 0.1 % (0-4); Hematocrit 39.4 % (37.0-47.0); Hemoglobin 12.3 g/dl (12.0-16.0); Imm Gran Abs Auto 0.09 X10*3/uL (0.00-0.03); Imm Gran Pct Auto 0.5 % (0.0-0.4); Lymphocytes Absolute Auto 0.6 X10*3/uL (1.2-4.9); Lymphocytes Percent Auto 3.1 % (20-40); Mean Corpuscular HGB Conc 31.2 g/dl (31.0-35.0); Mean Corpuscular Hemoglobin 25.9 pg (27.0-33.0); Mean Corpuscular Volume 83.1 fL (80.0-98.0); Mean Platelet Volume 10.7 fL (9.4-12.3); Monocytes Absolute Auto 0.4 X10*3/uL (0.1-1.2); Monocytes Percent Auto 2.2 % (2-11); Neutrophils Absolute Auto 17.3 x10*3/uL (2.0-8.3); Platelet Count 254 X10*3/uL (160-400); Red Blood Count 4.74 X10*6/uL (4.20-5.50); Red Cell Distribution Width 17.3 % (11.0-16.0); SCAN SMEAR FLAG 1; White Blood Count 18.4 X10*3/uL (4.8-10.8)
[2023-09-20 15:41] LABS: Lactic Acid 1.2 mmol/L (0.5-2.0)
[2023-09-20 15:52] LABS: Troponin-I High Sensitivity 44.9 ng/L (<3.5-17.0)
[2023-09-20 15:55] LABS: Alanine Aminotransferase 160 U/L (0-31); Albumin Level 3.7 g/dL (3.5-5.0); Alkaline Phosphatase 95 U/L (39-117); Anion Gap 19 (12-20); Aspartate Amino Transferase 69 U/L (5-31); Bilirubin Total 0.6 mg/dL (0.0-1.0); Blood Urea Nitrogen 61 mg/dL (9-16); Calcium 9.8 mg/dL (8.4-10.2); Carbon Dioxide 28 mmol/L (22-29); Chloride 91 mmol/L (96-108); Creatinine Clr Calc Pharmacy 29.4; Estimated Glomerular Filt Rate 32; Glucose Random 297 mg/dL (60-115); Magnesium 1.9 mg/dL (1.6-2.6); Potassium 4.6 mmol/L (3.3-5.1); Sodium 133 mmol/L (135-145); Total Protein 7.1 g/dL (6.5-8.0)
[2023-09-20 16:05] LABS: B Type Natriuretic Peptide 705 pg/mL (<100)
[2023-09-20 16:38] LABS: Influenza A PCR NEGATIVE (Negative); Influenza B PCR NEGATIVE (Negative); Resp Syncy Virus RNA Qual PCR NEGATIVE (Negative); SARS COV2 PCR INHOUSE NEGATIVE (Negative)
[2023-09-20 16:51] VITALS: BP 154/72; PULSE 90; RESP 16; TEMP 36.7; O2SAT 95
[2023-09-20 19:48] LABS: Prothrombin Time 11.8 SEC (11.1-13.3)
[2023-09-20 19:51] LABS: Partial Thromboplastin Time 24.1 SEC (26.0-36.4)
[2023-09-20] MEDS: Albuterol Sulfate (0.083%) 2.5 MG/3 ML VIAL.NEB 5 MG INHALE (20:03)
[2023-09-20 20:04] LABS: Troponin-I High Sensitivity 43.9 ng/L (<3.5-17.0)
[2023-09-20 20:07] VITALS: PULSE 80; RESP 18; O2SAT 95
--- NOTE | 2023-09-20 20:40 | P.HPHOSP_ITS ---
History of Present Illness Date of Service: 09/20/23 Attending physician on admission: Fouzia Calvin Chief Complaint: Increasing SOB Pt is a 78-year-old female with a PMH significant for?interstitial lung disease, COPD on 4L home O2, rqi-lgezxuc-kgsmaatti dependent type 2 diabetes, HFpEF, CAD, and recently diagnosed with AFib on Eliquis who presents to the ED with?worsening shortness of breath over the past week. Patient was recently admitted to the hospital on 09/05-09/14 for similar symptoms and treated for pulmonary hypertension, new onset AFib, and acute hypoxic respiratory failure. Patient was discharged home on 4 L oxygen and saw her general repairer 2 days prior in 09/08/2023. However, pt reports symptoms worsened over the ensuing 2 days and patient found little relief even after increasing her home O2 levels. Thus presents to the emergency room as she feels her home O2 is not working to maintain her O2 saturation above 90%. Denies chest pain/pressure, palpitations. Denies cough. No fever, chills, nausea,, abdominal pain. In the ED patient was afebrile, but tachypneic to 22, hypertensive up to 154/72, and originally satting at 86% on 6 L NC. Patient then transitioned to OxyMask 4L where she was satting at 95%. Labs were significant for leukocytosis of 18.4, sodium 133, BUN 61, creatinine 1.57, random glucose 297, AST 69, ALT 160, initial troponin 44.9 with repeat flat at 43.9, BNP 705 (lower than previous admission). H&H stable. Lactic acid 1.2. VBG showed respiratory alkalosis of 7.59 with bicarb of 38. CXR showed no acute abnormality of chest. EKG demonstrated atrial fibrillation without evidence of ST elevations or depressions. Pt was treated with albuterol, DuoNebs, and IV Solu-Medrol. Pt will be admitted to the hospital for treatment and further evaluation of acute on chronic respiratory failure in the setting of COPD exacerbation. Review of Systems 2 Review of Systems: Shortness of breath Denies cough Chronic lower leg edema around baseline Denies chest pain/pressure, palpitations No fever, chills, nausea, vomiting, abdominal pain PMFSH Medical History Type 2 diabetes mellitus with unspecified complications Diabetes Hyperlipidemia Hypertension Chronic diastolic heart failure Diastolic dysfunction CAD (coronary artery disease) Hypoxemia Restrictive lung disease COPD (chronic obstructive pulmonary disease) Family History Father Diabetes Mother Unknown Surgical History History of left cataract surgery Stented coronary artery Social History Household Members: Spouse Housing: Homeless Do you presently have visiting nurse or other home services: No Patient Tobacco Use Status: Former Tobacco user Quit Date: 25 years ago Smoked in Last 30 Days: No Use of substances other than those prescribed or required for medical reasons: No Advance Directives: Yes Advance Directives on File: Yes Advance Directives Date on File: 01/28/23 Nutrition Risks: No Nutritional Risk service: No Meds Allergies Allergy/AdvReac Type Severity Reaction Status Date / Time No Known Allergies Allergy Verified 09/20/23 14:37 [No Known Allergies*] Active Medications: Current Medications Acetaminophen (Acetaminophen 325 Mg Tablet) 650 mg PO Q6H PRN PRN Reason: Pain, Mild (Pain Scale 1-3) Acetaminophen (Acetaminophen Supp 650 Mg Supp.Rect) 650 mg IN Q6H PRN PRN Reason: Pain, Mild (Pain Scale 1-3) Albuterol/Ipratropium (Albuterol/Iprat 2.5/0.5mg 3 Ml Ampul.Neb) 3 ml INHALE RQ4H WHILE AWAKE [facility] Last Admin: 09/20/23 20:09 Dose: Not Given Albuterol/Ipratropium (Albuterol/Iprat 2.5/0.5mg 3 Ml Ampul.Neb) 3 ml INHALE Q4H PRN PRN Reason: Wheezing Melatonin (Melatonin 3 Mg Tablet) 6 mg PO BEDTIME PRN PRN Reason: Insomnia Ondansetron HCl (Ondansetron Hcl 4 Mg/2 Ml Vial) 4 mg IVPUSH Q8H PRN PRN Reason: Nausea and Vomiting Sodium Chloride (0.9 % Sodium Chloride Flush 3 Ml Syringe) 3 ml IVFLUSH QSHIFT [facility] Home Medications Medication Instructions Recorded Confirmed Last Taken Type cholecalciferol (vitamin D3) 25 25 mcg PO DAILY 09/14/20 09/20/23 09/05/23 History mcg (1,000 unit) capsule multivitamin (Daily Multi-Vitamin 1 tab PO DAILY 09/18/21 09/20/23 09/05/23 History tablet) glipizide 5 mg tablet 2.5 mg PO BEDTIME 03/20/22 09/20/23 09/04/23 History amlodipine 10 mg tablet 10 mg PO DAILY 08/19/23 09/20/23 09/05/23 History glipizide 5 mg tablet 5 mg PO DAILY 09/05/23 09/20/23 09/05/23 History Physical Exam 2 Vital Signs and Narrative: Vital Signs: Last Vital Signs Temp 98.0 F 09/20/23 16:51 Pulse 80 09/20/23 20:07 Resp 18 09/20/23 20:07 BP 154/72 H 09/20/23 16:51 Pulse Ox 95 09/20/23 16:51 O2 Del Method Oxymask 09/20/23 16:51 O2 Flow Rate 4 09/20/23 16:51 Oxygen Flow Rate 6 09/20/23 14:37 BMI result Body Mass Index 26.6 Constitutional: Alert, in no acute distress. Mental Status: Oriented to person, place and time. Eyes: Pupils are equal, round, and reactive to light. Ear, Nose, and Throat: Oropharynx clear, mucous membranes moist. Ears and nose without deformities. Trachea midline. Respiratory: Diffuse wheezing and crackles throughout bilaterally Cardiovascular: S1, S2 regular. No murmurs, rubs, or gallops. Gastrointestinal: Abdomen soft, non-tender, non-distended. Normal bowel sounds. Neurologic: Cranial nerves II-XII are grossly intact bilaterally. No focal neurological deficits. Moves all extremities spontaneously. Skin: No rashes or lesions noted. Musculoskeletal: No cyanosis or clubbing. Extremities: 1+ bilateral pitting edema. Psychiatric: Normal mood and affect. Results Labs 09/20/23 15:17 09/20/23 14:52 Labs: Laboratory Results - last 24 hr 09/20/23 09/20/23 09/20/23 14:52 15:17 15:23 MCV 83.1 MCH 25.9 L MCHC 31.2 RDW 17.3 H Plt Count 254 MPV 10.7 Immature Gran % (Auto) 0.5 H Neut % (Auto) 94.0 H Lymph % (Auto) 3.1 L [place] % (Auto) 2.2 Eos % (Auto) 0.1 Baso % (Auto) 0.1 Lymph # (Auto) 0.6 L [place] # (Auto) 0.4 Eos # (Auto) 0.0 Baso # (Auto) 0.0 Abs Immat Gran (auto) 0.09 H Absolute Neuts (auto) 17.3 H Absolute Nucleated RBC 0.000 Nucleated RBC % (auto) 0.0 PT INR APTT VBG pH 7.59 H VBG pCO2 39 VBG pO2 39 VBG HCO3 38 H VBG O2 Saturation 70.0 VBG Base Excess 15.2 Anion Gap 19 Estim Creat Clear Calc 29.4 Estimated GFR 32 Random Glucose 297 H Lactic Acid 1.2 Calcium 9.8 Magnesium 1.9 Total Bilirubin 0.6 AST 69 H ALT 160 H Alkaline Phosphatase 95 B-Natriuretic Peptide 705 H Total Protein 7.1 Albumin 3.7 Influenza Type A (PCR) NEGATIVE Influenza Type B (PCR) NEGATIVE RSV RNA Qual (PCR) NEGATIVE SARS-CoV-2 RNA (RT-PCR) NEGATIVE 09/20/23 19:30 MCV MCH MCHC RDW Plt Count MPV Immature Gran % (Auto) Neut % (Auto) Lymph % (Auto) [place] % (Auto) Eos % (Auto) Baso % (Auto) Lymph # (Auto) [place] # (Auto) Eos # (Auto) Baso # (Auto) Abs Immat Gran (auto) Absolute Neuts (auto) Absolute Nucleated RBC Nucleated RBC % (auto) PT 11.8 D INR 1.0 APTT 24.1 L VBG pH VBG pCO2 VBG pO2 VBG HCO3 VBG O2 Saturation VBG Base Excess Anion Gap Estim Creat Clear Calc Estimated GFR Random Glucose Lactic Acid Calcium Magnesium Total Bilirubin AST ALT Alkaline Phosphatase B-Natriuretic Peptide Total Protein Albumin Influenza Type A (PCR) Influenza Type B (PCR) RSV RNA Qual (PCR) SARS-CoV-2 RNA (RT-PCR) Imaging Radiologist's Impressions: Impressions Chest X-Ray 09/20/23 16:02 IMPRESSION: No acute abnormality of the chest. Assessment and Plan (1) Acute on chronic respiratory failure with hypoxemia: Status: Acute Plan Pt is a 78-year-old female with a PMH significant for?interstitial lung disease, COPD on 4L home O2, npf-agoybla-zbslztrva dependent type 2 diabetes, HFpEF, CAD, and recently diagnosed with AFib on Eliquis who presents to the ED with?worsening shortness of breath over the past week. Pt will be admitted to the hospital for treatment and further evaluation of acute on chronic respiratory failure in the setting of COPD exacerbation. Acute on chronic hypoxic respiratory failure secondary to COPD with acute decompensation Patient arrived to triage satting at 86% on 6 L NC, transition to OxyMask Patient was significant diffuse wheezing and crackles upon auscultation Will treat with Solu-MedQuinton [place] Patient with no reported cough, will hold on antibiotics at this time, CXR without evidence for underlying pneumonia Titrate supplemental O2 >92, wean as tolerated Monitor respiratory status Leukocytosis WBC 18.4 Secondary to steroid use, not sepsis or active infection Patient does not meet sepsis criteria HFpEF Does not appear to be in acute exacerbation at this time BNP below levels from last admission, chronic LLE at baseline Continue home diuretics CAD/HLD Continue statin Btp-[id number]-[id number] diabetes type 2 Continue glipizide Sliding-scale insulin Diabetic diet Atrial fibrillation Continue digoxin, diltiazem, Eliquis Pulmonary hypertension Continue sildenafil Full Code Attending:?Dr. Calvin DVT Prophylaxis: On Eliquis Pt will require a hospitalization of at least two nights for treatment of?acute on chronic hypoxic respiratory failure secondary to COPD with acute decompensation. Time Spent With Patient Time: Total time managing care of this patient today ____ minutes. Quality Stroke Does the patient have a stroke diagnosis?: No VTE Prior VTE?: No VTE Risk Level:: Medical - moderate - high VTE Device Contraindication: Treatment Not Indicated VTE Drug Contraindication: N/A - Med Ordered
[2023-09-20] MEDS: methylPREDNISolone Sod Succ 125 MG/2 ML VIAL IVPUSH (20:51)
[2023-09-20 20:56] VITALS: PULSE 84
[2023-09-20 20:57] VITALS: O2SAT 955
--- NOTE | 2023-09-20 22:06 | PC.NURSE ---
Nurse to nurse report given to collin Alcaraz surge RN. Patient to be transported by radio television technical director.
--- NOTE | 2023-09-20 22:53 | MHC.EDTECH ---
Patient used commode/ patient inc / patient cleaned and repstioned
[2023-09-20] MEDS: methylPREDNISolone Sod Succ 40 MG/ML VIAL IVPUSH (23:22)
[2023-09-20] MEDS: 0.9 % Sodium Chloride Flush 3 ML SYRINGE IVFLUSH (23:24)
[2023-09-20 23:38] VITALS: BMI 26.6
[2023-09-20 23:54] VITALS: BP 155/68; PULSE 95; RESP 18; TEMP 36.5; O2SAT 94
[2023-09-21] VITALS (10 sets, daily range): BP systolic 114–142; BP diastolic 56–81; PULSE 82–106; RESP 16–20; TEMP 36.2–36.7; O2SAT 90–96
[2023-09-21] MEDS: glipiZIDE 5 MG TABLET 2.5 MG PO ×2 (00:02→21:12)
[2023-09-21] MEDS: Apixaban 5 MG TABLET PO ×3 (00:02→21:12)
[2023-09-21] MEDS: Sildenafil Citrate 20 MG TABLET PO ×4 (00:02→21:12)
[2023-09-21 06:23] LABS: Basophils Percent Auto 0.1 % (0-2); Hematocrit 37.9 % (37.0-47.0); Hemoglobin 11.4 g/dl (12.0-16.0); Imm Gran Abs Auto 0.11 X10*3/uL (0.00-0.03); Imm Gran Pct Auto 0.7 % (0.0-0.4); Lymphocytes Absolute Auto 0.1 X10*3/uL (1.2-4.9); Lymphocytes Percent Auto 0.9 % (20-40); MANUAL DIFF FLAG SCAN; Mean Corpuscular HGB Conc 30.1 g/dl (31.0-35.0); Mean Corpuscular Hemoglobin 25.9 pg (27.0-33.0); Mean Corpuscular Volume 85.9 fL (80.0-98.0); Mean Platelet Volume 11.7 fL (9.4-12.3); Monocytes Percent Auto 0.2 % (2-11); Neutrophils Percent Auto 98.1 % (45-73); Platelet Count 184 X10*3/uL (160-400); Red Blood Count 4.41 X10*6/uL (4.20-5.50); Red Cell Distribution Width 17.7 % (11.0-16.0); SCAN SMEAR FLAG 1; White Blood Count 16.3 X10*3/uL (4.8-10.8)
[2023-09-21 07:16] LABS: Glucose, Whole Blood 375 mg/dL (60-115)
[2023-09-21 07:24] LABS: SLIDE REVIEW VERIFIED
[2023-09-21 07:52] LABS: Anion Gap 16 (12-20); Blood Urea Nitrogen 57 mg/dL (9-16); Calcium 9.3 mg/dL (8.4-10.2); Carbon Dioxide 28 mmol/L (22-29); Chloride 93 mmol/L (96-108); Creatinine Clr Calc Pharmacy 25.7; Estimated Glomerular Filt Rate 27; Glucose Random 431 mg/dL (60-115); Potassium 4.1 mmol/L (3.3-5.1); Sodium 133 mmol/L (135-145)
[2023-09-21] MEDS: Albuterol/Iprat 2.5/0.5MG 3 ML AMPUL.NEB INHALE ×4 (08:02→20:40)
[2023-09-21] MEDS: Insulin Lispro 100 UNIT/ML 3 ML VIAL SUBCUT ×5 (08:18→21:12)
--- NOTE | 2023-09-21 08:34 | PHA.MEDREC ---
Pharmacy Consult ? Medication Reconciliation Pharmacy has completed the medication reconciliation.
--- NOTE | 2023-09-21 10:45 | MHC.CM.PN ---
IMM 09/21/23, EMR REVIEWED PT ADMITTED W/DYSPNEA, CM MET W/PT AND ALVARO AT BEDSIDE, PT A&O AND ANSWERS ALL QUESTIONS, PT INDEP AT BASELINE, HAS HOME O2 W/LINCARE AND HAS BEEN USING 3-4L NC AT HOME, NO OTHER DME OR HOME SERVICES, PT REPORTS SHE DOES NOT FEEL SHE WILL NEED HOME PT OR OTHER HOME SERVICES AT TIME OF THIS NOTE. PT VERIFIES PCP IS CHARISMA HILLIARD, PT FULLYVACCINATED FOR COVID 19 AND LAST VACCINE RECEIVED 2WKS AGO, HCP IS CHRISTI JOHN AND ON FILE FROM PREVIOUS VISIT.
[2023-09-21 11:16] LABS: Glucose, Whole Blood 438 mg/dL (60-115)
--- NOTE | 2023-09-21 11:48 | HO.PM.IMPN ---
Subjective Subjective Date of Service: 09/21/23 Interval History: seen and examined this morning follow up for COPD exacerbation breathing a little better today, still LITTLE, minimal dry cough Review of Systems Review of Systems: Yes all other systems are reviewed and are negative Constitutional Constitutional: Denies chills and Denies fever(s) Cardiovascular Cardiovascular: Denies chest pain, Denies palpitations, Reports dyspnea and Reports dyspnea on exertion Respiratory Respiratory: Reports cough, Reports dyspnea and Reports dyspnea on exertion Endocrine Endocrine: Denies palpitations Physical Exam Vital Signs: Vital Signs: Last Vital Signs Temp 97.1 F 09/21/23 07:35 Pulse 95 09/21/23 08:03 Resp 16 09/21/23 08:03 BP 128/81 09/21/23 07:35 Pulse Ox 90 L 09/21/23 07:35 O2 Del Method Oxymask 09/21/23 07:35 O2 Flow Rate 5 09/21/23 07:35 Oxygen Flow Rate 4 09/20/23 20:57 BMI result Body Mass Index 26.6 Const: General: cooperative, comfortable, no acute distress, alert and awake Nutritional Appearance: overweight Orientation/consciousness: patient oriented x3 Resp: Other: min wheezing b/l Effort & Inspection: normal respiratory effort, able to speak in complete sentences, no respiratory distress and no use of accessory muscles Cardio: Rate: regular rate GI: Inspection: No distended Palpation (GI): Soft to palpation and nontender Neuro: General: patient oriented x3, moves all extremities and CN's II-XI intact bilaterally Extrem: Other: trace ankle edema Objective Data Active Medications Acetaminophen (Acetaminophen 325 Mg Tablet) 650 mg PO Q6H PRN PRN Reason: Pain, Mild (Pain Scale 1-3) Acetaminophen (Acetaminophen Supp 650 Mg Supp.Rect) 650 mg [place] Q6H PRN PRN Reason: Pain, Mild (Pain Scale 1-3) Albuterol/Ipratropium (Albuterol/Iprat 2.5/0.5mg 3 Ml Ampul.Neb) 3 ml INHALE RQ4H WHILE AWAKE CLAY Last Admin: 09/21/23 08:02 Dose: 3 ml Documented By: SANDER Albuterol/Ipratropium (Albuterol/Iprat 2.5/0.5mg 3 Ml Ampul.Neb) 3 ml INHALE Q4H PRN PRN Reason: Wheezing Amlodipine Besylate (Amlodipine Besylate 10 Mg Tablet) 10 mg PO DAILY [facility]; Protocol Apixaban (Apixaban 5 Mg Tablet) 5 mg PO BID [facility] Last Admin: 09/21/23 00:02 Dose: 5 mg Documented By: COLTEN Atorvastatin Calcium (Atorvastatin Calcium 80 Mg Tablet) 80 mg PO DAILY [facility] Dextrose (Dextrose 50 % 25 Gm/50 Ml Syringe) 25 gm IVPUSH Q15M PRN; Protocol PRN Reason: per Hypoglycemia Standing Ord. Digoxin (Digoxin 0.125 Mg Tablet) 0.125 mg PO Q2D [facility] Diltiazem HCl (Diltiazem Hcl Cd 180 Mg Cap.Er.24h) 180 mg PO DAILY [facility]; Protocol Furosemide (Furosemide 40 Mg Tablet) 80 mg PO DAILY [facility]; Protocol Glipizide (Glipizide 5 Mg Tablet) 2.5 mg PO BEDTIME [facility] Last Admin: 09/21/23 00:02 Dose: 2.5 mg Documented By: COLTEN Glipizide (Glipizide 5 Mg Tablet) 5 mg PO DAILY@0800 [facility] Glucose (Glucose Gel 15 Gm Gel..Gram.) 15 gm PO Q15M PRN; Protocol PRN Reason: per Hypoglycemia Standing Ord. Insulin Human Lispro (Insulin Lispro 100 Unit/Ml 3 Ml Vial) 0 unit SUBCUT QIDACHS [facility]; Protocol Last Admin: 09/21/23 08:18 Dose: 10 unit Documented By: RACHELJ Comments: MD aware no additional insulin ordered Melatonin (Melatonin 3 Mg Tablet) 6 mg PO BEDTIME PRN PRN Reason: Insomnia Methylprednisolone Sodium Succinate (Methylprednisolone Sod Succ 40 Mg/Ml Vial) 40 mg IVPUSH Q12H [facility] Last Admin: 09/20/23 23:22 Dose: 40 mg Documented By: COLTEN Multivitamins/Vitamin C (Multivitamin Tablet) 1 tab PO DAILY [facility] Ondansetron HCl (Ondansetron Hcl 4 Mg/2 Ml Vial) 4 mg IVPUSH Q8H PRN PRN Reason: Nausea and Vomiting Sildenafil Citrate (Sildenafil Citrate 20 Mg Tablet) 20 mg PO TID [facility] Last Admin: 09/21/23 00:02 Dose: 20 mg Documented By: COLTEN Sodium Chloride (0.9 % Sodium Chloride Flush 3 Ml Syringe) 3 ml IVFLUSH QSHIFT [facility] Last Admin: 10/20/23 23:24 Dose: 3 ml Documented By: COLTEN Vitamin D (Cholecalciferol (Vitamin D3) 25 Mcg Tablet) 25 mcg PO DAILY [facility] Labs 09/21/23 05:22 09/21/23 05:22 Labs: Laboratory Results - last 24 hr 09/20/23 09/20/23 09/20/23 14:52 15:17 15:23 MCV 83.1 MCH 25.9 L MCHC 31.2 RDW 17.3 H Plt Count 254 MPV 10.7 Immature Gran % (Auto) 0.5 H Neut % (Auto) 94.0 H Lymph % (Auto) 3.1 L [place] % (Auto) 2.2 Eos % (Auto) 0.1 Baso % (Auto) 0.1 Lymph # (Auto) 0.6 L [place] # (Auto) 0.4 Eos # (Auto) 0.0 Baso # (Auto) 0.0 Abs Immat Gran (auto) 0.09 H Absolute Neuts (auto) 17.3 H Absolute Nucleated RBC 0.000 Nucleated RBC % (auto) 0.0 Smear Tech's Comments PT INR APTT VBG pH 7.59 H VBG pCO2 39 VBG pO2 39 VBG HCO3 38 H VBG O2 Saturation 70.0 VBG Base Excess 15.2 Anion Gap 19 Estim Creat Clear Calc 29.4 Estimated GFR 32 POC Glucose Random Glucose 297 H Lactic Acid 1.2 Calcium 9.8 Magnesium 1.9 Total Bilirubin 0.6 AST 69 H ALT 160 H Alkaline Phosphatase 95 B-Natriuretic Peptide 705 H Total Protein 7.1 Albumin 3.7 Hold Yellow Top Influenza Type A (PCR) NEGATIVE Influenza Type B (PCR) NEGATIVE RSV RNA Qual (PCR) NEGATIVE SARS-CoV-2 RNA (RT-PCR) NEGATIVE 09/20/23 09/21/23 09/21/23 19:30 05:22 07:11 MCV 85.9 MCH 25.9 L MCHC 30.1 L RDW 17.7 H Plt Count 184 D MPV 11.7 Immature Gran % (Auto) 0.7 H Neut % (Auto) 98.1 H Lymph % (Auto) 0.9 L [place] % (Auto) 0.2 L Eos % (Auto) 0.0 Baso % (Auto) 0.1 Lymph # (Auto) 0.1 L [place] # (Auto) 0.0 L Eos # (Auto) 0.0 Baso # (Auto) 0.0 Abs Immat Gran (auto) 0.11 H Absolute Neuts (auto) 16.0 H Absolute Nucleated RBC 0.000 Nucleated RBC % (auto) 0.0 Smear Tech's Comments VERIFIED PT 11.8 D INR 1.0 APTT 24.1 L VBG pH VBG pCO2 VBG pO2 VBG HCO3 VBG O2 Saturation VBG Base Excess Anion Gap 16 Estim Creat Clear Calc 25.7 Estimated GFR 27 POC Glucose 375 H* Random Glucose 431 H* Lactic Acid Calcium 9.3 Magnesium Total Bilirubin AST ALT Alkaline Phosphatase B-Natriuretic Peptide Total Protein Albumin Hold Yellow Top See Note Influenza Type A (PCR) Influenza Type B (PCR) RSV RNA Qual (PCR) SARS-CoV-2 RNA (RT-PCR) 09/21/23 11:12 MCV MCH MCHC RDW Plt Count MPV Immature Gran % (Auto) Neut % (Auto) Lymph % (Auto) [place] % (Auto) Eos % (Auto) Baso % (Auto) Lymph # (Auto) [place] # (Auto) Eos # (Auto) Baso # (Auto) Abs Immat Gran (auto) Absolute Neuts (auto) Absolute Nucleated RBC Nucleated RBC % (auto) Smear Tech's Comments PT INR APTT VBG pH VBG pCO2 VBG pO2 VBG HCO3 VBG O2 Saturation VBG Base Excess Anion Gap Estim Creat Clear Calc Estimated GFR POC Glucose 438 H* Random Glucose Lactic Acid Calcium Magnesium Total Bilirubin AST ALT Alkaline Phosphatase B-Natriuretic Peptide Total Protein Albumin Hold Yellow Top Influenza Type A (PCR) Influenza Type B (PCR) RSV RNA Qual (PCR) SARS-CoV-2 RNA (RT-PCR) Assessment and Plan (1) Chronic lung disease: Status: Acute Plan Pt is a 78-year-old female with a PMH significant for?interstitial lung disease, COPD on 4L home O2, uxs-yxyvoyr-jutskeuys dependent type 2 diabetes, HFpEF, CAD, and recently diagnosed with AFib on Eliquis who presents to the ED with?worsening shortness of breath over the past week. Pt will be admitted to the hospital for treatment and further evaluation of acute on chronic respiratory failure in the setting of COPD exacerbation. Acute on chronic hypoxic respiratory failure secondary to acute exacerbation OF COPD/ILD on arrival saturating at 86% on 6 L NC, currently 92% on 5L NC Continue IV Solu-Medrol, DuoNebs CXR without evidence for underlying pneumonia Titrate supplemental O2 >92, wean as tolerated Leukocytosis Secondary to steroid use, not sepsis or active infection Patient does not meet sepsis criteria HFpEF Does not appear to be in acute exacerbation at this time BNP below levels from last admission Continue home diuretics CAD/HLD Continue statin Glj-sgbngxa-tbcblqrmo diabetes type 2 Continue glipizide Sliding-scale insulin Diabetic diet Paroxysmal Atrial fibrillation Continue digoxin, diltiazem, Eliquis Pulmonary hypertension Continue sildenafil Full Code Attending:?Dr. Hicks DVT Prophylaxis: On Eliquis Requires ongoing inpatient stay for respiratory failure secondary to COPD with acute decompensation requiring IV steroids, close monitoring of respiratory status Time Spent With Patient Time: Total time managing care of this patient today ____ minutes. Quality Stroke Does the patient have a stroke diagnosis?: No VTE Prior VTE?: No VTE Risk Level:: Medical - moderate - high VTE Device Contraindication: Treatment Not Indicated VTE Drug Contraindication: N/A - Med Ordered
[2023-09-21] MEDS: Atorvastatin Calcium 80 MG TABLET PO (12:42)
[2023-09-21] MEDS: dilTIAZem HCL CD 180 MG CAP.ER.24H PO (12:42)
[2023-09-21] MEDS: amLODIPine Besylate 10 MG TABLET PO (12:43)
[2023-09-21] MEDS: Cholecalciferol (Vitamin D3) 25 MCG TABLET PO (12:43)
[2023-09-21] MEDS: Furosemide 40 MG TABLET 80 MG PO (12:43)
[2023-09-21] MEDS: Multivitamin TABLET 1 TAB PO (12:43)
[2023-09-21] MEDS: Digoxin 0.125 MG TABLET PO (12:47)
[2023-09-21] MEDS: 0.9 % Sodium Chloride Flush 3 ML SYRINGE IVFLUSH ×3 (12:49→21:13)
[2023-09-21] MEDS: glipiZIDE 5 MG TABLET PO (12:49)
[2023-09-21] MEDS: methylPREDNISolone Sod Succ 40 MG/ML VIAL IVPUSH ×2 (12:49→21:12)
[2023-09-21 16:21] LABS: Glucose, Whole Blood 343 mg/dL (60-115)
[2023-09-21 20:26] LABS: Glucose, Whole Blood 344 mg/dL (60-115)
[2023-09-22 04:00] VITALS: BP 133/64; PULSE 89; RESP 18; TEMP 37.1; O2SAT 92
[2023-09-22 07:32] LABS: Glucose, Whole Blood 258 mg/dL (60-115)
[2023-09-22 07:54] VITALS: BP 114/67; PULSE 96; RESP 16; TEMP 36.2; O2SAT 92
[2023-09-22] MEDS: Insulin Lispro 100 UNIT/ML 3 ML VIAL SUBCUT (07:56)
[2023-09-22] MEDS: 0.9 % Sodium Chloride Flush 3 ML SYRINGE IVFLUSH (07:57)
[2023-09-22] MEDS: Multivitamin TABLET 1 TAB PO (07:57)
[2023-09-22] MEDS: dilTIAZem HCL CD 180 MG CAP.ER.24H PO (07:57)
[2023-09-22] MEDS: Sildenafil Citrate 20 MG TABLET PO (07:57)
[2023-09-22] MEDS: Cholecalciferol (Vitamin D3) 25 MCG TABLET PO (07:57)
[2023-09-22] MEDS: glipiZIDE 5 MG TABLET PO (07:59)
[2023-09-22] MEDS: Atorvastatin Calcium 80 MG TABLET PO (07:59)
[2023-09-22] MEDS: amLODIPine Besylate 10 MG TABLET PO (07:59)
[2023-09-22] MEDS: Apixaban 5 MG TABLET PO (07:59)
[2023-09-22] MEDS: Furosemide 40 MG TABLET 80 MG PO (07:59)
[2023-09-22] MEDS: Albuterol/Iprat 2.5/0.5MG 3 ML AMPUL.NEB INHALE ×2 (08:02→11:09)
[2023-09-22 08:03] VITALS: PULSE 79; RESP 18; O2SAT 89
--- NOTE | 2023-09-22 08:47 | P.DS_ITS ---
DS: Providers Provider Date of Service: 09/22/23 Date of admission: 09/20/23 20:00 Primary care physician: Matheus Singh MD DS: Diagnosis Discharge Diagnosis (1) Chronic lung disease: Status: Acute DS: Summary Hospital Course Hospital Course: Chief Complaint: Increasing SOB Pt is a 78-year-old female with a PMH significant for?interstitial lung disease, COPD on 4L home O2, znl-vuplckx-ehlniligh dependent type 2 diabetes, HFpEF, CAD, and recently diagnosed with AFib on Eliquis who presents to the ED with?worsening shortness of breath over the past week. Patient was recently admitted to the hospital on 09/05-09/14 for similar symptoms and treated for pulmonary hypertension, new onset AFib, and acute hypoxic respiratory failure. 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 However, pt reports symptoms worsened over the ensuing 2 days and patient found little relief even after increasing her home O2 levels. Thus presents to the emergency room as she feels her home O2 is not working to maintain her O2 saturation above 90%. Denies chest pain/pressure, palpitations. Denies cough. No fever, chills, nausea,, abdominal pain. In the ED patient was afebrile, but tachypneic to 22, hypertensive up to 154/72, and originally satting at 86% on 6 L NC. Patient then transitioned to OxyMask 4L where she was satting at 95%. Labs were significant for leukocytosis of 18.4, sodium 133, BUN 61, creatinine 1.57, random glucose 297, AST 69, ALT 160, initial troponin 44.9 with repeat flat at 43.9, BNP 705 (lower than previous admission). H&H stable. Lactic acid 1.2. VBG showed respiratory alkalosis of 7.59 with bicarb of 38. CXR showed no acute abnormality of chest. EKG demonstrated atrial fibrillation without evidence of ST elevations or depressions. Pt was treated with albuterol, DuoNebs, and IV Solu-Medrol. Pt will be admitted to the hospital for treatment and further evaluation of acute on chronic respiratory failure in the setting of COPD exacerbation. Hospital course: This patient with a documented history of interstitial lung disease and COPD on 4 liters of supplemental oxygen at home. She sought medical attention due to a progressive increase in her shortness of breath. A chest X-ray revealed no signs of pneumonia. Consequently, she was admitted to the hospital to manage her exacerbated COPD and interstitial lung disease. Her treatment regimen included intravenous steroids, oxygen therapy, and bronchodilators administered via nebulizer. Remarkably, her condition improved rapidly, and she will be discharged to continue her recovery at home with a prescription for Prednisone at a daily dose of 40 mg for an additional 3 days, totaling 5 days of steroid therapy. Her lungs are clear, she is breathing comfortably, and her vital signs are within the expected range. Time Spent with Patient Time attestation: Total time managing care of this patient today ____ minutes. Discharge coordination time: Greater than 30 minutes Quality: Safe Use of Opioids Does Pt have an Active Cancer Diagnosis on the Problem List?: No Quality: Stroke Does the patient have a stroke diagnosis?: No Physical Exam Vital Signs: Vital Signs: Last Vital Signs Temp 97.2 F 09/22/23 07:54 Pulse 79 09/22/23 08:03 Resp 18 09/22/23 08:03 BP 114/67 09/22/23 07:54 Pulse Ox 92 09/22/23 07:54 O2 Del Method Nasal Cannula 09/22/23 07:54 O2 Flow Rate 2 09/22/23 07:54 Oxygen Flow Rate 4 09/20/23 20:57 BMI result Body Mass Index 26.6 Const: Other: General: AO X 3, no acute distress Resp: CTA bilateral CVS: S1,S2,RRR GI: +BS, NT, no distention Skin: No rash Neuro: motor grossly intact Psych: appropriate affect DS: Data Data Completed and Pending Labs on day of discharge: Laboratory Results - last 24 hr 09/21/23 09/21/23 09/21/23 11:12 16:13 20:09 POC Glucose 438 H* 343 H 344 H 09/22/23 07:00 POC Glucose 258 H Preliminary micro results at discharge 09/20/23 15:52 Blood Culture - Preliminary Blood - Venous No growth after 24 hours. 09/20/23 15:17 Blood Culture - Preliminary Blood - Venous No growth after 24 hours. Discharge Plan Discharge Anticipated Discharge Date/Time: 09/22/23 08:44 Patient Disposition: Home, Self-Care Discharge Diagnosis: COPD and ILD exacerbation Referrals: Matheus Singh MD [Primary Care Provider] - 1 Week Discharge Medications: New prednisone 20 mg tablet 40 mg PO DAILY Qty: 6 0RF Continued rosuvastatin 40 mg tablet 40 mg PO DAILY 90 Days Qty: 90 3RF hydrocortisone acetate [Anusol-HC] 25 mg suppository 25 mg [place] BID Qty: 24 0RF glipizide 5 mg tablet 5 mg PO DAILY furosemide 40 mg Tablet 80 mg PO DAILY Qty: 30 0RF Protocol: Hold for SBP< HOLD for SBP < : 90 diltiazem HCl [Cardizem CD] 180 mg Capsule,Extended Release 24hr 180 mg PO DAILY Qty: 30 0RF Protocol: Hold for SBP/HR < HOLD for SBP < : 90 HOLD for HR < : 60 digoxin 125 mcg (0.125 mg) Tablet 0.125 mg PO Q2D Qty: 30 0RF sildenafil (pulm.hypertension) 20 mg Tablet 20 mg PO TID Qty: 90 0RF Eliquis 5 mg Tablet 5 mg PO BID Qty: 60 0RF cholecalciferol (vitamin D3) 25 mcg (1,000 unit) capsule 25 mcg PO DAILY multivitamin [Daily Multi-Vitamin] Tablet 1 tab PO DAILY glipizide 5 mg tablet 2.5 mg PO BEDTIME amlodipine 10 mg tablet 10 mg PO DAILY prednisone 5 mg tablet 5 mg PO BID Qty: 40 2RF Rx Instructions: 5 mg tab, 2 a day for one week , then one tab a day to continue Diet: Advance to usual diet Activity on Discharge: As tolerated Stand Alone Forms: Patient Portal Discharge page Care Plan Goals: recovery from copd exacerbation Health Concerns: copd and interstitial lung disease exacerbation Plan of Treatment: take prednisone as recommended, continue use of inhalers and oxygen as before Assessment: as avoe
[2023-09-22] MEDS: methylPREDNISolone Sod Succ 40 MG/ML VIAL IVPUSH (10:11)
[2023-09-22 11:09] VITALS: RESP 18; O2SAT 93
--- NOTE | 2023-09-22 11:14 | MHC.CM.PN ---
Addendum entered by Emilia Thompson 09/22/23 11:58: CM MET WITH PT, AND DAUGHTER, AT DAUGHTERS REQUEST SHE REPORTS SHE IS WONDERING IF ANYONE HAS RECOMMENDED VNA OR PALLIATIVE CARE TO PT CM ASKED IF SHE FELT THESE WOULD BE HELPFUL PTS DAUGHTER SAID YES, HOWEVER PT DID NOT CM DISCUSSED IT FURTHER WITH PT WHO AGREES TO ONE VISIT TO DETERMINE IF IT IS BENEFICIAL REFERRAL MADE TO COMFORT PLUS BASED ON DISCUSSION WITH PT AND AWAITING RESPONSE Original Note: PT WILL DC HOME TODAY WITH NO SERVICES VIA PRIVATE TRANSPORT
[2023-09-22 11:22] LABS: Glucose, Whole Blood 280 mg/dL (60-115)
--- NOTE | 2023-09-22 11:53 | P.F2F_ITS ---
Service Date Service Date: 09/22/23 Encounter Date of encounter: 09/22/23 Reasons for Services Signs and symptoms assessed: shortness of breath at rest or minimal activity Homebound: Leaving the home is medically contraindicated at this time without the asist of a device and/or another person due th the listed conditions above and below. Reason homebound: shortness of breath with minimal effort Homebound supporting statement: homebound due to chronic respiratoyr failure with shortness of breath with minimal exertion and therefore needs the assistance of another person Certification: Based on the above findings, I certify that this patient is confined to the home and needs intermittent residential care, physical therapy and/or speech therapy, or continues to need occupational therapy. The patient is under my care, and I have initiated the establishment of the plan of care. The patient will be followed by a physician who will periodically review the plan of care. Time Spent With Patient Time: Total time managing care of this patient today ____ minutes.
== END 2023-09-22 12:54 | disposition home health service (06) | DRG 190 ==
LOC: HO.ED 20:01 → HO.EDOVER 20:04 → HO.S3 20:33
PROVIDERS: Physician Assistant Medical; Admitting Provider Student in an Organized Health Care Education/Training Program; Emergency Provider Emergency Medicine; PCP Internal Medicine; Visit Provider Internal Medicine
DX: J44.1 Chronic obstructive pulmonary disease with (acute) exacerbation (principal); J96.21 Acute and chronic respiratory failure with hypoxia; I50.32 Chronic diastolic (congestive) heart failure; I25.10 Atherosclerotic heart disease of native coronary artery without angina pectoris; I48.0 Paroxysmal atrial fibrillation; E78.5 Hyperlipidemia, unspecified; I27.20 Pulmonary hypertension, unspecified; Z20.822 Contact with and (suspected) exposure to COVID-19; Z95.5 Presence of coronary angioplasty implant and graft; Z87.891 Personal history of nicotine dependence; Z99.81 Dependence on supplemental oxygen; Z79.01 Long term (current) use of anticoagulants; Z79.52 Long term (current) use of systemic steroids; Z79.84 Long term (current) use of oral hypoglycemic drugs; Z79.899 Other long term (current) drug therapy
CPT/HCPCS: 0241U; 36415; 71046; 80048; 80053; 82272; 82803; 82947; 83605; 83735; 83880; 84484; 85025; 85610; 85730; 87040; 93005; 94640; 99212; 99284; 99285; J2920; J2930

== ENCOUNTER → 2023-09-20 20:00 | Outpatient (BNV) | payer MEDICARE, SELFPAY | PROVIDERS: Admitting Provider Student in an Organized Health Care Education/Training Program; Emergency Provider Emergency Medicine; PCP Internal Medicine; Visit Provider Student in an Organized Health Care Education/Training Program | DX: J96.21 Acute and chronic respiratory failure with hypoxia (principal) | CPT/HCPCS: 99223; 99232; 99239; G0180 ==

== ENCOUNTER 2023-09-27 09:49 | Inpatient (IN) | payer MEDICARE, SELFPAY ==
[2023-09-27] VITALS (13 sets, daily range): BP systolic 104–140; BP diastolic 47–60; PULSE 77–107; RESP 16–30; TEMP 36.2–37.2; O2SAT 83–100; BMI 28.0
--- NOTE | ~2023-09-27 | XR_ITS ---
EXAMINATION: XR CHEST CLINICAL INFORMATION: Hypoxia. COMPARISON: 10/03/2023. TECHNIQUE: Frontal view of the chest was obtained. FINDINGS: The cardiomediastinal silhouette is stable. An endotracheal tube is again noted in adequate position above the kelly. An apparent right central line is in a stable position extending towards the chest wall. A gastric tube extends below the diaphragm beyond the field of imaging. Diffuse bilateral infiltrates are again seen unchanged. XR/XR chest 1V IMPRESSION: Stable chest.
--- NOTE | ~2023-09-27 | XR_ITS ---
EXAMINATION: PORTABLE CHEST 1 VIEW CLINICAL INFORMATION: Hemodialysis catheter placement. COMPARISON: Prior studies including the 10/04/2023 chest x-ray and 09/30/2023 CT scan. TECHNIQUE: Portable frontal view of the chest was obtained. FINDINGS: Endotracheal tube tip approximately 5 cm above the kelly. Nasogastric tube below the level the diaphragm. Right IJ central venous catheter is again noted to have an aberrant course directed laterally likely overlying the subclavian vein. There has been interval placement of a large bore left IJ central venous catheter with the tip likely overlying the midline innominate vein with this orientation. From this projection, the tip also overlies the ascending aorta/aortic arch and correlation will be needed clinically. No pneumothorax. Hazy bilateral airspace disease is again noted worse from the prior study suggesting fluid overload/edema. No significant effusion. Cardiac silhouette is prominent but unchanged. Extensive vascular calcification in aorta. XR/XR chest 1V IMPRESSION: Tubes and lines as described. There has been interval placement of a large bore left IJ central venous dialysis catheter with the tip likely overlying the midline innominate vein. From this single rotated chest x-ray projection, the tip unfortunately also overlies the midline ascending aorta/aortic arch and correlation will be needed clinically. Consider blood gas if needed. No pneumothorax. Persistent hazy bilateral airspace disease suggesting fluid overload/edema. No significant effusion. This critical result was discussed with Dr Mathieu Musa at 10/06/2023 10:30 AM and it was ascertained that the content and urgency of the report was understood at the time of direct communication.
--- NOTE | ~2023-09-27 | XR_ITS ---
EXAMINATION: XR CHEST CLINICAL INFORMATION: Shortness of breath. Hypoxia. COMPARISON: Chest x-ray September 27, 2023 TECHNIQUE: Frontal view of the chest was obtained. FINDINGS: Cardiac silhouette is stable. The lungs are adequately aerated. Similar diffuse coarsening of the interstitial markings. Worsening left retrocardiac opacity. Suspected small left-sided pleural effusion. No pneumothorax. XR/XR chest 1V IMPRESSION: Worsening left retrocardiac opacity. This may represent atelectasis, however, a developing infiltrate is also within the differential.
--- NOTE | ~2023-09-27 | XR_ITS ---
EXAMINATION: XR CHEST CLINICAL INFORMATION: Confirm placement of right triple lumen catheter COMPARISON: Chest radiograph 10/01/[address] chest 09/30/2023 TECHNIQUE: Frontal view of the chest was obtained. FINDINGS: Since the prior exam, a right internal jugular catheter has been placed which extends into the subclavian vein with its tip at the thoracic inlet. When comparison is made to the CT scan, one can see that the distal right jugular vein points towards the subclavian vein and there is about a 90 degree angle downward to enter the SVC. No pneumothorax. An NG tube is present with its tip in the stomach. An ET tube is in good position 4.5 cm above the kelly Heart size normal. Again seen is airspace and interstitial disease which appears more consolidative in the right mid lung with some improvement at the left lung base. XR/XR chest 1V IMPRESSION: 1. Right internal jugular catheter extends into the subclavian vein with its tip at the thoracic inlet. Please see discussion above. 2. ET tube and NG tube in good position. 3. Bilateral airspace and interstitial disease as described above.
--- NOTE | ~2023-09-27 | XR_ITS ---
EXAMINATION: XR CHEST CLINICAL INFORMATION: Chest pain COMPARISON: 09/20/2023 TECHNIQUE: Frontal view of the chest was obtained. FINDINGS: Cardiac silhouette remains prominent, aortic calcifications again seen. Vascularity has increased. No consolidations. Left base atelectasis and indistinct costophrenic angle. There is curvature of the spine to the left. XR/XR chest 1V IMPRESSION: Mild vascular congestion. Left base atelectasis, small left effusion not excluded.
--- NOTE | ~2023-09-27 | CT_ITS ---
EXAMINATION: CT CHEST WITHOUT CONTRAST CLINICAL INFORMATION: 78-year-old with hypoxia COMPARISON: 09/10/2023 TECHNIQUE: Multidetector volumetric CT imaging of the chest was done. Axial MIP volume rendering provided. Sagittal and coronal reformatted images were obtained. This CT examination was performed using dose optimization techniques as appropriate, variously including the following: *Automated exposure control *Adjustment of mA and/or kV according to patient size (this includes techniques or standardized protocols for targeted exams where dose is matched to indication/reason for exam; i.e. extremities or head) *Use of iterative reconstruction technique DLP: 232 mGy-cm FINDINGS: CENTRAL OFFICE MAINTAINER: Limited for evaluation LUNGS: There are increased interstitial markings and consolidation in the dependent portion of right upper lobe, associated with more prominent honeycombing and septal thickening. Left upper lobe demonstrate increased interstitial markings and ill-defined peribronchial opacities. Right lower lobe diminished in volume and there is increased peribronchial cuffing and right lower lobe consolidation adjacent to small pleural effusion. Left lower lobe revealed peribronchial cuffing and patchy consolidation adjacent to small pleural effusion MEDIASTINUM: There is mediastinal lymphadenopathy, stable since previous study aorta is nondilated but calcified. There is trace of pericardial effusion. Coronary artery calcifications present, heavily.. PLEURA: There is small bilateral pleural effusion. AXILLA: No lymphadenopathy. UPPER ABDOMEN: Unremarkable. OSSEOUS STRUCTURES: There is stable, chronic compression deformity of T8 CT/CT chest wo IV con IMPRESSION: 1. Chronic interstitial lung disease with honeycombing in the right upper lobe and bilateral lower lobes. 2. Small bilateral pleural effusions. 3. Stable mediastinal lymphadenopathy. 4. Trace pericardial effusion. 5. Coronary artery calcifications. 6. Stable chronic compression deformity of T8. 7. Worsening interval change since previous study. Fleischner guidelines were followed.4
--- NOTE | ~2023-09-27 | XR_ITS ---
EXAMINATION: XR CHEST CLINICAL INFORMATION: ET tube placement COMPARISON: Chest x-ray 09/28/2023 TECHNIQUE: Frontal view of the chest was obtained. FINDINGS: There are bilateral increase interstitial markings and bibasilar haziness likely effusion or underlying infiltrate/atelectasis. The interstitial density has increased since last exam exam. Tip of endotracheal tube is 3.2 cm above the kelly. Tip of enteric tube is below diaphragm the stomach. No gross bony abnormality seen. XR/XR chest 1V IMPRESSION: New endotracheal tube and enteric tube are in satisfactory position. Diffuse increased chronic interstitial markings and bibasilar haziness has increased since 09/20/2023
--- NOTE | 2023-09-27 09:55 | ECG_ITS ---
Test Reason : sob Blood Pressure : / mmHG Vent. Rate : 096 BPM Atrial Rate : 000 BPM P-R Int : 000 ms QRS Dur : 084 ms QT Int : 334 ms P-R-T Axes : 000 054 071 degrees QTc Int : 421 ms Poor data quality Atrial fibrillation Abnormal ECG When compared with ECG of 20-SEP-2023 16:45, No significant change was found Referred By: Rosibel Gamino Electronically Signed By:RAMON HILLIARD MD
[2023-09-27] MEDS: Albuterol Sulfate 7.5 MG, Albuterol/Iprat 2.5/0.5MG 3 ML 3 ML INHALE (10:10)
--- NOTE | 2023-09-27 10:15 | ED.SOB ---
HPI - SOB/Dyspnea General Chief Complaint: Dyspnea Stated Complaint: SOB, ON BIPAP Time Seen by Provider: 09/27/23 09:55 History of Present Illness HPI Narrative: Patient is a 78-year-old female with a long history of COPD. Baseline patient is on 2 L of oxygen at home. Previous admission to the hospital for respiratory failure. Presented today with having increasing shortness of breath unable to give detailed history. EMS noted patient desatted quickly when oxygen is switch. She is placed on BiPAP sent to the emergency department further evaluation history of diastolic cardiac failure history of coronary artery disease Related Data Home Medications Medication Instructions Recorded Confirmed cholecalciferol (vitamin D3) 25 25 mcg PO DAILY 09/14/20 09/20/23 mcg (1,000 unit) capsule multivitamin (Daily Multi-Vitamin 1 tab PO DAILY 09/18/21 09/20/23 tablet) glipizide 5 mg tablet 2.5 mg PO BEDTIME 03/20/22 09/20/23 amlodipine 10 mg tablet 10 mg PO DAILY 08/19/23 09/20/23 glipizide 5 mg tablet 5 mg PO DAILY 09/05/23 09/20/23 Previous Rx's Medication Instructions Recorded rosuvastatin 40 mg tablet 40 mg PO DAILY 90 days #90 tabs 08/13/23 apixaban 5 mg tablet (Eliquis) 5 mg PO BID #60 tabs 09/14/23 digoxin 125 mcg (0.125 mg) tablet 0.125 mg PO Q2D #30 tabs 09/14/23 diltiazem HCl 180 mg 180 mg PO DAILY #30 caps 09/14/23 capsule,extended release 24 hr (Cardizem CD) furosemide 40 mg tablet 80 mg PO DAILY #30 tabs 09/14/23 sildenafil (pulm.hypertension) 20 20 mg PO TID #90 tabs 09/14/23 mg tablet hydrocortisone acetate 25 mg 25 mg IL BID #24 ea 09/17/23 rectal suppository (Anusol-HC) prednisone 5 mg tablet 5 mg PO BID COPD #40 tabs 09/18/23 prednisone 20 mg tablet 40 mg (2 x 20 mg) PO DAILY #6 tabs 09/22/23 Allergies Allergy/AdvReac Type Severity Reaction Status Date / Time No Known Allergies Allergy Verified 09/20/23 14:37 [No Known Allergies*] Review of Systems Review of Systems: Positive shortness of breath Limited review systems secondary to patient's condition [facility] Past Medical History Attestation statement: The following information was validated with the patient. Medical History Chronic lung disease Type 2 diabetes mellitus with unspecified complications Diabetes Hyperlipidemia Hypertension Chronic diastolic heart failure Diastolic dysfunction CAD (coronary artery disease) Hypoxemia Restrictive lung disease COPD (chronic obstructive pulmonary disease) Surgical History History of left cataract surgery Stented coronary artery Family History Family History Father Diabetes Mother Unknown Social History Social History Household Members: Spouse Housing: House Do you presently have visiting nurse or other home services: Yes Patient Tobacco Use Status: Former Tobacco user Quit Date: 25 years ago Smoked in Last 30 Days: No Use of substances other than those prescribed or required for medical reasons: No Advance Directives: Yes Advance Directives on File: Yes Advance Directives Date on File: 01/28/23 service: No Physical Exam Vital Signs: Vital Signs: Last Vital Signs Temp 98.0 F 09/27/23 09:49 Pulse 95 09/27/23 11:44 Resp 20 09/27/23 11:44 BP 104/49 L 09/27/23 11:44 Pulse Ox 89 L 09/27/23 11:44 O2 Del Method Room Air 09/27/23 11:44 O2 Flow Rate 4 09/27/23 10:56 BMI result Body Mass Index 28.0 Appearance: Alert. Oriented X3. In respiratory distress Eyes: Pupils equal, round and reactive to light. ENT: Pharynx normal. Neck: Normal inspection. Neck supple. No lymph nodes noted. No crepitus CVS: Normal heart rate and rhythm. Pulses normal. Normal S1 and S2 Respiratory: Increased work of breathing diminished breath sounds bilaterally Abdomen: Soft and nontender. No rigidity. No distention. good BS x4 Skin: Skin warm and dry. Normal skin color. Normal skin turgor. Extremities: No lower extremity edema. Neurovascular intact to all extremities. No Lacerations. No Rash Neuro: Oriented X 3. No motor deficit. No sensory deficit. Moving all extermities. No slurred speech Medications Administered Discontinued Medications Generic Name Dose Route Start Last Admin Trade Name Deandre PRN Reason Stop Dose Admin Albuterol Sulfate 7.5 mg/ 0 mg 09/27/23 10:02 09/27/23 10:10 Albuterol/Ipratropium 3 ml INHALE 09/27/23 10:03 3 each ONCE ONE Administration Magnesium Sulfate 2 gm in 50 mls @ 25 mls/hr 09/27/23 09:59 09/27/23 10:34 Magnesium Sulfate/H2o IV 09/27/23 11:58 Infused ONCE ONE Infusion Methylprednisolone Sodium Succinate 125 mg 09/27/23 09:59 09/27/23 10:19 Methylprednisolone Sod Succ 125 Mg/2 Ml Vial IVPUSH 09/27/23 10:00 125 mg ONCE ONE Administration Ondansetron HCl 4 mg 09/27/23 09:55 09/27/23 10:19 Ondansetron Hcl 4 Mg/2 Ml Vial IVPUSH 09/27/23 09:56 4 mg ONCE ONE Administration Medical Decision Making Medical Decision Making [facility] Narrative: Patient has an history of AFib currently is on Eliquis been compliant with medication making PE less likely. Has diminished breath sounds bilaterally history of COPD the sats quickly. A quick bedside ultrasound was done. It showed no evidence of pneumothorax. Evidence for limited amount of B-lines. More consistent with COPD. Bedside echo the patient's heart showed good contractility. I did not appreciate any fullness in the IVC. Good respiratory variation. Symptoms are more consistent with COPD. Steroids started. Neb treatment started. X-ray being done. ABG pending. Will keep patient on BiPAP. Upon reviewing patient's chart she has a previous history of CAD. Had a stent placed in 2018 for a right coronary occlusion. Patient is given neb treatments symptomatic Kathy improved. Patient's BMP is low consistent with COPD. ABG by my interpretation showed no CO2 retention. Actually has a alkalosis. Patient troponin was elevated but a 2nd set of troponin is approximately the same level. Patient's EKG is not changed. [place] this is more likely secondary to COPD. Case discussed with cardiology felt comfortable with plan. Patient to be admitted. Differential Diagnosis Differential Diagnoses: The differential diagnosis associated with the presentation includes Congestive heart failure, COPD, pneumonia, pneumothorax Admission/Observation Consideration of admission/observation: Escalation of care including admission/observation considered Consult Healthcare Provider Management of the patient was discussed with: Hospitalist and Car Salesperson Cardiology Lab Data MDM Lab Attestation statement: I reviewed the patient's lab results. 09/27/23 10:16 09/27/23 10:16 Labs: Lab Results 09/27/23 09/27/23 09/27/23 Range/Units 10:16 10:17 10:34 WBC 13.6 H (4.8-10.8) X10*3/uL RBC 4.77 (4.20-5.50) X10*6/uL Hgb 12.5 (12.0-16.0) g/dl Hct 40.2 (37.0-47.0) % MCV 84.3 (80.0-98.0) fL MCH 26.2 L (27.0-33.0) pg MCHC 31.1 (31.0-35.0) g/dl RDW 17.6 H (11.0-16.0) % Plt Count 177 (160-400) X10*3/uL MPV 11.3 (9.4-12.3) fL Immature Gran % (Auto) 0.4 (0.0-0.4) % Neut % (Auto) 92.8 H (45-73) % Lymph % (Auto) 3.7 L (20-40) % [place] % (Auto) 1.5 L (2-11) % Eos % (Auto) 1.5 (0-4) % Baso % (Auto) 0.1 (0-2) % Lymph # (Auto) 0.5 L (1.2-4.9) X10*3/uL [place] # (Auto) 0.2 (0.1-1.2) X10*3/uL Eos # (Auto) 0.2 (0.0-0.4) X10*3/uL Baso # (Auto) 0.0 (0.0-0.2) X10*3/uL Abs Immat Gran (auto) 0.06 H (0.00-0.03) X10*3/uL Absolute Neuts (auto) 12.6 H (2.0-8.3) x10*3/uL Absolute Nucleated RBC 0.000 (0.0-0.012) X10*3/uL Nucleated RBC % (auto) 0.0 (0.0-0.2) /100WBC Smear Tech's Comments VERIFIED O2 Saturation 100.0 % ABG pH at Pt Temp 7.49 H (7.35-7.45) ABG pCO2 at Pt Temp 44 (32-45) mmHg ABG pO2 at Pt Temp 156 H (83-108) mmHg ABG HCO3 33 H (22-26) mmol/L ABG Base Excess (Actual) 9.5 mmol/L Sodium 136 (135-145) mmol/L Potassium 3.5 (3.3-5.1) mmol/L Chloride 94 L (96-108) mmol/L Carbon Dioxide 30 H (22-29) mmol/L Anion Gap 16 (12-20) BUN 51 H (9-16) mg/dL Creatinine 1.71 H (0.5-1.4) mg/dL Estim Creat Clear Calc 26.7 Estimated GFR 29 Random Glucose 269 H (60-115) mg/dL Lactic Acid 0.9 (0.5-2.0) mmol/L Calcium 9.2 (8.4-10.2) mg/dL Total Bilirubin 0.8 (0.0-1.0) mg/dL Direct Bilirubin 0.4 (0.0-0.5) mg/dL AST 42 H (5-31) U/L ALT 122 H (0-31) U/L Alkaline Phosphatase 90 (39-117) U/L Troponin I High Sens 296.7 H* D (<3.5-17.0) ng/L B-Natriuretic Peptide 691 H (<100) pg/mL Total Protein 6.1 L (6.5-8.0) g/dL Albumin 3.3 L (3.5-5.0) g/dL 09/27/23 Range/Units 11:50 WBC (4.8-10.8) X10*3/uL RBC (4.20-5.50) X10*6/uL Hgb (12.0-16.0) g/dl Hct (37.0-47.0) % MCV (80.0-98.0) fL MCH (27.0-33.0) pg MCHC (31.0-35.0) g/dl RDW (11.0-16.0) % Plt Count (160-400) X10*3/uL MPV (9.4-12.3) fL Immature Gran % (Auto) (0.0-0.4) % Neut % (Auto) (45-73) % Lymph % (Auto) (20-40) % [place] % (Auto) (2-11) % Eos % (Auto) (0-4) % Baso % (Auto) (0-2) % Lymph # (Auto) (1.2-4.9) X10*3/uL [place] # (Auto) (0.1-1.2) X10*3/uL Eos # (Auto) (0.0-0.4) X10*3/uL Baso # (Auto) (0.0-0.2) X10*3/uL Abs Immat Gran (auto) (0.00-0.03) X10*3/uL Absolute Neuts (auto) (2.0-8.3) x10*3/uL Absolute Nucleated RBC (0.0-0.012) X10*3/uL Nucleated RBC % (auto) (0.0-0.2) /100WBC Smear Tech's Comments O2 Saturation % ABG pH at Pt Temp (7.35-7.45) ABG pCO2 at Pt Temp (32-45) mmHg ABG pO2 at Pt Temp (83-108) mmHg ABG HCO3 (22-26) mmol/L ABG Base Excess (Actual) mmol/L Sodium (135-145) mmol/L Potassium (3.3-5.1) mmol/L Chloride (96-108) mmol/L Carbon Dioxide (22-29) mmol/L Anion Gap (12-20) BUN (9-16) mg/dL Creatinine (0.5-1.4) mg/dL Estim Creat Clear Calc Estimated GFR Random Glucose (60-115) mg/dL Lactic Acid (0.5-2.0) mmol/L Calcium (8.4-10.2) mg/dL Total Bilirubin (0.0-1.0) mg/dL Direct Bilirubin (0.0-0.5) mg/dL AST (5-31) U/L ALT (0-31) U/L Alkaline Phosphatase (39-117) U/L Troponin I High Sens 293.3 H* (<3.5-17.0) ng/L B-Natriuretic Peptide (<100) pg/mL Total Protein (6.5-8.0) g/dL Albumin (3.5-5.0) g/dL ABG Data ABG Results: Patient's pH was 7.49 with a pCO2 in the 40s. Has a slight metabolic alkalosis no CO2 retention. Interpretation: See above Independent Interpretation I performed an independent interpretation of an: EKG (My interpretation of patient's EKG showed an atrial fibrillation pattern heart rate is approximately 90 there is no significant changes from previous. When EKG was compared to the 1 earlier in September. There is LVH noted.) and Plain X-Ray (No acute infiltrate) Interpretation: Positive LVH. Radiology Impression Discussion of test interpretation with radiology: I have reviewed the radiologist's reading. Independent Historian Clinical information obtained from an independent historian. History obtained from or confirmed by: Spouse External Record Review External record reviewed: Inpatient record Previous records reviewed Chronic Conditions AFib, COPD Critical Care Time Critical Care Time Critical Care Time: Yes Total Critical Care Time: 40 Attestation: I have personally provided 40 minutes of critical care time exclusive of time spent on separately billable procedures. Time includes review of lab data, radiology results, discussion with consultants, and monitoring for potential decompensation. Interventions were performed as documented above Discharge Plan Discharge Clinical Impression: COPD (chronic obstructive pulmonary disease) Patient Disposition: Admitted As Inpatient Prescriptions: No Action rosuvastatin 40 mg tablet 40 mg PO DAILY 90 Days Qty: 90 3RF hydrocortisone acetate [Anusol-HC] 25 mg suppository 25 mg IL BID Qty: 24 0RF glipizide 5 mg tablet 5 mg PO DAILY furosemide 40 mg Tablet 80 mg PO DAILY Qty: 30 0RF Protocol: Hold for SBP< HOLD for SBP < : 90 diltiazem HCl [Cardizem CD] 180 mg Capsule,Extended Release 24hr 180 mg PO DAILY Qty: 30 0RF Protocol: Hold for SBP/HR < HOLD for SBP < : 90 HOLD for HR < : 60 digoxin 125 mcg (0.125 mg) Tablet 0.125 mg PO Q2D Qty: 30 0RF sildenafil (pulm.hypertension) 20 mg Tablet 20 mg PO TID Qty: 90 0RF Eliquis 5 mg Tablet 5 mg PO BID Qty: 60 0RF prednisone 20 mg tablet 40 mg PO DAILY Qty: 6 0RF cholecalciferol (vitamin D3) 25 mcg (1,000 unit) capsule 25 mcg PO DAILY multivitamin [Daily Multi-Vitamin] Tablet 1 tab PO DAILY glipizide 5 mg tablet 2.5 mg PO BEDTIME amlodipine 10 mg tablet 10 mg PO DAILY prednisone 5 mg tablet 5 mg PO BID Qty: 40 2RF Rx Instructions: 5 mg tab, 2 a day for one week , then one tab a day to continue
[2023-09-27] MEDS: methylPREDNISolone Sod Succ 125 MG/2 ML VIAL IVPUSH (10:19)
[2023-09-27] MEDS: ondansetron HCL 4 MG/2 ML VIAL IVPUSH (10:19)
[2023-09-27] MEDS: Magnesium Sulfate/H2O 2 GM/50 ML PIGGYBACK IV (10:19)
[2023-09-27 10:35] LABS: Basophils Percent Auto 0.1 % (0-2); Eosinophils Absolute Auto 0.2 X10*3/uL (0.0-0.4); Eosinophils Percent Auto 1.5 % (0-4); Hematocrit 40.2 % (37.0-47.0); Hemoglobin 12.5 g/dl (12.0-16.0); Imm Gran Abs Auto 0.06 X10*3/uL (0.00-0.03); Imm Gran Pct Auto 0.4 % (0.0-0.4); Lymphocytes Absolute Auto 0.5 X10*3/uL (1.2-4.9); Lymphocytes Percent Auto 3.7 % (20-40); MANUAL DIFF FLAG SCAN; Mean Corpuscular HGB Conc 31.1 g/dl (31.0-35.0); Mean Corpuscular Hemoglobin 26.2 pg (27.0-33.0); Mean Corpuscular Volume 84.3 fL (80.0-98.0); Mean Platelet Volume 11.3 fL (9.4-12.3); Monocytes Absolute Auto 0.2 X10*3/uL (0.1-1.2); Monocytes Percent Auto 1.5 % (2-11); Neutrophils Absolute Auto 12.6 x10*3/uL (2.0-8.3); Neutrophils Percent Auto 92.8 % (45-73); Platelet Count 177 X10*3/uL (160-400); Red Blood Count 4.77 X10*6/uL (4.20-5.50); Red Cell Distribution Width 17.6 % (11.0-16.0); SCAN SMEAR FLAG 1; White Blood Count 13.6 X10*3/uL (4.8-10.8)
[2023-09-27 10:40] LABS: ABG Base Excess 9.5 mmol/L; ABG HCO3 33 mmol/L (22-26); ABG pCO2 44 mmHg (32-45); ABG pH 7.49 (7.35-7.45); ABG pO2 156 mmHg (83-108)
[2023-09-27 10:43] LABS: Alanine Aminotransferase 122 U/L (0-31); Albumin Level 3.3 g/dL (3.5-5.0); Alkaline Phosphatase 90 U/L (39-117); Anion Gap 16 (12-20); Aspartate Amino Transferase 42 U/L (5-31); Bilirubin Direct 0.4 mg/dL (0.0-0.5); Bilirubin Total 0.8 mg/dL (0.0-1.0); Blood Urea Nitrogen 51 mg/dL (9-16); Calcium 9.2 mg/dL (8.4-10.2); Carbon Dioxide 30 mmol/L (22-29); Chloride 94 mmol/L (96-108); Creatinine Clr Calc Pharmacy 26.7; Estimated Glomerular Filt Rate 29; Glucose Random 269 mg/dL (60-115); Lactic Acid 0.9 mmol/L (0.5-2.0); Potassium 3.5 mmol/L (3.3-5.1); Sodium 136 mmol/L (135-145); Total Protein 6.1 g/dL (6.5-8.0)
[2023-09-27 10:50] LABS: B Type Natriuretic Peptide 691 pg/mL (<100)
--- NOTE | 2023-09-27 11:14 | ECG_ITS ---
Test Reason : repeat Blood Pressure : / mmHG Vent. Rate : 100 BPM Atrial Rate : 000 BPM P-R Int : 000 ms QRS Dur : 090 ms QT Int : 340 ms P-R-T Axes : 000 007 136 degrees QTc Int : [address] & T wave abnormality, consider lateral ischemia Abnormal ECG When compared with ECG of 27-SEP-2023 10:02, ST more depressed Lateral leads Referred By: Rosibel Gamino Electronically Signed By:RAMON HILLIARD MD
[2023-09-27 11:25] LABS: SLIDE REVIEW VERIFIED
[2023-09-27 12:20] LABS: Troponin-I High Sensitivity 296.7 ng/L (<3.5-17.0)
[2023-09-27 12:21] LABS: Troponin-I High Sensitivity 293.3 ng/L (<3.5-17.0)
--- NOTE | 2023-09-27 14:11 | PHA.MEDREC ---
Pharmacy Consult ? Medication Reconciliation Pharmacy has completed the medication reconciliation. Patient and have no idea what she is taking. Reported they have too many medications in their home. Unsure if she is still taking prednisonse, recently rescribed Prednisone 5 mg BID x 7 days then [address] Solomon on 09/18 that patient should be still on. Patient also prescribed hydrocoristone suppositores while in the ER on 09/20, they report sometimes using it. Mary Webber, CristhianD
[2023-09-27 14:15] LABS: Influenza A PCR NEGATIVE (Negative); Influenza B PCR NEGATIVE (Negative); Resp Syncy Virus RNA Qual PCR NEGATIVE (Negative); SARS COV2 PCR INHOUSE NEGATIVE (Negative)
--- NOTE | 2023-09-27 14:43 | P.HPHOSP_ITS ---
History of Present Illness Date of Service: 09/27/23 Attending physician on admission: Lopez Riggs Chief Complaint: sob This is a 78-year-old female with history of COPD on 4 L of supplemental oxygen, type 2 diabetes, coronary artery disease, HFpEF, pulmonary hypertension, atrial fibrillation on Eliquis, interstitial lung disease, 2 recent admissions to the hospital in the past month who presents to the emergency department with shortness of breath. She was discharged home September 21 after a brief admission for ILD/COPD exacerbation. She was sent home with a few days of prednisone which she seems to have completed at this time. She was doing well initially but today her oxygen saturations were dropping with any movement and she became more short of breath. She denies any chest pain or palpitations. She has intermittent dry cough. She denies any associated fever, chills or recent sick contacts. In the emergency department patient was noted to have leukocytosis of 13.6 which is trending down from previous admissions. Renal function appear to be at baseline. Cardiac enzymes were noted to be elevated with a troponin of 296.7 and 293.3. BNP lower than previous at 691, chest x-ray showed mild vascular congestion with left basilar atelectasis and small left effusion not excluded. She was brought in by ambulance on BiPAP and transitioned to 8 L via OxyMask. She remained short of breath but has maintaining oxygen saturation in the low 90s. She received IV Solu-Medrol, IV magnesium and a breathing treatment in the decision was made to admit her to the hospital for further management of respiratory failure. Review of Systems 2 Review of Systems: Yes all other systems are reviewed and are negative Constitutional: Constitutional: Denies chills and Denies fever(s) Cardiovascular: Cardiovascular: Denies chest pain, Denies palpitations and Reports dyspnea Respiratory: Respiratory: Reports dyspnea Gastrointestinal: Gastrointestinal: Denies abdominal pain, Denies nausea and Denies vomiting Endocrine: Endocrine: Denies palpitations [facility] Medical History Chronic lung disease Type 2 diabetes mellitus with unspecified complications Diabetes Hyperlipidemia Hypertension Chronic diastolic heart failure Diastolic dysfunction CAD (coronary artery disease) Hypoxemia Restrictive lung disease COPD (chronic obstructive pulmonary disease) Family History Father Diabetes Mother Unknown Surgical History History of left cataract surgery Stented coronary artery Social History Household Members: Spouse Housing: House Do you presently have visiting nurse or other home services: Yes Patient Tobacco Use Status: Former Tobacco user Quit Date: 25 years ago Smoked in Last 30 Days: No Use of substances other than those prescribed or required for medical reasons: No Advance Directives: Yes Advance Directives on File: Yes Advance Directives Date on File: 01/28/23 service: No Meds Allergies Allergy/AdvReac Type Severity Reaction Status Date / Time No Known Allergies Allergy Verified 09/20/23 14:37 [No Known Allergies*] Active Medications: Current Medications Acetaminophen (Acetaminophen 325 Mg Tablet) 650 mg PO Q6H PRN PRN Reason: Pain, Mild (Pain Scale 1-3) Albuterol/Ipratropium (Albuterol/Iprat 2.5/0.5mg 3 Ml Ampul.Neb) 3 ml INHALE RQ4H WHILE AWAKE [facility] Albuterol/Ipratropium (Albuterol/Iprat 2.5/0.5mg 3 Ml Ampul.Neb) 3 ml INHALE Q4H PRN PRN Reason: Shortness of Breath/Wheezing Amlodipine Besylate (Amlodipine Besylate 10 Mg Tablet) 10 mg PO DAILY [facility]; Protocol Apixaban (Apixaban 5 Mg Tablet) 5 mg PO BID [facility] Atorvastatin Calcium (Atorvastatin Calcium 80 Mg Tablet) 80 mg PO DAILY [facility] Dextrose (Dextrose 50 % 25 Gm/50 Ml Syringe) 25 gm IVPUSH Q15M PRN; Protocol PRN Reason: per Hypoglycemia Standing Ord. Digoxin (Digoxin 0.125 Mg Tablet) 0.125 mg PO Q2D [facility] Diltiazem HCl (Diltiazem Hcl Cd 180 Mg Cap.Er.24h) 180 mg PO DAILY [facility]; Protocol Docusate Sodium (Docusate Sodium 100 Mg Capsule) 100 mg PO DAILY PRN PRN Reason: Constipation Glucose (Glucose Gel 15 Gm Gel..Gram.) 15 gm PO Q15M PRN; Protocol PRN Reason: per Hypoglycemia Standing Ord. Insulin Human Lispro (Insulin Lispro 100 Unit/Ml 3 Ml Vial) 0 unit SUBCUT QIDACHS [facility]; Protocol Methylprednisolone Sodium Succinate (Methylprednisolone Sod Succ 40 Mg/Ml Vial) 40 mg IVPUSH Q6H [facility] Non-Formulary Medication (Hydrocortisone Acetate [Anusol-Hc]) 25 mg SC BID [facility] Ondansetron HCl (Ondansetron Hcl 4 Mg/2 Ml Vial) 4 mg IVPUSH Q8H PRN PRN Reason: Nausea and Vomiting Sildenafil Citrate (Sildenafil Citrate 20 Mg Tablet) 20 mg PO TID [facility] Sodium Chloride (0.9 % Sodium Chloride Flush 3 Ml Syringe) 3 ml IVFLUSH QSHIFT [facility] Vitamin D (Cholecalciferol (Vitamin D3) 25 Mcg Tablet) 25 mcg PO DAILY [facility] Home Medications Medication Instructions Recorded Confirmed Last Taken Type cholecalciferol (vitamin D3) 25 25 mcg PO DAILY 09/14/20 09/27/23 09/05/23 History mcg (1,000 unit) capsule multivitamin (Daily Multi-Vitamin 1 tab PO DAILY 09/18/21 09/27/23 09/05/23 History tablet) glipizide 5 mg tablet 2.5 mg PO BEDTIME 03/20/22 09/27/23 09/04/23 History amlodipine 10 mg tablet 10 mg PO DAILY 08/19/23 09/27/23 09/05/23 History glipizide 5 mg tablet 5 mg PO DAILY 09/05/23 09/27/23 09/05/23 History prednisone 5 mg tablet 5 mg PO DAILY COPD 09/27/23 09/27/23 Unknown History Physical Exam 2 Vital Signs and Narrative: Vital Signs: Last Vital Signs Temp 98.0 F 09/27/23 14:31 Pulse 98 09/27/23 14:31 Resp 30 H 09/27/23 14:31 BP 127/52 L 09/27/23 14:31 Pulse Ox 91 L 09/27/23 14:31 O2 Del Method Oxymask 09/27/23 14:31 O2 Flow Rate 8 09/27/23 14:31 BMI result Body Mass Index 28.0 Const: General: cooperative, alert and awake Nutritional Appearance: o verweight Orientation/consciousness: patient oriented x3 Resp: Other: mild tachypnea, dim bases, no rales Cardio: Rhythm: abnormal rhythm irregularly irregular Heart sounds: Murmur heart sound present GI: Inspection: No distended Palpation (GI): Soft to palpation and nontender Neuro: General: patient oriented x3, moves all extremities and CN's II-XI intact bilaterally Extrem: Other: 1+ edema b/l lower extremities Results Labs 09/27/23 10:16 09/27/23 10:16 Labs: Laboratory Results - last 24 hr 09/27/23 09/27/23 09/27/23 10:16 10:17 10:34 MCV 84.3 MCH 26.2 L MCHC 31.1 RDW 17.6 H Plt Count 177 MPV 11.3 Immature Gran % (Auto) 0.4 Neut % (Auto) 92.8 H Lymph % (Auto) 3.7 L [place] % (Auto) 1.5 L Eos % (Auto) 1.5 Baso % (Auto) 0.1 Lymph # (Auto) 0.5 L [place] # (Auto) 0.2 Eos # (Auto) 0.2 Baso # (Auto) 0.0 Abs Immat Gran (auto) 0.06 H Absolute Neuts (auto) 12.6 H Absolute Nucleated RBC 0.000 Nucleated RBC % (auto) 0.0 Smear Tech's Comments VERIFIED O2 Saturation 100.0 ABG pH at Pt Temp 7.49 H ABG pCO2 at Pt Temp 44 ABG pO2 at Pt Temp 156 H ABG HCO3 33 H ABG Base Excess (Actual) 9.5 Anion Gap 16 Estim Creat Clear Calc 26.7 Estimated GFR 29 Random Glucose 269 H Lactic Acid 0.9 Calcium 9.2 Total Bilirubin 0.8 Direct Bilirubin 0.4 AST 42 H ALT 122 H Alkaline Phosphatase 90 B-Natriuretic Peptide 691 H Total Protein 6.1 L Albumin 3.3 L Influenza Type A (PCR) Influenza Type B (PCR) RSV RNA Qual (PCR) SARS-CoV-2 RNA (RT-PCR) 09/27/23 13:19 MCV MCH MCHC RDW Plt Count MPV Immature Gran % (Auto) Neut % (Auto) Lymph % (Auto) [place] % (Auto) Eos % (Auto) Baso % (Auto) Lymph # (Auto) [place] # (Auto) Eos # (Auto) Baso # (Auto) Abs Immat Gran (auto) Absolute Neuts (auto) Absolute Nucleated RBC Nucleated RBC % (auto) Smear Tech's Comments O2 Saturation ABG pH at Pt Temp ABG pCO2 at Pt Temp ABG pO2 at Pt Temp ABG HCO3 ABG Base Excess (Actual) Anion Gap Estim Creat Clear Calc Estimated GFR Random Glucose Lactic Acid Calcium Total Bilirubin Direct Bilirubin AST ALT Alkaline Phosphatase B-Natriuretic Peptide Total Protein Albumin Influenza Type A (PCR) NEGATIVE Influenza Type B (PCR) NEGATIVE RSV RNA Qual (PCR) NEGATIVE SARS-CoV-2 RNA (RT-PCR) NEGATIVE Imaging Radiologist's Impressions: Impressions Chest X-Ray 09/27/23 10:37 IMPRESSION: Mild vascular congestion. Left base atelectasis, small left effusion not excluded. Assessment and Plan (1) Acute and chronic respiratory failure with hypoxia: Status: Acute (2) ILD (interstitial lung disease): Status: Acute (3) Pulmonary hypertension: Status: Acute Plan This is a 78-year-old female with a PMH significant for?interstitial lung disease, COPD on 4L home O2, hve-bhgmdpu-ygxvlbevk dependent type 2 diabetes, HFpEF, CAD, AFib on Eliquis, two recent admissions who presents to the ED with?worsening shortness of breath. Pt will be admitted to the hospital for treatment and further evaluation of acute on chronic respiratory failure. Acute on chronic hypoxic respiratory failure secondary to COPD/ILD exacerbation on baseline 4L, currently on 8L oxymask Will treat with Solu-Medrol, DuoNebs scheduled and prn No increased phlegm production, will hold on antibiotics at this time, CXR without evidence for underlying pneumonia Titrate supplemental O2 >90, wean as tolerated Chronic HFpEF CXR with mild vascular congestion, BNP below levels from last admission, chronic leg edema which appears worse then baseline, given increase in oxygen demand will give one dose of IV lasix and assess for effect on 80 mg daily at baseline - resume as indicated CAD/HLD Continue statin elevated troponin likely type 2 secondary to demand from hypoxia no chest pain Wgv-aegnjhe-[id number] diabetes type 2 Hold home glipizide SSI, POCs, ADA diet transaminitis appears to be trending down from previous CKD4 renal function at baseline persistent Atrial fibrillation HR uncontrolled due to breathing treatments/respiratory status Continue digoxin, diltiazem, Eliquis HTN continue norvasc, diltiazem Pulmonary hypertension Continue sildenafil Leukocytosis Secondary to steroid use, not sepsis or active infection Patient does not meet sepsis criteria code status: Full Code Attending:?Dr. Riggs DVT Prophylaxis:Eliquis Patient likely requires two midnight stay for management of respiratory failure, close monitoring of respiratory status Time Spent With Patient Time: Total time managing care of this patient today ____ minutes. Quality Stroke Does the patient have a stroke diagnosis?: No VTE Prior VTE?: No VTE Risk Level:: Medical - moderate - high VTE Device Contraindication: N/A - Device Ordered VTE Drug Contraindication: N/A - Med Ordered
[2023-09-27] MEDS: Furosemide 40 MG/4 ML VIAL IVPUSH (14:48)
--- NOTE | 2023-09-27 15:11 | PC.NURSE ---
this RN spoke to patients who stated he will be able to bring in patients suppositories
[2023-09-27] MEDS: Sildenafil Citrate 20 MG TABLET PO ×2 (15:17→21:32)
[2023-09-27 16:02] LABS: ABG Refer to POC result
[2023-09-27] MEDS: Albuterol/Iprat 2.5/0.5MG 3 ML AMPUL.NEB INHALE ×2 (16:17→19:11)
[2023-09-27 17:26] LABS: Glucose, Whole Blood 457 mg/dL (60-115)
[2023-09-27] MEDS: Insulin Lispro 100 UNIT/ML 3 ML VIAL SUBCUT ×2 (18:18→21:31)
--- NOTE | 2023-09-27 19:18 | PC.NURSE ---
This personal lines underwriter assumed care of pt at 1900, Pt is denying pain/SOB. Pt satting at 82% on 12L oxy mask. RT at bedside, started on breathing treatment. O2 forehead probe applied, confirm of SpO2 continues to be 84%. RT and Dr. Calvin aware that pt is going up to [facility] with this Spo2 reading, due to ABG reading. Will make floor nurse aware. Pt and family aware of plan of care.
--- NOTE | 2023-09-27 19:29 | PC.NURSE ---
RN to RN report given to Mary Carmen. Pt will be transported to room 461. Pt aware of plan.
--- NOTE | 2023-09-27 19:31 | MHC.EDTECH ---
Patient changed over and repostioned
[2023-09-27] MEDS: methylPREDNISolone Sod Succ 40 MG/ML VIAL IVPUSH (20:08)
[2023-09-27 20:47] LABS: Glucose, Whole Blood > 600 mg/dL (60-115)
[2023-09-27] MEDS: Insulin Regular, Human 100 UNIT/ML 3 ML VIAL 10 UNIT IVPUSH (21:30)
[2023-09-27] MEDS: Insulin Glargine,Hum.rec.anlog 100 UNIT/ML 10 ML VIAL 15 UNIT SUBCUT (21:31)
[2023-09-27] MEDS: Apixaban 5 MG TABLET PO (21:32)
[2023-09-27] MEDS: Potassium Chloride Packet 20 MEQ PACKET 40 MEQ PO (21:32)
[2023-09-27 23:44] LABS: Glucose, Whole Blood 506 mg/dL (60-115)
[2023-09-28] VITALS (18 sets, daily range): BP systolic 104–125; BP diastolic 45–56; PULSE 74–105; RESP 20–28; TEMP 36.3–37.6; O2SAT 87–97
[2023-09-28 01:10] LABS: Glucose, Whole Blood 411 mg/dL (60-115)
[2023-09-28] MEDS: Insulin Regular, Human 100 UNIT/ML 3 ML VIAL IVPUSH (01:35)
[2023-09-28] MEDS: methylPREDNISolone Sod Succ 40 MG/ML VIAL IVPUSH ×4 (01:38→19:38)
[2023-09-28 07:09] LABS: Basophils Percent Auto 0.1 % (0-2); Hematocrit 31.7 % (37.0-47.0); Hemoglobin 10.3 g/dl (12.0-16.0); Imm Gran Abs Auto 0.15 X10*3/uL (0.00-0.03); Imm Gran Pct Auto 0.9 % (0.0-0.4); Lymphocytes Absolute Auto 0.3 X10*3/uL (1.2-4.9); Lymphocytes Percent Auto 1.6 % (20-40); MANUAL DIFF FLAG SCAN; Mean Corpuscular HGB Conc 32.5 g/dl (31.0-35.0); Mean Corpuscular Hemoglobin 26.5 pg (27.0-33.0); Mean Corpuscular Volume 81.7 fL (80.0-98.0); Mean Platelet Volume 10.9 fL (9.4-12.3); Monocytes Absolute Auto 0.1 X10*3/uL (0.1-1.2); Monocytes Percent Auto 0.7 % (2-11); Neutrophils Absolute Auto 15.6 x10*3/uL (2.0-8.3); Neutrophils Percent Auto 96.7 % (45-73); Platelet Count 148 X10*3/uL (160-400); Red Blood Count 3.88 X10*6/uL (4.20-5.50); Red Cell Distribution Width 17.3 % (11.0-16.0); SCAN SMEAR FLAG 1; White Blood Count 16.1 X10*3/uL (4.8-10.8)
[2023-09-28] MEDS: Albuterol/Iprat 2.5/0.5MG 3 ML AMPUL.NEB INHALE ×4 (07:18→19:31)
[2023-09-28 07:28] LABS: Glucose, Whole Blood 235 mg/dL (60-115)
[2023-09-28 07:31] LABS: Anion Gap 17 (12-20); Blood Urea Nitrogen 60 mg/dL (9-16); Calcium 9.4 mg/dL (8.4-10.2); Carbon Dioxide 26 mmol/L (22-29); Chloride 92 mmol/L (96-108); Creatinine Clr Calc Pharmacy 24.1; Estimated Glomerular Filt Rate 26; Glucose Random 249 mg/dL (60-115); Potassium 4.5 mmol/L (3.3-5.1); Sodium 130 mmol/L (135-145)
[2023-09-28 07:52] LABS: SLIDE REVIEW VERIFIED
[2023-09-28] MEDS: Sildenafil Citrate 20 MG TABLET PO ×2 (08:49→22:19)
[2023-09-28] MEDS: Atorvastatin Calcium 80 MG TABLET PO (08:49)
[2023-09-28] MEDS: dilTIAZem HCL CD 180 MG CAP.ER.24H PO (08:49)
[2023-09-28] MEDS: Apixaban 5 MG TABLET PO ×2 (08:49→22:19)
[2023-09-28] MEDS: amLODIPine Besylate 10 MG TABLET PO (08:49)
[2023-09-28] MEDS: Cholecalciferol (Vitamin D3) 25 MCG TABLET PO (08:50)
[2023-09-28] MEDS: 0.9 % Sodium Chloride Flush 3 ML SYRINGE IVFLUSH ×3 (08:50→22:23)
[2023-09-28] MEDS: Insulin Lispro 100 UNIT/ML 3 ML VIAL SUBCUT ×7 (08:50→21:02)
--- NOTE | 2023-09-28 09:33 | HO.PM.IMPN ---
Subjective Subjective Date of Service: 09/28/23 Interval History: seen and examined this morning follow up for COPD exacerbation breathing a little better today, still LITTLE, minimal dry cough Review of Systems Review of Systems: Yes all other systems are reviewed and are negative Constitutional Constitutional: Denies chills and Denies fever(s) Cardiovascular Cardiovascular: Denies chest pain, Denies palpitations, Reports dyspnea and Reports dyspnea on exertion Respiratory Respiratory: Reports cough, Reports dyspnea and Reports dyspnea on exertion Endocrine Endocrine: Denies palpitations Physical Exam Vital Signs: Vital Signs: Last Vital Signs Temp 98.8 F 09/28/23 07:20 Pulse 85 09/28/23 07:22 Resp 20 09/28/23 07:22 BP 113/55 L 09/28/23 07:20 Pulse Ox 93 09/28/23 07:20 O2 Del Method Oxymask 09/28/23 07:20 O2 Flow Rate 10 09/28/23 07:20 BMI result Body Mass Index 28.0 Appearing in no acute distress lung sounds are clear to auscultation heart regular rate rhythm, clear S1, S2 positive bowel sounds, abdomen is soft, nontender neuro patient is alert x3, no focal deficits Objective Data Active Medications Acetaminophen (Acetaminophen 325 Mg Tablet) 650 mg PO Q6H PRN PRN Reason: Pain, Mild (Pain Scale 1-3) Albuterol/Ipratropium (Albuterol/Iprat 2.5/0.5mg 3 Ml Ampul.Neb) 3 ml INHALE RQ4H WHILE AWAKE [facility] Last Admin: 09/28/23 07:18 Dose: 3 ml Documented By: CHATA Albuterol/Ipratropium (Albuterol/Iprat 2.5/0.5mg 3 Ml Ampul.Neb) 3 ml INHALE Q4H PRN PRN Reason: Shortness of Breath/Wheezing Amlodipine Besylate (Amlodipine Besylate 10 Mg Tablet) 10 mg PO DAILY [facility]; Protocol Last Admin: 09/28/23 08:49 Dose: 10 mg Documented By: RODOLFO Apixaban (Apixaban 5 Mg Tablet) 5 mg PO BID [facility] Last Admin: 09/28/23 08:49 Dose: 5 mg Documented By: RODOLFO Atorvastatin Calcium (Atorvastatin Calcium 80 Mg Tablet) 80 mg PO DAILY [facility] Last Admin: 09/28/23 08:49 Dose: 80 mg Documented By: RODOLFO Dextrose (Dextrose 50 % 25 Gm/50 Ml Syringe) 25 gm IVPUSH Q15M PRN; Protocol PRN Reason: per Hypoglycemia Standing Ord. Digoxin (Digoxin 0.125 Mg Tablet) 0.125 mg PO Q2D [facility] Diltiazem HCl (Diltiazem Hcl Cd 180 Mg Cap.Er.24h) 180 mg PO DAILY [facility]; Protocol Last Admin: 09/28/23 08:49 Dose: 180 mg Documented By: RODOLFO Docusate Sodium (Docusate Sodium 100 Mg Capsule) 100 mg PO DAILY PRN PRN Reason: Constipation Glucose (Glucose Gel 15 Gm Gel..Gram.) 15 gm PO Q15M PRN; Protocol PRN Reason: per Hypoglycemia Standing Ord. Insulin Glargine (Insulin Glargine,Hum.Rec.Anlog 100 Unit/Ml 10 Ml Vial) 15 unit SUBCUT BEDTIME [facility] Last Admin: 09/27/23 21:31 Dose: 15 unit Documented By: MOUNA Insulin Human Lispro (Insulin Lispro 100 Unit/Ml 3 Ml Vial) 0 unit SUBCUT QIDACHS [facility]; Protocol Last Admin: 09/28/23 08:50 Dose: 4 unit Documented By: RODOLFO Methylprednisolone Sodium Succinate (Methylprednisolone Sod Succ 40 Mg/Ml Vial) 40 mg IVPUSH Q6H [facility] Last Admin: 09/28/23 08:50 Dose: 40 mg Documented By: RODOLFO Non-Formulary Medication (Hydrocortisone Acetate [Anusol-Hc]) 25 mg MT BID [facility] Ondansetron HCl (Ondansetron Hcl 4 Mg/2 Ml Vial) 4 mg IVPUSH Q8H PRN PRN Reason: Nausea and Vomiting Sildenafil Citrate (Sildenafil Citrate 20 Mg Tablet) 20 mg PO TID [facility] Last Admin: 09/28/23 08:49 Dose: 20 mg Documented By: RODOLFO Sodium Chloride (0.9 % Sodium Chloride Flush 3 Ml Syringe) 3 ml IVFLUSH QSHIFT [facility] Last Admin: 09/28/23 08:50 Dose: 3 ml Documented By: RODOLFO Vitamin D (Cholecalciferol (Vitamin D3) 25 Mcg Tablet) 25 mcg PO DAILY [facility] Last Admin: 09/28/23 08:50 Dose: 25 mcg Documented By: RODOLFO Labs 09/28/23 06:46 09/28/23 06:46 Labs: Laboratory Results - last 24 hr 09/27/23 09/27/23 09/27/23 10:16 10:17 10:34 MCV 84.3 MCH 26.2 L MCHC 31.1 RDW 17.6 H Plt Count 177 MPV 11.3 Immature Gran % (Auto) 0.4 Neut % (Auto) 92.8 H Lymph % (Auto) 3.7 L [place] % (Auto) 1.5 L Eos % (Auto) 1.5 Baso % (Auto) 0.1 Lymph # (Auto) 0.5 L [place] # (Auto) 0.2 Eos # (Auto) 0.2 Baso # (Auto) 0.0 Abs Immat Gran (auto) 0.06 H Absolute Neuts (auto) 12.6 H Absolute Nucleated RBC 0.000 Nucleated RBC % (auto) 0.0 Smear Tech's Comments VERIFIED O2 Saturation 100.0 ABG pH at Pt Temp 7.49 H ABG pCO2 at Pt Temp 44 ABG pO2 at Pt Temp 156 H ABG HCO3 33 H ABG Base Excess (Actual) 9.5 Anion Gap 16 Estim Creat Clear Calc 26.7 Estimated GFR 29 POC Glucose Random Glucose 269 H Lactic Acid 0.9 Calcium 9.2 Total Bilirubin 0.8 Direct Bilirubin 0.4 AST 42 H ALT 122 H Alkaline Phosphatase 90 B-Natriuretic Peptide 691 H Total Protein 6.1 L Albumin 3.3 L Influenza Type A (PCR) Influenza Type B (PCR) RSV RNA Qual (PCR) SARS-CoV-2 RNA (RT-PCR) 09/27/23 09/27/23 09/27/23 13:19 17:21 20:44 MCV MCH MCHC RDW Plt Count MPV Immature Gran % (Auto) Neut % (Auto) Lymph % (Auto) [place] % (Auto) Eos % (Auto) Baso % (Auto) Lymph # (Auto) [place] # (Auto) Eos # (Auto) Baso # (Auto) Abs Immat Gran (auto) Absolute Neuts (auto) Absolute Nucleated RBC Nucleated RBC % (auto) Smear Tech's Comments O2 Saturation ABG pH at Pt Temp ABG pCO2 at Pt Temp ABG pO2 at Pt Temp ABG HCO3 ABG Base Excess (Actual) Anion Gap Estim Creat Clear Calc Estimated GFR POC Glucose 457 H* > 600 H* Random Glucose Lactic Acid Calcium Total Bilirubin Direct Bilirubin AST ALT Alkaline Phosphatase B-Natriuretic Peptide Total Protein Albumin Influenza Type A (PCR) NEGATIVE Influenza Type B (PCR) NEGATIVE RSV RNA Qual (PCR) NEGATIVE SARS-CoV-2 RNA (RT-PCR) NEGATIVE 09/27/23 09/28/23 09/28/23 23:37 01:07 06:46 MCV 81.7 MCH 26.5 L MCHC 32.5 RDW 17.3 H Plt Count 148 L MPV 10.9 Immature Gran % (Auto) 0.9 H Neut % (Auto) 96.7 H Lymph % (Auto) 1.6 L [place] % (Auto) 0.7 L Eos % (Auto) 0.0 Baso % (Auto) 0.1 Lymph # (Auto) 0.3 L [place] # (Auto) 0.1 Eos # (Auto) 0.0 Baso # (Auto) 0.0 Abs Immat Gran (auto) 0.15 H Absolute Neuts (auto) 15.6 H Absolute Nucleated RBC 0.000 Nucleated RBC % (auto) 0.0 Smear Tech's Comments VERIFIED O2 Saturation ABG pH at Pt Temp ABG pCO2 at Pt Temp ABG pO2 at Pt Temp ABG HCO3 ABG Base Excess (Actual) Anion Gap 17 Estim Creat Clear Calc 24.1 Estimated GFR 26 POC Glucose 506 H* 411 H* Random Glucose 249 H Lactic Acid Calcium 9.4 Total Bilirubin Direct Bilirubin AST ALT Alkaline Phosphatase B-Natriuretic Peptide Total Protein Albumin Influenza Type A (PCR) Influenza Type B (PCR) RSV RNA Qual (PCR) SARS-CoV-2 RNA (RT-PCR) 09/28/23 07:22 MCV MCH MCHC RDW Plt Count MPV Immature Gran % (Auto) Neut % (Auto) Lymph % (Auto) [place] % (Auto) Eos % (Auto) Baso % (Auto) Lymph # (Auto) [place] # (Auto) Eos # (Auto) Baso # (Auto) Abs Immat Gran (auto) Absolute Neuts (auto) Absolute Nucleated RBC Nucleated RBC % (auto) Smear Tech's Comments O2 Saturation ABG pH at Pt Temp ABG pCO2 at Pt Temp ABG pO2 at Pt Temp ABG HCO3 ABG Base Excess (Actual) Anion Gap Estim Creat Clear Calc Estimated GFR POC Glucose 235 H Random Glucose Lactic Acid Calcium Total Bilirubin Direct Bilirubin AST ALT Alkaline Phosphatase B-Natriuretic Peptide Total Protein Albumin Influenza Type A (PCR) Influenza Type B (PCR) RSV RNA Qual (PCR) SARS-CoV-2 RNA (RT-PCR) Microbiology Microbiology Results: Microbiology 09/27/23 10:17 Blood Culture - Preliminary Blood - Venous Prelim: GPC Gram Stain only 09/27/23 10:12 Blood Culture - Preliminary Blood - Venous Prelim: GPC Gram Stain only Assessment and Plan (1) Pulmonary hypertension: Status: Acute (2) CKD (chronic kidney disease) stage 4, GFR 15-29 ml/min: Status: Acute (3) COPD with acute exacerbation: Status: Acute Plan This is a 78-year-old female with a PMH significant for?interstitial lung disease, COPD on 4L home O2, kao-tprdgtr-pzkplrxcw dependent type 2 diabetes, HFpEF, CAD, AFib on Eliquis, two recent admissions who presents to the ED with?worsening shortness of breath. Pt will be admitted to the hospital for treatment and further evaluation of acute on chronic respiratory failure. Acute on chronic hypoxic respiratory failure secondary to COPD/ILD exacerbation on baseline 4L, currently on 8L oxymask Will treat with Solu-Medrol, DuoNebs scheduled and prn No increased phlegm production, will hold on antibiotics at this time, CXR without evidence for underlying pneumonia Titrate supplemental O2 >90, wean as tolerated Chronic HFpEF CXR with mild vascular congestion, s/p one dose of IV lasix continue 80 mg daily at baseline hyponatremia. mild monitor closely CAD/HLD Continue statin Elevated troponin likely type 2 secondary to demand from hypoxia no chest pain Pbd-opjzsph-hlbvycjfh diabetes type 2 Hold home glipizide SSI, POCs, ADA diet transaminitis appears to be trending down from previous CKD4 renal function at baseline persistent Atrial fibrillation HR uncontrolled due to breathing treatments/respiratory status Continue digoxin, diltiazem, Eliquis HTN continue norvasc, diltiazem Pulmonary hypertension Continue sildenafil Leukocytosis Secondary to steroid use, not sepsis or active infection Patient does not meet sepsis criteria code status: Full Code Attending:?Dr. Soto DVT Prophylaxis:[facility] stay for management of respiratory failure, close monitoring of respiratory status Time Spent With Patient Time: Total time managing care of this patient today ____ minutes. Quality Stroke Does the patient have a stroke diagnosis?: No VTE Prior VTE?: No VTE Risk Level:: Medical - moderate - high VTE Device Contraindication: N/A - Device Ordered VTE Drug Contraindication: N/A - Med Ordered
[2023-09-28] MEDS: Digoxin 0.125 MG TABLET PO (10:35)
[2023-09-28] MEDS: Furosemide 40 MG/4 ML VIAL IVPUSH (10:56)
[2023-09-28 11:48] LABS: B Type Natriuretic Peptide 604 pg/mL (<100)
[2023-09-28 11:50] LABS: Glucose, Whole Blood 377 mg/dL (60-115)
--- NOTE | 2023-09-28 13:22 | PM.EVENT ---
Event Note Date of Service: 09/28/23 Event Note: Discussed with ICU attending. Increase in Hypoxia, CXR showing worsening retrocardiac opacity. Bacteremia, GPC. started vancomcyin Hypoxia. likely secondary to hypervolemia from CHF,. Diurese and tx to ICU for Bipap Time Spent With Patient Time: Total time managing care of this patient today ____ minutes.
[2023-09-28] MEDS: vancomycin/NS 2,000 MG/500 ML PLAST..BAG 250 MG IV (14:42)
--- NOTE | 2023-09-28 15:03 | W.PM.CCCN ---
History of Present Illness Data of Consult Service Date: 09/28/23 Requesting physician: Macey De La Rosa Primary Care Provider: Matheus Singh MD [facility] Reason for consult: worsening hypoxic respiratory failure 78-year-old female apparently longstanding interstitial lung disease with evidence of cor pulmonale and persistent atrial fibrillation in addition to chronic stage III renal failure with presentation including acute on chronic renal failure worsening dyspnea a and in addition acute on chronic hypercarbic respiratory failure and now the 4th admission for the month of September a previous echocardiogram describes normal left ventricular systolic reserve but diminished diastolic reserve with elevated left heart filling pressures and a chest x-ray that looks somewhat increasingly +Thorek it as well as having bilateral pleural effusions so I think there is a volume component but the blood cultures 2/2 bottles have grown Gram-positive cocci marked increase in the work of breathing she can not complete a phrase there is both accessory muscle and diaphragmatic effort at significant with bilateral prolonged expiratory wheezing and progressive fall in her oxygen saturations initially I noted the low 80s and now she was down to 76% upon transfer on arrival to the ICU at which point she was removed from the 100% non-rebreather and placed on a BiPAP device at 12/ initially Review of Systems Review of Systems: no complaints of significant fever or chills Yes all other systems are reviewed and are negative PMFSH Past Medical History Medical History Chronic lung disease Type 2 diabetes mellitus with unspecified complications Diabetes Hyperlipidemia Hypertension Chronic diastolic heart failure Diastolic dysfunction CAD (coronary artery disease) Hypoxemia Restrictive lung disease COPD (chronic obstructive pulmonary disease) Family History Family History Father Diabetes Mother Unknown Surgical History Surgical History History of left cataract surgery Stented coronary artery Social History Social History Household Members: Spouse Housing: House Do you presently have visiting nurse or other home services: Yes Patient Tobacco Use Status: Former Tobacco user Quit Date: 25 years ago Smoked in Last 30 Days: No Use of substances other than those prescribed or required for medical reasons: No Have you been hit, kicked, punched, or otherwise hurt by someone within the past year? If so, by whom?: No Advance Directives: Yes Advance Directives on File: Yes Advance Directives Date on File: 01/28/23 Nutrition Risks: No Nutritional Risk Patient : No : No Poor oral hygiene: No service: No Meds Allergies Allergy/AdvReac Type Severity Reaction Status Date / Time No Known Allergies Allergy Verified 09/20/23 14:37 [No Known Allergies*] Active Medications: Current Medications Acetaminophen (Acetaminophen 325 Mg Tablet) 650 mg PO Q6H PRN PRN Reason: Pain, Mild (Pain Scale 1-3) Albuterol/Ipratropium (Albuterol/Iprat 2.5/0.5mg 3 Ml Ampul.Neb) 3 ml INHALE RQ4H WHILE AWAKE [facility] Last Admin: 09/28/23 11:35 Dose: 3 ml Albuterol/Ipratropium (Albuterol/Iprat 2.5/0.5mg 3 Ml Ampul.Neb) 3 ml INHALE Q4H PRN PRN Reason: Shortness of Breath/Wheezing Amlodipine Besylate (Amlodipine Besylate 10 Mg Tablet) 10 mg PO DAILY [facility]; Protocol Last Admin: 09/28/23 08:49 Dose: 10 mg Apixaban (Apixaban 5 Mg Tablet) 5 mg PO BID [facility] Last Admin: 09/28/23 08:49 Dose: 5 mg Atorvastatin Calcium (Atorvastatin Calcium 80 Mg Tablet) 80 mg PO DAILY [facility] Last Admin: 09/28/23 08:49 Dose: 80 mg Dextrose (Dextrose 50 % 25 Gm/50 Ml Syringe) 25 gm IVPUSH Q15M PRN; Protocol PRN Reason: per Hypoglycemia Standing Ord. Digoxin (Digoxin 0.125 Mg Tablet) 0.125 mg PO Q2D [facility] Last Admin: 09/28/23 10:35 Dose: 0.125 mg Diltiazem HCl (Diltiazem Hcl Cd 180 Mg Cap.Er.24h) 180 mg PO DAILY [facility]; Protocol Last Admin: 09/28/23 08:49 Dose: 180 mg Docusate Sodium (Docusate Sodium 100 Mg Capsule) 100 mg PO DAILY PRN PRN Reason: Constipation Furosemide (Furosemide 40 Mg/4 Ml Vial) 40 mg IVPUSH BID@0900,1800 [facility]; Protocol Last Admin: 09/28/23 10:56 Dose: 40 mg Glucose (Glucose Gel 15 Gm Gel..Gram.) 15 gm PO Q15M PRN; Protocol PRN Reason: per Hypoglycemia Standing Ord. Vancomycin HCl 1,000 mg/ (Sodium Chloride) 270 mls @ 270 mls/hr IV Q12H CLAY Vancomycin HCl (Vancomycin/Ns) 2,000 mg in 500 mls @ 250 mls/hr IV ONCE ONE Stop: 09/28/23 15:59 Last Admin: 09/28/23 14:42 Dose: 250 mls/hr Furosemide 200 mg/ Sodium (Chloride) 100 mls @ 5 mls/hr IVCONT .Q20H [facility] Insulin Glargine (Insulin Glargine,Hum.Rec.Anlog 100 Unit/Ml 10 Ml Vial) 15 unit SUBCUT BEDTIME [facility] Last Admin: 09/27/23 21:31 Dose: 15 unit Insulin Human Lispro (Insulin Lispro 100 Unit/Ml 3 Ml Vial) 0 unit SUBCUT QIDACHS [facility]; Protocol Last Admin: 09/28/23 12:51 Dose: 10 unit Insulin Human Lispro (Insulin Lispro 100 Unit/Ml 3 Ml Vial) 5 unit SUBCUT QIDACHS [facility] Last Admin: 09/28/23 12:52 Dose: 5 unit Methylprednisolone Sodium Succinate (Methylprednisolone Sod Succ 40 Mg/Ml Vial) 40 mg IVPUSH Q6H [facility] Last Admin: 09/28/23 14:42 Dose: 40 mg Non-Formulary Medication (Hydrocortisone Acetate [Anusol-Hc]) 25 mg SD BID [facility] Ondansetron HCl (Ondansetron Hcl 4 Mg/2 Ml Vial) 4 mg IVPUSH Q8H PRN PRN Reason: Nausea and Vomiting Pharmacy Consult (Consult Rx Vancomycin Dosing) 1 each MISCELLANE DAILY PRN PRN Reason: Consult order Sildenafil Citrate (Sildenafil Citrate 20 Mg Tablet) 20 mg PO TID [facility] Last Admin: 09/28/23 08:49 Dose: 20 mg Sodium Chloride (0.9 % Sodium Chloride Flush 3 Ml Syringe) 3 ml IVFLUSH QSHIFT [facility] Last Admin: 09/28/23 08:50 Dose: 3 ml Vitamin D (Cholecalciferol (Vitamin D3) 25 Mcg Tablet) 25 mcg PO DAILY [facility] Last Admin: 09/28/23 08:50 Dose: 25 mcg Home Medications Medication Instructions Recorded Confirmed Last Taken Type cholecalciferol (vitamin D3) 25 25 mcg PO DAILY 09/14/20 09/27/23 09/05/23 History mcg (1,000 unit) capsule multivitamin (Daily Multi-Vitamin 1 tab PO DAILY 09/18/21 09/27/23 09/05/23 History tablet) glipizide 5 mg tablet 2.5 mg PO BEDTIME 03/20/22 09/27/23 09/04/23 History amlodipine 10 mg tablet 10 mg PO DAILY 08/19/23 09/27/23 09/05/23 History glipizide 5 mg tablet 5 mg PO DAILY 09/05/23 09/27/23 09/05/23 History prednisone 5 mg tablet 5 mg PO DAILY COPD 09/27/23 09/27/23 Unknown History Physical Exam Vital Signs: Vital Signs: Last Vital Signs Temp 99.6 F 09/28/23 11:44 Pulse 90 09/28/23 11:44 Resp 20 09/28/23 11:44 BP 118/56 L 09/28/23 11:44 Pulse Ox 87 L 09/28/23 11:44 O2 Del Method Non-Rebreather Ma sk 09/28/23 11:44 O2 Flow Rate 15 09/28/23 11:44 BMI result Body Mass Index 28.0 respiratory rate high 20s and patient appears to become tired but still has preserve cognitive function good bilateral carotid upstrokes neck veins difficult to nurse care manager there is a pending echo bedside by me with IVC measurement diminished bilateral breath sounds but marked prolongation of expiratory time with expiratory wheezing abdomen is benign with no organomegaly 1 to 2+ bilateral pretibial edema but no acrocyanosis no livedo Results Labs 09/28/23 06:46 09/28/23 06:46 Labs: Short CBC 09/28/23 Range/Units 06:46 WBC 16.1 H (4.8-10.8) X10*3/uL Hgb 10.3 L (12.0-16.0) g/dl Hct 31.7 L D (37.0-47.0) % Plt Count 148 L (160-400) X10*3/uL BMP 09/28/23 06:46 Sodium 130 L Potassium 4.5 D Chloride 92 L Carbon Dioxide 26 BUN 60 H Creatinine 1.89 H Calcium 9.4 Microbiology Microbiology Results: Microbiology 09/27/23 10:17 Blood - Venous Blood Culture - Preliminary Prelim: GPC Gram Stain only 09/27/23 10:12 Blood - Venous Blood Culture - Preliminary Prelim: GPC Gram Stain only Assessment and Plan (1) Atrial fibrillation with rapid ventricular response: Status: Acute (2) Pulmonary hypertension: Status: Acute (3) Non-rheumatic aortic stenosis: Status: Acute (4) Acute on chronic diastolic (congestive) heart failure: Status: Acute (5) Liver function test abnormality: Status: Acute (6) Metabolic acidosis: Status: Acute (7) Hypertension: Status: Acute (8) CKD (chronic kidney disease) stage 4, GFR 15-29 ml/min: Status: Acute (9) Hyperglycemia: Status: Acute (10) ILD (interstitial lung disease): Status: Acute (11) COPD with acute exacerbation: Status: Acute (12) Acute and chronic respiratory failure with hypoxia: Status: Acute (13) Mitral annular calcification: Status: Acute (14) Type 2 diabetes mellitus with unspecified complications: Status: Acute (15) Atherosclerotic cardiovascular disease: Status: Acute (16) Chronic heart failure with preserved ejection fraction (HFpEF): Status: Acute (17) Chronic diastolic heart failure: Status: Acute (18) Gram-positive cocci bacteremia: Status: Acute Plan so the plan is to cover Gram-positive cocci with vancomycin as a probably reflects a pneumonia as the source and but in the interim given the clinical circumstances definitely changed to BiPAP with a somewhat elevated PEEP to most immediately clear the lungs of 3rd space fluid which is providing some of the burden of the work of breathing possibly initiate a Lasix infusion Time Spent With Patient Time: Total time managing care of this patient today _60___ minutes.
--- NOTE | 2023-09-28 15:21 | PHA.PROG ---
Admission Date/Time: September 27, 2023 14:23 Indication: BACT Weight in k kg Serum Creatinine - Last 168 Hours 09/27/23 09/28/23 10:16 06:46 Creatinine 1.71 H 1.89 H Estimated CrCl and GFR - Last 168 Hours 09/27/23 09/28/23 10:16 06:46 Estim Creat Clear Calc 26.7 24.1 Estimated GFR 29 26 Vancomycin Loading Dose: 2000 Current Vancomycin Dosing Regimen: 750 Vancomycin Monitoring using AUC goal of 400 - 600 range with trough as surrogate marker: 522 Date and Time for next Vancomycin Level to be drawn: 09/30 @ 1300 Pharmacist Comments on Vancomycin Plan: Vancomycin dosing will take advantage of [employer] as a clinical decision support tool that uses Bayesian modeling to calculate individual patient's pharmacokinetic parameters and forecast the patient's drug concentration time course with the target goal AUC 24 range of 400 - 600 mg/L/hr.
[2023-09-28] MEDS: Furosemide 200 MG in 0.9 % Sodium Chloride 80 ML IVCONT (15:28)
--- NOTE | 2023-09-28 15:54 | MHC.CM.PN ---
Pt transferred to ICU d/t increased WOB. Information obtained from spouse, Nelson who states pt is independent w/ADLS, uses a walker and w/c for distances, has [employer] for home O2 needs and just completed service w/[facility]. Nelson would like to focus on a return to home w/[facility] and [employer]. Referral made: PCP Dr. Singh, spouse to transport to home. HCP on file/verified. CM to follow for finalization of d/c planning.
[2023-09-28 16:09] LABS: Estimated Glomerular Filt Rate 20
[2023-09-28 16:32] LABS: Glucose, Whole Blood 408 mg/dL (60-115)
[2023-09-28 20:47] LABS: Glucose, Whole Blood 296 mg/dL (60-115)
[2023-09-28] MEDS: Insulin Glargine,Hum.rec.anlog 100 UNIT/ML 10 ML VIAL 15 UNIT SUBCUT (21:00)
[2023-09-28] MEDS: Melatonin 3 MG TABLET PO (22:19)
[2023-09-29] VITALS (36 sets, daily range): BP systolic 105–132; BP diastolic 38–78; PULSE 78–120; RESP 14–40; TEMP 36.6–37.1; O2SAT 85–97; BMI 29.7
[2023-09-29 00:30] LABS: VBG Base Excess 3.7 mmol/L; VBG HCO3 27 mmol/L (22-26); VBG pCO2 38 mmHg; VBG pH 7.46 (7.32-7.43); VBG pO2 94 mmHg
[2023-09-29 00:37] LABS: Anion Gap 17 (12-20); Blood Urea Nitrogen 74 mg/dL (9-16); Calcium 9.4 mg/dL (8.4-10.2); Carbon Dioxide 25 mmol/L (22-29); Chloride 93 mmol/L (96-108); Estimated Glomerular Filt Rate 20; Glucose Random 267 mg/dL (60-115); Potassium 4.3 mmol/L (3.3-5.1); Sodium 131 mmol/L (135-145)
[2023-09-29 04:05] LABS: Venous Blood Gas Refer to POC result
[2023-09-29] MEDS: methylPREDNISolone Sod Succ 40 MG/ML VIAL IVPUSH ×4 (04:07→20:19)
[2023-09-29 04:43] LABS: Hematocrit 30.8 % (37.0-47.0); Hemoglobin 9.9 g/dl (12.0-16.0); Mean Corpuscular HGB Conc 32.1 g/dl (31.0-35.0); Mean Corpuscular Hemoglobin 26.2 pg (27.0-33.0); Mean Corpuscular Volume 81.5 fL (80.0-98.0); Mean Platelet Volume 10.4 fL (9.4-12.3); Platelet Count 158 X10*3/uL (160-400); Red Blood Count 3.78 X10*6/uL (4.20-5.50); Red Cell Distribution Width 17.6 % (11.0-16.0); White Blood Count 15.6 X10*3/uL (4.8-10.8)
[2023-09-29 04:44] LABS: Basophils Percent Auto 0.1 % (0-2); Hematocrit 30.7 % (37.0-47.0); Hemoglobin 9.9 g/dl (12.0-16.0); Imm Gran Abs Auto 0.19 X10*3/uL (0.00-0.03); Imm Gran Pct Auto 1.2 % (0.0-0.4); Lymphocytes Absolute Auto 0.2 X10*3/uL (1.2-4.9); Lymphocytes Percent Auto 1.4 % (20-40); MANUAL DIFF FLAG SCAN; Mean Corpuscular HGB Conc 32.2 g/dl (31.0-35.0); Mean Corpuscular Hemoglobin 26.3 pg (27.0-33.0); Mean Corpuscular Volume 81.6 fL (80.0-98.0); Mean Platelet Volume 10.3 fL (9.4-12.3); Monocytes Absolute Auto 0.2 X10*3/uL (0.1-1.2); Monocytes Percent Auto 1.5 % (2-11); Neutrophils Absolute Auto 15.1 x10*3/uL (2.0-8.3); Neutrophils Percent Auto 95.8 % (45-73); Platelet Count 158 X10*3/uL (160-400); Red Blood Count 3.76 X10*6/uL (4.20-5.50); Red Cell Distribution Width 17.5 % (11.0-16.0); SCAN SMEAR FLAG 1; White Blood Count 15.8 X10*3/uL (4.8-10.8)
[2023-09-29 04:46] LABS: VBG Base Excess 7.6 mmol/L; VBG HCO3 31 mmol/L (22-26); VBG pCO2 42 mmHg; VBG pH 7.48 (7.32-7.43); VBG pO2 55 mmHg
[2023-09-29 04:47] LABS: Venous Blood Gas Refer to POC result
[2023-09-29 04:48] LABS: SLIDE REVIEW VERIFIED
[2023-09-29 04:56] LABS: Anion Gap 20 (12-20); Blood Urea Nitrogen 74 mg/dL (9-16); Calcium 9.6 mg/dL (8.4-10.2); Carbon Dioxide 25 mmol/L (22-29); Chloride 94 mmol/L (96-108); Creatinine Clr Calc Pharmacy 19.2; Creatinine Clr Calc Pharmacy 19.4; Estimated Glomerular Filt Rate 20; Glucose Random 203 mg/dL (60-115); Potassium 4.6 mmol/L (3.3-5.1); Sodium 134 mmol/L (135-145)
[2023-09-29 05:00] LABS: Alanine Aminotransferase 101 U/L (0-31); Albumin Level 3.2 g/dL (3.5-5.0); Alkaline Phosphatase 88 U/L (39-117); Anion Gap 17 (12-20); Aspartate Amino Transferase 29 U/L (5-31); Bilirubin Total 0.5 mg/dL (0.0-1.0); Blood Urea Nitrogen 74 mg/dL (9-16); Calcium 9.6 mg/dL (8.4-10.2); Carbon Dioxide 26 mmol/L (22-29); Chloride 94 mmol/L (96-108); Creatinine Clr Calc Pharmacy 19.2; Estimated Glomerular Filt Rate 20; Glucose Random 202 mg/dL (60-115); Phosphorus 4.5 mg/dL (2.7-4.5); Potassium 4.5 mmol/L (3.3-5.1); Sodium 132 mmol/L (135-145)
[2023-09-29 05:09] LABS: Troponin-I High Sensitivity 240.4 ng/L (<3.5-17.0)
[2023-09-29] MEDS: Albuterol/Iprat 2.5/0.5MG 3 ML AMPUL.NEB INHALE ×4 (07:29→20:18)
[2023-09-29 07:31] LABS: Glucose, Whole Blood 201 mg/dL (60-115)
[2023-09-29] MEDS: Insulin Lispro 100 UNIT/ML 3 ML VIAL SUBCUT ×6 (08:28→17:10)
[2023-09-29] MEDS: 0.9 % Sodium Chloride Flush 3 ML SYRINGE IVFLUSH ×2 (08:28→20:19)
[2023-09-29] MEDS: Furosemide 200 MG in 0.9 % Sodium Chloride 80 ML IVCONT (09:18)
[2023-09-29] MEDS: Apixaban 5 MG TABLET PO ×2 (09:31→20:19)
[2023-09-29] MEDS: Digoxin 0.125 MG TABLET PO (09:32)
--- NOTE | 2023-09-29 10:00 | PM.CCPN ---
Subjective Subjective Date of Service: 09/29/23 Interval History: 78-year-old female with a history of interstitial lung disease but comes in 4 times already this month with again exacerbation of dyspnea with a an and and acute on chronic hypoxemic respiratory failure requiring increasing FiO2 to 100% and in marked distress very tachypneic accessory muscle and diaphragmatic effort etc. and a chest x-ray that looked somewhat more +Thorek including bilateral pleural effusions she also has adeno chronic stage III renal failure history of persistent atrial fibrillation and at least a type 2 significant degree of diastolic left ventricular dysfunction with elevated left heart filling pressures in combination therefore I do think a volume is a contributing and she did have some degree of IVC distension with a less than 50% inspiratory collapse so we embarked and on a IV insulin drip but simultaneously bringing her down for BiPAP maintenance which which rapidly improved her of work of breathing and I think expedited the diuresis as well Critical Care Time (minutes): 35 Physical Exam Vital Signs: Vital Signs: Last Vital Signs Temp 98.2 F 09/29/23 09:55 Pulse 90 09/29/23 09:55 Resp 28 H 09/29/23 09:55 BP 109/49 L 09/29/23 09:55 Pulse Ox 90 L 09/29/23 09:55 O2 Del Method High Flow Nasal C annula 09/29/23 09:55 O2 Flow Rate 50 09/29/23 09:55 FiO2 90 09/29/23 09:55 BMI result Body Mass Index 29.7 Today of all the signs of excessive breathing effort significantly diminished respiratory rate much improved and we gave her a break from BiPAP and actually for the last 2 hours on on 50 L of high-flow seems to be comfortable able to finish her sentences no significant diaphragmatic effort and she continues to diurese about 100 cc an hour and BUN and creatinine remained stable with that creatinine at about 2.3 currently Fine inspiratory bilateral rales no grunting and no wheezing today Echo with preserved systolic reserve of the left ventricle Abdomen soft with no organomegaly Objective Data Labs 09/29/23 04:34 09/29/23 04:34 Labs: Laboratory Results - last 24 hr 09/28/23 09/28/23 09/28/23 10:57 11:46 15:50 WBC RBC Hgb Hct MCV MCH MCHC RDW Plt Count MPV Immature Gran % (Auto) Neut % (Auto) Lymph % (Auto) [place] % (Auto) Eos % (Auto) Baso % (Auto) Lymph # (Auto) [place] # (Auto) Eos # (Auto) Baso # (Auto) Abs Immat Gran (auto) Absolute Neuts (auto) Absolute Nucleated RBC Nucleated RBC % (auto) Smear Tech's Comments Hold Purple Top SEE NOTE VBG pH VBG pCO2 VBG pO2 VBG HCO3 VBG O2 Saturation VBG Base Excess Sodium Potassium Chloride Carbon Dioxide Anion Gap BUN Creatinine 2.40 H Estim Creat Clear Calc 19.0 Estimated GFR 20 POC Glucose 377 H* Random Glucose Calcium Phosphorus Magnesium Total Bilirubin AST ALT Alkaline Phosphatase Troponin I High Sens B-Natriuretic Peptide 604 H Total Protein Albumin Hold Green Top See Note 09/28/23 09/28/23 09/29/23 16:28 20:44 00:18 WBC RBC Hgb Hct MCV MCH MCHC RDW Plt Count MPV Immature Gran % (Auto) Neut % (Auto) Lymph % (Auto) [place] % (Auto) Eos % (Auto) Baso % (Auto) Lymph # (Auto) [place] # (Auto) Eos # (Auto) Baso # (Auto) Abs Immat Gran (auto) Absolute Neuts (auto) Absolute Nucleated RBC Nucleated RBC % (auto) Smear Tech's Comments Hold Purple Top VBG pH VBG pCO2 VBG pO2 VBG HCO3 VBG O2 Saturation VBG Base Excess Sodium 131 L Potassium 4.3 Chloride 93 L Carbon Dioxide 25 Anion Gap 17 BUN 74 H Creatinine 2.40 H Estim Creat Clear Calc 19.0 Estimated GFR 20 POC Glucose 408 H* 296 H Random Glucose 267 H Calcium 9.4 Phosphorus Magnesium Total Bilirubin AST ALT Alkaline Phosphatase Troponin I High Sens B-Natriuretic Peptide Total Protein Albumin Hold Green Top 09/29/23 09/29/23 09/29/23 00:24 04:34 04:34 WBC 15.6 H 15.8 H RBC 3.78 L Hgb Hct MCV MCH MCHC RDW Plt Count MPV Immature Gran % (Auto) Neut % (Auto) Lymph % (Auto) [place] % (Auto) Eos % (Auto) Baso % (Auto) Lymph # (Auto) [place] # (Auto) Eos # (Auto) Baso # (Auto) Abs Immat Gran (auto) Absolute Neuts (auto) Absolute Nucleated RBC Nucleated RBC % (auto) Smear Tech's Comments Hold Purple Top VBG pH 7.46 H VBG pCO2 38 VBG pO2 94 VBG HCO3 27 H VBG O2 Saturation 98.0 VBG Base Excess 3.7 Sodium Potassium Chloride Carbon Dioxide Anion Gap BUN Creatinine Estim Creat Clear Calc Estimated GFR POC Glucose Random Glucose Calcium Phosphorus Magnesium Total Bilirubin AST ALT Alkaline Phosphatase Troponin I High Sens B-Natriuretic Peptide Total Protein Albumin Hold Green Top 09/29/23 09/29/23 09/29/23 04:34 04:34 04:34 WBC RBC 3.76 L Hgb 9.9 L 9.9 L Hct 30.8 L 30.7 L MCV 81.5 MCH MCHC RDW Plt Count MPV Immature Gran % (Auto) Neut % (Auto) Lymph % (Auto) [place] % (Auto) Eos % (Auto) Baso % (Auto) Lymph # (Auto) [place] # (Auto) Eos # (Auto) Baso # (Auto) Abs Immat Gran (auto) Absolute Neuts (auto) Absolute Nucleated RBC Nucleated RBC % (auto) Smear Tech's Comments Hold Purple Top VBG pH VBG pCO2 VBG pO2 VBG HCO3 VBG O2 Saturation VBG Base Excess Sodium Potassium Chloride Carbon Dioxide Anion Gap BUN Creatinine Estim Creat Clear Calc Estimated GFR POC Glucose Random Glucose Calcium Phosphorus Magnesium Total Bilirubin AST ALT Alkaline Phosphatase Troponin I High Sens B-Natriuretic Peptide Total Protein Albumin Hold Green Top 09/29/23 09/29/23 09/29/23 04:34 04:34 04:34 WBC RBC Hgb Hct MCV 81.6 MCH 26.2 L 26.3 L MCHC 32.1 32.2 RDW 17.6 H Plt Count MPV Immature Gran % (Auto) Neut % (Auto) Lymph % (Auto) [place] % (Auto) Eos % (Auto) Baso % (Auto) Lymph # (Auto) [place] # (Auto) Eos # (Auto) Baso # (Auto) Abs Immat Gran (auto) Absolute Neuts (auto) Absolute Nucleated RBC Nucleated RBC % (auto) Smear Tech's Comments Hold Purple Top VBG pH VBG pCO2 VBG pO2 VBG HCO3 VBG O2 Saturation VBG Base Excess Sodium Potassium Chloride Carbon Dioxide Anion Gap BUN Creatinine Estim Creat Clear Calc Estimated GFR POC Glucose Random Glucose Calcium Phosphorus Magnesium Total Bilirubin AST ALT Alkaline Phosphatase Troponin I High Sens B-Natriuretic Peptide Total Protein Albumin Hold Green Top 09/29/23 09/29/23 09/29/23 04:34 04:34 04:34 WBC RBC Hgb Hct MCV MCH MCHC RDW 17.5 H Plt Count 158 L 158 L MPV 10.4 10.3 Immature Gran % (Auto) 1.2 H Neut % (Auto) 95.8 H Lymph % (Auto) 1.4 L [place] % (Auto) 1.5 L Eos % (Auto) 0.0 Baso % (Auto) 0.1 Lymph # (Auto) 0.2 L [place] # (Auto) 0.2 Eos # (Auto) 0.0 Baso # (Auto) 0.0 Abs Immat Gran (auto) 0.19 H Absolute Neuts (auto) 15.1 H Absolute Nucleated RBC 0.000 Nucleated RBC % (auto) Smear Tech's Comments Hold Purple Top VBG pH VBG pCO2 VBG pO2 VBG HCO3 VBG O2 Saturation VBG Base Excess Sodium Potassium Chloride Carbon Dioxide Anion Gap BUN Creatinine Estim Creat Clear Calc Estimated GFR POC Glucose Random Glucose Calcium Phosphorus Magnesium Total Bilirubin AST ALT Alkaline Phosphatase Troponin I High Sens B-Natriuretic Peptide Total Protein Albumin Hold Green Top 09/29/23 09/29/23 09/29/23 04:34 04:34 04:34 WBC RBC Hgb Hct MCV MCH MCHC RDW Plt Count MPV Immature Gran % (Auto) Neut % (Auto) Lymph % (Auto) [place] % (Auto) Eos % (Auto) Baso % (Auto) Lymph # (Auto) [place] # (Auto) Eos # (Auto) Baso # (Auto) Abs Immat Gran (auto) Absolute Neuts (auto) Absolute Nucleated RBC 0.000 Nucleated RBC % (auto) 0.0 0.0 Smear Tech's Comments VERIFIED Hold Purple Top VBG pH VBG pCO2 VBG pO2 VBG HCO3 VBG O2 Saturation VBG Base Excess Sodium 134 L 132 L Potassium 4.6 Chloride Carbon Dioxide Anion Gap BUN Creatinine Estim Creat Clear Calc Estimated GFR POC Glucose Random Glucose Calcium Phosphorus Magnesium Total Bilirubin AST ALT Alkaline Phosphatase Troponin I High Sens B-Natriuretic Peptide Total Protein Albumin Hold Green Top 09/29/23 09/29/23 09/29/23 04:34 04:34 04:34 WBC RBC Hgb Hct MCV MCH MCHC RDW Plt Count MPV Immature Gran % (Auto) Neut % (Auto) Lymph % (Auto) [place] % (Auto) Eos % (Auto) Baso % (Auto) Lymph # (Auto) [place] # (Auto) Eos # (Auto) Baso # (Auto) Abs Immat Gran (auto) Absolute Neuts (auto) Absolute Nucleated RBC Nucleated RBC % (auto) Smear Tech's Comments Hold Purple Top VBG pH VBG pCO2 VBG pO2 VBG HCO3 VBG O2 Saturation VBG Base Excess Sodium Potassium 4.5 Chloride 94 L 94 L Carbon Dioxide 25 26 Anion Gap 20 BUN Creatinine Estim Creat Clear Calc Estimated GFR POC Glucose Random Glucose Calcium Phosphorus Magnesium Total Bilirubin AST ALT Alkaline Phosphatase Troponin I High Sens B-Natriuretic Peptide Total Protein Albumin Hold Green Top 09/29/23 09/29/23 09/29/23 04:34 04:34 04:34 WBC RBC Hgb Hct MCV MCH MCHC RDW Plt Count MPV Immature Gran % (Auto) Neut % (Auto) Lymph % (Auto) [place] % (Auto) Eos % (Auto) Baso % (Auto) Lymph # (Auto) [place] # (Auto) Eos # (Auto) Baso # (Auto) Abs Immat Gran (auto) Absolute Neuts (auto) Absolute Nucleated RBC Nucleated RBC % (auto) Smear Tech's Comments Hold Purple Top VBG pH VBG pCO2 VBG pO2 VBG HCO3 VBG O2 Saturation VBG Base Excess Sodium Potassium Chloride Carbon Dioxide Anion Gap 17 BUN 74 H 74 H Creatinine 2.37 H 2.35 H Estim Creat Clear Calc Estimated GFR POC Glucose Random Glucose Calcium Phosphorus Magnesium Total Bilirubin AST ALT Alkaline Phosphatase Troponin I High Sens B-Natriuretic Peptide Total Protein Albumin Hold Green Top 09/29/23 09/29/23 09/29/23 04:34 04:34 04:34 WBC RBC Hgb Hct MCV MCH MCHC RDW Plt Count MPV Immature Gran % (Auto) Neut % (Auto) Lymph % (Auto) [place] % (Auto) Eos % (Auto) Baso % (Auto) Lymph # (Auto) [place] # (Auto) Eos # (Auto) Baso # (Auto) Abs Immat Gran (auto) Absolute Neuts (auto) Absolute Nucleated RBC Nucleated RBC % (auto) Smear Tech's Comments Hold Purple Top VBG pH VBG pCO2 VBG pO2 VBG HCO3 VBG O2 Saturation VBG Base Excess Sodium Potassium Chloride Carbon Dioxide Anion Gap BUN Creatinine 2.37 H Estim Creat Clear Calc 19.2 19.4 19.2 Estimated GFR 20 POC Glucose Random Glucose Calcium Phosphorus Magnesium Total Bilirubin AST ALT Alkaline Phosphatase Troponin I High Sens B-Natriuretic Peptide Total Protein Albumin Hold Green Top 09/29/23 09/29/23 09/29/23 04:34 04:34 04:34 WBC RBC Hgb Hct MCV MCH MCHC RDW Plt Count MPV Immature Gran % (Auto) Neut % (Auto) Lymph % (Auto) [place] % (Auto) Eos % (Auto) Baso % (Auto) Lymph # (Auto) [place] # (Auto) Eos # (Auto) Baso # (Auto) Abs Immat Gran (auto) Absolute Neuts (auto) Absolute Nucleated RBC Nucleated RBC % (auto) Smear Tech's Comments Hold Purple Top VBG pH VBG pCO2 VBG pO2 VBG HCO3 VBG O2 Saturation VBG Base Excess Sodium Potassium Chloride Carbon Dioxide Anion Gap BUN Creatinine Estim Creat Clear Calc Estimated GFR 20 20 POC Glucose Random Glucose 203 H 202 H Calcium 9.6 Phosphorus Magnesium Total Bilirubin AST ALT Alkaline Phosphatase Troponin I High Sens B-Natriuretic Peptide Total Protein Albumin Hold Green Top 09/29/23 09/29/23 09/29/23 04:34 04:40 07:26 WBC RBC Hgb Hct MCV MCH MCHC RDW Plt Count MPV Immature Gran % (Auto) Neut % (Auto) Lymph % (Auto) [place] % (Auto) Eos % (Auto) Baso % (Auto) Lymph # (Auto) [place] # (Auto) Eos # (Auto) Baso # (Auto) Abs Immat Gran (auto) Absolute Neuts (auto) Absolute Nucleated RBC Nucleated RBC % (auto) Smear Tech's Comments Hold Purple Top VBG pH 7.48 H VBG pCO2 42 VBG pO2 55 VBG HCO3 31 H VBG O2 Saturation 87.0 VBG Base Excess 7.6 Sodium Potassium Chloride Carbon Dioxide Anion Gap BUN Creatinine Estim Creat Clear Calc Estimated GFR POC Glucose 201 H Random Glucose Calcium 9.6 Phosphorus 4.5 Magnesium 2.0 Total Bilirubin 0.5 AST 29 ALT 101 H Alkaline Phosphatase 88 Troponin I High Sens 240.4 H* B-Natriuretic Peptide Total Protein 6.0 L Albumin 3.2 L Hold Green Top Microbiology Microbiology Results: Microbiology 09/27/23 10:12 Blood - Venous Blood Culture - Preliminary Prelim: GPC Gram Stain only 09/27/23 10:17 Blood - Venous Blood Culture - Preliminary Prelim: GPC Gram Stain only Progress Note: A&P Assessment and plan (1) Gram-positive cocci bacteremia: Status: Acute (2) Atrial fibrillation with rapid ventricular response: Status: Acute (3) Pulmonary hypertension: Status: Acute (4) Non-rheumatic aortic stenosis: Status: Acute (5) Acute on chronic diastolic (congestive) heart failure: Status: Acute (6) Liver function test abnormality: Status: Acute (7) Metabolic acidosis: Status: Acute (8) Hypertension: Status: Acute (9) CKD (chronic kidney disease) stage 4, GFR 15-29 ml/min: Status: Acute (10) Hyperglycemia: Status: Acute (11) ILD (interstitial lung disease): Status: Acute (12) COPD with acute exacerbation: Status: Acute (13) Acute and chronic respiratory failure with hypoxia: Status: Acute (14) Chronic lung disease: Status: Acute (15) Mitral annular calcification: Status: Acute (16) Type 2 diabetes mellitus with unspecified complications: Status: Acute (17) Essential hypertension: Status: Acute (18) Aortic valve calcification: Status: Acute (19) Atherosclerotic cardiovascular disease: Status: Acute (20) Chronic heart failure with preserved ejection fraction (HFpEF): Status: Acute (21) Diabetes: Status: Acute (22) Hyperlipidemia: Status: Acute (23) Hypertension: Status: Acute (24) Chronic diastolic heart failure: Status: Acute (25) Diastolic dysfunction: Status: Acute (26) Stented coronary artery: Status: Acute (27) CAD (coronary artery disease): Status: Acute (28) Hypoxemia: Status: Acute (29) Restrictive lung disease: Status: Acute (30) COPD (chronic obstructive pulmonary disease): Status: Acute Plan So in retrospect I think volume played a wolfe role in her exacerbation combinations of her chronic renal insufficiency combined with the persistent atrial fibrillation and elevated diastolic filling pressures at the cardiac level Kennedy created some of this situation and now that the volume aspect is significantly diminished possibly adeno a look by CT scan Once were done clinically with the insulin drip we have to think of a combination of oral diuretics to try to keep her euvolemic the same time preserving her renal function Also interestingly blood cultures x2 are growing Gram-positive cocci and in in clusters presumably staff question is whether it is methicillin sensitive or resistant so in the antrum she is on vancomycin and I am just giving her 24 hours of Synergy with 2 doses of linezolid and presumably the bacteremia really came from a lung source primarily Quality Stroke Does the patient have a stroke diagnosis?: No VTE Prior VTE?: No VTE Risk Level:: Medical - moderate - high VTE Device Contraindication: N/A - Device Ordered VTE Drug Contraindication: N/A - Med Ordered
[2023-09-29] MEDS: Linezolid/D5W 600 MG/300 ML PIGGYBACK 300 MG IV ×2 (10:12→20:19)
[2023-09-29 11:29] LABS: Glucose, Whole Blood 256 mg/dL (60-115)
[2023-09-29] MEDS: vancomycin HCL 750 MG in 0.9 % Sodium Chloride 250 ML 265 MG IV (14:27)
[2023-09-29 16:49] LABS: Glucose, Whole Blood 210 mg/dL (60-115)
[2023-09-29 20:14] LABS: Glucose, Whole Blood 152 mg/dL (60-115)
[2023-09-29] MEDS: Insulin Glargine,Hum.rec.anlog 100 UNIT/ML 10 ML VIAL 15 UNIT SUBCUT (20:19)
[2023-09-29 20:43] LABS: Anion Gap 19 (12-20); Blood Urea Nitrogen 70 mg/dL (9-16); Calcium 9.4 mg/dL (8.4-10.2); Carbon Dioxide 27 mmol/L (22-29); Chloride 94 mmol/L (96-108); Creatinine Clr Calc Pharmacy 19.9; Estimated Glomerular Filt Rate 20; Glucose Random 160 mg/dL (60-115); Potassium 3.5 mmol/L (3.3-5.1); Sodium 136 mmol/L (135-145)
[2023-09-29] MEDS: Potassium Chloride/H20 10 MEQ/100 ML PIGGYBACK 100 MEQ IV ×2 (21:07→21:55)
[2023-09-29] MEDS: fentaNYL citrate/PF 100 MCG/2 ML VIAL 25 MCG IVPUSH (21:54)
[2023-09-30] VITALS (38 sets, daily range): BP systolic 99–146; BP diastolic 36–82; PULSE 83–126; RESP 13–36; TEMP 36.2–37.2; O2SAT 85–9265; BMI 27.5
[2023-09-30] MEDS: methylPREDNISolone Sod Succ 40 MG/ML VIAL IVPUSH ×2 (01:31→07:40)
[2023-09-30] MEDS: fentaNYL citrate/PF 100 MCG/2 ML VIAL 25 MCG IVPUSH (01:33)
[2023-09-30] MEDS: Furosemide 200 MG in 0.9 % Sodium Chloride 80 ML IVCONT ×2 (01:34→20:25)
[2023-09-30 04:19] LABS: VBG HCO3 37 mmol/L (22-26); VBG pCO2 49 mmHg; VBG pH 7.49 (7.32-7.43); VBG pO2 37 mmHg
--- NOTE | 2023-09-30 04:31 | PC.NURSE ---
Upon initial assessment at 1900- pt A&Ox4, calm/cooperative, MALONE. Afebrile. Afib on tele, HR 80-100s. BP WNL. Lasix gtt infusing per JAN. Labs checked at approx 1999, given total of 200 mEq KCL IV. +1 BLE edema. On BiPAP 12/8/75%, tolerating well, SpO2 > 88%. LS wheezy throughout, non-productive cough. Pt quickly decompensates when mask removed for mouth care/pills- HR 120s, RR 30-40s, SpO2 82% via 15L NC. Slow to recover. While at rest, at approx 2200 and 0130, pt with RR 30-40, SpO2 87-89% on BiPAP, c/o SOB- [employer] [place] notified, given fentanyl 25 mcg IVP x2 with good but transient effect per pt report. NPO while wearing mask. Gonzalez in place, UOP approx 100-150 ml/hr. No BM. Skin overall intact. Pt declining repositioning most of night. Pt/family aware of plan of care. Call harvey in reach, bed locked in low position.
[2023-09-30 04:37] LABS: Venous Blood Gas Refer to POC result
[2023-09-30 05:00] LABS: Basophils Percent Auto 0.1 % (0-2); Eosinophils Percent Auto 0.1 % (0-4); Hemoglobin 9.6 g/dl (12.0-16.0); Imm Gran Abs Auto 0.08 X10*3/uL (0.00-0.03); Imm Gran Pct Auto 0.7 % (0.0-0.4); Lymphocytes Absolute Auto 0.2 X10*3/uL (1.2-4.9); Lymphocytes Percent Auto 1.3 % (20-40); MANUAL DIFF FLAG SCAN; Mean Corpuscular Hemoglobin 26.2 pg (27.0-33.0); Mean Corpuscular Volume 81.7 fL (80.0-98.0); Mean Platelet Volume 10.1 fL (9.4-12.3); Monocytes Absolute Auto 0.2 X10*3/uL (0.1-1.2); Monocytes Percent Auto 1.5 % (2-11); Neutrophils Absolute Auto 11.5 x10*3/uL (2.0-8.3); Neutrophils Percent Auto 96.3 % (45-73); Platelet Count 156 X10*3/uL (160-400); Red Blood Count 3.67 X10*6/uL (4.20-5.50); Red Cell Distribution Width 17.4 % (11.0-16.0); SCAN SMEAR FLAG 1
[2023-09-30 05:19] LABS: Alanine Aminotransferase 86 U/L (0-31); Albumin Level 3.2 g/dL (3.5-5.0); Alkaline Phosphatase 93 U/L (39-117); Anion Gap 20 (12-20); Aspartate Amino Transferase 27 U/L (5-31); Bilirubin Total 0.5 mg/dL (0.0-1.0); Blood Urea Nitrogen 70 mg/dL (9-16); Calcium 9.5 mg/dL (8.4-10.2); Carbon Dioxide 28 mmol/L (22-29); Chloride 93 mmol/L (96-108); Creatinine Clr Calc Pharmacy 19.4; Estimated Glomerular Filt Rate 19; Glucose Random 239 mg/dL (60-115); Magnesium 1.9 mg/dL (1.6-2.6); Phosphorus 5.3 mg/dL (2.7-4.5); Potassium 3.6 mmol/L (3.3-5.1); Sodium 137 mmol/L (135-145); Total Protein 6.1 g/dL (6.5-8.0)
[2023-09-30 05:27] LABS: Troponin-I High Sensitivity 214.7 ng/L (<3.5-17.0)
[2023-09-30 05:30] LABS: SLIDE REVIEW VERIFIED
[2023-09-30] MEDS: Potassium Chloride/H20 10 MEQ/100 ML PIGGYBACK 100 MEQ IV ×4 (06:00→21:25)
[2023-09-30 07:20] LABS: Glucose, Whole Blood 233 mg/dL (60-115)
[2023-09-30] MEDS: 0.9 % Sodium Chloride Flush 3 ML SYRINGE IVFLUSH ×2 (07:41→16:30)
[2023-09-30] MEDS: Insulin Lispro 100 UNIT/ML 3 ML VIAL SUBCUT ×4 (07:42→16:31)
--- NOTE | 2023-09-30 07:46 | PC.NURSE ---
pt anxious resp rate 40s, forced exp wheezing heard throughout. resp contacted saturation 84 %. pt is due for duoneb. 02 increased to 85% and instructed to slow resp rate with good effect.
[2023-09-30] MEDS: Albuterol/Iprat 2.5/0.5MG 3 ML AMPUL.NEB INHALE ×4 (07:56→20:14)
[2023-09-30] MEDS: Spironolactone 25 MG TABLET PO (08:46)
[2023-09-30] MEDS: Apixaban 5 MG TABLET PO (08:46)
[2023-09-30] MEDS: Sildenafil Citrate 20 MG TABLET PO (08:46)
[2023-09-30] MEDS: Cholecalciferol (Vitamin D3) 25 MCG TABLET PO (08:46)
[2023-09-30] MEDS: dilTIAZem HCL CD 180 MG CAP.ER.24H PO (08:47)
[2023-09-30] MEDS: Doxycycline Hyclate 100 MG in 0.9 % Sodium Chloride 250 ML 166.67 MG IV ×3 (08:47→20:06)
[2023-09-30] MEDS: Atorvastatin Calcium 80 MG TABLET PO (08:47)
[2023-09-30] MEDS: Albumin Human 25 % 100 ML IV ×4 (08:48→20:08)
[2023-09-30] MEDS: Digoxin 0.125 MG TABLET PO (08:49)
--- NOTE | 2023-09-30 09:38 | PM.CCPN ---
Subjective Subjective Date of Service: 09/30/23 Interval History: 78-year-old lady with underlying history of COPD on 4 L, ILD, diabetes mellitus, CAD, diastolic dysfunction, AFib, aortic stenosis, recent admission to [facility] for hypoxemia discharged on 09/22/2023, readmitted on 09/27/2023 with worsening dyspnea and hypoxia. Patient initially admitted to telemetry, however her respiratory status worsened and she required BiPAP support. At that time patient was transferred to intensive care unit and continued on diuretic, now with Lasix drip, and systemic glucocorticoids and nebulized bronchodilators. Also with Staph epidermidis bacteremia. no events overnight. On/ off noninvasive positive pressure ventilatory support. Critical Care Time (minutes): 45 Physical Exam Vital Signs: Vital Signs: Last Vital Signs Temp 98.6 F 09/30/23 09:00 Pulse 114 H 09/30/23 09:00 Resp 27 H 09/30/23 09:00 BP 102/61 09/30/23 09:00 Pulse Ox 87 L 09/30/23 09:00 O2 Del Method High Flow Nasal C annula 09/30/23 09:00 O2 Flow Rate 50 09/30/23 09:00 FiO2 75 09/30/23 09:00 BMI result Body Mass Index 27.5 Const: General: no acute distress, alert and awake Eyes: Sclerae: sclerae normal EOM: EOMs intact bilaterally Neck: Neck: Yes no lymphadenopathy, Yes trachea midline and Yes supple Resp: Effort & Inspection: normal respiratory effort ( On CPAP) and no respiratory distress Auscultation: crackles ( bilateral) Cardio: Rate: regular rate Rhythm: regular rhythm Heart sounds: no gallops, no murmurs and no rubs GI: Palpation (GI): Soft to palpation and Other GI palpation findings present ( Nontender) Auscultation: normal bowel sounds Extrem: General: No clubbing, No cyanosis and Yes edema ( trace bilateral) Objective Data Labs 09/30/23 04:12 09/30/23 04:12 Labs: Laboratory Results - last 24 hr 09/29/23 09/29/23 09/29/23 11:26 16:45 20:09 WBC RBC Hgb Hct MCV MCH MCHC RDW Plt Count MPV Immature Gran % (Auto) Neut % (Auto) Lymph % (Auto) [place] % (Auto) Eos % (Auto) Baso % (Auto) Lymph # (Auto) [place] # (Auto) Eos # (Auto) Baso # (Auto) Abs Immat Gran (auto) Absolute Neuts (auto) Absolute Nucleated RBC Nucleated RBC % (auto) Smear Tech's Comments VBG pH VBG pCO2 VBG pO2 VBG HCO3 VBG O2 Saturation VBG Base Excess Sodium Potassium Chloride Carbon Dioxide Anion Gap BUN Creatinine Estim Creat Clear Calc Estimated GFR POC Glucose 256 H 210 H 152 H Random Glucose Calcium Phosphorus Magnesium Total Bilirubin AST ALT Alkaline Phosphatase Troponin I High Sens Total Protein Albumin 09/29/23 09/30/23 09/30/23 20:11 04:12 07:17 WBC 12.0 H RBC 3.67 L Hgb 9.6 L Hct 30.0 L MCV 81.7 MCH 26.2 L MCHC 32.0 RDW 17.4 H Plt Count 156 L MPV 10.1 Immature Gran % (Auto) 0.7 H Neut % (Auto) 96.3 H Lymph % (Auto) 1.3 L [place] % (Auto) 1.5 L Eos % (Auto) 0.1 Baso % (Auto) 0.1 Lymph # (Auto) 0.2 L [place] # (Auto) 0.2 Eos # (Auto) 0.0 Baso # (Auto) 0.0 Abs Immat Gran (auto) 0.08 H Absolute Neuts (auto) 11.5 H Absolute Nucleated RBC 0.000 Nucleated RBC % (auto) 0.0 Smear Tech's Comments VERIFIED VBG pH 7.49 H VBG pCO2 49 VBG pO2 37 VBG HCO3 37 H VBG O2 Saturation 62.0 VBG Base Excess 13.0 Sodium 136 137 Potassium 3.5 D 3.6 Chloride 94 L 93 L Carbon Dioxide 27 28 Anion Gap 19 20 BUN 70 H 70 H Creatinine 2.36 H 2.42 H Estim Creat Clear Calc 19.9 19.4 Estimated GFR 20 19 POC Glucose 233 H Random Glucose 160 H 239 H Calcium 9.4 9.5 Phosphorus 5.3 H Magnesium 1.9 Total Bilirubin 0.5 AST 27 ALT 86 H Alkaline Phosphatase 93 Troponin I High Sens 214.7 H* Total Protein 6.1 L Albumin 3.2 L Microbiology Microbiology Results: Microbiology 09/27/23 10:17 Blood - Venous Blood Culture - Final Staphylococcus epidermidis 09/27/23 10:12 Blood - Venous Blood Culture - Final Staphylococcus epidermidis Progress Note: A&P Assessment and plan (1) Bacteremia due to Staphylococcus epidermidis: Status: Acute (2) Atrial fibrillation with rapid ventricular response: Status: Acute (3) Pulmonary hypertension: Status: Acute (4) Non-rheumatic aortic stenosis: Status: Acute (5) Acute on chronic diastolic (congestive) heart failure: Status: Acute (6) ILD (interstitial lung disease): Status: Acute (7) Acute and chronic respiratory failure with hypoxia: Status: Acute (8) Type 2 diabetes mellitus with unspecified complications: Status: Acute (9) CAD (coronary artery disease): Status: Acute Plan Assessment: 78-year-old lady with underlying CAD, COPD, ILD, diastolic heart failure, aortic stenosis admitted with worsening hypoxemia Plan: Neuro: No acute issues. Cardiac: acute on chronic diastolic congestive heart failure improving with diuresis on the background of aortic stenosis and AFib. Continue anticoagulation and rate control. Pulmonary: Acute on chronic hypoxic respiratory failure secondary to exacerbation of underlying congestive heart failure. Also, pulmonary hypertension secondary to left heart failure with some response to empiric sildenafil. Continue to titrate off supplemental oxygen as tolerated. Renal: Acute kidney injury On the background of exacerbation of underlying diastolic congestive heart failure. Non oliguric. Continue to monitor renal indices and urine output. Endo: No acute issues. Underlying diabetes mellitus. GI: No acute issues. ID: Staph epidermidis bacteremia. Antibiotics switched to IV doxycycline. Heme/Onc: No acute issues. Psych: No acute issues. Miscellaneous: No acute issues. Prophylaxis: Eliquis Diet: cardiac Critical care time spent: 45 minutes Quality Stroke Does the patient have a stroke diagnosis?: No VTE Prior VTE?: No VTE Risk Level:: Medical - moderate - high VTE Device Contraindication: N/A - Device Ordered VTE Drug Contraindication: N/A - Med Ordered
--- NOTE | 2023-09-30 09:40 | PC.NURSE ---
pt on high flow, unable to tolerate transfer to ct at this time. to move to pap. pt resp status mildly labored, wheezing, hypoxic 85-88%
--- NOTE | 2023-09-30 10:24 | P.CDIM_ITS ---
PROVIDER RESPONSE TEXT: To clarify, the appropriate diagnosis supported by the clinical indicators: CKD Stage 3 QUERY TEXT: PHYSICIAN'S DOCUMENTATION REQUEST Date of Query: 09/30/2023 10:08 AM EDT Patient Name: Gabi Lugo Admit Date: 09/27/2023 Dear Mathieu Musa, A review of the medical record indicates additional documentation may be needed. Please review below and update the documentation accordingly. Clinical Indicators: H&P: CKD 4 ICU progress note 09/28 - Assessment and plan: CKD 4 ICU progress note 09/29 - CKD 3 ICU Progress note 09/29 - Plan - I think volume played a role in her exacerbation of chronic renal in sufficiency. Please clarify which of the following accurately represents the patient's renal status: CKD Stage 3 CKD Stage 4 Other please specify Other (explain)Clinically unable to determine (explain)Thank you, Celine Sainz, CCS, CDIS Use of terms such as suspected, likely, concern for, or probable (associated with a specific diagnosi s that is being evaluated, monitored, or treated as if it exists) are acceptable and can be coded in the inpatient se tting, when documented at the time of discharge. Please use your independent medical judgment in providing your response. THIS QUERY IS PART OF THE PERMANENT MEDICAL RECORD
--- NOTE | 2023-09-30 10:58 | P.CDIM_ITS ---
PROVIDER RESPONSE TEXT: To clarify, the appropriate diagnosis supported by the clinical indicators: Acute on chronic QUERY TEXT: PHYSICIAN'S DOCUMENTATION REQUEST Date of Query: 09/30/2023 10:49 AM EDT Patient Name: Gabi Lugo Admit Date: 09/27/2023 Dear Mathieu Musa, A review of the medical record indicates additional documentation may be needed. Please review below and update the documentation accordingly. Clinical Indicators: ICU Progress note 09/28 - 78 yr old female apparently longstanding interstitial lung disease with nita dence of cor pulmonale and persistent atrial fibrillation. Clarify which of the following accurately represents the acuity of the cor pulmonale: Possible options might include: Acute Acute on chronic Chronic stable condition Other (explain)Clinically unable to determine (explain)Thank you, Celine Sainz, CCS, CDIS Use of terms such as suspected, likely, concern for, or probable (associated with a specific diagnosi s that is being evaluated, monitored, or treated as if it exists) are acceptable and can be coded in the inpatient se tting, when documented at the time of discharge. Please use your independent medical judgment in providing your response. THIS QUERY IS PART OF THE PERMANENT MEDICAL RECORD
[2023-09-30 12:00] LABS: Glucose, Whole Blood 363 mg/dL (60-115)
[2023-09-30 16:19] LABS: Glucose, Whole Blood 214 mg/dL (60-115)
[2023-09-30] MEDS: methylPREDNISolone Sod Succ 125 MG/2 ML VIAL 60 MG IVPUSH ×2 (16:31→21:23)
[2023-09-30] MEDS: fentaNYL citrate/PF 100 MCG/2 ML VIAL 50 MCG IVPUSH ×2 (16:39→20:25)
[2023-09-30] MEDS: LORazepam 2 MG/ML VIAL 1 MG IVPUSH ×2 (18:11→21:20)
[2023-09-30 18:30] LABS: Anion Gap 22 (12-20); Blood Urea Nitrogen 75 mg/dL (9-16); Calcium 9.8 mg/dL (8.4-10.2); Carbon Dioxide 29 mmol/L (22-29); Chloride 94 mmol/L (96-108); Creatinine Clr Calc Pharmacy 18.9; Estimated Glomerular Filt Rate 20; Glucose Random 195 mg/dL (60-115); Potassium 3.6 mmol/L (3.3-5.1); Sodium 141 mmol/L (135-145)
[2023-09-30 20:52] LABS: Glucose, Whole Blood 133 mg/dL (60-115)
[2023-09-30] MEDS: Insulin Glargine,Hum.rec.anlog 100 UNIT/ML 10 ML VIAL 15 UNIT SUBCUT (21:23)
[2023-09-30] MEDS: dexmedeTOMIDidine HCL/NS 400 MCG/100 ML INFUS..BTL 9.08 MCG IVCONT (22:11)
[2023-09-30 23:02] LABS: ABG HCO3 37 mmol/L (22-26); ABG pCO2 55 mmHg (32-45); ABG pH 7.44 (7.35-7.45); ABG pO2 58 mmHg (83-108)
[2023-09-30 23:27] LABS: ABG Refer to POC result
[2023-10-01] VITALS (50 sets, daily range): BP systolic 88–116; BP diastolic 32–70; PULSE 74–117; RESP 14–35; TEMP 34.1–38.5; O2SAT 79–100; BMI 27.5
--- NOTE | 2023-10-01 00:15 | PC.NURSE ---
Addendum entered by Amanda Meier RN 10/01/23 07:17: At approx 0500- pt increasing restless despite precedex. SpO2 80% via BiPAP on /100%, RR 20-30s, accessory muscle use. COILER OPERATOR aware. ABG repeated, decision made to intubate at approx 0620. Given propofol 100 mg IVP for intubation. Propofol gtt started for sedation. Levophed ordered and titrated to maintain MAP > 65. ETT #7.5, 25 cm at lip, jose blood suctioned via in-line. On AC settings. OGT placed. pCXR ordered to confirm lines/tubes. Family updated on pt status/plan of care and at bedside. Original Note: Upon initial assessment at 1900- pt A&Ox4, slightly anxious, but cooperative. On CPAP 12/85%, RR 30-40s, increased WOB- accessory muscle use, tachypnea, labored and SOB per pt. LS with rhonchi and wheezing throughout. Given PRN fentanyl 50 mcg IVP with some effect. Still with dyspnea and anxiety, COILER OPERATOR Yogesh notified- new order for Ativan 1 mg IVP x1, given with some effect. Lasix gtt ordered and started per JAN, UOP approx 40-50 ml/hr. Progressively becoming more hypoxic and restless- precedex gtt ordered and started per JAN. Pt became maxed on CPAP settings by RT, tripoding, RR 30s, SpO2 84%. ABG done. Switched to BiPAP settings 15/10/100% with some improvement in WOB and SpO2. Pt drowsy and with AMS, reaching for mask. COILER OPERATOR notified and aware of pt status at this time.
[2023-10-01] MEDS: fentaNYL citrate/PF 100 MCG/2 ML VIAL 50 MCG IVPUSH ×3 (03:29→11:11)
[2023-10-01] MEDS: methylPREDNISolone Sod Succ 125 MG/2 ML VIAL 60 MG IVPUSH ×4 (03:29→21:48)
[2023-10-01 04:36] LABS: VBG Base Excess 13.7 mmol/L; VBG HCO3 37 mmol/L (22-26); VBG pCO2 45 mmHg; VBG pH 7.52 (7.32-7.43); VBG pO2 55 mmHg
[2023-10-01 04:42] LABS: Venous Blood Gas Refer to POC result
[2023-10-01 04:51] LABS: Basophils Percent Auto 0.2 % (0-2); Hematocrit 23.9 % (37.0-47.0); Hemoglobin 7.4 g/dl (12.0-16.0); Imm Gran Abs Auto 0.05 X10*3/uL (0.00-0.03); Imm Gran Pct Auto 0.6 % (0.0-0.4); Lymphocytes Absolute Auto 0.2 X10*3/uL (1.2-4.9); Lymphocytes Percent Auto 2.1 % (20-40); MANUAL DIFF FLAG SCAN; Mean Corpuscular Hemoglobin 26.3 pg (27.0-33.0); Mean Corpuscular Volume 85.1 fL (80.0-98.0); Mean Platelet Volume 10.8 fL (9.4-12.3); Monocytes Absolute Auto 0.2 X10*3/uL (0.1-1.2); Neutrophils Absolute Auto 8.3 x10*3/uL (2.0-8.3); Neutrophils Percent Auto 95.1 % (45-73); Platelet Count 128 X10*3/uL (160-400); Red Blood Count 2.81 X10*6/uL (4.20-5.50); Red Cell Distribution Width 17.9 % (11.0-16.0); SCAN SMEAR FLAG 1; White Blood Count 8.7 X10*3/uL (4.8-10.8)
[2023-10-01 05:13] LABS: SLIDE REVIEW VERIFIED
[2023-10-01 05:18] LABS: Digoxin 1.2 ng/mL (0.8-2.0)
[2023-10-01 05:19] LABS: Albumin Level 3.9 g/dL (3.5-5.0); Anion Gap 20 (12-20); Blood Urea Nitrogen 77 mg/dL (9-16); Calcium 10.1 mg/dL (8.4-10.2); Carbon Dioxide 28 mmol/L (22-29); Chloride 98 mmol/L (96-108); Creatinine Clr Calc Pharmacy 18.8; Estimated Glomerular Filt Rate 20; Glucose Random 173 mg/dL (60-115); Iron 24 mcg/dL (30-160); Percent Iron Saturation 17 % (15-50); Phosphorus 5.7 mg/dL (2.7-4.5); Potassium 3.7 mmol/L (3.3-5.1); Sodium 142 mmol/L (135-145); Total Iron Binding Capacity 142 mcg/dL (228-428); Unsaturated Iron Binding 118 ug/dL
[2023-10-01 06:14] LABS: ABG Base Excess 12.4 mmol/L; ABG HCO3 37 mmol/L (22-26); ABG pCO2 49 mmHg (32-45); ABG pH 7.48 (7.35-7.45); ABG pO2 52 mmHg (83-108)
[2023-10-01] MEDS: propofoL 200 MG/20 ML VIAL 100 MG IVPUSH (06:21)
[2023-10-01] MEDS: Norepinephrine Bitartrate/D5W 8 MG/250 ML PLAST..BAG 6.81 MG IV (06:25)
[2023-10-01] MEDS: propofoL 1,000 MG/100 ML VIAL 13.07 MG IVCONT ×3 (06:30→22:53)
--- NOTE | 2023-10-01 06:45 | W.PM.CCHP ---
Procedures Date of Service Date of Service: 10/01/23 <Truman Zuñiga NP - Last Filed: 10/01/23 06:49> 10/01/23 <Mathieu Musa MD - Last Filed: 10/01/23 15:16> Intubation Intubation Comments: Patient with worsening hypoxemia overnight, this am 02 sats only 80 to high 70s. I called patient health care proxys and daughter. informed regarding patient condition, they wanted to come see the patient but she was too unstable. Emergent intubation was neccesary Patient in acute respiratory distress, refractory to BIPAP, requiring emergent intubation for hypoxemia. Patient intubated with 7.5 cuffed ET tube under glide scope guidance with visualization of vocal cords, without immediate complications. ET tube position verified with Chest XRAY. <Truman Zuñiga NP - Last Filed: 10/01/23 06:49> Consent for Procedure: Emergent-no informed consent obtained <Truman Zuñiga NP - Last Filed: 10/01/23 06:49> Time out performed: Yes <Truman Zuñiga NP - Last Filed: 10/01/23 06:49> Sedative: propofol <Trmuan Zuñiga NP - Last Filed: 10/01/23 06:49> Mg given: 100 <Truman Zuñiga NP - Last Filed: 10/01/23 06:49> Laryngoscope: fiber optic video scope <Truman Zuñiga NP - Last Filed: 10/01/23 06:49> ET tube size: 7.5 <Truman Zuñiga NP - Last Filed: 10/01/23 06:49> ET tube uncuffed: No <Truman Zuñiga NP - Last Filed: 10/01/23 06:49> Tube secured depth (cm): 25 <Truman Zuñiga NP - Last Filed: 10/01/23 06:49> Tube secured location: lips <Truman Zuñiga NP - Last Filed: 10/01/23 06:49> Tube placement confirmation: visualized tube passing through cords <Truman Zuñiga NP - Last Filed: 10/01/23 06:49> Patient tolerated procedure: well and no complications <Truman Zuñiga NP - Last Filed: 10/01/23 06:49> Intubation complications: none <Truman Zuñiga NP - Last Filed: 10/01/23 06:49>
[2023-10-01] MEDS: Albuterol/Iprat 2.5/0.5MG 3 ML AMPUL.NEB INHALE ×4 (07:32→19:36)
[2023-10-01 07:42] LABS: Glucose, Whole Blood 189 mg/dL (60-115)
[2023-10-01] MEDS: Atorvastatin Calcium 80 MG TABLET PO (07:56)
[2023-10-01] MEDS: Sildenafil Citrate 20 MG TABLET PO ×3 (07:56→20:00)
[2023-10-01] MEDS: dilTIAZem HCL CD 180 MG CAP.ER.24H PO (07:57)
[2023-10-01] MEDS: Insulin Lispro 100 UNIT/ML 3 ML VIAL SUBCUT ×4 (07:57→21:49)
[2023-10-01] MEDS: Cholecalciferol (Vitamin D3) 25 MCG TABLET PO (07:57)
[2023-10-01] MEDS: Doxycycline Hyclate 100 MG in 0.9 % Sodium Chloride 250 ML 166.67 MG IV ×2 (08:05→19:48)
[2023-10-01] MEDS: 0.9 % Sodium Chloride Flush 3 ML SYRINGE IVFLUSH ×3 (09:00→23:19)
[2023-10-01] MEDS: propofoL 1,000 MG/100 ML VIAL 17.42 MG IVCONT ×2 (10:00→14:54)
[2023-10-01] MEDS: fentaNYL citrate/NS 1,000 MCG/100 ML PLAST..BAG 2.5 MCG IVCONT (11:00)
[2023-10-01 11:40] LABS: Glucose, Whole Blood 208 mg/dL (60-115)
--- NOTE | 2023-10-01 12:32 | PC.NURSE ---
Addendum entered by Michael Vega RN 10/01/23 18:36: MD notified of increasing levophed requirements to maintain MAP>65. New order for VBG: alkalosis and compensated, PULL TAB DEALER notified. mandated rate on PC settings lowered to 14 Addendum entered by Michael Vega RN 10/01/23 18:05: about 15:00, Due to repeated desaturation into mid 80's% and ventilator desynchrony, changed to PC settings by RT in conjunction with MD: PC rate 18; inspiratory pressure 18; Peep 10; FiO2 50%, well tolerated, oral secretions blood tinged but less bloody, inline secretions still blood tinged. About 1800 Low MAP around 55-61, uptitrating levophed to 0.15 mcg/kg/min Addendum entered by Michael Vega RN 10/01/23 15:50: trialed AC settings with rate 18; tidal volume 350; FiO2 down to 50%; and Peep of 8; resultant SpO2 staying 86-87%, discussed with MD, and settings adjusted to AC with rate 18; Tidal volume 350; FiO2 50%; Peep 10; well tolerated, SpO2 staying 89% Original Note: Assumed care at 07:00. Upon initial assessment, patient was sedated on 50 mcg/kg/min of IV propofol gtt, this was downtitrated to 40 mcg/kg/min. Was getting Levophed at 0.09 mcg/kg/min, Levophed was uptitrated to 0.11 to maintain MAP >65. Lasix gtt at 5 mg/hour with 30 cc/hour urine via saunders, lasix gtt stopped per MD. Patient was on intermittent suction to OGT, this was stopped per MD and all medications except eliquis were given via OGT and eliquis held per MD. Afib with controlled rate on monitor, minimal edema nonpitting to right ankle. Patient with blood tinged oral secretions and scant blood tinged inline secretions. intubated with #7.5 ETT, 25 cm at the lip, continued on AC settings mechanical ventilation 18; 350; 12; and 100% FiO2 was lowered by RT to 60% FiO2, maintaining goal of 88-92% SpO2. Peak pressures often 39-43, MD and RT aware, better with patient turned to left peak pressure 24. Patient was intermittently appearing uncomfortable as per nonverbal signs of pain, and was grimacing, having occasionally increased WOB, and FiO2 had been increased intermittently. Patient was given IVP fentanyl about 8 am 50 mcg, and as per MD was given again at 11:11, as was looking uncomfortable, given early per MD and started on fentanyl gtt as per MD. Around 12:00, patient was having increased WOB, tachycardia afib on monitor with rate up to 117, was having ventilator desynchrony and peak pressures up to 39-44. Patient trembling and showing nonverbal signs of discomfort. FiO2 set to 100%, suctioned for no secretions, HOB to 45 degrees, boosted up with equity sales assistant. Blankets provided, MD and RT notified. Propofol increased to 50 mcg/min, fentanyl gtt increased to 50 mcg/hr. Was requiring lavage and suctioning by MD with small amount of bloody mucous cleared, FiO2 able to be lowered back to 60%, propofol back to 40 mcg/kg/min. Patient was repeat lavage and suctioned by RT at 1300.
--- NOTE | 2023-10-01 15:16 | PM.CCPN ---
Subjective Subjective Date of Service: 10/01/23 Interval History: 78-year-old lady with underlying history of COPD on 4 L, ILD, diabetes mellitus, CAD, diastolic dysfunction, AFib, aortic stenosis, recent admission to [facility] for hypoxemia discharged on 09/22/2023, readmitted on 09/27/2023 with worsening dyspnea and hypoxia. Patient initially admitted to telemetry, however her respiratory status worsened and she required BiPAP support. At that time patient was transferred to intensive care unit and continued on diuretic, now with Lasix drip, and systemic glucocorticoids and nebulized bronchodilators. Also with Staph epidermidis bacteremia. overnight on 09/30/2023 with worsening respiratory status and refractory hypoxia requiring intubation and ventilatory support, also with development of alveolar hemorrhage. Overnight events as above. Critical Care Time (minutes): 45 Physical Exam Vital Signs: Vital Signs: Last Vital Signs Temp 99.3 F 10/01/23 14:00 Pulse 93 10/01/23 14:00 Resp 18 10/01/23 14:00 BP 116/47 L 10/01/23 14:00 Pulse Ox 91 L 10/01/23 14:00 O2 Del Method Mechanical Ventil ation 10/01/23 14:00 O2 Flow Rate 50 09/30/23 10:00 FiO2 60 10/01/23 14:00 BMI result Body Mass Index 27.5 Const: General: no acute distress and other ( Sedated on the vent) Eyes: Sclerae: sclerae normal EOM: EOMs intact bilaterally Neck: Neck: Yes no lymphadenopathy, Yes trachea midline and Yes supple Resp: Auscultation: crackles ( diffuse bilateral) Cardio: Rate: regular rate Rhythm: regular rhythm Heart sounds: no gallops, no murmurs and no rubs GI: Palpation (GI): Soft to palpation and Other GI palpation findings present ( Nontender) Auscultation: normal bowel sounds Extrem: General: No clubbing, No cyanosis and Yes edema ( trace bilateral) Objective Data Labs 10/01/23 04:29 10/01/23 04:29 Labs: Laboratory Results - last 24 hr 09/30/23 09/30/23 09/30/23 16:15 18:04 20:47 WBC RBC Hgb Hct MCV MCH MCHC RDW Plt Count MPV Immature Gran % (Auto) Neut % (Auto) Lymph % (Auto) [place] % (Auto) Eos % (Auto) Baso % (Auto) Lymph # (Auto) [place] # (Auto) Eos # (Auto) Baso # (Auto) Abs Immat Gran (auto) Absolute Neuts (auto) Absolute Nucleated RBC Nucleated RBC % (auto) Smear Tech's Comments O2 Saturation ABG pH at Pt Temp ABG pCO2 at Pt Temp ABG pO2 at Pt Temp ABG HCO3 ABG Base Excess (Actual) VBG pH VBG pCO2 VBG pO2 VBG HCO3 VBG O2 Saturation VBG Base Excess Sodium 141 Potassium 3.6 Chloride 94 L Carbon Dioxide 29 Anion Gap 22 H BUN 75 H Creatinine 2.39 H Estim Creat Clear Calc 18.9 Estimated GFR 20 POC Glucose 214 H 133 H Random Glucose 195 H Calcium 9.8 Phosphorus Magnesium Iron TIBC % Saturation Unsat Iron Binding Albumin Digoxin 09/30/23 10/01/23 10/01/23 22:56 04:29 06:08 WBC 8.7 RBC 2.81 L D Hgb 7.4 L D Hct 23.9 L D MCV 85.1 MCH 26.3 L MCHC 31.0 RDW 17.9 H Plt Count 128 L MPV 10.8 Immature Gran % (Auto) 0.6 H Neut % (Auto) 95.1 H Lymph % (Auto) 2.1 L [place] % (Auto) 2.0 Eos % (Auto) 0.0 Baso % (Auto) 0.2 Lymph # (Auto) 0.2 L [place] # (Auto) 0.2 Eos # (Auto) 0.0 Baso # (Auto) 0.0 Abs Immat Gran (auto) 0.05 H Absolute Neuts (auto) 8.3 Absolute Nucleated RBC 0.000 Nucleated RBC % (auto) 0.0 Smear Tech's Comments VERIFIED O2 Saturation 86.0 82.0 ABG pH at Pt Temp 7.44 7.48 H ABG pCO2 at Pt Temp 55 H 49 H ABG pO2 at Pt Temp 58 L 52 L ABG HCO3 37 H 37 H ABG Base Excess (Actual) 12.0 12.4 VBG pH 7.52 H VBG pCO2 45 VBG pO2 55 VBG HCO3 37 H VBG O2 Saturation 87.0 VBG Base Excess 13.7 Sodium 142 Potassium 3.7 Chloride 98 Carbon Dioxide 28 Anion Gap 20 BUN 77 H Creatinine 2.40 H Estim Creat Clear Calc 18.8 Estimated GFR 20 POC Glucose Random Glucose 173 H Calcium 10.1 Phosphorus 5.7 H Magnesium 2.0 Iron 24 L TIBC 142 L % Saturation 17 Unsat Iron Binding 118 Albumin 3.9 Digoxin 1.2 10/01/23 10/01/23 07:39 11:31 WBC RBC Hgb Hct MCV MCH MCHC RDW Plt Count MPV Immature Gran % (Auto) Neut % (Auto) Lymph % (Auto) [place] % (Auto) Eos % (Auto) Baso % (Auto) Lymph # (Auto) [place] # (Auto) Eos # (Auto) Baso # (Auto) Abs Immat Gran (auto) Absolute Neuts (auto) Absolute Nucleated RBC Nucleated RBC % (auto) Smear Tech's Comments O2 Saturation ABG pH at Pt Temp ABG pCO2 at Pt Temp ABG pO2 at Pt Temp ABG HCO3 ABG Base Excess (Actual) VBG pH VBG pCO2 VBG pO2 VBG HCO3 VBG O2 Saturation VBG Base Excess Sodium Potassium Chloride Carbon Dioxide Anion Gap BUN Creatinine Estim Creat Clear Calc Estimated GFR POC Glucose 189 H 208 H Random Glucose Calcium Phosphorus Magnesium Iron TIBC % Saturation Unsat Iron Binding Albumin Digoxin Microbiology Microbiology Results: Microbiology 09/27/23 10:17 Blood - Venous Blood Culture - Final Staphylococcus epidermidis 09/27/23 10:12 Blood - Venous Blood Culture - Final Staphylococcus epidermidis Progress Note: A&P Assessment and plan (1) Acute and chronic respiratory failure with hypoxia: Status: Acute (2) Bacteremia due to Staphylococcus epidermidis: Status: Acute (3) Pulmonary hypertension: Status: Acute (4) Non-rheumatic aortic stenosis: Status: Acute (5) Acute on chronic diastolic (congestive) heart failure: Status: Acute (6) ILD (interstitial lung disease): Status: Acute (7) COPD with acute exacerbation: Status: Acute (8) Type 2 diabetes mellitus with unspecified complications: Status: Acute Plan Assessment: 78-year-old lady with underlying CAD, COPD, ILD, diastolic heart failure, aortic stenosis admitted with worsening hypoxemia Plan: Neuro: No acute issues. Cardiac: acute on chronic diastolic congestive heart failure improving with diuresis on the background of aortic stenosis and AFib. Continue rate control. Anticoagulation held secondary to alveolar hemorrhage. Pulmonary: Acute on chronic hypoxic respiratory failure now requiring ventilatory support. Appears to be multifactorial with contribution from underlying acute on chronic diastolic heart failure, progressive ILD, and ARDS. Now with alveolar hemorrhage. Renal: Acute kidney injury On the background of exacerbation of underlying diastolic congestive heart failure. Non oliguric. Continue to monitor renal indices and urine output. Endo: No acute issues. Underlying diabetes mellitus. GI: No acute issues. ID: Staph epidermidis bacteremia. Continue IV doxycycline. Heme/Onc: No acute issues. Psych: No acute issues. Miscellaneous: No acute issues. Prophylaxis: compression therapy, ppi Diet: tube feeds Critical care time spent: 45 minutes Quality Stroke Does the patient have a stroke diagnosis?: No VTE Prior VTE?: No VTE Risk Level:: Medical - moderate - high VTE Device Contraindication: N/A - Device Ordered VTE Drug Contraindication: N/A - Med Ordered
--- NOTE | 2023-10-01 15:44 | MHC.CM.PN ---
Pt continues care in ICU: required emergent intubation d/t worsening respiratory status and aveolar hemorrhage. D/C planning may need revision d/t pt's fragile condition. Original plan was to return to home. CM to follow for finalization pending clinical stability.
[2023-10-01 16:15] LABS: Glucose, Whole Blood 218 mg/dL (60-115)
[2023-10-01 18:38] LABS: VBG Base Excess 11.4 mmol/L; VBG HCO3 35 mmol/L (22-26); VBG pCO2 41 mmHg; VBG pH 7.53 (7.32-7.43); VBG pO2 83 mmHg
[2023-10-01] MEDS: Norepinephrine Bitartrate/D5W 8 MG/250 ML PLAST..BAG 20.42 MG IV (19:40)
[2023-10-01 21:03] LABS: Glucose, Whole Blood 209 mg/dL (60-115)
[2023-10-01] MEDS: Insulin Glargine,Hum.rec.anlog 100 UNIT/ML 10 ML VIAL 15 UNIT SUBCUT (21:49)
[2023-10-01 22:20] LABS: Venous Blood Gas Refer to POC result
[2023-10-02] VITALS (48 sets, daily range): BP systolic 91–126; BP diastolic 34–80; PULSE 81–121; RESP 14–24; TEMP 34.9–38.2; O2SAT 87–99; BMI 29.1
[2023-10-02] MEDS: fentaNYL citrate/NS 1,000 MCG/100 ML PLAST..BAG 5 MCG IVCONT ×2 (01:48→20:13)
[2023-10-02 04:35] LABS: VBG Base Excess 10.3 mmol/L; VBG HCO3 34 mmol/L (22-26); VBG pCO2 45 mmHg; VBG pH 7.48 (7.32-7.43); VBG pO2 83 mmHg
[2023-10-02 04:37] LABS: Venous Blood Gas Refer to POC result
[2023-10-02] MEDS: propofoL 1,000 MG/100 ML VIAL 13.07 MG IVCONT ×2 (04:59→12:10)
[2023-10-02] MEDS: Norepinephrine Bitartrate/D5W 8 MG/250 ML PLAST..BAG 25.86 MG IV ×2 (05:01→14:31)
[2023-10-02] MEDS: methylPREDNISolone Sod Succ 125 MG/2 ML VIAL 60 MG IVPUSH ×2 (05:02→20:18)
[2023-10-02 05:06] LABS: Basophils Percent Auto 0.1 % (0-2); Hematocrit 24.2 % (37.0-47.0); Hemoglobin 7.6 g/dl (12.0-16.0); Imm Gran Abs Auto 0.12 X10*3/uL (0.00-0.03); Imm Gran Pct Auto 0.8 % (0.0-0.4); Lymphocytes Absolute Auto 0.3 X10*3/uL (1.2-4.9); Lymphocytes Percent Auto 2.3 % (20-40); MANUAL DIFF FLAG SCAN; Mean Corpuscular HGB Conc 31.4 g/dl (31.0-35.0); Mean Corpuscular Hemoglobin 26.1 pg (27.0-33.0); Mean Corpuscular Volume 83.2 fL (80.0-98.0); Mean Platelet Volume 10.6 fL (9.4-12.3); Monocytes Absolute Auto 0.3 X10*3/uL (0.1-1.2); Monocytes Percent Auto 1.9 % (2-11); Neutrophils Absolute Auto 14.1 x10*3/uL (2.0-8.3); Neutrophils Percent Auto 94.9 % (45-73); Platelet Count 198 X10*3/uL (160-400); Red Blood Count 2.91 X10*6/uL (4.20-5.50); SCAN SMEAR FLAG 1; White Blood Count 14.9 X10*3/uL (4.8-10.8)
[2023-10-02 05:23] LABS: Albumin Level 3.7 g/dL (3.5-5.0); Anion Gap 18 (12-20); Blood Urea Nitrogen 97 mg/dL (9-16); Calcium 9.5 mg/dL (8.4-10.2); Carbon Dioxide 28 mmol/L (22-29); Chloride 98 mmol/L (96-108); Estimated Glomerular Filt Rate 15; Glucose Random 302 mg/dL (60-115); Magnesium 2.1 mg/dL (1.6-2.6); Phosphorus 5.3 mg/dL (2.7-4.5); Potassium 4.2 mmol/L (3.3-5.1); Sodium 140 mmol/L (135-145)
[2023-10-02 05:27] LABS: SLIDE REVIEW VERIFIED
[2023-10-02] MEDS: Omeprazole/Na Bicarb Oral Susp 20 MG/10 ML UD Cup 40 MG PO (05:50)
[2023-10-02 07:33] LABS: Glucose, Whole Blood 374 mg/dL (60-115)
[2023-10-02] MEDS: Albuterol/Iprat 2.5/0.5MG 3 ML AMPUL.NEB INHALE ×4 (07:56→18:49)
[2023-10-02] MEDS: Insulin Lispro 100 UNIT/ML 3 ML VIAL SUBCUT ×4 (08:23→21:23)
[2023-10-02] MEDS: 0.9 % Sodium Chloride Flush 3 ML SYRINGE IVFLUSH ×3 (08:24→21:23)
[2023-10-02] MEDS: Doxycycline Hyclate 100 MG in 0.9 % Sodium Chloride 250 ML 166.67 MG IV ×2 (08:31→20:18)
[2023-10-02] MEDS: Cholecalciferol (Vitamin D3) 25 MCG TABLET PO (08:39)
[2023-10-02] MEDS: dilTIAZem HCL CD 180 MG CAP.ER.24H PO (08:39)
[2023-10-02] MEDS: Atorvastatin Calcium 80 MG TABLET PO (08:39)
[2023-10-02] MEDS: Sildenafil Citrate 20 MG TABLET PO ×3 (08:39→21:22)
[2023-10-02] MEDS: Digoxin 0.125 MG TABLET PO (08:43)
[2023-10-02] MEDS: Chlorhexidine Gluc Oral Rinse 15 ML MOUTHWASH BUCCAL ×3 (08:44→20:18)
--- NOTE | 2023-10-02 10:42 | MHC.CLN ---
PT REMAINS INTUBATED AND SEDATED PT RECEIVING PROMOTE AT MAX GOAL RATE 50ML/HR PROVIDES 1200KCALS (1545KCALS WITH SEDATION; 26KCALS/KG), 75G PROTEIN (1.25G/KG), 1007ML FREE WATER FROM FORMULA REVIEWED LABS RECOMMEND CHANGE IN FORMULA TO NEPRO AT MAX GOAL RATE 25ML/HR WITH 240ML FREE WATER FLUSH Q 6 HRS TO PROVIDE 1080KCALS (1425KCALS WITH SEDATION; 24KCALS/KG), 49G PROTEIN (.8G/KG), 1396ML TOTAL WATER FROM FORMULA AND FLUSHES (23ML/KG) MONITOR TOLERANCE, RESIDUALS AND LYTES
[2023-10-02 11:21] LABS: Glucose, Whole Blood 375 mg/dL (60-115)
--- NOTE | 2023-10-02 11:25 | P.PNCC_ITS ---
Subjective Subjective Date of Service: 10/02/23 Interval History: 78-year-old lady with underlying history of COPD on 4 L, ILD, diabetes mellitus, CAD, diastolic dysfunction, AFib, aortic stenosis, recent admission to [facility] for hypoxemia discharged on 09/22/2023, readmitted on 09/27/2023 with worsening dyspnea and hypoxia. Patient initially admitted to telemetry, however her respiratory status worsened and she required BiPAP support. At that time patient was transferred to intensive care unit and continued on diuretic, now with Lasix drip, and systemic glucocorticoids and nebulized bronchodilators. Also with Staph epidermidis bacteremia. overnight on 09/30/2023 with worsening respiratory status and refractory hypoxia requiring intubation and ventilatory support, also with development of alveolar hemorrhage. No events overnight. FiO2 requirements are improving. Critical Care Time (minutes): 45 Physical Exam 2 Vital Signs: Vital Signs: Last Vital Signs Temp 99.9 F 10/02/23 11:00 Pulse 99 10/02/23 11:00 Resp 15 10/02/23 11:00 BP 107/41 L 10/02/23 11:00 Pulse Ox 94 10/02/23 11:00 O2 Del Method Mechanical Ventil ation 10/02/23 11:00 O2 Flow Rate 50 09/30/23 10:00 FiO2 50 10/02/23 11:00 BMI result Body Mass Index 29.1 Const: General: no acute distress and other ( Sedated on the vent) Eyes: Sclerae: sclerae normal EOM: EOMs intact bilaterally Neck: Neck: Yes no lymphadenopathy, Yes trachea midline and Yes supple Resp: Auscultation: crackles ( bilateral) Cardio: Rate: regular rate Rhythm: regular rhythm Heart sounds: no gallops, no murmurs and no rubs GI: Palpation (GI): Soft to palpation and Other GI palpation findings present ( Nontender) Auscultation: normal bowel sounds Extrem: General: Yes no pedal edema, No clubbing and No cyanosis Objective Data Labs 10/02/23 04:26 10/02/23 04:26 Labs: Laboratory Results - last 24 hr 10/01/23 10/01/23 10/01/23 11:31 16:09 18:33 WBC RBC Hgb Hct MCV MCH MCHC RDW Plt Count MPV Immature Gran % (Auto) Neut % (Auto) Lymph % (Auto) [place] % (Auto) Eos % (Auto) Baso % (Auto) Lymph # (Auto) [place] # (Auto) Eos # (Auto) Baso # (Auto) Abs Immat Gran (auto) Absolute Neuts (auto) Absolute Nucleated RBC Nucleated RBC % (auto) Smear Tech's Comments VBG pH 7.53 H VBG pCO2 41 VBG pO2 83 VBG HCO3 35 H VBG O2 Saturation 98.0 VBG Base Excess 11.4 Sodium Potassium Chloride Carbon Dioxide Anion Gap BUN Creatinine Estim Creat Clear Calc Estimated GFR POC Glucose 208 H 218 H Random Glucose Calcium Phosphorus Magnesium Albumin 10/01/23 10/02/23 10/02/23 21:00 04:26 04:30 WBC 14.9 H RBC 2.91 L Hgb 7.6 L Hct 24.2 L MCV 83.2 MCH 26.1 L MCHC 31.4 RDW 18.0 H Plt Count 198 D MPV 10.6 Immature Gran % (Auto) 0.8 H Neut % (Auto) 94.9 H Lymph % (Auto) 2.3 L [place] % (Auto) 1.9 L Eos % (Auto) 0.0 Baso % (Auto) 0.1 Lymph # (Auto) 0.3 L [place] # (Auto) 0.3 Eos # (Auto) 0.0 Baso # (Auto) 0.0 Abs Immat Gran (auto) 0.12 H Absolute Neuts (auto) 14.1 H Absolute Nucleated RBC 0.000 Nucleated RBC % (auto) 0.0 Smear Tech's Comments VERIFIED VBG pH 7.48 H VBG pCO2 45 VBG pO2 83 VBG HCO3 34 H VBG O2 Saturation 97.0 VBG Base Excess 10.3 Sodium 140 Potassium 4.2 Chloride 98 Carbon Dioxide 28 Anion Gap 18 BUN 97 H Creatinine 3.01 H Estim Creat Clear Calc 15.0 Estimated GFR 15 POC Glucose 209 H Random Glucose 302 H Calcium 9.5 Phosphorus 5.3 H Magnesium 2.1 Albumin 3.7 10/02/23 10/02/23 07:30 11:16 WBC RBC Hgb Hct MCV MCH MCHC RDW Plt Count MPV Immature Gran % (Auto) Neut % (Auto) Lymph % (Auto) [place] % (Auto) Eos % (Auto) Baso % (Auto) Lymph # (Auto) [place] # (Auto) Eos # (Auto) Baso # (Auto) Abs Immat Gran (auto) Absolute Neuts (auto) Absolute Nucleated RBC Nucleated RBC % (auto) Smear Tech's Comments VBG pH VBG pCO2 VBG pO2 VBG HCO3 VBG O2 Saturation VBG Base Excess Sodium Potassium Chloride Carbon Dioxide Anion Gap BUN Creatinine Estim Creat Clear Calc Estimated GFR POC Glucose 374 H* 375 H* Random Glucose Calcium Phosphorus Magnesium Albumin Microbiology Microbiology Results: Microbiology 09/27/23 10:17 Blood - Venous Blood Culture - Final Staphylococcus epidermidis 09/27/23 10:12 Blood - Venous Blood Culture - Final Staphylococcus epidermidis Progress Note: A&P Assessment and plan (1) Bacteremia due to Staphylococcus epidermidis: Status: Acute (2) Pulmonary hypertension: Status: Acute (3) Non-rheumatic aortic stenosis: Status: Acute (4) Acute on chronic diastolic (congestive) heart failure: Status: Acute (5) ILD (interstitial lung disease): Status: Acute (6) COPD with acute exacerbation: Status: Acute (7) Acute and chronic respiratory failure with hypoxia: Status: Acute (8) Type 2 diabetes mellitus with unspecified complications: Status: Acute Plan Assessment: 78-year-old lady with underlying CAD, COPD, ILD, diastolic heart failure, aortic stenosis admitted with worsening hypoxemia Plan: Neuro: No acute issues. Cardiac: acute on chronic diastolic congestive heart failure improving with diuresis on the background of aortic stenosis and AFib. Continue rate control. Anticoagulation held secondary to alveolar hemorrhage. Pulmonary: Acute on chronic hypoxic respiratory failure now requiring ventilatory support. Appears to be multifactorial with contribution from underlying acute on chronic diastolic heart failure, progressive ILD, and ARDS, also with alveolar hemorrhage, likely secondary to Eliquis. FiO2 requirements improving. Continue to titrate off ventilatory support as tolerated. Renal: Acute kidney injury On the background of exacerbation of underlying diastolic congestive heart failure. Non oliguric. Continue to monitor renal indices and urine output. Endo: No acute issues. Underlying diabetes mellitus. GI: No acute issues. ID: Staph epidermidis bacteremia. Continue IV doxycycline. Heme/Onc: No acute issues. Psych: No acute issues. Miscellaneous: No acute issues. Prophylaxis: compression therapy, ppi Diet: tube feeds Critical care time spent: 45 minutes Quality Stroke Does the patient have a stroke diagnosis?: No VTE Prior VTE?: No VTE Risk Level:: Medical - moderate - high VTE Device Contraindication: N/A - Device Ordered VTE Drug Contraindication: N/A - Med Ordered
--- NOTE | 2023-10-02 12:50 | P.CDIM_ITS ---
PROVIDER RESPONSE TEXT: To clarify, the appropriate diagnosis supported by the clinical indicators: Bacteremia QUERY TEXT: PHYSICIAN'S DOCUMENTATION REQUEST Date of Query: 10/02/2023 10:33 AM EDT Patient Name: Gabi Lugo Admit Date: 09/27/2023 Dear Mathieu Musa, A review of the medical record indicates additional documentation may be needed. Please review below and update the documentation accordingly. Clinical Indicators: Event note 09/28 - discussed with ICU attending. Increase in hypoxia, CXR showing worsening retrocard iac opacity. Bacteremia GPC started Vancomycin. ICU note 09/28 - plan is to cover Gram-positive cocci with vancomycin as a probably reflects a pneumo jenna as the source. WBC 15.8/16.1 Temp 100.6/101.3 HR 106/120 RR 24/36 Please clarify which, if any, of the following is the most likely etiology of the above symptoms and treatment rendered: Sepsis Severe Sepsis Bacteremia Not treating sepsis Other (explain)Clinically unable to determine (explain)Thank you, Celine Sainz, CCS, CDIS Use of terms such as suspected, likely, concern for, or probable (associated with a specific diagnosi s that is being evaluated, monitored, or treated as if it exists) are acceptable and can be coded in the inpatient se tting, when documented at the time of discharge. Please use your independent medical judgment in providing your response. THIS QUERY IS PART OF THE PERMANENT MEDICAL RECORD
--- NOTE | 2023-10-02 13:14 | MHC.CM.PN ---
EMR REVIEWED AND PER MD ROUNDS, PT IS NOT MEDICALLY CLEARED FOR DC. PT REMAINS ON VENTILATORY SUPPORT IN THE ICU. CM WILL CONTINUE TO FOLLOW FOR EVOLVING DC PLAN/NEEDS
[2023-10-02] MEDS: propofoL 1,000 MG/100 ML VIAL 17.42 MG IVCONT ×2 (16:59→22:53)
[2023-10-02 17:32] LABS: Glucose, Whole Blood 309 mg/dL (60-115)
[2023-10-02] MEDS: Norepinephrine Bitartrate/D5W 8 MG/250 ML PLAST..BAG 44.92 MG IV (20:16)
[2023-10-02 21:20] LABS: Glucose, Whole Blood 294 mg/dL (60-115)
[2023-10-02] MEDS: Insulin Glargine,Hum.rec.anlog 100 UNIT/ML 10 ML VIAL 15 UNIT SUBCUT (21:23)
[2023-10-02 23:51] LABS: Glucose, Whole Blood 267 mg/dL (60-115)
[2023-10-03] VITALS (42 sets, daily range): BP systolic 87–123; BP diastolic 30–56; PULSE 79–106; RESP 12–19; TEMP 34.3–37.8; O2SAT 85–93; BMI 30.4
[2023-10-03] MEDS: Norepinephrine Bitartrate/D5W 8 MG/250 ML PLAST..BAG 44.92 MG IV (01:44)
[2023-10-03] MEDS: propofoL 1,000 MG/100 ML VIAL 17.42 MG IVCONT ×4 (03:47→23:38)
[2023-10-03 04:41] LABS: VBG Base Excess 4.4 mmol/L; VBG HCO3 29 mmol/L (22-26); VBG pCO2 44 mmHg; VBG pH 7.42 (7.32-7.43); VBG pO2 41 mmHg
[2023-10-03 05:03] LABS: Basophils Percent Auto 0.1 % (0-2); Hematocrit 21.2 % (37.0-47.0); Hemoglobin 7.3 g/dl (12.0-16.0); Imm Gran Pct Auto 1.2 % (0.0-0.4); Lymphocytes Absolute Auto 0.3 X10*3/uL (1.2-4.9); Lymphocytes Percent Auto 1.8 % (20-40); MANUAL DIFF FLAG SCAN; Mean Corpuscular HGB Conc 34.4 g/dl (31.0-35.0); Mean Corpuscular Hemoglobin 28.9 pg (27.0-33.0); Mean Corpuscular Volume 83.8 fL (80.0-98.0); Mean Platelet Volume 10.9 fL (9.4-12.3); Monocytes Absolute Auto 0.4 X10*3/uL (0.1-1.2); Monocytes Percent Auto 2.2 % (2-11); NRBC Pct Auto 0.3 /100WBC (0.0-0.2); Neutrophils Absolute Auto 16.2 x10*3/uL (2.0-8.3); Neutrophils Percent Auto 94.7 % (45-73); Platelet Count 173 X10*3/uL (160-400); Red Blood Count 2.53 X10*6/uL (4.20-5.50); Red Cell Distribution Width 18.3 % (11.0-16.0); SCAN SMEAR FLAG 1; White Blood Count 17.1 X10*3/uL (4.8-10.8)
[2023-10-03 05:04] LABS: SLIDE REVIEW VERIFIED
[2023-10-03 05:43] LABS: Alanine Aminotransferase 37 U/L (0-31); Albumin Level 3.1 g/dL (3.5-5.0); Alkaline Phosphatase 64 U/L (39-117); Anion Gap 19 (12-20); Aspartate Amino Transferase 26 U/L (5-31); Bilirubin Total 0.5 mg/dL (0.0-1.0); Blood Urea Nitrogen 108 mg/dL (9-16); Calcium 8.4 mg/dL (8.4-10.2); Carbon Dioxide 22 mmol/L (22-29); Chloride 85 mmol/L (96-108); Creatinine Clr Calc Pharmacy 14.3; Estimated Glomerular Filt Rate 14; Glucose Random 625 mg/dL (60-115); Magnesium 1.9 mg/dL (1.6-2.6); Potassium 5.1 mmol/L (3.3-5.1); Sodium 121 mmol/L (135-145); Total Protein 6.2 g/dL (6.5-8.0)
[2023-10-03] MEDS: Insulin Regular/NS 100 UNIT/100 ML PLAST..BAG IVCONT (05:56)
[2023-10-03] MEDS: Omeprazole/Na Bicarb Oral Susp 20 MG/10 ML UD Cup 40 MG PO (05:59)
[2023-10-03 06:12] LABS: Glucose, Whole Blood 390 mg/dL (60-115)
[2023-10-03] MEDS: Norepinephrine Bitartrate/D5W 8 MG/250 ML PLAST..BAG 47.64 MG IV (06:33)
[2023-10-03 06:38] LABS: Anion Gap 21 (12-20); Blood Urea Nitrogen 118 mg/dL (9-16); Calcium 9.2 mg/dL (8.4-10.2); Carbon Dioxide 24 mmol/L (22-29); Chloride 92 mmol/L (96-108); Creatinine Clr Calc Pharmacy 13.7; Estimated Glomerular Filt Rate 13; Glucose Random 484 mg/dL (60-115); Potassium 5.4 mmol/L (3.3-5.1); Sodium 132 mmol/L (135-145)
[2023-10-03 06:56] LABS: Venous Blood Gas Refer to POC result
[2023-10-03 07:14] LABS: Glucose, Whole Blood 424 mg/dL (60-115)
[2023-10-03] MEDS: Albuterol/Iprat 2.5/0.5MG 3 ML AMPUL.NEB INHALE ×4 (07:41→19:36)
[2023-10-03 08:13] LABS: Glucose, Whole Blood 378 mg/dL (60-115)
[2023-10-03] MEDS: Doxycycline Hyclate 100 MG in 0.9 % Sodium Chloride 250 ML 166.67 MG IV ×2 (08:56→19:55)
[2023-10-03] MEDS: dilTIAZem HCL CD 180 MG CAP.ER.24H PO (08:57)
[2023-10-03] MEDS: Chlorhexidine Gluc Oral Rinse 15 ML MOUTHWASH BUCCAL ×3 (08:57→19:58)
[2023-10-03] MEDS: 0.9 % Sodium Chloride Flush 3 ML SYRINGE IVFLUSH ×3 (08:57→19:59)
[2023-10-03] MEDS: methylPREDNISolone Sod Succ 125 MG/2 ML VIAL 60 MG IVPUSH (08:58)
[2023-10-03] MEDS: Insulin Glargine,Hum.rec.anlog 100 UNIT/ML 10 ML VIAL 30 UNIT SUBCUT (08:58)
[2023-10-03 09:03] LABS: Glucose, Whole Blood 381 mg/dL (60-115)
[2023-10-03 10:18] LABS: Glucose, Whole Blood 343 mg/dL (60-115)
--- NOTE | 2023-10-03 10:28 | MHC.CM.PN ---
Pt continues care in ICU on ventilatory support: D/C Plans are ongoing and may require placement. Will await clinical improvement for determination of d/c needs. Initially, pt was planned to return to home w/family support.
[2023-10-03 11:10] LABS: Glucose, Whole Blood 382 mg/dL (60-115)
--- NOTE | 2023-10-03 11:23 | W.PM.CCHP ---
Procedures Date of Service Date of Service: 10/03/23 Central Line Placement Right IJ: Central Line Comments: After obtaining informed consent right internal jugular triple-lumen central venous catheter placed under sterile conditions and ultrasound guidance with no immediate complications. X-ray for line position is pending.
[2023-10-03] MEDS: Insulin Lispro 100 UNIT/ML 3 ML VIAL SUBCUT ×4 (11:41→23:40)
[2023-10-03] MEDS: Norepinephrine Bitartrate/D5W 8 MG/250 ML PLAST..BAG 50.37 MG IV (11:46)
--- NOTE | 2023-10-03 12:28 | P.PNCC_ITS ---
Subjective Subjective Date of Service: 10/03/23 Interval History: 78-year-old lady with underlying history of COPD on 4 L, ILD, diabetes mellitus, CAD, diastolic dysfunction, AFib, aortic stenosis, recent admission to [facility] for hypoxemia discharged on 09/22/2023, readmitted on 09/27/2023 with worsening dyspnea and hypoxia. Patient initially admitted to telemetry, however her respiratory status worsened and she required BiPAP support. At that time patient was transferred to intensive care unit and continued on diuretic, now with Lasix drip, and systemic glucocorticoids and nebulized bronchodilators. Also with Staph epidermidis bacteremia. overnight on 09/30/2023 with worsening respiratory status and refractory hypoxia requiring intubation and ventilatory support, also with development of alveolar hemorrhage. No events overnight. Still with significant blood clots with in-line suctioning. Critical Care Time (minutes): 60 Physical Exam 2 Vital Signs: Vital Signs: Last Vital Signs Temp 99.3 F 10/03/23 12:00 Pulse 102 H 10/03/23 12:00 Resp 15 10/03/23 12:00 BP 96/51 L 10/03/23 12:00 Pulse Ox 89 L 10/03/23 12:00 O2 Del Method Mechanical Ventil ation 10/03/23 12:00 O2 Flow Rate 50 09/30/23 10:00 FiO2 80 10/03/23 12:00 BMI result Body Mass Index 30.4 Const: General: no acute distress and other (Sedated on the vent) Eyes: Sclerae: sclerae normal EOM: EOMs intact bilaterally Neck: Neck: Yes no lymphadenopathy, Yes trachea midline and Yes supple Resp: Effort & Inspection: normal respiratory effort and no respiratory distress Auscultation: crackles (Bilateral) Cardio: Rate: regular rate Rhythm: regular rhythm Heart sounds: no gallops, no murmurs and no rubs GI: Palpation (GI): Soft to palpation and Other GI palpation findings present ( Nontender) Auscultation: normal bowel sounds Extrem: General: No no pedal edema, No clubbing and No cyanosis Objective Data Labs 10/03/23 04:34 10/03/23 06:09 Labs: Laboratory Results - last 24 hr 10/02/23 10/02/23 10/02/23 17:30 21:16 23:47 WBC RBC Hgb Hct MCV MCH MCHC RDW Plt Count MPV Immature Gran % (Auto) Neut % (Auto) Lymph % (Auto) [place] % (Auto) Eos % (Auto) Baso % (Auto) Lymph # (Auto) [place] # (Auto) Eos # (Auto) Baso # (Auto) Abs Immat Gran (auto) Absolute Neuts (auto) Absolute Nucleated RBC Nucleated RBC % (auto) Smear Tech's Comments VBG pH VBG pCO2 VBG pO2 VBG HCO3 VBG O2 Saturation VBG Base Excess Sodium Potassium Chloride Carbon Dioxide Anion Gap BUN Creatinine Estim Creat Clear Calc Estimated GFR POC Glucose 309 H 294 H 267 H Random Glucose Calcium Phosphorus Magnesium Total Bilirubin AST ALT Alkaline Phosphatase Total Protein Albumin 10/03/23 10/03/23 10/03/23 04:32 04:34 06:06 WBC 17.1 H RBC 2.53 L Hgb 7.3 L Hct 21.2 L MCV 83.8 MCH 28.9 MCHC 34.4 RDW 18.3 H Plt Count 173 MPV 10.9 Immature Gran % (Auto) 1.2 H Neut % (Auto) 94.7 H Lymph % (Auto) 1.8 L [place] % (Auto) 2.2 Eos % (Auto) 0.0 Baso % (Auto) 0.1 Lymph # (Auto) 0.3 L [place] # (Auto) 0.4 Eos # (Auto) 0.0 Baso # (Auto) 0.0 Abs Immat Gran (auto) 0.20 H Absolute Neuts (auto) 16.2 H Absolute Nucleated RBC 0.050 H Nucleated RBC % (auto) 0.3 H Smear Tech's Comments VERIFIED VBG pH 7.42 VBG pCO2 44 VBG pO2 41 VBG HCO3 29 H VBG O2 Saturation 67.0 VBG Base Excess 4.4 Sodium 121 L Potassium 5.1 D Chloride 85 L Carbon Dioxide 22 Anion Gap 19 BUN 108 H Creatinine 3.25 H Estim Creat Clear Calc 14.3 Estimated GFR 14 POC Glucose 390 H* Random Glucose 625 H* Calcium 8.4 D Phosphorus 5.0 H Magnesium 1.9 Total Bilirubin 0.5 AST 26 ALT 37 H Alkaline Phosphatase 64 Total Protein 6.2 L Albumin 3.1 L 10/03/23 10/03/23 10/03/23 06:09 07:06 08:08 WBC RBC Hgb Hct MCV MCH MCHC RDW Plt Count MPV Immature Gran % (Auto) Neut % (Auto) Lymph % (Auto) [place] % (Auto) Eos % (Auto) Baso % (Auto) Lymph # (Auto) [place] # (Auto) Eos # (Auto) Baso # (Auto) Abs Immat Gran (auto) Absolute Neuts (auto) Absolute Nucleated RBC Nucleated RBC % (auto) Smear Tech's Comments VBG pH VBG pCO2 VBG pO2 VBG HCO3 VBG O2 Saturation VBG Base Excess Sodium 132 L Potassium 5.4 H Chloride 92 L Carbon Dioxide 24 Anion Gap 21 H BUN 118 H Creatinine 3.47 H Estim Creat Clear Calc 13.7 Estimated GFR 13 POC Glucose 424 H* 378 H* Random Glucose 484 H* Calcium 9.2 D Phosphorus Magnesium Total Bilirubin AST ALT Alkaline Phosphatase Total Protein Albumin 10/03/23 10/03/23 10/03/23 08:56 10:14 11:08 WBC RBC Hgb Hct MCV MCH MCHC RDW Plt Count MPV Immature Gran % (Auto) Neut % (Auto) Lymph % (Auto) [place] % (Auto) Eos % (Auto) Baso % (Auto) Lymph # (Auto) [place] # (Auto) Eos # (Auto) Baso # (Auto) Abs Immat Gran (auto) Absolute Neuts (auto) Absolute Nucleated RBC Nucleated RBC % (auto) Smear Tech's Comments VBG pH VBG pCO2 VBG pO2 VBG HCO3 VBG O2 Saturation VBG Base Excess Sodium Potassium Chloride Carbon Dioxide Anion Gap BUN Creatinine Estim Creat Clear Calc Estimated GFR POC Glucose 381 H* 343 H 382 H* Random Glucose Calcium Phosphorus Magnesium Total Bilirubin AST ALT Alkaline Phosphatase Total Protein Albumin Microbiology Microbiology Results: Microbiology 09/27/23 10:17 Blood - Venous Blood Culture - Final Staphylococcus epidermidis 09/27/23 10:12 Blood - Venous Blood Culture - Final Staphylococcus epidermidis Progress Note: A&P Assessment and plan (1) Bacteremia due to Staphylococcus epidermidis: Status: Acute (2) Non-rheumatic aortic stenosis: Status: Acute (3) Acute on chronic diastolic (congestive) heart failure: Status: Acute (4) ILD (interstitial lung disease): Status: Acute (5) COPD with acute exacerbation: Status: Acute (6) Acute kidney injury: Status: Acute (7) Acute and chronic respiratory failure with hypoxia: Status: Acute Plan Assessment: 78-year-old lady with underlying CAD, COPD, ILD, diastolic heart failure, aortic stenosis admitted with worsening hypoxemia Plan: Neuro: No acute issues. Cardiac: acute on chronic diastolic congestive heart failure improving with diuresis on the background of aortic stenosis and AFib. Continue rate control. Anticoagulation held secondary to alveolar hemorrhage. Pulmonary: Acute on chronic hypoxic respiratory failure now requiring ventilatory support. Appears to be multifactorial with contribution from underlying acute on chronic diastolic heart failure, progressive ILD, and ARDS, also with alveolar hemorrhage, likely secondary to Eliquis. Continue to titrate off ventilatory support as tolerated. Renal: Acute kidney injury on the background of exacerbation of underlying diastolic congestive heart failure. Non oliguric. Continue to monitor renal indices and urine output. Endo: No acute issues. Underlying diabetes mellitus. GI: No acute issues. ID: Staph epidermidis bacteremia. Continue IV doxycycline. Heme/Onc: No acute issues. Psych: No acute issues. Miscellaneous: No acute issues. Prophylaxis: compression therapy, ppi Diet: tube feeds Critical care time spent: 60 minutes Quality Stroke Does the patient have a stroke diagnosis?: No VTE Prior VTE?: No VTE Risk Level:: Medical - moderate - high VTE Device Contraindication: N/A - Device Ordered VTE Drug Contraindication: N/A - Med Ordered
[2023-10-03] MEDS: fentaNYL citrate/NS 1,000 MCG/100 ML PLAST..BAG 5 MCG IVCONT (14:20)
[2023-10-03 16:13] LABS: Glucose, Whole Blood 359 mg/dL (60-115)
[2023-10-03] MEDS: Lactulose 20 GM/30 ML SOLUTION 30 GM PO ×2 (16:31→19:58)
[2023-10-03] MEDS: Norepinephrine Bitartrate/D5W 8 MG/250 ML PLAST..BAG 53.09 MG IV ×2 (16:46→20:01)
[2023-10-03] MEDS: propofoL 1,000 MG/100 ML VIAL 21.78 MG IVCONT (18:19)
[2023-10-03 18:22] LABS: Glucose, Whole Blood 345 mg/dL (60-115)
[2023-10-03 23:33] LABS: Glucose, Whole Blood 232 mg/dL (60-115)
[2023-10-04] VITALS (54 sets, daily range): BP systolic 91–137; BP diastolic 41–64; PULSE 80–102; RESP 13–21; TEMP 34.5–37.2; O2SAT 84–95; BMI 30.4
[2023-10-04] MEDS: Norepinephrine Bitartrate/D5W 8 MG/250 ML PLAST..BAG 53.09 MG IV ×2 (00:28→04:05)
[2023-10-04] MEDS: propofoL 1,000 MG/100 ML VIAL 17.42 MG IVCONT ×3 (03:41→23:02)
[2023-10-04] MEDS: fentaNYL citrate/NS 1,000 MCG/100 ML PLAST..BAG 7.5 MCG IVCONT (03:42)
[2023-10-04 05:02] LABS: VBG Base Excess 3.9 mmol/L; VBG HCO3 29 mmol/L (22-26); VBG pCO2 51 mmHg; VBG pH 7.36 (7.32-7.43); VBG pO2 58 mmHg
[2023-10-04 05:05] LABS: Venous Blood Gas Refer to POC result
[2023-10-04 05:13] LABS: Basophils Percent Auto 0.1 % (0-2); Imm Gran Abs Auto 0.31 X10*3/uL (0.00-0.03); Imm Gran Pct Auto 1.5 % (0.0-0.4); Lymphocytes Absolute Auto 0.5 X10*3/uL (1.2-4.9); Lymphocytes Percent Auto 2.5 % (20-40); MANUAL DIFF FLAG SCAN; Mean Corpuscular HGB Conc 31.4 g/dl (31.0-35.0); Mean Corpuscular Hemoglobin 26.5 pg (27.0-33.0); Mean Corpuscular Volume 84.3 fL (80.0-98.0); Mean Platelet Volume 10.7 fL (9.4-12.3); Monocytes Absolute Auto 0.6 X10*3/uL (0.1-1.2); Monocytes Percent Auto 2.8 % (2-11); NRBC Pct Auto 0.2 /100WBC (0.0-0.2); Neutrophils Absolute Auto 19.6 x10*3/uL (2.0-8.3); Neutrophils Percent Auto 93.1 % (45-73); Platelet Count 165 X10*3/uL (160-400); Red Cell Distribution Width 17.7 % (11.0-16.0); SCAN SMEAR FLAG 1; White Blood Count 21.1 X10*3/uL (4.8-10.8)
[2023-10-04 05:20] LABS: Hematocrit 19.4 % (37.0-47.0); Hemoglobin 6.1 g/dl (12.0-16.0)
[2023-10-04 05:35] LABS: SLIDE REVIEW VERIFIED
[2023-10-04 05:36] LABS: Alanine Aminotransferase 36 U/L (0-31); Albumin Level 3.3 g/dL (3.5-5.0); Alkaline Phosphatase 71 U/L (39-117); Anion Gap 22 (12-20); Aspartate Amino Transferase 31 U/L (5-31); Bilirubin Total 0.5 mg/dL (0.0-1.0); Calcium 9.2 mg/dL (8.4-10.2); Carbon Dioxide 26 mmol/L (22-29); Chloride 91 mmol/L (96-108); Creatinine Clr Calc Pharmacy 11.1; Estimated Glomerular Filt Rate 10; Glucose Random 250 mg/dL (60-115); Magnesium 2.2 mg/dL (1.6-2.6); Phosphorus 7.9 mg/dL (2.7-4.5); Potassium 5.7 mmol/L (3.3-5.1); Sodium 133 mmol/L (135-145); Total Protein 5.5 g/dL (6.5-8.0)
[2023-10-04] MEDS: Omeprazole/Na Bicarb Oral Susp 20 MG/10 ML UD Cup 40 MG PO (05:38)
[2023-10-04] MEDS: Insulin Lispro 100 UNIT/ML 3 ML VIAL SUBCUT ×3 (05:39→18:06)
[2023-10-04 05:47] LABS: Blood Urea Nitrogen 125 mg/dL (9-16)
[2023-10-04] MEDS: Albuterol/Iprat 2.5/0.5MG 3 ML AMPUL.NEB INHALE ×3 (07:15→15:08)
[2023-10-04] MEDS: methylPREDNISolone Sod Succ 125 MG/2 ML VIAL 60 MG IVPUSH (07:47)
[2023-10-04] MEDS: Insulin Glargine,Hum.rec.anlog 100 UNIT/ML 10 ML VIAL 30 UNIT SUBCUT (07:48)
[2023-10-04] MEDS: Chlorhexidine Gluc Oral Rinse 15 ML MOUTHWASH BUCCAL ×3 (07:48→20:13)
[2023-10-04] MEDS: Doxycycline Hyclate 100 MG in 0.9 % Sodium Chloride 250 ML 166.67 MG IV (07:56)
[2023-10-04] MEDS: 0.9 % Sodium Chloride Flush 3 ML SYRINGE IVFLUSH ×2 (08:57→16:13)
--- NOTE | 2023-10-04 09:40 | MHC.CLN ---
F/U DISCUSSED WITH TEAM AT ROUNDS. TF WITH HIGH RESIDUALS. ON HOLD 10/04. PT REMAINS INTUBATED AND SEDATED. WHEN ABLE TO RESUME TUBE FEEDING, RECOMMEND NEPRO AT MAX GOAL RATE 25ML/HR WITH 240ML FREE WATER FLUSH Q 6 HRS TO PROVIDE 1080KCALS (1540KCALS WITH SEDATION; 25KCALS/KG), 49G PROTEIN (.8G/KG), 1396ML TOTAL WATER FROM FORMULA AND FLUSHES (23ML/KG). MONITOR TOLERANCE, RESIDUALS AND LYTES.
[2023-10-04] MEDS: Norepinephrine Bitartrate/D5W 8 MG/250 ML PLAST..BAG 36.75 MG IV (09:45)
[2023-10-04] MEDS: Lactulose 320 GM/480 ML SOLUTION 200 GM PR (12:40)
[2023-10-04 12:53] LABS: Glucose, Whole Blood 207 mg/dL (60-115)
--- NOTE | 2023-10-04 12:59 | P.PNCC_ITS ---
Subjective Subjective Date of Service: 10/04/23 Interval History: 78-year-old lady with underlying history of COPD on 4 L, ILD, diabetes mellitus, CAD, diastolic dysfunction, AFib, aortic stenosis, recent admission to [facility] for hypoxemia discharged on 09/22/2023, readmitted on 09/27/2023 with worsening dyspnea and hypoxia. Patient initially admitted to telemetry, however her respiratory status worsened and she required BiPAP support. At that time patient was transferred to intensive care unit and continued on diuretic, now with Lasix drip, and systemic glucocorticoids and nebulized bronchodilators. Also with Staph epidermidis bacteremia. overnight on 09/30/2023 with worsening respiratory status and refractory hypoxia requiring intubation and ventilatory support, also with development of alveolar hemorrhage. Overnight with worsen oxygenation, still significant constipation, and further drop in hemoglobin. Critical Care Time (minutes): 60 Physical Exam 2 Vital Signs: Vital Signs: Last Vital Signs Temp 98.4 F 10/04/23 12:00 Pulse 98 10/04/23 12:00 Resp 15 10/04/23 12:00 BP 134/41 L 10/04/23 12:00 Pulse Ox 84 L 10/04/23 12:00 O2 Del Method Mechanical Ventil ation 10/04/23 12:00 O2 Flow Rate 50 09/30/23 10:00 FiO2 100 10/04/23 12:00 BMI result Body Mass Index 30.4 Const: General: no acute distress and other ( Sedated on the vent) Eyes: Sclerae: sclerae normal EOM: EOMs intact bilaterally Neck: Neck: Yes no lymphadenopathy, Yes trachea midline and Yes supple Resp: Auscultation: crackles ( bilateral) Cardio: Rate: regular rate Rhythm: regular rhythm Heart sounds: no gallops, no murmurs and no rubs GI: Inspection: Yes distended Palpation (GI): Soft to palpation and Other GI palpation findings present ( Nontender) Auscultation: normal bowel sounds Extrem: General: No clubbing, No cyanosis and Yes edema ( 1+ bilateral) Objective Data Labs 10/04/23 04:52 10/04/23 04:52 Labs: Laboratory Results - last 24 hr 10/03/23 10/03/23 10/03/23 16:10 18:19 23:28 WBC RBC Hgb Hct MCV MCH MCHC RDW Plt Count MPV Immature Gran % (Auto) Neut % (Auto) Lymph % (Auto) [place] % (Auto) Eos % (Auto) Baso % (Auto) Lymph # (Auto) [place] # (Auto) Eos # (Auto) Baso # (Auto) Abs Immat Gran (auto) Absolute Neuts (auto) Absolute Nucleated RBC Nucleated RBC % (auto) Smear Tech's Comments Smear Path Review VBG pH VBG pCO2 VBG pO2 VBG HCO3 VBG O2 Saturation VBG Base Excess Sodium Potassium Chloride Carbon Dioxide Anion Gap BUN Creatinine Estim Creat Clear Calc Estimated GFR POC Glucose 359 H* 345 H 232 H Random Glucose Calcium Phosphorus Magnesium Total Bilirubin AST ALT Alkaline Phosphatase Total Protein Albumin Blood Type Antibody Screen Crossmatch 10/04/23 10/04/23 10/04/23 04:52 04:57 05:45 WBC 21.1 H RBC 2.30 L Hgb 6.1 L* Hct 19.4 L* MCV 84.3 MCH 26.5 L MCHC 31.4 RDW 17.7 H Plt Count 165 MPV 10.7 Immature Gran % (Auto) 1.5 H Neut % (Auto) 93.1 H Lymph % (Auto) 2.5 L [place] % (Auto) 2.8 Eos % (Auto) 0.0 Baso % (Auto) 0.1 Lymph # (Auto) 0.5 L [place] # (Auto) 0.6 Eos # (Auto) 0.0 Baso # (Auto) 0.0 Abs Immat Gran (auto) 0.31 H Absolute Neuts (auto) 19.6 H Absolute Nucleated RBC 0.050 H Nucleated RBC % (auto) 0.2 Smear Tech's Comments VERIFIED Smear Path Review SEE NOTE VBG pH 7.36 VBG pCO2 51 VBG pO2 58 VBG HCO3 29 H VBG O2 Saturation 87.0 VBG Base Excess 3.9 Sodium 133 L Potassium 5.7 H Chloride 91 L Carbon Dioxide 26 Anion Gap 22 H BUN 125 H Creatinine 4.24 H* Estim Creat Clear Calc 11.1 Estimated GFR 10 POC Glucose Random Glucose 250 H Calcium 9.2 Phosphorus 7.9 H Magnesium 2.2 Total Bilirubin 0.5 AST 31 ALT 36 H Alkaline Phosphatase 71 Total Protein 5.5 L Albumin 3.3 L Blood Type A Positive Antibody Screen NEGATIVE Crossmatch See Detail 10/04/23 12:49 WBC RBC Hgb Hct MCV MCH MCHC RDW Plt Count MPV Immature Gran % (Auto) Neut % (Auto) Lymph % (Auto) [place] % (Auto) Eos % (Auto) Baso % (Auto) Lymph # (Auto) [place] # (Auto) Eos # (Auto) Baso # (Auto) Abs Immat Gran (auto) Absolute Neuts (auto) Absolute Nucleated RBC Nucleated RBC % (auto) Smear Tech's Comments Smear Path Review VBG pH VBG pCO2 VBG pO2 VBG HCO3 VBG O2 Saturation VBG Base Excess Sodium Potassium Chloride Carbon Dioxide Anion Gap BUN Creatinine Estim Creat Clear Calc Estimated GFR POC Glucose 207 H Random Glucose Calcium Phosphorus Magnesium Total Bilirubin AST ALT Alkaline Phosphatase Total Protein Albumin Blood Type Antibody Screen Crossmatch Microbiology Microbiology Results: Microbiology 09/27/23 10:17 Blood - Venous Blood Culture - Final Staphylococcus epidermidis 09/27/23 10:12 Blood - Venous Blood Culture - Final Staphylococcus epidermidis Progress Note: A&P Assessment and plan (1) Acute kidney injury: Status: Acute (2) Bacteremia due to Staphylococcus epidermidis: Status: Acute (3) Pulmonary hypertension: Status: Acute (4) Acute on chronic diastolic (congestive) heart failure: Status: Acute (5) ILD (interstitial lung disease): Status: Acute (6) COPD with acute exacerbation: Status: Acute (7) Type 2 diabetes mellitus with unspecified complications: Status: Acute Plan Assessment: 78-year-old lady with underlying CAD, COPD, ILD, diastolic heart failure, aortic stenosis admitted with worsening hypoxemia Plan: Neuro: No acute issues. Cardiac: acute on chronic diastolic congestive heart failure improving with diuresis on the background of aortic stenosis and AFib. Continue rate control. Anticoagulation held secondary to alveolar hemorrhage. Pulmonary: Acute on chronic hypoxic respiratory failure now requiring ventilatory support. Appears to be multifactorial with contribution from underlying acute on chronic diastolic heart failure, progressive ILD, and ARDS, also with alveolar hemorrhage, likely secondary to Eliquis. Continue to titrate off ventilatory support as tolerated. Renal: Acute kidney injury on the background of exacerbation of underlying diastolic congestive heart failure, worsening. Non oliguric. Continue to monitor renal indices and urine output. Endo: No acute issues. Underlying diabetes mellitus. GI: constipation, poor response to lactulose, start enema, +/-Relistor ID: Staph epidermidis bacteremia. Continue IV doxycycline. Heme/Onc: No acute issues. Psych: No acute issues. Miscellaneous: No acute issues. Prophylaxis: compression therapy, ppi Diet: tube feeds Critical care time spent: 60 minutes Quality Stroke Does the patient have a stroke diagnosis?: No VTE Prior VTE?: No VTE Risk Level:: Medical - moderate - high VTE Device Contraindication: N/A - Device Ordered VTE Drug Contraindication: N/A - Med Ordered
--- NOTE | 2023-10-04 13:10 | P.CDIM_ITS ---
PROVIDER RESPONSE TEXT: To clarify, the appropriate diagnosis supported by the clinical indicators: Hyperkalemia QUERY TEXT: PHYSICIAN'S DOCUMENTATION REQUEST Date of Query: 10/04/2023 12:00 PM EDT Patient Name: Gabi Lugo Admit Date: 09/27/2023 Dear Mathieu Musa, A review of the medical record indicates additional documentation may be needed. Please review below and update the documentation accordingly. Clinical Indicators: LAB FINDINGS: potassium 5.4 H 5.7 H Based on the above, is there a diagnosis that correlates with these lab findings: Hyperkalemia Other please specify Other (explain)Clinically unable to determine (explain)Thank you, Celine Sainz, CCS, CDIS Use of terms such as suspected, likely, concern for, or probable (associated with a specific diagnosi s that is being evaluated, monitored, or treated as if it exists) are acceptable and can be coded in the inpatient se tting, when documented at the time of discharge. Please use your independent medical judgment in providing your response. THIS QUERY IS PART OF THE PERMANENT MEDICAL RECORD
[2023-10-04] MEDS: propofoL 1,000 MG/100 ML VIAL 21.78 MG IVCONT ×2 (14:50→18:52)
[2023-10-04] MEDS: fentaNYL citrate/NS 1,000 MCG/100 ML PLAST..BAG 10 MCG IVCONT (16:12)
[2023-10-04] MEDS: Piperacillin Sodium/Tazobactam 2.25 GM in 0.9 % Sodium Chloride 50 ML IV ×2 (16:33→23:13)
--- NOTE | 2023-10-04 16:35 | PHA.PROG ---
Admission Date/Time: September 27, 2023 14:23 Indication: BACTEREMIA Weight in k.4 kg Adjusted body weight in K.98 [place] body weight in Kg: Obesity Dosing Indication % IBW: Serum Creatinine - Last 168 Hours 09/28/23 09/28/23 09/29/23 06:46 15:50 00:18 Creatinine 1.89 H 2.40 H 2.40 H 09/29/23 09/29/23 09/29/23 04:34 04:34 04:34 Creatinine 2.37 H 2.35 H 2.37 H 09/29/23 09/30/23 09/30/23 20:11 04:12 18:04 Creatinine 2.36 H 2.42 H 2.39 H 10/01/23 10/02/23 10/03/23 04:29 04:26 04:34 Creatinine 2.40 H 3.01 H 3.25 H 10/03/23 10/04/23 06:09 04:52 Creatinine 3.47 H 4.24 H* Estimated CrCl and GFR - Last 168 Hours 09/28/23 09/28/23 09/29/23 06:46 15:50 00:18 Estim Creat Clear Calc 24.1 19.0 19.0 Estimated GFR 26 20 20 09/29/23 09/29/23 09/29/23 04:34 04:34 04:34 Estim Creat Clear Calc 19.2 19.4 19.2 Estimated GFR 20 09/29/23 09/29/23 09/29/23 04:34 04:34 20:11 Estim Creat Clear Calc 19.9 Estimated GFR 20 20 20 09/30/23 09/30/23 10/01/23 04:12 18:04 04:29 Estim Creat Clear Calc 19.4 18.9 18.8 Estimated GFR 19 20 20 10/02/23 10/03/23 10/03/23 04:26 04:34 06:09 Estim Creat Clear Calc 15.0 14.3 13.7 Estimated GFR 15 14 13 10/04/23 04:52 Estim Creat Clear Calc 11.1 Estimated GFR 10 Vancomycin Loading Dose: 1000 MG Current Vancomycin Dosing Regimen: 750 MG Q48H Vancomycin Monitoring using AUC goal of 400 - 600 range with trough as surrogate marker: AUC 500, TROUGH 17.1 Date and Time for next Vancomycin Level to be drawn: 10/07 @1500 Pharmacist Comments on Vancomycin Plan: PATIENT SCR RAPIDLY CHANGING Vancomycin dosing will take advantage of [employer] as a clinical decision support tool that uses Bayesian modeling to calculate individual patient's pharmacokinetic parameters and forecast the patient's drug concentration time course with the target goal AUC 24 range of 400 - 600 mg/L/hr.
[2023-10-04] MEDS: vancomycin HCL 1,000 MG in 0.9 % Sodium Chloride 250 ML 270 MG IV (17:24)
[2023-10-04 18:06] LABS: Glucose, Whole Blood 219 mg/dL (60-115)
[2023-10-04] MEDS: Norepinephrine Bitartrate/D5W 8 MG/250 ML PLAST..BAG 25.86 MG IV (18:07)
--- NOTE | 2023-10-04 21:21 | PM.EVENT ---
Documented by User: Maria Dolores Briggs NP 10/04/23 21:22 Event Note Date of Service: 10/04/23 Event Note: Repeat blood cultures drawn 10/03/2023 due to fever. One set of blood cultures reported positive at 29 hours for Gram-positive cocci in clusters. Previous cultures from 09/27/2023 positive for Staphylococcus epidermidis. Will continue broad-spectrum antibiotics and repeat blood cultures and lactate. Time Spent With Patient Time: Total time managing care of this patient today ____ minutes. Documented by User: Mathieu Musa MD 10/05/23 09:45 Event Note Date of Service: 10/05/23
[2023-10-04 22:59] LABS: Lactic Acid 1.5 mmol/L (0.5-2.0)
[2023-10-05] VITALS (43 sets, daily range): BP systolic 95–134; BP diastolic 30–75; PULSE 79–102; RESP 14–28; TEMP 34.7–37; O2SAT 87–98; BMI 30.3
[2023-10-05 00:20] LABS: Glucose, Whole Blood 169 mg/dL (60-115)
[2023-10-05] MEDS: fentaNYL citrate/NS 1,000 MCG/100 ML PLAST..BAG 7.5 MCG IVCONT ×2 (01:09→10:51)
[2023-10-05] MEDS: Norepinephrine Bitartrate/D5W 8 MG/250 ML PLAST..BAG 36.75 MG IV (01:54)
[2023-10-05] MEDS: Piperacillin Sodium/Tazobactam 2.25 GM in 0.9 % Sodium Chloride 50 ML IV ×4 (04:54→22:04)
[2023-10-05] MEDS: propofoL 1,000 MG/100 ML VIAL 17.42 MG IVCONT ×2 (05:00→09:23)
[2023-10-05 05:20] LABS: VBG Base Excess -1.6 mmol/L; VBG HCO3 25 mmol/L (22-26); VBG pCO2 53 mmHg; VBG pH 7.28 (7.32-7.43); VBG pO2 54 mmHg
[2023-10-05 05:36] LABS: Basophils Absolute Auto 0.1 X10*3/uL (0.0-0.2); Basophils Percent Auto 0.4 % (0-2); Eosinophils Absolute Auto 0.2 X10*3/uL (0.0-0.4); Eosinophils Percent Auto 1.2 % (0-4); Hematocrit 26.5 % (37.0-47.0); Hemoglobin 8.6 g/dl (12.0-16.0); Imm Gran Abs Auto 0.19 X10*3/uL (0.00-0.03); Imm Gran Pct Auto 0.9 % (0.0-0.4); Lymphocytes Absolute Auto 0.6 X10*3/uL (1.2-4.9); Lymphocytes Percent Auto 2.8 % (20-40); MANUAL DIFF FLAG SCAN; Mean Corpuscular HGB Conc 32.5 g/dl (31.0-35.0); Mean Corpuscular Hemoglobin 28.2 pg (27.0-33.0); Mean Corpuscular Volume 86.9 fL (80.0-98.0); Mean Platelet Volume 11.2 fL (9.4-12.3); Monocytes Absolute Auto 0.2 X10*3/uL (0.1-1.2); Monocytes Percent Auto 1.2 % (2-11); NRBC Pct Auto 0.3 /100WBC (0.0-0.2); Neutrophils Absolute Auto 19.3 x10*3/uL (2.0-8.3); Neutrophils Percent Auto 93.5 % (45-73); Platelet Count 108 X10*3/uL (160-400); Red Blood Count 3.05 X10*6/uL (4.20-5.50); Red Cell Distribution Width 16.4 % (11.0-16.0); SCAN SMEAR FLAG 1; White Blood Count 20.6 X10*3/uL (4.8-10.8)
[2023-10-05 05:58] LABS: SLIDE REVIEW VERIFIED
[2023-10-05 06:08] LABS: Alanine Aminotransferase 31 U/L (0-31); Albumin Level 2.9 g/dL (3.5-5.0); Alkaline Phosphatase 93 U/L (39-117); Anion Gap 22 (12-20); Aspartate Amino Transferase 30 U/L (5-31); Calcium 8.6 mg/dL (8.4-10.2); Carbon Dioxide 22 mmol/L (22-29); Chloride 91 mmol/L (96-108); Creatinine Clr Calc Pharmacy 11.3; Estimated Glomerular Filt Rate 10; Glucose Random 177 mg/dL (60-115); Magnesium 2.4 mg/dL (1.6-2.6); Phosphorus 10.6 mg/dL (2.7-4.5); Potassium 5.9 mmol/L (3.3-5.1); Sodium 129 mmol/L (135-145); Total Protein 5.1 g/dL (6.5-8.0)
[2023-10-05 06:15] LABS: Blood Urea Nitrogen 134 mg/dL (9-16)
--- NOTE | 2023-10-05 06:43 | HE.PHANOTE ---
RE SIRISHAO SCR WAS 4.18 TODAY. KEEP DOSE AT 750MG Q48H STARTING TODAY. NEXT LEVEL DUE 10/07@1500. IF RENAL FUNCTION IMPROVES, REASSESS AND POSSIBLY INCREASE TO Q24H DOSING SIDDHARTH
[2023-10-05] MEDS: Insulin Lispro 100 UNIT/ML 3 ML VIAL SUBCUT (06:44)
[2023-10-05] MEDS: Albumin Human 25 % 100 ML IV (06:45)
[2023-10-05 08:00] LABS: Venous Blood Gas Refer to POC result
[2023-10-05] MEDS: methylPREDNISolone Sod Succ 125 MG/2 ML VIAL 60 MG IVPUSH (08:05)
[2023-10-05] MEDS: Chlorhexidine Gluc Oral Rinse 15 ML MOUTHWASH BUCCAL ×3 (08:05→20:58)
[2023-10-05] MEDS: Insulin Glargine,Hum.rec.anlog 100 UNIT/ML 10 ML VIAL 30 UNIT SUBCUT (08:05)
[2023-10-05] MEDS: 0.9 % Sodium Chloride Flush 3 ML SYRINGE IVFLUSH ×3 (08:06→15:42)
[2023-10-05] MEDS: Norepinephrine Bitartrate/D5W 8 MG/250 ML PLAST..BAG 44.92 MG IV (08:18)
[2023-10-05 10:15] LABS: INTERNATIONAL NORM RATIO 1.1 (0.9-1.1); Prothrombin Time 13.3 SEC (11.1-13.3)
--- NOTE | 2023-10-05 11:20 | P.PNCC_ITS ---
Subjective Subjective Date of Service: 10/05/23 Interval History: 78-year-old lady with underlying history of COPD on 4 L, ILD, diabetes mellitus, CAD, diastolic dysfunction, AFib, aortic stenosis, recent admission to [facility] for hypoxemia discharged on 09/22/2023, readmitted on 09/27/2023 with worsening dyspnea and hypoxia. Patient initially admitted to telemetry, however her respiratory status worsened and she required BiPAP support. At that time patient was transferred to intensive care unit and continued on diuretic, now with Lasix drip, and systemic glucocorticoids and nebulized bronchodilators. Also with Staph epidermidis bacteremia. overnight on 09/30/2023 with worsening respiratory status and refractory hypoxia requiring intubation and ventilatory support, also with development of alveolar hemorrhage. No events overnight. Critical Care Time (minutes): 60 Physical Exam 2 Vital Signs: Vital Signs: Last Vital Signs Temp 98.1 F 10/05/23 11:00 Pulse 90 10/05/23 11:00 Resp 18 10/05/23 11:00 BP 119/47 L 10/05/23 11:00 Pulse Ox 92 10/05/23 11:00 O2 Del Method Mechanical Ventil ation 10/05/23 11:00 O2 Flow Rate 50 09/30/23 10:00 FiO2 90 10/05/23 11:00 BMI result Body Mass Index 30.3 Const: General: no acute distress and other ( Sedated on the vent) N utritional Appearance: Edematous Eyes: Sclerae: sclerae normal EOM: EOMs intact bilaterally Neck: Neck: Yes no lymphadenopathy, Yes trachea midline and Yes supple Resp: Auscultation: crackles ( bilateral) Cardio: Rate: regular rate Rhythm: regular rhythm Heart sounds: no gallops, no murmurs and no rubs GI: Palpation (GI): Soft to palpation and Other GI palpation findings present ( Nontender) Auscultation: normal bowel sounds Extrem: General: No clubbing, No cyanosis and Yes edema ( 2+ bilateral) Objective Data Labs 10/05/23 05:06 10/05/23 05:06 Labs: Laboratory Results - last 24 hr 10/04/23 10/04/23 10/04/23 05:45 10:40 12:49 WBC RBC Hgb Hct MCV MCH MCHC RDW Plt Count MPV Immature Gran % (Auto) Neut % (Auto) Lymph % (Auto) Osborne % (Auto) Eos % (Auto) Baso % (Auto) Lymph # (Auto) Osborne # (Auto) Eos # (Auto) Baso # (Auto) Abs Immat Gran (auto) Absolute Neuts (auto) Absolute Nucleated RBC Nucleated RBC % (auto) Smear Tech's Comments PT INR VBG pH VBG pCO2 VBG pO2 VBG HCO3 VBG O2 Saturation VBG Base Excess Sodium Potassium Chloride Carbon Dioxide Anion Gap BUN Creatinine Estim Creat Clear Calc Estimated GFR POC Glucose 207 H Random Glucose Lactic Acid 1.5 Calcium Phosphorus Magnesium Total Bilirubin AST ALT Alkaline Phosphatase Total Protein Albumin Blood Type A Positive Antibody Screen NEGATIVE Crossmatch See Detail 10/04/23 10/05/23 10/05/23 17:55 00:16 05:06 WBC 20.6 H RBC 3.05 L D Hgb 8.6 L D Hct 26.5 L D MCV 86.9 MCH 28.2 MCHC 32.5 RDW 16.4 H Plt Count 108 L D MPV 11.2 Immature Gran % (Auto) 0.9 H Neut % (Auto) 93.5 H Lymph % (Auto) 2.8 L Osborne % (Auto) 1.2 L Eos % (Auto) 1.2 Baso % (Auto) 0.4 Lymph # (Auto) 0.6 L Osborne # (Auto) 0.2 Eos # (Auto) 0.2 Baso # (Auto) 0.1 Abs Immat Gran (auto) 0.19 H Absolute Neuts (auto) 19.3 H Absolute Nucleated RBC 0.060 H Nucleated RBC % (auto) 0.3 H Smear Tech's Comments VERIFIED PT INR VBG pH VBG pCO2 VBG pO2 VBG HCO3 VBG O2 Saturation VBG Base Excess Sodium 129 L Potassium 5.9 H Chloride 91 L Carbon Dioxide 22 Anion Gap 22 H BUN 134 H Creatinine 4.18 H* Estim Creat Clear Calc 11.3 Estimated GFR 10 POC Glucose 219 H 169 H Random Glucose 177 H Lactic Acid Calcium 8.6 D Phosphorus 10.6 H Magnesium 2.4 Total Bilirubin 1.0 AST 30 ALT 31 Alkaline Phosphatase 93 Total Protein 5.1 L Albumin 2.9 L Blood Type Antibody Screen Crossmatch 10/05/23 10/05/23 05:12 09:54 WBC RBC Hgb Hct MCV MCH MCHC RDW Plt Count MPV Immature Gran % (Auto) Neut % (Auto) Lymph % (Auto) Osborne % (Auto) Eos % (Auto) Baso % (Auto) Lymph # (Auto) Osborne # (Auto) Eos # (Auto) Baso # (Auto) Abs Immat Gran (auto) Absolute Neuts (auto) Absolute Nucleated RBC Nucleated RBC % (auto) Smear Tech's Comments PT 13.3 INR 1.1 VBG pH 7.28 L VBG pCO2 53 VBG pO2 54 VBG HCO3 25 VBG O2 Saturation 82.0 VBG Base Excess -1.6 Sodium Potassium Chloride Carbon Dioxide Anion Gap BUN Creatinine Estim Creat Clear Calc Estimated GFR POC Glucose Random Glucose Lactic Acid Calcium Phosphorus Magnesium Total Bilirubin AST ALT Alkaline Phosphatase Total Protein Albumin Blood Type Antibody Screen Crossmatch Microbiology Microbiology Results: Microbiology 10/03/23 16:02 Blood - Venous Blood Culture - Preliminary Prelim: GPC Gram Stain only 10/03/23 16:02 Blood - Venous Blood Culture - Preliminary No growth after 24 hours. 09/27/23 10:17 Blood - Venous Blood Culture - Final Staphylococcus epidermidis 09/27/23 10:12 Blood - Venous Blood Culture - Final Staphylococcus epidermidis Progress Note: A&P Assessment and plan (1) Acute kidney injury: Status: Acute (2) Bacteremia due to Staphylococcus epidermidis: Status: Acute (3) Acute on chronic diastolic (congestive) heart failure: Status: Acute (4) ILD (interstitial lung disease): Status: Acute (5) COPD with acute exacerbation: Status: Acute (6) Type 2 diabetes mellitus with unspecified complications: Status: Acute Plan Assessment: 78-year-old lady with underlying CAD, COPD, ILD, diastolic heart failure, aortic stenosis admitted with worsening hypoxemia Plan: Neuro: No acute issues. Cardiac: acute on chronic diastolic congestive heart failure on the background of aortic stenosis and AFib. Continue rate control. Anticoagulation held secondary to alveolar hemorrhage. Pulmonary: Acute on chronic hypoxic respiratory failure now requiring ventilatory support. Appears to be multifactorial with contribution from underlying acute on chronic diastolic heart failure, progressive ILD, and ARDS, also with alveolar hemorrhage, likely secondary to Eliquis. Continue to titrate off ventilatory support as tolerated. Renal: Acute kidney injury on the background of exacerbation of underlying diastolic congestive heart failure, worsening. Non oliguric. Continue to monitor renal indices and urine output. Will likely require dialysis. Endo: No acute issues. Underlying diabetes mellitus. GI: constipation, poor response to lactulose, continue enema, has received Relistor. ID: Staph epidermidis bacteremia. Doxycycline switched to vancomycin/Zosyn. Heme/Onc: No acute issues. Psych: No acute issues. Miscellaneous: No acute issues. Prophylaxis: compression therapy, ppi Diet: tube feeds Critical care time spent: 60 minutes Quality Stroke Does the patient have a stroke diagnosis?: No VTE Prior VTE?: No VTE Risk Level:: Medical - moderate - high VTE Device Contraindication: N/A - Device Ordered VTE Drug Contraindication: N/A - Med Ordered
[2023-10-05 12:04] LABS: Glucose, Whole Blood 81 mg/dL (60-115)
[2023-10-05] MEDS: PEG 3350/Na Sulf,Bicarb,Cl/KCL 4,000 ML SOLN.RECON 4000 ML PO (13:20)
[2023-10-05] MEDS: Norepinephrine Bitartrate/D5W 8 MG/250 ML PLAST..BAG 31.31 MG IV (14:24)
[2023-10-05] MEDS: propofoL 1,000 MG/100 ML VIAL 21.78 MG IVCONT ×3 (15:42→23:49)
[2023-10-05] MEDS: vancomycin HCL 750 MG in 0.9 % Sodium Chloride 250 ML 265 MG IV (16:41)
[2023-10-05] MEDS: Dextrose 50 % 25 GM/50 ML SYRINGE IVPUSH (17:50)
[2023-10-05 17:52] LABS: Glucose, Whole Blood 69 mg/dL (60-115)
[2023-10-05 18:11] LABS: Glucose, Whole Blood 174 mg/dL (60-115)
[2023-10-05] MEDS: Norepinephrine Bitartrate/D5W 8 MG/250 ML PLAST..BAG 28.59 MG IV (22:02)
[2023-10-05 23:38] LABS: Glucose, Whole Blood 89 mg/dL (60-115)
[2023-10-06] VITALS (60 sets, daily range): BP systolic 83–141; BP diastolic 35–75; PULSE 73–132; RESP 18–178; TEMP 34.9–37.5; O2SAT 85–95; BMI 30.5
[2023-10-06] MEDS: 0.9 % Sodium Chloride Flush 3 ML SYRINGE IVFLUSH ×4 (00:04→22:22)
[2023-10-06] MEDS: Digoxin 0.5 MG/2 ML AMPUL 0.125 MG IVPUSH ×2 (00:56→07:23)
[2023-10-06] MEDS: propofoL 1,000 MG/100 ML VIAL 21.78 MG IVCONT ×5 (02:08→19:48)
--- NOTE | 2023-10-06 03:08 | ECG_ITS ---
Test Reason : RHYTHM CHANGE Blood Pressure : / mmHG Vent. Rate : 073 BPM Atrial Rate : 073 BPM P-R Int : 220 ms QRS Dur : 090 ms QT Int : 318 ms P-R-T Axes : 078 043 164 degrees QTc Int : 350 ms Sinus rhythm with 1st degree A-V block with Premature atrial complexes T-wave inversion in Lateral leads Abnormal ECG When compared with ECG of 27-SEP-2023 11:33, Sinus rhythm has replaced Atrial fibrillation QT has shortened Heart rate has decreased Referred By: Maria Dolores Briggs Electronically Signed By:RAMON HILLIARD MD
[2023-10-06] MEDS: Norepinephrine Bitartrate/D5W 8 MG/250 ML PLAST..BAG 25.86 MG IV (04:42)
[2023-10-06] MEDS: Piperacillin Sodium/Tazobactam 2.25 GM in 0.9 % Sodium Chloride 50 ML IV ×4 (04:44→22:18)
[2023-10-06 05:33] LABS: VBG Base Excess 1.3 mmol/L; VBG HCO3 27 mmol/L (22-26); VBG pCO2 51 mmHg; VBG pH 7.33 (7.32-7.43); VBG pO2 51 mmHg
[2023-10-06] MEDS: Dextrose 50 % 25 GM/50 ML SYRINGE IVPUSH ×2 (06:20→12:05)
--- NOTE | 2023-10-06 06:30 | PC.NURSE ---
Upon initial assessment at 1900- pt sedated on Propofol, RASS -3. Afib/ Aflutter on tele, HR 80-90s. At approx 0030 having runs of SVT, HR up to 130s, IVP Digoxin 0.125mg given x1. Pt converted to NSR at 0307, EKG obtained. At approx 0530, pt had burst of SVT again, HR 130s, followed by Afib/Aflutter. Levo gtt running, titrated to maintain MAP >65. ETT 7.5, 23 @ lip. On PCV settings, PEEP/ FiO2 titrated from 15/ 90% to 12/90% sating 97%. At 0600, spO2 down to 85%, RT called, PEEP/ FiO2 increased to 15/ 100%, updraft given, back and lavaged, moderate amount of blood streaked inline secretions. spO2 increased to 88%. Pt remains NPO. POC 40s, given amp of D50, repeat POC 168, POCs to be checked Q4H. OGT to gravity. Rectal tube removed at 0200- pt incont of moderate formed stool, followed by large amount of liquid brown stool. Gonzalez in place, output 0-15mls/hr. Skin intact. Scattered bruising to BL UE, blanchable buttock redness- foam CDI, blanchable redness to anus- barrier cream applied. CHG bath given this AM. Repo Q2H. Report given to oncoming ALAINA.
[2023-10-06] MEDS: Pantoprazole Sodium 40 MG/10 ML VIAL IVPUSH (06:31)
[2023-10-06 06:33] LABS: Venous Blood Gas Refer to POC result
[2023-10-06 06:35] LABS: Basophils Percent Auto 0.2 % (0-2); Imm Gran Abs Auto 0.23 X10*3/uL (0.00-0.03); Imm Gran Pct Auto 1.2 % (0.0-0.4); Lymphocytes Absolute Auto 0.4 X10*3/uL (1.2-4.9); MANUAL DIFF FLAG SCAN; Mean Corpuscular Hemoglobin 27.8 pg (27.0-33.0); Mean Corpuscular Volume 84.3 fL (80.0-98.0); Mean Platelet Volume 11.1 fL (9.4-12.3); Monocytes Absolute Auto 0.2 X10*3/uL (0.1-1.2); NRBC Pct Auto 0.1 /100WBC (0.0-0.2); Neutrophils Percent Auto 95.6 % (45-73); Red Blood Count 2.48 X10*6/uL (4.20-5.50); Red Cell Distribution Width 16.8 % (11.0-16.0); SCAN SMEAR FLAG 1; White Blood Count 19.9 X10*3/uL (4.8-10.8)
[2023-10-06 06:38] LABS: Hemoglobin 6.9 g/dl (12.0-16.0)
[2023-10-06 06:39] LABS: Hematocrit 20.9 % (37.0-47.0); Platelet Count 82 X10*3/uL (160-400)
[2023-10-06 06:40] LABS: Glucose, Whole Blood 45 mg/dL (60-115)
[2023-10-06 06:40] LABS: Glucose, Whole Blood 168 mg/dL (60-115)
[2023-10-06] MEDS: Albuterol/Iprat 2.5/0.5MG 3 ML AMPUL.NEB INHALE ×4 (06:52→20:43)
[2023-10-06 07:16] LABS: SLIDE REVIEW VERIFIED
[2023-10-06 07:32] LABS: Alanine Aminotransferase 28 U/L (0-31); Albumin Level 2.8 g/dL (3.5-5.0); Alkaline Phosphatase 79 U/L (39-117); Anion Gap 25 (12-20); Aspartate Amino Transferase 31 U/L (5-31); Bilirubin Total 0.9 mg/dL (0.0-1.0); Blood Urea Nitrogen 150 mg/dL (9-16); Calcium 7.8 mg/dL (8.4-10.2); Carbon Dioxide 24 mmol/L (22-29); Chloride 87 mmol/L (96-108); Creatinine Clr Calc Pharmacy 10.8; Estimated Glomerular Filt Rate 10; Glucose Random 50 mg/dL (60-115); Magnesium 2.3 mg/dL (1.6-2.6); Phosphorus 11.5 mg/dL (2.7-4.5); Potassium 6.1 mmol/L (3.3-5.1); Sodium 130 mmol/L (135-145)
[2023-10-06 07:58] LABS: Glucose, Whole Blood 104 mg/dL (60-115)
[2023-10-06] MEDS: methylPREDNISolone Sod Succ 125 MG/2 ML VIAL 60 MG IVPUSH (08:29)
[2023-10-06] MEDS: Chlorhexidine Gluc Oral Rinse 15 ML MOUTHWASH BUCCAL ×3 (08:29→19:48)
--- NOTE | 2023-10-06 10:51 | W.PM.CCHP ---
Procedures Date of Service Date of Service: 10/06/23 Central Line Placement Left IJ: Central Line Comments: After obtaining informed consent left internal jugular triple-lumen dialysis catheter placed under ultrasound guidance and usual sterile conditions with no immediate complications. Line position verified on chest x-ray.
--- NOTE | 2023-10-06 10:55 | PM.CCPN ---
Subjective Subjective Date of Service: 10/06/23 Interval History: 78-year-old lady with underlying history of COPD on 4 L, ILD, diabetes mellitus, CAD, diastolic dysfunction, AFib, aortic stenosis, recent admission to [facility] for hypoxemia discharged on 09/22/2023, readmitted on 09/27/2023 with worsening dyspnea and hypoxia. Patient initially admitted to telemetry, however her respiratory status worsened and she required BiPAP support. At that time patient was transferred to intensive care unit and continued on diuretic, now with Lasix drip, and systemic glucocorticoids and nebulized bronchodilators. Also with Staph epidermidis bacteremia. overnight on 09/30/2023 with worsening respiratory status and refractory hypoxia requiring intubation and ventilatory support, also with development of alveolar hemorrhage and slow decline in renal function, now requiring dialysis support. No events overnight. Critical Care Time (minutes): 60 Physical Exam Vital Signs: Vital Signs: Last Vital Signs Temp 97.5 F 10/06/23 10:00 Pulse 84 10/06/23 10:00 Resp 19 10/06/23 10:00 BP 120/44 L 10/06/23 10:00 Pulse Ox 94 10/06/23 10:00 O2 Del Method Mechanical Ventil ation 10/06/23 10:00 O2 Flow Rate 50 09/30/23 10:00 FiO2 100 10/06/23 10:00 BMI result Body Mass Index 30.5 Const: General: no acute distress and other ( Sedated on the vent) Nutritional Appearance: Edematous Eyes: Sclerae: sclerae normal EOM: EOMs intact bilaterally Neck: Neck: Yes no lymphadenopathy, Yes trachea midline and Yes supple Resp: Auscultation: crackles bilateral Cardio: Rate: regular rate Rhythm: regular rhythm Heart sounds: no gallops, no murmurs and no rubs GI: Palpation (GI): Soft to palpation and Other GI palpation findings present ( Nontender) Auscultation: normal bowel sounds Extrem: General: No clubbing, No cyanosis and Yes edema (2+ bilateral) Objective Data Labs 10/06/23 05:23 10/06/23 05:23 Labs: Laboratory Results - last 24 hr 10/04/23 10/05/23 10/05/23 05:45 11:56 17:44 WBC RBC Hgb Hct MCV MCH MCHC RDW Plt Count MPV Immature Gran % (Auto) Neut % (Auto) Lymph % (Auto) Tyrrell % (Auto) Eos % (Auto) Baso % (Auto) Lymph # (Auto) Tyrrell # (Auto) Eos # (Auto) Baso # (Auto) Abs Immat Gran (auto) Absolute Neuts (auto) Absolute Nucleated RBC Nucleated RBC % (auto) Smear Tech's Comments VBG pH VBG pCO2 VBG pO2 VBG HCO3 VBG O2 Saturation VBG Base Excess Sodium Potassium Chloride Carbon Dioxide Anion Gap BUN Creatinine Estim Creat Clear Calc Estimated GFR POC Glucose 81 69 Random Glucose Calcium Phosphorus Magnesium Total Bilirubin AST ALT Alkaline Phosphatase Total Protein Albumin Blood Type A Positive Antibody Screen NEGATIVE Crossmatch See Detail 10/05/23 10/05/23 10/06/23 18:08 23:27 05:23 WBC 19.9 H RBC 2.48 L Hgb 6.9 L* Hct 20.9 L* D MCV 84.3 MCH 27.8 MCHC 33.0 RDW 16.8 H Plt Count 82 L MPV 11.1 Immature Gran % (Auto) 1.2 H Neut % (Auto) 95.6 H Lymph % (Auto) 2.0 L Tyrrell % (Auto) 1.0 L Eos % (Auto) 0.0 Baso % (Auto) 0.2 Lymph # (Auto) 0.4 L Tyrrell # (Auto) 0.2 Eos # (Auto) 0.0 Baso # (Auto) 0.0 Abs Immat Gran (auto) 0.23 H Absolute Neuts (auto) 19.0 H Absolute Nucleated RBC 0.020 H Nucleated RBC % (auto) 0.1 Smear Tech's Comments VERIFIED VBG pH VBG pCO2 VBG pO2 VBG HCO3 VBG O2 Saturation VBG Base Excess Sodium 130 L Potassium 6.1 H* Chloride 87 L Carbon Dioxide 24 Anion Gap 25 H BUN 150 H Creatinine 4.40 H* Estim Creat Clear Calc 10.8 Estimated GFR 10 POC Glucose 174 H 89 Random Glucose 50 L* Calcium 7.8 L D Phosphorus 11.5 H Magnesium 2.3 Total Bilirubin 0.9 AST 31 ALT 28 Alkaline Phosphatase 79 Total Protein 5.0 L Albumin 2.8 L Blood Type Antibody Screen Crossmatch 10/06/23 10/06/23 10/06/23 05:27 06:18 06:37 WBC RBC Hgb Hct MCV MCH MCHC RDW Plt Count MPV Immature Gran % (Auto) Neut % (Auto) Lymph % (Auto) Tyrrell % (Auto) Eos % (Auto) Baso % (Auto) Lymph # (Auto) Tyrrell # (Auto) Eos # (Auto) Baso # (Auto) Abs Immat Gran (auto) Absolute Neuts (auto) Absolute Nucleated RBC Nucleated RBC % (auto) Smear Tech's Comments VBG pH 7.33 VBG pCO2 51 VBG pO2 51 VBG HCO3 27 H VBG O2 Saturation 78.0 VBG Base Excess 1.3 Sodium Potassium Chloride Carbon Dioxide Anion Gap BUN Creatinine Estim Creat Clear Calc Estimated GFR POC Glucose 45 L* 168 H Random Glucose Calcium Phosphorus Magnesium Total Bilirubin AST ALT Alkaline Phosphatase Total Protein Albumin Blood Type Antibody Screen Crossmatch 10/06/23 07:54 WBC RBC Hgb Hct MCV MCH MCHC RDW Plt Count MPV Immature Gran % (Auto) Neut % (Auto) Lymph % (Auto) Tyrrell % (Auto) Eos % (Auto) Baso % (Auto) Lymph # (Auto) Tyrrell # (Auto) Eos # (Auto) Baso # (Auto) Abs Immat Gran (auto) Absolute Neuts (auto) Absolute Nucleated RBC Nucleated RBC % (auto) Smear Tech's Comments VBG pH VBG pCO2 VBG pO2 VBG HCO3 VBG O2 Saturation VBG Base Excess Sodium Potassium Chloride Carbon Dioxide Anion Gap BUN Creatinine Estim Creat Clear Calc Estimated GFR POC Glucose 104 Random Glucose Calcium Phosphorus Magnesium Total Bilirubin AST ALT Alkaline Phosphatase Total Protein Albumin Blood Type Antibody Screen Crossmatch Microbiology Microbiology Results: Microbiology 10/04/23 10:30 Blood - Venous Blood Culture - Preliminary No growth after 24 hours. 10/04/23 10:40 Blood - Venous Blood Culture - Preliminary No growth after 24 hours. 10/03/23 16:02 Blood - Venous Blood Culture - Preliminary No growth after 48 hours. 10/03/23 16:02 Blood - Venous Blood Culture - Final Coag negative Staphylococcus 09/27/23 10:17 Blood - Venous Blood Culture - Final Staphylococcus epidermidis 09/27/23 10:12 Blood - Venous Blood Culture - Final Staphylococcus epidermidis Progress Note: A&P Assessment and plan (1) Acute kidney injury: Status: Acute (2) Bacteremia due to Staphylococcus epidermidis: Status: Acute (3) Acute on chronic diastolic (congestive) heart failure: Status: Acute (4) ILD (interstitial lung disease): Status: Acute (5) COPD with acute exacerbation: Status: Acute (6) Type 2 diabetes mellitus with unspecified complications: Status: Acute Plan Assessment: 78-year-old lady with underlying CAD, COPD, ILD, diastolic heart failure, aortic stenosis admitted with worsening hypoxemia Plan: Neuro: No acute issues. Cardiac: acute on chronic diastolic congestive heart failure on the background of aortic stenosis and AFib. Continue rate control. Anticoagulation held secondary to alveolar hemorrhage. Pulmonary: Acute on chronic hypoxic respiratory failure now requiring ventilatory support. Appears to be multifactorial with contribution from underlying acute on chronic diastolic heart failure, progressive ILD, and ARDS, also with alveolar hemorrhage, likely secondary to Eliquis. Continue to titrate off ventilatory support as tolerated. Renal: Acute kidney injury on the background of exacerbation of underlying diastolic congestive heart failure, worsening. Now oliguric. will require dialysis. Nephrology evaluation requested. Endo: No acute issues. Underlying diabetes mellitus. GI: constipation resolved. ID: Staph epidermidis bacteremia. Continue vancomycin/Zosyn. Heme/Onc: No acute issues. Psych: No acute issues. Miscellaneous: No acute issues. Prophylaxis: compression therapy, ppi Diet: tube feeds Critical care time spent: 60 minutes Quality Stroke Does the patient have a stroke diagnosis?: No VTE Prior VTE?: No VTE Risk Level:: Medical - moderate - high VTE Device Contraindication: N/A - Device Ordered VTE Drug Contraindication: N/A - Med Ordered
--- NOTE | 2023-10-06 11:01 | P.CONNP_ITS ---
History of Present Illness Reason for Consult Consult date: 10/06/23 Chief Complaint Chief complaint: COPD/ILD exacerbation History of Present Illness Narrative: Ms. Gabi Lugo is a 78-year-old female with past medical history of interstitial lung disease with evidence of cor pulmonale, T2DM, HTN, CKD stage 3B (BL Cr 1.6mg/dL) and persistent atrial fibrillation who presented with acute hypoxic respiratory failure secondary to volume overload. Course complicated by alvoeolar hemorrhage. Course also complicated by oliguric renal failure refractory to diuresis. Review of Systems Review of Systems Cannot be obtained as patient is intubated [facility] Past Medical History Medical History Chronic lung disease Type 2 diabetes mellitus with unspecified complications Diabetes Hyperlipidemia Hypertension Chronic diastolic heart failure Diastolic dysfunction CAD (coronary artery disease) Hypoxemia Restrictive lung disease COPD (chronic obstructive pulmonary disease) Family History Family History Father Diabetes Mother Unknown Surgical History Surgical History History of left cataract surgery Stented coronary artery Social History Social History Household Members: Spouse Housing: House Do you presently have visiting nurse or other home services: Yes Patient Tobacco Use Status: Former Tobacco user Quit Date: 25 years ago Smoked in Last 30 Days: No Use of substances other than those prescribed or required for medical reasons: No Currently Displaying Signs/Symptoms of Drug Intoxication Withdrawal: No Have you been hit, kicked, punched, or otherwise hurt by someone within the past year? If so, by whom?: No Advance Directives: Yes Advance Directives on File: Yes Advance Directives Date on File: 01/28/23 Nutrition Risks: No Nutritional Risk Patient : No : No Poor oral hygiene: No service: No Meds Allergies Allergy/AdvReac Type Severity Reaction Status Date / Time No Known Allergies Allergy Verified 09/20/23 14:37 [No Known Allergies*] Active Medications: Current Medications Acetaminophen (Acetaminophen 325 Mg Tablet) 650 mg PO Q6H PRN PRN Reason: Pain, Mild (Pain Scale 1-3) Albuterol/Ipratropium (Albuterol/Iprat 2.5/0.5mg 3 Ml Ampul.Neb) 3 ml INHALE RQ4H WHILE AWAKE [facility] Last Admin: 10/06/23 06:52 Dose: 3 ml Chlorhexidine Gluconate (Chlorhexidine Gluc Oral Rinse 15 Ml Mouthwash) 15 ml BUCCAL TID [facility] Last Admin: 10/06/23 08:29 Dose: 15 ml Dextrose (Dextrose 50 % 25 Gm/50 Ml Syringe) 25 gm IVPUSH Q15M PRN; Protocol PRN Reason: per Hypoglycemia Standing Ord. Last Admin: 10/06/23 06:20 Dose: 25 gm Dextrose (Dextrose 50 % 25 Gm/50 Ml Syringe) 25 gm IVPUSH Q30M PRN PRN Reason: BG < 70 Digoxin (Digoxin 0.125 Mg Tablet) 0.125 mg PO Q2D [facility] Last Admin: 10/06/23 08:23 Dose: Not Given Diltiazem HCl (Diltiazem Hcl Cd 180 Mg Cap.Er.24h) 180 mg PO DAILY [facility]; Protocol Last Admin: 10/06/23 08:23 Dose: Not Given Docusate Sodium (Docusate Sodium 100 Mg Capsule) 100 mg PO DAILY PRN PRN Reason: Constipation Glucose (Glucose Gel 15 Gm Gel..Gram.) 15 gm PO Q15M PRN; Protocol PRN Reason: per Hypoglycemia Standing Ord. Propofol (Diprivan) 1,000 mg in 100 mls @ 0 mls/hr IVCONT .Q0M [facility]; Protocol Last Admin: 10/06/23 06:22 Dose: 50 mcg/kg/min, 21.78 mls/hr Norepinephrine Bitartrate (Levophed) 8 mg in 250 mls @ 0 mls/hr IV .Q0M [facility]; Protocol Last Titration: 10/06/23 05:29 Dose: 0.21 mcg/kg/min, 28.59 mls/hr Piperacillin Sod/Tazobactam (Sod 2.25 gm/ Sodium Chloride) 50 mls @ 100 mls/hr IV Q6H [facility] Last Admin: 10/06/23 11:00 Dose: 100 mls/hr Vancomycin HCl 750 mg/ Sodium (Chloride) 265 mls @ 265 mls/hr IV Q48H [facility] Last Infusion: 10/05/23 17:47 Dose: Infused Insulin Glargine (Insulin Glargine,Hum.Rec.Anlog 100 Unit/Ml 10 Ml Vial) 10 unit SUBCUT DAILY [facility] Last Admin: 10/06/23 07:55 Dose: Not Given Insulin Human Lispro (Insulin Lispro 100 Unit/Ml 3 Ml Vial) 0 unit SUBCUT Q6H [facility]; Protocol Last Admin: 10/06/23 06:22 Dose: Not Given Lactulose (Lactulose 20 Gm/30 Ml Solution) 30 gm PO BID [facility] Last Admin: 10/06/23 08:23 Dose: Not Given Melatonin (Melatonin 3 Mg Tablet) 3 mg PO BEDTIME PRN PRN Reason: Sleep Methylprednisolone Sodium Succinate (Methylprednisolone Sod Succ 125 Mg/2 Ml Vial) 60 mg IVPUSH DAILY [facility] Last Admin: 10/06/23 08:29 Dose: 60 mg Naloxone HCl (Naloxone Hcl 0.4 Mg/Ml Vial) 0.2 mg IVPUSH Q2M PRN PRN Reason: Excessive sedation or RR < 8 Omeprazole (Omeprazole/Na Bicarb Oral Susp 20 Mg/10 Ml Ud Cup) 40 mg PO DAILY@0630 [facility] Last Admin: 10/06/23 06:22 Dose: Not Given Ondansetron HCl (Ondansetron Hcl 4 Mg/2 Ml Vial) 4 mg IVPUSH Q8H PRN PRN Reason: Nausea and Vomiting Pharmacy Consult (Consult Rx Vancomycin Dosing) 1 each MISCELLANE DAILY PRN PRN Reason: Consult order Sodium Chloride (0.9 % Sodium Chloride Flush 3 Ml Syringe) 3 ml IVFLUSH QSHIFT [facility] Last Admin: 10/06/23 07:24 Dose: 3 ml Home Medications Medication Instructions Recorded Confirmed Last Taken Type cholecalciferol (vitamin D3) 25 25 mcg PO DAILY 09/14/20 09/27/23 09/05/23 History mcg (1,000 unit) capsule multivitamin (Daily Multi-Vitamin 1 tab PO DAILY 09/18/21 09/27/23 09/05/23 History tablet) glipizide 5 mg tablet 2.5 mg PO BEDTIME 03/20/22 09/27/23 09/04/23 History amlodipine 10 mg tablet 10 mg PO DAILY 08/19/23 09/27/23 09/05/23 History glipizide 5 mg tablet 5 mg PO DAILY 09/05/23 09/27/23 09/05/23 History prednisone 5 mg tablet 5 mg PO DAILY COPD 09/27/23 09/27/23 Unknown History Physical Exam Vital Signs: Last Vital Signs Temp 97.5 F 10/06/23 10:00 Pulse 84 10/06/23 10:00 Resp 19 10/06/23 10:00 BP 120/44 L 10/06/23 10:00 Pulse Ox 94 10/06/23 10:00 O2 Del Method Mechanical Ventilation 10/06/23 10:00 O2 Flow Rate 50 09/30/23 10:00 FiO2 100 10/06/23 10:00 BMI result Body Mass Index 30.5 Const Other: Intubated Resp Auscultation: crackles GI Palpation (GI): Soft to palpation Extrem General: Yes edema Results Lab Results 10/06/23 05:23 10/06/23 05:23 Lab results: Chemistry 10/04/23 10/05/23 10/06/23 04:52 05:06 05:23 Sodium 133 L 129 L 130 L Potassium 5.7 H 5.9 H 6.1 H* Carbon Dioxide 26 22 24 BUN 125 H 134 H 150 H Creatinine 4.24 H* 4.18 H* 4.40 H* Calcium 9.2 8.6 D 7.8 L D Phosphorus 7.9 H 10.6 H 11.5 H Hematology 10/04/23 10/05/23 10/06/23 04:52 05:06 05:23 WBC 21.1 H 20.6 H 19.9 H Hgb 6.1 L* 8.6 L D 6.9 L* Plt Count 165 108 L D 82 L Assessment and Plan (1) Acute kidney injury: Status: Acute (2) Bacteremia due to Staphylococcus epidermidis: Status: Acute (3) Acute on chronic diastolic (congestive) heart failure: Status: Acute (4) ILD (interstitial lung disease): Status: Acute (5) COPD with acute exacerbation: Status: Acute (6) Type 2 diabetes mellitus with unspecified complications: Status: Acute Plan Ms. Gabi Lugo is a 78-year-old female with past medical history of interstitial lung disease with evidence of cor pulmonale, T2DM, HTN, CKD stage 3B (BL Cr 1.6mg/dL) and persistent atrial fibrillation who presented with acute hypoxic respiratory failure secondary to volume overload. Course complicated by alvoeolar hemorrhage. Course also complicated by oliguric renal failure refractory to diuresis. 1. JARRETT on CKD, oligoanuric In the setting of hemodynamic collapse, pressors, sepsis and volume overload. Concern for alveolar hemorrhage ?Pulm Renal Syndrome? Plan: - Consider bronchoscopy to differentiate alveolar hemorrhage from alveolar bleeding due to infection vs pulm edema - c3 and c4 with anti-DNA serologies to work up immune complex causes of possible selma hemorrhage / renal failure - ANCA panel ordered for the same (non-immune complex mediated) - dialysis arranged for today 1K bath with BFR 250ml/min for 2 hours to prevent dialysis dysequlibrium, given BUN 150 - Dialysis again tomorrow 2K bath 3 hours at BFR 350mL/min Procedures Date of Service Date of Service: 10/06/23
[2023-10-06 12:05] LABS: Glucose, Whole Blood 66 mg/dL (60-115)
[2023-10-06 12:27] LABS: Glucose, Whole Blood 156 mg/dL (60-115)
[2023-10-06] MEDS: Norepinephrine Bitartrate/D5W 8 MG/250 ML PLAST..BAG 54.45 MG IV (13:11)
[2023-10-06 16:49] LABS: Glucose, Whole Blood 140 mg/dL (60-115)
[2023-10-06] MEDS: Norepinephrine Bitartrate/D5W 8 MG/250 ML PLAST..BAG 32.67 MG IV (18:59)
[2023-10-06 20:04] LABS: Glucose, Whole Blood 134 mg/dL (60-115)
[2023-10-06 20:37] LABS: Anion Gap 25 (12-20); Blood Urea Nitrogen 112 mg/dL (9-16); Calcium 8.3 mg/dL (8.4-10.2); Carbon Dioxide 24 mmol/L (22-29); Chloride 85 mmol/L (96-108); Creatinine Clr Calc Pharmacy 12.1; Estimated Glomerular Filt Rate 11; Glucose Random 165 mg/dL (60-115); Potassium 5.7 mmol/L (3.3-5.1); Sodium 128 mmol/L (135-145)
[2023-10-06 23:56] LABS: Glucose, Whole Blood 172 mg/dL (60-115)
[2023-10-07] VITALS (39 sets, daily range): BP systolic 76–161; BP diastolic 33–60; PULSE 74–123; RESP 18–26; TEMP 34.9–37.6; O2SAT 87–94; BMI 31.2
[2023-10-07] MEDS: propofoL 1,000 MG/100 ML VIAL 21.78 MG IVCONT ×3 (00:14→13:44)
[2023-10-07] MEDS: Insulin Lispro 100 UNIT/ML 3 ML VIAL SUBCUT ×2 (00:14→05:34)
[2023-10-07] MEDS: Norepinephrine Bitartrate/D5W 8 MG/250 ML PLAST..BAG 27.23 MG IV (02:15)
[2023-10-07 04:03] LABS: Glucose, Whole Blood 158 mg/dL (60-115)
[2023-10-07] MEDS: Piperacillin Sodium/Tazobactam 2.25 GM in 0.9 % Sodium Chloride 50 ML IV ×2 (04:16→10:35)
[2023-10-07 04:22] LABS: HBS Num1 2.51 mIU/mL (0-7.99); HBc Num1 0.04 S/CO (0.00-0.79); HBsAGNum1 0.33 S/CO (0.00-0.99); Hepatitis B Core Antibody Nonreactive (Nonreactive); Hepatitis B Surface Antigen Negative (Negative); ~Hepatitis B Surface Antibody NONREACTIVE (Nonreactive)
--- NOTE | 2023-10-07 04:24 | HO.SKINPHOTO ---
Location: Left upper lip Category: MDPI Stage: Length: Width: Depth: cm
[2023-10-07 04:43] LABS: VBG Base Excess 0.4 mmol/L; VBG HCO3 24 mmol/L (22-26); VBG pCO2 38 mmHg; VBG pH 7.41 (7.32-7.43); VBG pO2 74 mmHg
[2023-10-07 04:47] LABS: Venous Blood Gas Refer to POC result
[2023-10-07 04:55] LABS: Hematocrit 22.5 % (37.0-47.0); Hemoglobin 7.8 g/dl (12.0-16.0); Mean Corpuscular HGB Conc 34.7 g/dl (31.0-35.0); Mean Corpuscular Hemoglobin 29.3 pg (27.0-33.0); Mean Corpuscular Volume 84.6 fL (80.0-98.0); Mean Platelet Volume 10.9 fL (9.4-12.3); NRBC Pct Auto 0.1 /100WBC (0.0-0.2); Red Blood Count 2.66 X10*6/uL (4.20-5.50); Red Cell Distribution Width 16.6 % (11.0-16.0); White Blood Count 20.7 X10*3/uL (4.8-10.8)
[2023-10-07 05:01] LABS: Platelet Count 74 X10*3/uL (160-400)
[2023-10-07 05:19] LABS: Albumin Level 2.7 g/dL (3.5-5.0); Anion Gap 25 (12-20); Blood Urea Nitrogen 120 mg/dL (9-16); Calcium 8.1 mg/dL (8.4-10.2); Carbon Dioxide 21 mmol/L (22-29); Chloride 87 mmol/L (96-108); Creatinine Clr Calc Pharmacy 11.7; Estimated Glomerular Filt Rate 11; Glucose Random 156 mg/dL (60-115); Magnesium 2.1 mg/dL (1.6-2.6); Phosphorus 9.8 mg/dL (2.7-4.5); Sodium 127 mmol/L (135-145)
[2023-10-07 05:32] LABS: Band Neutrophils Percent 3 % (3-5); Lymphocytes Absolute Manual 0.2 X10*3/uL (1.2-4.9); Lymphocytes Percent Manual 1 % (20-40); Metamyelocytes Absolute 0.4 X10*3/uL; Metamyelocytes Percent 2 %; Neutrophils Absolute Manual 19.5 X10*3/uL (2.0-8.3); Neutrophils Percent Manual 91 % (45-73); Promyelocytes Absolute 0.6 X10*3/uL; Promyelocytes Percent 3 %
[2023-10-07] MEDS: Omeprazole/Na Bicarb Oral Susp 20 MG/10 ML UD Cup 40 MG PO (05:34)
[2023-10-07 05:37] LABS: Large Platelet PRESENT; Platelet Estimate DECREASED (NORMAL); Platelet Morphology Comment NOTED; RBC Morphology NORMAL
[2023-10-07] MEDS: 0.9 % Sodium Chloride Flush 3 ML SYRINGE IVFLUSH (07:03)
--- NOTE | 2023-10-07 07:31 | PM.CCPN ---
Subjective Subjective Date of Service: 10/07/23 Critical Care Time (minutes): 90 Physical Exam Vital Signs: Vital Signs: Last Vital Signs Temp 99.0 F 10/07/23 07:00 Pulse 102 H 10/07/23 07:07 Resp 18 10/07/23 07:00 BP 80/44 L 10/07/23 07:07 Pulse Ox 90 L 10/07/23 07:00 O2 Del Method Mechanical Ventil ation 10/07/23 07:00 O2 Flow Rate 80 10/07/23 02:58 FiO2 80 10/07/23 07:11 BMI result Body Mass Index 31.2 Const: Other: intubated, sedated HEENT: Head: Yes normal to inspection, Yes normocephalic and Yes atraumatic Eyes: General: appearance normal, both eyes and all related structures Neck: Neck: Yes normal visual inspection and Yes supple Chest: Chest palpation & inspection: normal inspection of the chest Resp: Other: no rales, rhonchi, wheezing throughout Cardio: Rhythm: abnormal rhythm GI: Inspection: Yes normal to inspection, No Abdominal wall edema and No distended Palpation (GI): Soft to palpation, not firm, nontender, no guarding and not rigid : External Female Exam: normal external appearance Skin: General skin exam: no rashes or lesions noted Neuro: Other: intubated, sedated Extrem: General: Yes normal to inspection, Yes capillary refill normal and No no clubbing, cyanosis or edema Objective Data Labs 10/07/23 04:34 10/07/23 04:34 Labs: Laboratory Results - last 24 hr 10/04/23 10/06/23 10/06/23 05:45 05:23 07:54 WBC RBC Hgb Hct MCV MCH MCHC RDW Plt Count MPV Immature Gran % (Auto) Neut % (Auto) Lymph % (Auto) Mathews % (Auto) Eos % (Auto) Baso % (Auto) Lymph # (Auto) Mathews # (Auto) Eos # (Auto) Baso # (Auto) Abs Immat Gran (auto) Absolute Neuts (auto) Absolute Nucleated RBC Nucleated RBC % (auto) Neutrophils % (Manual) Band Neutrophils % Lymphocytes % (Manual) Metamyelocytes % Promyelocytes % Abs Neuts (Manual) Lymphocytes # (Manual) Metamyelocytes # Promyelocytes # Platelet Estimate Large Platelets Plt Morphology Comment RBC Morphology VBG pH VBG pCO2 VBG pO2 VBG HCO3 VBG O2 Saturation VBG Base Excess Sodium 130 L Potassium 6.1 H* Chloride 87 L Carbon Dioxide 24 Anion Gap 25 H BUN 150 H Creatinine 4.40 H* Estim Creat Clear Calc 10.8 Estimated GFR 10 POC Glucose 104 Random Glucose 50 L* Calcium 7.8 L D Phosphorus 11.5 H Magnesium 2.3 Total Bilirubin 0.9 AST 31 ALT 28 Alkaline Phosphatase 79 Total Protein 5.0 L Albumin 2.8 L Hep Bs Antigen Hep Bs Antibody Hep B Core Total Ab Blood Type A Positive Antibody Screen NEGATIVE Crossmatch See Detail 10/06/23 10/06/23 10/06/23 11:32 12:00 12:23 WBC RBC Hgb Hct MCV MCH MCHC RDW Plt Count MPV Immature Gran % (Auto) Neut % (Auto) Lymph % (Auto) Mathews % (Auto) Eos % (Auto) Baso % (Auto) Lymph # (Auto) Mathews # (Auto) Eos # (Auto) Baso # (Auto) Abs Immat Gran (auto) Absolute Neuts (auto) Absolute Nucleated RBC Nucleated RBC % (auto) Neutrophils % (Manual) Band Neutrophils % Lymphocytes % (Manual) Metamyelocytes % Promyelocytes % Abs Neuts (Manual) Lymphocytes # (Manual) Metamyelocytes # Promyelocytes # Platelet Estimate Large Platelets Plt Morphology Comment RBC Morphology VBG pH VBG pCO2 VBG pO2 VBG HCO3 VBG O2 Saturation VBG Base Excess Sodium Potassium Chloride Carbon Dioxide Anion Gap BUN Creatinine Estim Creat Clear Calc Estimated GFR POC Glucose 66 156 H Random Glucose Calcium Phosphorus Magnesium Total Bilirubin AST ALT Alkaline Phosphatase Total Protein Albumin Hep Bs Antigen Negative Hep Bs Antibody NONREACTIVE Hep B Core Total Ab Nonreactive Blood Type Antibody Screen Crossmatch 10/06/23 10/06/23 10/06/23 16:44 20:01 20:13 WBC RBC Hgb Hct MCV MCH MCHC RDW Plt Count MPV Immature Gran % (Auto) Neut % (Auto) Lymph % (Auto) Mathews % (Auto) Eos % (Auto) Baso % (Auto) Lymph # (Auto) Mathews # (Auto) Eos # (Auto) Baso # (Auto) Abs Immat Gran (auto) Absolute Neuts (auto) Absolute Nucleated RBC Nucleated RBC % (auto) Neutrophils % (Manual) Band Neutrophils % Lymphocytes % (Manual) Metamyelocytes % Promyelocytes % Abs Neuts (Manual) Lymphocytes # (Manual) Metamyelocytes # Promyelocytes # Platelet Estimate Large Platelets Plt Morphology Comment RBC Morphology VBG pH VBG pCO2 VBG pO2 VBG HCO3 VBG O2 Saturation VBG Base Excess Sodium 128 L Potassium 5.7 H Chloride 85 L Carbon Dioxide 24 Anion Gap 25 H BUN 112 H Creatinine 3.94 H Estim Creat Clear Calc 12.1 Estimated GFR 11 POC Glucose 140 H 134 H Random Glucose 165 H Calcium 8.3 L D Phosphorus Magnesium Total Bilirubin AST ALT Alkaline Phosphatase Total Protein Albumin Hep Bs Antigen Hep Bs Antibody Hep B Core Total Ab Blood Type Antibody Screen Crossmatch 10/06/23 10/07/23 10/07/23 23:52 03:59 04:34 WBC 20.7 H RBC 2.66 L Hgb 7.8 L Hct 22.5 L MCV 84.6 MCH 29.3 MCHC 34.7 RDW 16.6 H Plt Count 74 L MPV 10.9 Immature Gran % (Auto) Cancelled Neut % (Auto) Cancelled Lymph % (Auto) Cancelled Mathews % (Auto) Cancelled Eos % (Auto) Cancelled Baso % (Auto) Cancelled Lymph # (Auto) Cancelled Mathews # (Auto) Cancelled Eos # (Auto) Cancelled Baso # (Auto) Cancelled Abs Immat Gran (auto) Cancelled Absolute Neuts (auto) Cancelled Absolute Nucleated RBC 0.030 H Nucleated RBC % (auto) 0.1 Neutrophils % (Manual) 91 H Band Neutrophils % 3 Lymphocytes % (Manual) 1 L Metamyelocytes % 2 Promyelocytes % 3 Abs Neuts (Manual) 19.5 H Lymphocytes # (Manual) 0.2 L Metamyelocytes # 0.4 Promyelocytes # 0.6 Platelet Estimate DECREASED Large Platelets PRESENT Plt Morphology Comment NOTED RBC Morphology NORMAL VBG pH VBG pCO2 VBG pO2 VBG HCO3 VBG O2 Saturation VBG Base Excess Sodium 127 L Potassium 6.0 H* Chloride 87 L Carbon Dioxide 21 L Anion Gap 25 H BUN 120 H Creatinine 4.09 H* Estim Creat Clear Calc 11.7 Estimated GFR 11 POC Glucose 172 H 158 H Random Glucose 156 H Calcium 8.1 L Phosphorus 9.8 H Magnesium 2.1 Total Bilirubin AST ALT Alkaline Phosphatase Total Protein Albumin 2.7 L Hep Bs Antigen Hep Bs Antibody Hep B Core Total Ab Blood Type Antibody Screen Crossmatch 10/07/23 04:37 WBC RBC Hgb Hct MCV MCH MCHC RDW Plt Count MPV Immature Gran % (Auto) Neut % (Auto) Lymph % (Auto) Mathews % (Auto) Eos % (Auto) Baso % (Auto) Lymph # (Auto) Mathews # (Auto) Eos # (Auto) Baso # (Auto) Abs Immat Gran (auto) Absolute Neuts (auto) Absolute Nucleated RBC Nucleated RBC % (auto) Neutrophils % (Manual) Band Neutrophils % Lymphocytes % (Manual) Metamyelocytes % Promyelocytes % Abs Neuts (Manual) Lymphocytes # (Manual) Metamyelocytes # Promyelocytes # Platelet Estimate Large Platelets Plt Morphology Comment RBC Morphology VBG pH 7.41 VBG pCO2 38 VBG pO2 74 VBG HCO3 24 VBG O2 Saturation 94.0 VBG Base Excess 0.4 Sodium Potassium Chloride Carbon Dioxide Anion Gap BUN Creatinine Estim Creat Clear Calc Estimated GFR POC Glucose Random Glucose Calcium Phosphorus Magnesium Total Bilirubin AST ALT Alkaline Phosphatase Total Protein Albumin Hep Bs Antigen Hep Bs Antibody Hep B Core Total Ab Blood Type Antibody Screen Crossmatch Microbiology Microbiology Results: Microbiology 10/04/23 10:30 Blood - Venous Blood Culture - Preliminary No growth after 48 hours. 10/04/23 10:40 Blood - Venous Blood Culture - Preliminary No growth after 48 hours. 10/03/23 16:02 Blood - Venous Blood Culture - Preliminary No growth after 48 hours. 10/03/23 16:02 Blood - Venous Blood Culture - Final Coag negative Staphylococcus 09/27/23 10:17 Blood - Venous Blood Culture - Final Staphylococcus epidermidis 09/27/23 10:12 Blood - Venous Blood Culture - Final Staphylococcus epidermidis Progress Note: A&P Assessment and plan (1) Renal failure: Status: Acute (2) Bacteremia due to Staphylococcus epidermidis: Status: Acute (3) Acute on chronic diastolic (congestive) heart failure: Status: Acute (4) ILD (interstitial lung disease): Status: Acute (5) COPD with acute exacerbation: Status: Acute Plan Patient is a 78 Y F with ILD, COPD on baseline 4 L, diabetes mellitus, c/b CAD, atrial fibrillation, HFpEF, aortic stenosis, w/ recent admission hypoxia, discharged on 09/22/2023, readmitted 09/27 d/t worsening hypoxia, treated for COPD and heart failure exacerbation; hospital course c/b staphylococcus epidermidis bacteremia, worsening respiratory failure, intubated 09/30, found to have alveolar hemorrhage, and renal failure, on hemodialysis; N: intubated, sedated w/ propofol gtt; wean for sedation vacation CV: CAD, atrial fibrillation, rate controlled w/ digoxin, diltiazem; holding anticoagulation d/t alevolar hemorrhage; HFpEF R: ILD, COPD, p/w acute on chronic respiratory failure, intubated 09/30, found to have aleveolar hemorrhage; wean ventilator as tolerated GI: no acute issues; tube feeds : renal failure, started on hemodialysis H: alveolar hemorrhage; holdinganticoagulation ID: staphylococcus epidermidis bacteremia; vancomycin, empiric zosyn E: no acute issues P: no acute issues Quality Stroke Does the patient have a stroke diagnosis?: No VTE Prior VTE?: No VTE Risk Level:: Medical - moderate - high VTE Device Contraindication: N/A - Device Ordered VTE Drug Contraindication: N/A - Med Ordered
[2023-10-07] MEDS: Albuterol/Iprat 2.5/0.5MG 3 ML AMPUL.NEB INHALE ×2 (08:17→12:03)
[2023-10-07 08:26] LABS: VBG Base Excess -4.1 mmol/L; VBG HCO3 23 mmol/L (22-26); VBG pCO2 51 mmHg; VBG pH 7.26 (7.32-7.43); VBG pO2 59 mmHg
[2023-10-07] MEDS: methylPREDNISolone Sod Succ 125 MG/2 ML VIAL 60 MG IVPUSH (08:33)
[2023-10-07] MEDS: Chlorhexidine Gluc Oral Rinse 15 ML MOUTHWASH BUCCAL (08:34)
[2023-10-07] MEDS: Insulin Glargine,Hum.rec.anlog 100 UNIT/ML 10 ML VIAL 10 UNIT SUBCUT (08:34)
[2023-10-07] MEDS: Norepinephrine Bitartrate/D5W 8 MG/250 ML PLAST..BAG 46.28 MG IV (08:39)
[2023-10-07] MEDS: propofoL 1,000 MG/100 ML VIAL 17.42 MG IVCONT (08:39)
--- NOTE | 2023-10-07 10:19 | MHC.CLN ---
F/U PT REMAINS INTUBATED AND SEDATED DISCUSSED AT ROUNDS WITH MD TOLERATING TF WITH NO RESIDUALS PER NSG PT RECEIVING NEPRO AT MAX GOAL RATE 25ML/HR WITH 120ML FREE WATER FLUSH Q 6 HRS PROVIDES 1080KCALS (1540KCALS WITH SEDATION; 26KCALS/KG), 49G PROTEIN (.8G/KG), 916ML TOTAL WATER FROM FORMULA AND FLUSHES (15ML/KG) MONITOR TOLERANCE, RESIDUALS AND LYTES
--- NOTE | 2023-10-07 10:46 | HO.SKINPHOTO ---
Location: Coccyx Category: Pressure Stage: DTI Length: 8 Width: 2 Depth: 0 cm
[2023-10-07 11:10] LABS: Vancomycin Random 17.2 mcg/mL (15-20)
[2023-10-07 11:23] LABS: Glucose, Whole Blood 147 mg/dL (60-115)
[2023-10-07 11:25] LABS: Venous Blood Gas Refer to POC result
--- NOTE | 2023-10-07 12:41 | P.ACPN_ITS ---
Advanced Care Planning Note Advanced Care Planning Note Discussed with: family member(s) Time spent (in minutes): 60 Narrative: Mrs. Lugo's , sons, daughter, and son-in-law were present in person. I offered updates and clarifications. We discussed her multi-system organ failure, which unfortunately is not improving, and discussed the possibility of her returning home with her , which unfortunately is unlikely. Moreover, Mrs. Wildes family believe she would not want to rely on a ventilator nor hemodialysis, and would not want to live at a nursing facility. We then discussed comfort-focused care. Mrs. Lugo's family believe that her philosophy of care should be transitioned to comfort- focused care at this time. Problems Discussed (1) Renal failure: (2) Bacteremia due to Staphylococcus epidermidis: (3) Acute on chronic diastolic (congestive) heart failure: (4) ILD (interstitial lung disease): (5) COPD with acute exacerbation:
[2023-10-07] MEDS: Scopolamine 1.5 MG PATCH.TD.3 TRANSDERMA (12:51)
--- NOTE | 2023-10-07 13:38 | P.DN_ITS ---
Discharge Sum: Prov Provider Primary care physician: Matheus Singh MD Pronouncing clinician: Zuleima Bone Discharge Sum: Diag PCOD Cause of : Septic shock Contributing Factors (1) Bacteremia due to Staphylococcus epidermidis: (2) Renal failure: (3) Acute on chronic diastolic (congestive) heart failure: (4) ILD (interstitial lung disease): (5) COPD with acute exacerbation: Discharge Sum: Summary Date and Time Date of admission: 09/27/23 14:23 Date of : 10/07/23 Time of : 15:00 Summary Details: Mrs. Lugo is a 78 Y F with ILD, COPD complicated by chronic hypoxic respiratory failure, diabetes mellitus, CAD, atrial fibrillation, HFpEF, and aortic stenosis presenting initially on 09/27 with acute on chronic respiratory failure, treated empirically for COPD and heart failure exacerbation. Her hospital course is complicated by staphylococcus epidermidis bacteremia, complicated by septic shock, respiratory failure, necessitating intubation on 09/30, and renal failure, necessitating hemodialysis. On 10/07, her family including her , sons, daughter, and son-in-law together made the decision to transition her philosophy of care to comfort-focused care. Additional Data Confirmation of as documented by pronouncing clinician: no pulse, no re spirations, no heart sounds and pupils fixed and dilated Family: at bedside Attending/PCP notified?: No Attending physician: Mathieu Musa MD
[2023-10-07] MEDS: Morphine Sulfate/NS 100 MG/100 ML PLAST..BAG IVCONT (14:26)
[2023-10-07] MEDS: Morphine Sulfate 2 MG/ML CARTRIDGE IVPUSH (14:29)
--- NOTE | 2023-10-07 15:09 | PC.NURSE ---
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 Last rights arranged and co founder at bedside at 1330. Morphine gtt & bolus administered prior to extubation. RT at bedside and patient terminally extubated at 1440. Propofol gtt & Levophed gtt paused at 1440. Patient at 1500 - MD at bedside. [facility] notified at 1502 - declined. Arrangements to be made w/ [facility] in [place]. certificate completed.
[2023-10-08 23:09] LABS: Complement C3 93 mg/dL (83-193)
[2023-10-09 17:24] LABS: ANAchoice Screen NEGATIVE (NEGATIVE)
[2023-10-09 20:28] LABS: Myeloperoxidase Antibody <1.0 AI; Proteinase 3 PR3 Antibodies <1.0 AI
--- NOTE | 2023-10-28 09:40 | P.CDIM_ITS ---
PROVIDER RESPONSE TEXT: To clarify, the appropriate diagnosis supported by the clinical indicators: Sepsis with septic shock: probable QUERY TEXT: PHYSICIAN'S DOCUMENTATION REQUEST Date of Query: 10/17/2023 09:40 AM EST Patient Name: Gabi Lugo Admit Date: 09/27/2023 Dear Zuleima Bone, RETROSPECTIVE QUERY A review of the medical record indicates additional documentation may be needed. Please review below and update the documentation accordingly. CLINICAL INDICATORS: Event note 09/28 - discussed with ICU, increase in hypoxia, CXR showing worsening retrocardiac opacit y. Bacteremia GPC started Vancomycin ICU note 09/28 - plan is to cover Gram-positive cocci with vancomycin as a probably reflects a pneumo jenna as the source. WBC 15.8/16.1 Temp 100.6/101.3 HR 106/120 RR 24/36 BP 121/46 L Query response dated 10/02 Sepsis treating, ruled out etc - DX: Bacteremia note 10/07 - Cause of - Septic shock Her hospital course is complicated by staph epidermidis bacteremia, complicated by septic shock, resp iratory failure. Sepsis Systemic manifestations of infection, with 2 or more SIRS criteria which include: Fever > 100.4?F or hypothermia < 96.8?F Leukocytosis - WBC > 12,000 or leukopenia, WBC < 4,000, or > 10% bands Tachycardia- > 90 beats/minute Tachypnea- RR > 20 breaths/minute or PaCO2 < 32mmHg Severe Sepsis Sepsis with associated acute organ dysfunction, such as renal or respiratory failure Septic Shock Severe sepsis with associated with circulatory failure, evidenced by hypotension and hypoperfusion Consistency and clarity of a documented diagnosis within the medical record: POA - Treating - Not twan ating etc. Shock cardiogenic, hypovolemic, due to other cause, and present on arrival or not present on arrival. Sepsis with septic shock suspected, resolved, possible, probable, not present on arrival or other Other (explain) Clinically unable to determine (explain) Thank you, Celine Sainz, CCS, CDIS Use of terms such as suspected, likely, concern for, or probable (associated with a specific diagnosi s that is being evaluated, monitored, or treated as if it exists) are acceptable and can be coded in the inpatient se tting, when documented at the time of discharge. Please use your independent medical judgment in providing your response. THIS QUERY IS PART OF THE PERMANENT MEDICAL RECORD
== END 2023-10-07 15:00 | disposition expired | DRG 870 ==
LOC: HO.ED 13:18 → HO.EDOVER 14:36 → HO.IMC 19:05 → HO.ICU 09-28 13:57
PROVIDERS: Internal Medicine; Internal Medicine Cardiovascular Disease; Internal Medicine Critical Care Medicine; Internal Medicine Nephrology; Nurse Practitioner Acute Care; Nurse Practitioner Family; Registered Nurse Community Health; Admitting Provider Physician Assistant Medical; Emergency Provider Emergency Medicine Emergency Medical Services; PCP Internal Medicine; Visit Provider Internal Medicine Pulmonary Disease
DX: A41.9 Sepsis, unspecified organism (principal); I50.33 Acute on chronic diastolic (congestive) heart failure; J80 Acute respiratory distress syndrome; R65.21 Severe sepsis with septic shock; J44.1 Chronic obstructive pulmonary disease with (acute) exacerbation; I13.0 Hypertensive heart and chronic kidney disease with heart failure and stage 1 through stage 4 chronic kidney disease, or unspecified chronic kidney disease; I48.19 Other persistent atrial fibrillation; R04.89 Hemorrhage from other sites in respiratory passages; D68.32 Hemorrhagic disorder due to extrinsic circulating anticoagulants; N17.9 Acute kidney failure, unspecified; I25.10 Atherosclerotic heart disease of native coronary artery without angina pectoris; E78.5 Hyperlipidemia, unspecified; E11.22 Type 2 diabetes mellitus with diabetic chronic kidney disease; N18.30 Chronic kidney disease, stage 3 unspecified; I35.0 Nonrheumatic aortic (valve) stenosis; I27.81 Cor pulmonale (chronic); B95.7 Other staphylococcus as the cause of diseases classified elsewhere; I27.29 Other secondary pulmonary hypertension; E87.5 Hyperkalemia; T45.515A Adverse effect of anticoagulants, initial encounter; Z20.822 Contact with and (suspected) exposure to COVID-19; Z95.5 Presence of coronary angioplasty implant and graft; Z99.81 Dependence on supplemental oxygen; Z87.891 Personal history of nicotine dependence; Z79.01 Long term (current) use of anticoagulants; Z79.52 Long term (current) use of systemic steroids; Z79.84 Long term (current) use of oral hypoglycemic drugs; Z79.899 Other long term (current) drug therapy
CPT/HCPCS: 0241U; 36415; 36600; 71045; 71250; 80048; 80053; 80076; 80162; 80202; 82040; 82565; 82803; 82947; 83540; 83605; 83735; 83880; 84100; 84484; 85007; 85025; 85027; 85610; 86021; 86038; 86160; 86225; 86704; 86706; 86850; 86900; 86901; 86923; 87040; 87077; 87147; 87186; 87205; 87340; 90999; 93005; 94002; 94003; 94660; 94799; 99285; 99498; C1758; C9113; J1160; J1940; J2020; J2060; J2212; J2270; J2405; J2543; J2920; J2930; J3010; J3370; J3475; P9016; P9047

== ENCOUNTER → 2023-09-27 14:23 | Outpatient (BNV) | payer MEDICARE, SELFPAY | PROVIDERS: Admitting Provider Physician Assistant Medical; Emergency Provider Emergency Medicine Emergency Medical Services; PCP Internal Medicine; Visit Provider Nurse Practitioner Acute Care | DX: J96.21 Acute and chronic respiratory failure with hypoxia (principal); J84.9 Interstitial pulmonary disease, unspecified; I27.20 Pulmonary hypertension, unspecified | CPT/HCPCS: 99223; 99232; 99499 ==

== ENCOUNTER → 2023-09-27 14:23 | Outpatient (BNV) | payer MEDICARE, SELFPAY | PROVIDERS: Admitting Provider Physician Assistant Medical; Emergency Provider Emergency Medicine Emergency Medical Services; PCP Internal Medicine; Visit Provider Internal Medicine Cardiovascular Disease | DX: A41.9 Sepsis, unspecified organism (principal); R65.21 Severe sepsis with septic shock; I50.33 Acute on chronic diastolic (congestive) heart failure; N19 Unspecified kidney failure; B95.7 Other staphylococcus as the cause of diseases classified elsewhere; J84.9 Interstitial pulmonary disease, unspecified; J44.1 Chronic obstructive pulmonary disease with (acute) exacerbation | CPT/HCPCS: 31500; 99239; 99291; 99499 ==

== ENCOUNTER → 2023-09-27 14:23 | Outpatient (BNV) | payer MEDICARE, SELFPAY | PROVIDERS: Admitting Provider Physician Assistant Medical; Emergency Provider Emergency Medicine Emergency Medical Services; PCP Internal Medicine; Visit Provider Internal Medicine Pulmonary Disease | DX: N17.9 Acute kidney failure, unspecified (principal); R78.81 Bacteremia; B95.7 Other staphylococcus as the cause of diseases classified elsewhere; I50.33 Acute on chronic diastolic (congestive) heart failure; J84.9 Interstitial pulmonary disease, unspecified; J44.1 Chronic obstructive pulmonary disease with (acute) exacerbation; E11.8 Type 2 diabetes mellitus with unspecified complications | CPT/HCPCS: 36556; 99291 ==